=== PATIENT | male | born 1945 | race Caucasian/White ===

== ENCOUNTER 2016-10-30 15:12 | Inpatient (IN) | payer OTHER ==
[~2016-10-30] VITALS: Ht 179.1 cm; Wt 79.0 kg
[~2016-10-30 15:12] MED LIST: APR25 PO; ASPI81TA28 PO; ATOR10TA82 PO; FAMOCHW27 PO; FRS/40 PO; IMDSR30 PO; METO100T44 PO; NTRGSL/4 UT; PRD10 PO; SNK PO; TAMS0.4C38 PO; TRAM-10 PO
[2016-10-30] MEDS ORDERED: FENTANYL CITRATE INJ 50 MCG/1 ML 2 ML VIAL IV STA (15:42)
[2016-10-30] MEDS ORDERED: ONDANSETRON INJ 2 MG/ML 2 ML VIAL IV STA (15:42)
[2016-10-30] MEDS ORDERED: SODIUM CHLORIDE 0.9% 500ML 500 ML IV STA (15:42)
[2016-10-30] MEDS ORDERED: AMLO-114 PO ×2 (16:01→16:06)
[2016-10-30] MEDS ORDERED: SENN15TA PO (16:01)
[2016-10-30] MEDS ORDERED: PRD/1 PO (16:01)
[2016-10-30] MEDS ORDERED: CHOL200010 PO (16:01)
[2016-10-30] MEDS ORDERED: HYDR-4716 PO (16:01)
[2016-10-30] MEDS ORDERED: FLUO5CRE TOP (16:01)
[2016-10-30] MEDS ORDERED: FRS/40 PO (16:01)
[2016-10-30] MEDS ORDERED: ISOS30TA3 PO (16:01)
--- NOTE | 2016-10-30 16:55 | EMERGENCY ROOM VISIT NOTE ---
ED Visit Note First contact with patient: 15:24 I have seen and examined this patient with Lena Weber and generally agree with the treatment plan as discussed. Problem List Medical Problems: (1) MARGARET inhibitor intolerance Status: Chronic (2) BPH (benign prostatic hyperplasia) Status: Chronic (3) CAD (coronary artery disease) Status: Chronic (4) Carotid stenosis Status: Chronic (5) CKD (chronic kidney disease) stage 3, GFR 30-59 ml/min Status: Chronic (6) Dyslipidemia Status: Chronic (7) GERD (gastroesophageal reflux disease) Status: Chronic (8) HTN (hypertension) Status: Chronic (9) LBBB (left bundle branch block) Status: Chronic (10) Lumbago Status: Chronic (11) PMR (polymyalgia rheumatica) Status: Chronic Surgical Problems: (1) H/O heart artery stent Permanent Comment: left subclavian stent for occlusion with front runner catheter, Dr Retana 04/23 Status: Resolved (2) History of back surgery Status: Resolved (3) History of cholecystectomy Status: Resolved (4) History of inguinal hernia repair Status: Resolved (5) History of tonsillectomy Status: Resolved (6) S/P PTCA (percutaneous transluminal coronary angioplasty) Status: Chronic Current/Historical Medications Scheduled Amlodipine (Norvasc), 10 MG PO DAILY Aspirin (Aspirin Ec), 81 MG PO DAILY Atorvastatin (Lipitor), 10 MG PO 3XWK Cholecalciferol (Vitamin D), 2,000 UNITS PO DAILY Fluorouracil (Topical) (Efudex), 1 APPLN TOP BID Furosemide (Lasix), 40 MG PO DAILY Hydralazine HCl (Hydralazine HCl), 25 MG PO TID Isosorbide Mononitrate Ext Rel (Imdur Ext Rel), 30 MG PO QPM Metoprolol Succ (Toprol Xl) (Toprol-Xl ), 100 MG PO DAILY Prednisone (Prednisone), 8 MG PO DAILY Sennosides (Ex-Lax), 2 TABS PO PRN Tamsulosin Hcl (Flomax), 0.4 MG PO QPM Allergies Coded Allergies: Meperidine (Verified Allergy, Intermediate, HIVES, 06/08/16) Morphine (Verified Allergy, Intermediate, HIVES, 06/08/16) Hydromorphone (Verified Allergy, Unknown, HIVES, 12/19/16) Lisinopril (Verified Adverse Reaction, Unknown, COUGH, 06/08/16) Vital Signs Date Time Temp Pulse Resp B/P Pulse Ox O2 Delivery O2 Flow Rate FiO2 10/30/16 15:17 36.6 55 22 139/66 96 Room Air Laboratory Results Test 10/30/16 15:36 Departure Information Referrals Maciej Cardona M.D. (PCP) Patient Instructions [facility]
--- NOTE | 2016-10-30 17:00 | DIAGNOSTIC IMAGING REPORT ---
PA CHEST RADIOGRAPH AND UPRIGHT AND SUPINE AP RADIOGRAPHS OF THE ABDOMEN CLINICAL HISTORY: Abdominal pain. History of obstruction. COMPARISON STUDY: CT of the abdomen and pelvis May 05, 2016 and chest radiograph June 09, 2016. FINDINGS: A left subclavian artery stent is noted. Mild cardiomegaly is unchanged. Mild left basilar opacity favors atelectasis. There may be a trace left pleural effusion. There is no evidence of pulmonary edema. There is no free air. Numerous loops of moderately dilated small bowel are noted. The stomach is distended. There are cholecystectomy clips. A right hip arthroplasty is partially imaged. IMPRESSION: 1. Findings suggestive of a small bowel obstruction with moderate small bowel dilatation and distention of the stomach. 2. No free air. 3. Mild to moderate cardiomegaly. Electronically signed by: Frank Manriquez M.D. 10/30/2016 4:59 PM Dictated Date/Time: 10/30/2016 4:52 PM
[2016-10-30 17:06] LABS: BASO % 0.1 %; BASO ABS # 0.02 K/uL (0-0.2); COMPLETE YES; EOS % 0.6 %; HEMATOCRIT 46.5 % (42-52); IG% 0.2 %; LYMPH % 8.8 %; LYMPH ABS # 1.49 K/uL (1.2-3.4); MEAN CELL VOLUME 89.9 fL (80-100); MEAN CORPUSCULAR HEMOGLOBIN 29.2 pg (25-34); MEAN CORPUSCULAR HGB CONC 32.5 g/dl (32-36); MEAN PLATELET VOLUME 9.3 fL (7.4-10.4); NEUT % 81.3 %; PLATELET COUNT 300 K/uL (130-400); RED BLOOD COUNT 5.17 M/uL (4.7-6.1); WHITE BLOOD COUNT 16.95 K/uL (4.8-10.8)
[2016-10-30 17:39] LABS: ALT/SGPT 17 U/L (12-78); AST/SGOT 9 U/L (15-37); BLOOD UREA NITROGEN 32 mg/dl (7-18); BUN/CREATININE RATIO 17.9 (10-20); CALCIUM 9.3 mg/dl (8.5-10.1); CARBON DIOXIDE 30 mmol/L (21-32); CHLORIDE 102 mmol/L (98-107); GLUCOSE 114 mg/dl (70-99); POTASSIUM 3.8 mmol/L (3.5-5.1); SODIUM 140 mmol/L (136-145)
[2016-10-30 17:44] LABS: ALB/GLOB RATIO 0.8 (0.9-2); ALKALINE PHOSPHATASE 91 U/L (45-117)
--- NOTE | 2016-10-30 18:14 | EMERGENCY ROOM VISIT NOTE ---
History First contact with patient: 15:24 Chief Complaint: CONSTIPATION Stated Complaint: BOWEL BLOCKAGE CAUSING CONESTIVE HEART FAILURE Nursing Triage Summary: Pt reports he has been constipated for 1 week. Abdominal pain, nausea. Pt was here last year for bowel obstruction. Pt took laxatives this morning with no help History of Present Illness The patient is a 71 year old male who presents to the Emergency Room with complaints of constipation and abdominal pain. The patient reports that he has been constipated for the past one week. His last bowel movement was 7 days ago. Normally, he moves his bowels every 2-3 days. He states he took 2 Ex-Lax pills this morning. Shortly after, he developed a feeling of tightness in his abdomen as well as pain and dry heaves. He states the pain is across the middle of his abdomen. He rates his current discomfort a 10/10. He does have a history of bowel obstruction in April of last year. He states that his symptoms today do feel similar, but are less severe than his prior obstruction. He was able to eat cereal this morning but states he has not had much of an appetite since then. He has a history of CHF and hypertension. He reports history of a back surgery, neck surgery, hip fracture, bilateral inguinal hernia repairs, cholecystectomy and prior skin cancer. The patient denies any chest pain, shortness of breath, fevers, urinary symptoms or rectal bleeding. Review of Systems A complete 10 point review of systems was reviewed with the patient with pertinent positives and negatives as per history of present illness. All else were negative. Past Medical/Surgical History Medical Problems: (1) MARGARET inhibitor intolerance (2) BPH (benign prostatic hyperplasia) (3) CAD (coronary artery disease) (4) Carotid stenosis (5) CKD (chronic kidney disease) stage 3, GFR 30-59 ml/min (6) Dyslipidemia (7) GERD (gastroesophageal reflux disease) (8) HTN (hypertension) (9) LBBB (left bundle branch block) (10) Lumbago (11) Pericardial effusion (12) PMR (polymyalgia rheumatica) (13) Small bowel obstruction due to adhesions Surgical Problems: (1) H/O heart artery stent (2) History of back surgery (3) History of cholecystectomy (4) History of inguinal hernia repair (5) History of tonsillectomy (6) S/P PTCA (percutaneous transluminal coronary angioplasty) Social History Smoking Status: Former Smoker Alcohol Use: none Drug Use: none Marital Status: Housing Status: lives with family Current/Historical Medications Scheduled Amlodipine (Norvasc), 10 MG PO DAILY Aspirin (Aspirin Ec), 81 MG PO DAILY Atorvastatin (Lipitor), 10 MG PO 3XWK Cholecalciferol (Vitamin D), 2,000 UNITS PO DAILY Fluorouracil (Topical) (Efudex), 1 APPLN TOP BID Furosemide (Lasix), 40 MG PO DAILY Hydralazine HCl (Hydralazine HCl), 25 MG PO TID Isosorbide Mononitrate Ext Rel (Imdur Ext Rel), 30 MG PO QPM Metoprolol Succ (Toprol Xl) (Toprol-Xl ), 100 MG PO DAILY Prednisone (Prednisone), 8 MG PO DAILY Sennosides (Ex-Lax), 2 TABS PO PRN Tamsulosin Hcl (Flomax), 0.4 MG PO QPM Allergies Coded Allergies: Meperidine (Verified Allergy, Intermediate, HIVES, 06/08/16) Morphine (Verified Allergy, Intermediate, HIVES, 06/08/16) Hydromorphone (Verified Allergy, Unknown, HIVES, 06/08/16) Lisinopril (Verified Adverse Reaction, Unknown, COUGH, 06/08/16) Physical Exam Vital Signs Date Time Temp Pulse Resp B/P Pulse Ox O2 Delivery O2 Flow Rate FiO2 10/30/16 18:25 68 18 179/76 93 Room Air 10/30/16 15:17 36.6 55 22 139/66 96 Room Air Physical Exam VITALS: Vitals are noted on the nurse's note and reviewed by myself. Vital signs stable. GENERAL: This is a 71-year-old male, in no acute distress, nondiaphoretic, well- developed well-nourished. SKIN: The skin was without rashes. EYES: Pupils equal round and reactive to light and accommodation. No scleral icterus. MOUTH: Mucous membranes slightly dry. HEART: Regular rate and rhythm without murmurs gallops or rubs. LUNGS: Clear to auscultation bilaterally without wheezes, rales or rhonchi. ABDOMEN: Positive bowel sounds x 4. The abdomen is nondistended. There is diffuse tenderness to palpation across the mid abdomen with no focal tenderness. No guarding or rebound tenderness noted. NEURO: Patient was alert and oriented to person place and time. Medical Decision & Procedures ER Provider Diagnostic Interpretation: PA CHEST RADIOGRAPH AND UPRIGHT AND SUPINE AP RADIOGRAPHS OF THE ABDOMEN CLINICAL HISTORY: Abdominal pain. History of obstruction. COMPARISON STUDY: CT of the abdomen and pelvis May 05, 2016 and chest radiograph June 09, 2016. FINDINGS: A left subclavian artery stent is noted. Mild cardiomegaly is unchanged. Mild left basilar opacity favors atelectasis. There may be a trace left pleural effusion. There is no evidence of pulmonary edema. There is no free air. Numerous loops of moderately dilated small bowel are noted. The stomach is distended. There are cholecystectomy clips. A right hip arthroplasty is partially imaged. IMPRESSION: 1. Findings suggestive of a small bowel obstruction with moderate small bowel dilatation and distention of the stomach. 2. No free air. 3. Mild to moderate cardiomegaly. Laboratory Results 10/30/16 16:58 Red Blood Count 5.17, Mean Corpuscular Volume 89.9, Mean Corpuscular Hemoglobin 29.2, Mean Corpuscular Hemoglobin Concent 32.5, Mean Platelet Volume 9.3, Neutrophils (%) (Auto) 81.3, Lymphocytes (%) (Auto) 8.8, Monocytes (%) (Auto) 9.0, Eosinophils (%) (Auto) 0.6, Basophils (%) (Auto) 0.1, Neutrophils # (Auto) 13.77, Lymphocytes # (Auto) 1.49, Monocytes # (Auto) 1.53, Eosinophils # (Auto) 0.10, Basophils # (Auto) 0.02 10/30/16 16:58 Test 10/30/16 16:58 10/30/16 18:15 White Blood Count 16.95 K/uL (4.8-10.8) Red Blood Count 5.17 M/uL (4.7-6.1) Hemoglobin 15.1 g/dL (14.0-18.0) Hematocrit 46.5 % (42-52) Mean Corpuscular Volume 89.9 fL (80-100) Mean Corpuscular Hemoglobin 29.2 pg (25-34) Mean Corpuscular Hemoglobin Concent 32.5 g/dl (32-36) Platelet Count 300 K/uL (130-400) Mean Platelet Volume 9.3 fL (7.4-10.4) Neutrophils (%) (Auto) 81.3 % Lymphocytes (%) (Auto) 8.8 % Monocytes (%) (Auto) 9.0 % Eosinophils (%) (Auto) 0.6 % Basophils (%) (Auto) 0.1 % Neutrophils # (Auto) 13.77 K/uL (1.4-6.5) Lymphocytes # (Auto) 1.49 K/uL (1.2-3.4) Monocytes # (Auto) 1.53 K/uL (0.11-0.59) Eosinophils # (Auto) 0.10 K/uL (0-0.5) Basophils # (Auto) 0.02 K/uL (0-0.2) RDW Standard Deviation 48.3 fL (36.4-46.3) RDW Coefficient of Variation 14.7 % (11.5-14.5) Immature Granulocyte % (Auto) 0.2 % Immature Granulocyte # (Auto) 0.04 K/uL (0.00-0.02) Anion Gap 8.0 mmol/L (3-11) Est Creatinine Clear Calc Drug Dose 40.0 ml/min Estimated GFR () 43.5 Estimated GFR (Non- 37.6 BUN/Creatinine Ratio 17.9 (10-20) Calcium Level 9.3 mg/dl (8.5-10.1) Total Bilirubin 0.8 mg/dl (0.2-1) Aspartate Amino Transf (AST/SGOT) 9 U/L (15-37) Alanine Aminotransferase (ALT/SGPT) 17 U/L (12-78) Alkaline Phosphatase 91 U/L (45-117) Troponin I < 0.015 ng/ml (0-0.045) Total Protein 7.9 gm/dl (6.4-8.2) Albumin 3.6 gm/dl (3.4-5.0) Globulin 4.3 gm/dl (2.5-4.0) Albumin/Globulin Ratio 0.8 (0.9-2) Lipase 392 U/L (73-393) Urine Color DK YELLOW Urine Appearance CLEAR (CLEAR) Urine pH 5.0 (4.5-7.5) Urine Specific [place] 1.015 (1.000-1.030) Urine Protein NEG (NEG) Urine Glucose (UA) NEG (NEG) Urine Ketones NEG (NEG) Urine Occult Blood NEG (NEG) Urine Nitrite NEG (NEG) Urine Bilirubin NEG (NEG) Urine Urobilinogen NEG (NEG) Urine Leukocyte Esterase TRACE (NEG) Urine WBC (Auto) 1-5 /hpf (0-5) Urine RBC (Auto) 0-4 /hpf (0-4) Urine Hyaline Casts (Auto) 10-30 /lpf (0-5) Urine Epithelial Cells (Auto) 5-10 /lpf (0-5) Urine Bacteria (Auto) NEG (NEG) Urine Pathogenic Casts /lpf (0) Medications Administered Medications (Trade) Dose Ordered Sig/Antonino Route Start Time Stop Time Status Last Admin Dose Admin Sodium Chloride (Nss 500ml) 500 ml @ 999 mls/hr Q31M STAT IV 10/30/16 15:42 10/30/16 16:12 DC 10/30/16 17:16 999 MLS/HR Fentanyl Citrate (Fentanyl Inj) 50 mcg NOW STAT IV 10/30/16 15:42 10/30/16 15:43 DC 10/30/16 17:17 50 MCG Ondansetron HCl (Zofran Inj) 4 mg NOW STAT IV 10/30/16 15:42 10/30/16 15:43 DC 10/30/16 17:16 4 MG ED Course The patient was evaluated as above. Labs were drawn and IV access was obtained. Patient was medicated with 50 g fentanyl and 4 mg Zofran. Abdominal series was performed and read by radiology as above. Patient was reevaluated and informed of the findings. His pain has improved. NG tube was inserted by nursing staff. Case was discussed with Dr. Hawk, the general surgeon public relations counselor. He recommended admitting the patient to the medical service. Case was discussed with the [facility] hospitalist, Dr. Lazar. They agreed to evaluate the patient for admission. Medical Decision Differential diagnosis includes bowel obstruction, fecal impaction, diverticulitis, colitis, perforated viscus, among others. The patient is a 71-year-old male who presents today complaining of abdominal pain. Labs revealed a leukocytosis at 16.9. Creatinine was elevated at 1.80, but this appears to be the patient's baseline. EKG was interpreted by myself and shows a left bundle-branch block, which is old for the patient. Troponin is not elevated. Abdominal series shows evidence of a small bowel obstruction. General surgery was consulted and recommended medical admission. The hospitalist was contacted and will evaluate the patient for admission. NG tube was placed by nursing staff in the ED. All findings were discussed with the patient, who is agreeable to the treatment plan. The patient was independently evaluated by Dr. Lynn, ED attending physician , who agreed with my assessment and treatment plan. Impression Primary Impression: Small bowel obstruction Departure Information Referrals Maciej Cardona M.D. (PCP) Patient Instructions [facility]
[2016-10-30] MEDS ORDERED: D5NSS + 20MEQ KCL 1,000 ML IV SCH (18:45)
[2016-10-30] MEDS ORDERED: POLYETHYLENE (MIRALAX) 17 GM PACK PO PRN (18:45)
[2016-10-30] MEDS ORDERED: OXYCODONE/ACETAMINOPHEN 5-325 TAB PO PRN (18:45)
[2016-10-30] MEDS ORDERED: ACETAMINOPHEN 325 MG TAB PO PRN (18:45)
[2016-10-30] MEDS ORDERED: ONDANSETRON INJ 2 MG/ML 2 ML VIAL IV PRN (18:45)
[2016-10-30] MEDS ORDERED: MAGNESIUM HYDROXIDE SUSP 30 ML UDC PO PRN (18:45)
[2016-10-30] MEDS ORDERED: ALUMINUM/MAGNESIUM/SIMETH (MAALOX MAX) 30 ML UDC PO PRN (18:45)
[2016-10-30 18:46] LABS: URINE APPEARANCE CLEAR (CLEAR); URINE BILIRUBIN NEG (NEG); URINE COLOR DK YELLOW; URINE NITRITE NEG (NEG); URINE SPECIFIC GRAVITY 1.015 (1.000-1.030); UROBILINOGEN NEG (NEG); ZZUR CULT IF INDIC CLEAN CATCH NO
[2016-10-30 18:47] LABS: MANUAL MICROSCOPIC REQUIRED? NO; REVIEW REQ? YES
--- NOTE | 2016-10-30 18:54 | DIAGNOSTIC IMAGING REPORT ---
KUB HISTORY: Confirm placement of NG tube COMPARISON: Abdominal series 10/30/2016. FINDINGS: Nasogastric tube terminates in the proximal stomach. The fenestrated line is at the gastroesophageal junction. Therefore, this should be advanced by approximately 5 to 10 cm. Persistent dilatation of the small bowel loops. Cholecystectomy. Left basilar subsegmental atelectasis. No pneumoperitoneum or pneumatosis. IMPRESSION: 1. Nasogastric tube terminates in the proximal stomach and should be advanced by approximately 5 to 10 cm. 2. Persistent small bowel obstruction. Electronically signed by: Gualberto Hardy M.D. 10/30/2016 6:53 PM Dictated Date/Time: 10/30/2016 6:52 PM
--- NOTE | 2016-10-30 19:05 | History and Physical ---
History & Physical Date & Time of Service: October 30, 2016 at 18:47 Chief Complaint: Bowel Blockage Causing Conestive Heart Failure Primary Care Physician: Maciej Cardona M.D. History of Present Illness Source: patient, family, clinic records, hospital records This is a 71 year old male with a PMH of CAD s/p stents, chronic systolic CHF, CKD stage 3, PMR on chronic steroids, cervical disc disease, hx. of small bowel obstruction in April 2016 presents with abdominal distention, nausea/ vomiting that began prior to arrival; states that it seemed like a sudden increase in abdominal size; he developed sudden nausea and numerous episodes of vomiting. States he usually has a bowel movement every 2-3 days, did not think he was constipated at this time. He says this is similar to the episode that he had in April where he was also diagnosed with SBO, at that time, managed conservatively. Still feels sick, nauseous during exam. NGT is in place, not currently suctioning. States he also has pain in the cervical neck region, which is a chronic issue, but is worse than usual due to vomiting. As per , he has been having chills at home. Past Medical/Surgical History Medical Problems: (1) MARGARET inhibitor intolerance Status: Chronic (2) BPH (benign prostatic hyperplasia) Status: Chronic (3) CAD (coronary artery disease) Status: Chronic (4) Carotid stenosis Status: Chronic (5) CKD (chronic kidney disease) stage 3, GFR 30-59 ml/min Status: Chronic (6) Dyslipidemia Status: Chronic (7) GERD (gastroesophageal reflux disease) Status: Chronic (8) HTN (hypertension) Status: Chronic (9) LBBB (left bundle branch block) Status: Chronic (10) Lumbago Status: Chronic (11) PMR (polymyalgia rheumatica) Status: Chronic Surgical Problems: (1) H/O heart artery stent Permanent Comment: left subclavian stent for occlusion with front runner catheter, Dr Retana 04/23 Status: Resolved (2) History of back surgery Status: Resolved (3) History of cholecystectomy Status: Resolved (4) History of inguinal hernia repair Status: Resolved (5) History of tonsillectomy Status: Resolved (6) S/P PTCA (percutaneous transluminal coronary angioplasty) Status: Chronic Social History Smoking Status: Former Smoker Drug Use: none Marital Status: Housing status: lives with family Immunizations History of Influenza Vaccine: No History of Tetanus Vaccine?: Unknown History of Pneumococcal: Yes History of Hepatitis B Vaccine: Unknown Hepatitis Immunization Date: Jan 21, 2007 Multi-Drug Resistant Organisms History of MDRO: No Allergies Coded Allergies: Meperidine (Verified Allergy, Intermediate, HIVES, 06/08/16) Morphine (Verified Allergy, Intermediate, HIVES, 06/08/16) Hydromorphone (Verified Allergy, Unknown, HIVES, 06/08/16) Lisinopril (Verified Adverse Reaction, Unknown, COUGH, 06/08/16) Home Medications Scheduled Amlodipine (Norvasc), 10 MG PO DAILY Aspirin (Aspirin Ec), 81 MG PO DAILY Atorvastatin (Lipitor), 10 MG PO 3XWK Cholecalciferol (Vitamin D), 2,000 UNITS PO DAILY Fluorouracil (Topical) (Efudex), 1 APPLN TOP BID Furosemide (Lasix), 40 MG PO DAILY Hydralazine HCl (Hydralazine HCl), 25 MG PO TID Isosorbide Mononitrate Ext Rel (Imdur Ext Rel), 30 MG PO QPM Metoprolol Succ (Toprol Xl) (Toprol-Xl ), 100 MG PO DAILY Prednisone (Prednisone), 8 MG PO DAILY Sennosides (Ex-Lax), 2 TABS PO PRN Tamsulosin Hcl (Flomax), 0.4 MG PO QPM Review of Systems Constitutional: + chills, No fever Respiratory: No cough, No dyspnea at rest, No dyspnea on exertion, No hemoptysis, No shortness of breath, No sputum, No wheezing Cardiovascular: No chest pain, No edema, No orthopnea, No palpitations Abdomen: + constipation, + nausea, + vomiting, No GI bleeding, No diarrhea, No pain Musculoskeletal: + joint pain (cervical spine; R hip), + muscle pain Genitourinary - Male: + urinary retention (chronic), No dysuria, No urinary frequency, No urinary urgency Neurologic: No balance problems, No vertigo Psychiatric: No anxiety, No depression symptoms Hematologic / Lymphatic: No abnormal bleeding/bruising Integumentary: No rash Allergic / Immunologic: No environmental allergies, No seasonal allergies Physical Exam Vital Signs Date Time Temp Pulse Resp B/P Pulse Ox O2 Delivery O2 Flow Rate FiO2 10/30/16 15:17 36.6 55 22 139/66 96 Room Air General Appearance: + mild distress (mild to moderate distress secondary to nausea, pain) Head: normocephalic, atraumatic Eyes: normal inspection ENT: hearing grossly normal Respiratory/Chest: lungs clear, normal breath sounds, no respiratory distress, no accessory muscle use Cardiovascular: regular rate, rhythm, no edema, no murmur Abdomen/GI: non tender, no organomegaly, + abnormal bowel sounds (decreased bowel sounds), + distended Back: no muscle spasm Extremities/Musculoskelatal: normal capillary refill, no pedal edema Neurologic/Psych: no motor/sensory deficits, alert Skin: normal color Lymphatic: no adenopathy Diagnostics Laboratory Results Results Past 24 Hours Test 10/30/16 16:58 10/30/16 18:15 Range/Units White Blood Count 16.95 4.8-10.8 K/uL Red Blood Count 5.17 4.7-6.1 M/uL Hemoglobin 15.1 14.0-18.0 g/dL Hematocrit 46.5 42-52 % Mean Corpuscular Volume 89.9 80-100 fL Mean Corpuscular Hemoglobin 29.2 25-34 pg Mean Corpuscular Hemoglobin Concent 32.5 32-36 g/dl Platelet Count 300 130-400 K/uL Mean Platelet Volume 9.3 7.4-10.4 fL Neutrophils (%) (Auto) 81.3 % Lymphocytes (%) (Auto) 8.8 % Monocytes (%) (Auto) 9.0 % Eosinophils (%) (Auto) 0.6 % Basophils (%) (Auto) 0.1 % Neutrophils # (Auto) 13.77 1.4-6.5 K/uL Lymphocytes # (Auto) 1.49 1.2-3.4 K/uL Monocytes # (Auto) 1.53 0.11-0.59 K/uL Eosinophils # (Auto) 0.10 0-0.5 K/uL Basophils # (Auto) 0.02 0-0.2 K/uL RDW Standard Deviation 48.3 36.4-46.3 fL RDW Coefficient of Variation 14.7 11.5-14.5 % Immature Granulocyte % (Auto) 0.2 % Immature Granulocyte # (Auto) 0.04 0.00-0.02 K/uL Sodium Level 140 136-145 mmol/L Potassium Level 3.8 3.5-5.1 mmol/L Chloride Level 102 98-107 mmol/L Carbon Dioxide Level 30 21-32 mmol/L Anion Gap 8.0 3-11 mmol/L Blood Urea Nitrogen 32 7-18 mg/dl Creatinine 1.80 0.60-1.40 mg/dl Est Creatinine Clear Calc Drug Dose 40.0 ml/min Estimated GFR () 43.5 Estimated GFR (Non- 37.6 BUN/Creatinine Ratio 17.9 10-20 Random Glucose 114 70-99 mg/dl Calcium Level 9.3 8.5-10.1 mg/dl Total Bilirubin 0.8 0.2-1 mg/dl Aspartate Amino Transf (AST/SGOT) 9 15-37 U/L Alanine Aminotransferase (ALT/SGPT) 17 12-78 U/L Alkaline Phosphatase 91 45-117 U/L Troponin I < 0.015 0-0.045 ng/ml Total Protein 7.9 6.4-8.2 gm/dl Albumin 3.6 3.4-5.0 gm/dl Globulin 4.3 2.5-4.0 gm/dl Albumin/Globulin Ratio 0.8 0.9-2 Lipase 392 73-393 U/L Diagnostic Radiology PA CHEST RADIOGRAPH AND UPRIGHT AND SUPINE AP RADIOGRAPHS OF THE ABDOMEN CLINICAL HISTORY: Abdominal pain. History of obstruction. COMPARISON STUDY: CT of the abdomen and pelvis May 05, 2016 and chest radiograph June 09, 2016. FINDINGS: A left subclavian artery stent is noted. Mild cardiomegaly is unchanged. Mild left basilar opacity favors atelectasis. There may be a trace left pleural effusion. There is no evidence of pulmonary edema. There is no free air. Numerous loops of moderately dilated small bowel are noted. The stomach is distended. There are cholecystectomy clips. A right hip arthroplasty is partially imaged. IMPRESSION: 1. Findings suggestive of a small bowel obstruction with moderate small bowel dilatation and distention of the stomach. 2. No free air. 3. Mild to moderate cardiomegaly. No change from prior EKG Impression Assessment and Plan This is a 71 year old male with a PMH of CAD s/p stents, chronic systolic CHF, CKD stage 3, PMR on chronic steroids, cervical disc disease, hx. of small bowel obstruction in April 2016 presents with abdominal distention, nausea/vomiting Small Bowel Obstruction patient presented with distention, nausea, vomiting radiographs suggest SBO NGT in place, will need to be advanced then intermittent suctioning gentle hydration, D5NS + 20meq KCl @ 80mL/hr x1 bag total NPO for now general surgery consultation; recurrent SBO Chronic Systolic CHF echo performed in May 2016 suggests mild LVEF dysfunction LVEF ~ 40-45% hold Lasix give gentle fluids while NPO monitor for fluid overload MARGARET-I intolerance CKD stage 3 creat = 1.8 baseline is around 1.6-1.7 gentle hydration with IVFs avoiding nephrotoxic agents if able CAD s/p stents clinically stable continue aspirin, statin, b-natanael, imdur PMR continue prednisone DVT ppx subq heparin FULL CODE Level of Care Med/Surg Resuscitation Status FULL RESUSCITATION VTE Prophylaxis VTE Risk Assessment Done? Y/N: Yes Risk Level: Moderate Given or contraindicated: Unfractionated heparin SQ
[2016-10-30] MEDS ORDERED: HydrALAZINE HCL 20 MG/ML VIAL IV. PRN (19:15)
[2016-10-30 20:16] VITALS: O2SAT 93
[2016-10-30] MEDS ORDERED: ACETAMINOPHEN 1000 MG/100 ML IV IV ONE (20:42)
[2016-10-30] MEDS ORDERED: ACETAMINOPHEN IV 650 MG in EMPTY BAG 0 ML IV PRN (20:45)
[2016-10-30] MEDS: ISOSORBIDE MONONITRATE 30 MG TABCR PO SCH (21:00)
[2016-10-30] MEDS ORDERED: FLUOROURACIL TOP SCH (21:00)
[2016-10-30] MEDS: TAMSULOSIN HCL 0.4 MG CAP PO SCH (21:00)
[2016-10-30 21:20] VITALS: BP 150/69; PULSE 67; TEMP 36.9; O2SAT 95
[2016-10-30 21:46] VITALS: Ht 179.1 cm; Wt 79.0 kg
[2016-10-30] MEDS ORDERED: ATORVASTATIN 10 MG TAB PO SCH (21:55)
[2016-10-30 22:59] LABS: PROTHROMBIN TIME (PATIENT) 10.7 SECONDS (9.0-12.0)
[2016-10-31 00:51] VITALS: BP 133/71; PULSE 73; TEMP 37.2; O2SAT 94
[2016-10-31] MEDS: HEPARIN SOD 5000 UNIT/0.5 ML CARP SQ SCH ×3 (06:07→21:26)
[2016-10-31 06:41] LABS: HEMATOCRIT 41.2 % (42-52); MEAN CELL VOLUME 90.4 fL (80-100); MEAN CORPUSCULAR HEMOGLOBIN 29.2 pg (25-34); MEAN CORPUSCULAR HGB CONC 32.3 g/dl (32-36); MEAN PLATELET VOLUME 9.5 fL (7.4-10.4); PLATELET COUNT 275 K/uL (130-400); RED BLOOD COUNT 4.56 M/uL (4.7-6.1); WHITE BLOOD COUNT 11.07 K/uL (4.8-10.8)
[2016-10-31 07:00] VITALS: BP_SYST 180; BP_SYST 187; BP_DIAS 71; BP_DIAS 79; PULSE 67; TEMP 36.9; O2SAT 94
[2016-10-31 07:16] LABS: BUN/CREATININE RATIO 20.5 (10-20); CALCIUM 8.4 mg/dl (8.5-10.1); CREATININE 1.7 mg/dl (0.60-1.40); MAGNESIUM 2.5 mg/dl (1.8-2.4); POTASSIUM 4.2 mmol/L (3.5-5.1)
[2016-10-31] MEDS: ASPIRIN 81 MG ECTAB PO SCH (07:51)
[2016-10-31] MEDS: METOPROLOL SUCC 50MG EXT REL TAB PO SCH (07:51)
[2016-10-31] MEDS: AMLODIPINE BESYLATE 5 MG TAB PO SCH (07:52)
[2016-10-31] MEDS: PREDNISONE PO SCH ×2 (07:52)
--- NOTE | 2016-10-31 09:11 | DIAGNOSTIC IMAGING REPORT ---
ABDOMEN 2 VIEWS HISTORY: Follow-up small bowel obstruction. COMPARISON: KUB 10/30/2016. FINDINGS: Nasogastric tube terminates in the stomach. Prior cholecystectomy. Multiple distended gas-filled loops of small bowel are again seen throughout the abdomen. These are not simply changed. There is gas and fluid within the colon. Right hip arthroplasty. No pneumoperitoneum. No pneumatosis. IMPRESSION: No change in the small bowel obstruction. Nasogastric tube terminates in the stomach. Electronically signed by: Gualberto Hardy M.D. 10/31/2016 9:10 AM Dictated Date/Time: 10/31/2016 9:09 AM
--- NOTE | 2016-10-31 11:13 | Surgery Consultation ---
Consultation Date of Consultation: October 31, 2016. Attending Physician: Andie Ledezma DO History of Present Illness 71 y/o with several day hx of n/v and abdominal pain. presented to er and found to have a SBO currently feeling much better. several large BM's overnight. no nausea. no pain currently. states abdominal distension resolved. Past Medical/Surgical History Medical Problems: (1) CHF (congestive heart failure) Status: Acute (2) Respiratory failure Status: Acute (3) Small bowel obstruction Status: Acute Surgical Problems: (1) S/P PTCA (percutaneous transluminal coronary angioplasty) Status: Chronic Social History Smoking Status: Former Smoker Drug Use: none Marital Status: Housing Status: lives with family Allergies Coded Allergies: Meperidine (Verified Allergy, Intermediate, HIVES, 06/08/16) Morphine (Verified Allergy, Intermediate, HIVES, 06/08/16) Hydromorphone (Verified Allergy, Unknown, HIVES, 06/08/16) Lisinopril (Verified Adverse Reaction, Unknown, COUGH, 06/08/16) Home Medications Scheduled Amlodipine (Norvasc), 10 MG PO DAILY Aspirin (Aspirin Ec), 81 MG PO DAILY Atorvastatin (Lipitor), 10 MG PO 3XWK Cholecalciferol (Vitamin D), 2,000 UNITS PO DAILY Fluorouracil (Topical) (Efudex), 1 APPLN TOP BID Furosemide (Lasix), 40 MG PO DAILY Hydralazine HCl (Hydralazine HCl), 25 MG PO TID Isosorbide Mononitrate Ext Rel (Imdur Ext Rel), 30 MG PO QPM Metoprolol Succ (Toprol Xl) (Toprol-Xl ), 100 MG PO DAILY Prednisone (Prednisone), 8 MG PO DAILY Sennosides (Ex-Lax), 2 TABS PO PRN Tamsulosin Hcl (Flomax), 0.4 MG PO QPM Current Inpatient Medications Current Inpatient Medications Medications (Trade) Dose Ordered Sig/Antonino Route Start Time Stop Time Status Last Admin Dose Admin Heparin Sodium (Porcine) (Heparin Sq 5000 Unit/0.5ml) 5,000 unit Q8H SQ 10/31/16 06:00 11/30/16 05:59 10/31/16 06:07 5,000 UNIT Acetaminophen (Tylenol Tab) 650 mg Q4H PRN PO 10/30/16 18:45 6/11/17 18:44 Al Hydrox/Mg Hydrox/Simethicone (Maalox Max Susp) 15 ml Q4H PRN PO 10/30/16 18:45 11/29/16 18:44 Magnesium Hydroxide (Milk Of Magnesia Susp) 30 ml Q6H PRN PO 10/30/16 18:45 11/29/16 18:44 Polyethylene (Miralax Powder Packet) 17 gm DAILY PRN PO 10/30/16 18:45 11/29/16 18:44 Ondansetron HCl (Zofran Inj) 4 mg Q6H PRN IV 10/30/16 18:45 11/29/16 18:44 Amlodipine Besylate (Norvasc Tab) 10 mg DAILY PO 10/31/16 09:00 11/30/16 08:59 10/31/16 07:52 10 MG Aspirin (Ecotrin Tab) 81 mg DAILY PO 10/31/16 09:00 11/30/16 08:59 10/31/16 07:51 81 MG Atorvastatin Calcium (Lipitor Tab) 10 mg MoWeFr@2100 PO 10/30/16 21:55 11/29/16 21:54 Hydralazine HCl (Apresoline Tab) 25 mg TID PO 10/30/16 21:00 11/29/16 20:59 10/31/16 07:51 25 MG Isosorbide Mononitrate (Imdur Ext Rel Tab) 30 mg QPM PO 10/30/16 21:00 11/29/16 20:59 Metoprolol Succinate (Toprol Xl Tab) 100 mg DAILY PO 10/31/16 09:00 11/30/16 08:59 10/31/16 07:51 100 MG Tamsulosin HCl (Flomax Cap) 0.4 mg QPM PO 10/30/16 21:00 11/29/16 20:59 Oxycodone/ Acetaminophen (Percocet 5-325mg Tab) 1 tab Q4H PRN PO 10/30/16 18:45 11/13/16 18:44 Hydralazine HCl 10 mg 10 mg TID PRN IV. 10/30/16 19:15 11/29/16 19:14 Acetaminophen/ Empty Bag (Ofirmev Iv/ Empty Iv Bag 100ml) 65 ml @ 260 mls/hr Q6H PRN IV 10/30/16 20:45 11/29/16 20:44 Prednisone/ Prednisone (PredniSONE TAB/ PredniSONE TAB) 8 mg QAM PO 10/31/16 09:00 11/30/16 08:59 10/31/16 07:52 8 MG Miscellaneous Information (Order Awaiting Action) 1 ea QS N/A 10/31/16 00:00 11/30/16 00:00 Review of Systems Abdomen: + nausea, + pain, + vomiting Physical Exam Date Time Temp Pulse Resp B/P Pulse Ox O2 Delivery O2 Flow Rate FiO2 10/31/16 08:00 Room Air 10/31/16 07:00 36.9 67 18 180/79 94 Room Air 187/71 10/31/16 00:51 37.2 73 16 133/71 94 Room Air 10/30/16 23:50 Room Air 10/30/16 21:46 Room Air 10/30/16 21:20 36.9 67 18 150/69 95 Room Air 10/30/16 21:20 Room Air 10/30/16 20:16 73 20 169/85 93 Room Air 10/30/16 18:25 68 18 179/76 93 Room Air 10/30/16 15:17 36.6 55 22 139/66 96 Room Air General Appearance: no apparent distress Head: normocephalic, atraumatic Eyes: normal inspection, EOMI ENT: hearing grossly normal Neck: supple, no JVD Respiratory/Chest: no respiratory distress, no accessory muscle use Cardiovascular: regular rate, rhythm Abdomen/GI: non tender, soft, + pertinent finding (non-distended) Extremities/Musculoskelatal: normal inspection, no pedal edema Neurologic/Psych: alert, oriented x 3 Skin: normal color, warm/dry, no rash Laboratory Results Last 24 Hours Test 10/30/16 16:58 10/30/16 18:15 10/30/16 22:45 10/31/16 05:48 White Blood Count 16.95 K/uL 11.07 K/uL Red Blood Count 5.17 M/uL 4.56 M/uL Hemoglobin 15.1 g/dL 13.3 g/dL Hematocrit 46.5 % 41.2 % Mean Corpuscular Volume 89.9 fL 90.4 fL Mean Corpuscular Hemoglobin 29.2 pg 29.2 pg Mean Corpuscular Hemoglobin Concent 32.5 g/dl 32.3 g/dl Platelet Count 300 K/uL 275 K/uL Mean Platelet Volume 9.3 fL 9.5 fL Neutrophils (%) (Auto) 81.3 % Lymphocytes (%) (Auto) 8.8 % Monocytes (%) (Auto) 9.0 % Eosinophils (%) (Auto) 0.6 % Basophils (%) (Auto) 0.1 % Neutrophils # (Auto) 13.77 K/uL Lymphocytes # (Auto) 1.49 K/uL Monocytes # (Auto) 1.53 K/uL Eosinophils # (Auto) 0.10 K/uL Basophils # (Auto) 0.02 K/uL RDW Standard Deviation 48.3 fL 49.4 fL RDW Coefficient of Variation 14.7 % 14.9 % Immature Granulocyte % (Auto) 0.2 % Immature Granulocyte # (Auto) 0.04 K/uL Sodium Level 140 mmol/L 143 mmol/L Potassium Level 3.8 mmol/L 4.2 mmol/L Chloride Level 102 mmol/L 107 mmol/L Carbon Dioxide Level 30 mmol/L 29 mmol/L Anion Gap 8.0 mmol/L 7.0 mmol/L Blood Urea Nitrogen 32 mg/dl 35 mg/dl Creatinine 1.80 mg/dl 1.70 mg/dl Est Creatinine Clear Calc Drug Dose 40.0 ml/min 43.0 ml/min Estimated GFR () 43.5 46.7 Estimated GFR (Non- 37.6 40.3 BUN/Creatinine Ratio 17.9 20.5 Random Glucose 114 mg/dl 98 mg/dl Calcium Level 9.3 mg/dl 8.4 mg/dl Total Bilirubin 0.8 mg/dl Aspartate Amino Transf (AST/SGOT) 9 U/L Alanine Aminotransferase (ALT/SGPT) 17 U/L Alkaline Phosphatase 91 U/L Troponin I < 0.015 ng/ml Total Protein 7.9 gm/dl Albumin 3.6 gm/dl Globulin 4.3 gm/dl Albumin/Globulin Ratio 0.8 Lipase 392 U/L Urine Color DK YELLOW Urine Appearance CLEAR Urine pH 5.0 Urine Specific [place] 1.015 Urine Protein NEG Urine Glucose (UA) NEG Urine Ketones NEG Urine Occult Blood NEG Urine Nitrite NEG Urine Bilirubin NEG Urine Urobilinogen NEG Urine Leukocyte Esterase TRACE Urine WBC (Auto) 1-5 /hpf Urine RBC (Auto) 0-4 /hpf Urine Hyaline Casts (Auto) 10-30 /lpf Urine Epithelial Cells (Auto) 5-10 /lpf Urine Bacteria (Auto) NEG Urine Pathogenic Casts /lpf Prothrombin Time 10.7 SECONDS Prothromb Time International Ratio 1.0 Activated Partial Thromboplast Time 25.0 SECONDS Partial Thromboplastin Ratio 1.0 Hepatitis C Antibody Screen NEG Magnesium Level 2.5 mg/dl Assessment & Plan PSBO clinically much improved. several BM's. nausea/pain /distension all resolved repeat KUB however shows persistent dilated small bowel loops pt anxious to progress things, however in light of the xray, I would probably keep ngt and repeat kub tomorrow am prior to pulling/starting diet will follow along.
--- NOTE | 2016-10-31 11:45 | Progress Note ---
Subjective Date of Service: October 31, 2016. Subjective Pt evaluation today including: conversation w/ patient, physical exam, lab review, review of studies, review of inpatient medication list Saw/examined the patient in room 352 NGT is currently clamped, lots of drainage ~ 500mL collected currently Has had multiple bowel movements today Problem List Medical Problems: (1) CHF (congestive heart failure) Status: Acute (2) Respiratory failure Status: Acute (3) Small bowel obstruction Status: Acute Surgical Problems: (1) S/P PTCA (percutaneous transluminal coronary angioplasty) Status: Chronic Review of Systems Constitutional: No chills, No fever Respiratory: No cough, No shortness of breath, No sputum Cardiac: No chest pain, No edema, No palpitations Abdomen: + problem reported (symptoms have resolved), No constipation, No diarrhea, No nausea, No pain, No vomiting Medications Current Inpatient Medications Medications (Trade) Dose Ordered Sig/Antonino Route Start Time Stop Time Status Last Admin Dose Admin Heparin Sodium (Porcine) (Heparin Sq 5000 Unit/0.5ml) 5,000 unit Q8H SQ 10/31/16 06:00 11/30/16 05:59 10/31/16 06:07 5,000 UNIT Acetaminophen (Tylenol Tab) 650 mg Q4H PRN PO 10/30/16 18:45 11/29/16 18:44 Al Hydrox/Mg Hydrox/Simethicone (Maalox Max Susp) 15 ml Q4H PRN PO 10/30/16 18:45 11/29/16 18:44 Magnesium Hydroxide (Milk Of Magnesia Susp) 30 ml Q6H PRN PO 10/30/16 18:45 11/29/16 18:44 Polyethylene (Miralax Powder Packet) 17 gm DAILY PRN PO 10/30/16 18:45 11/29/16 18:44 Ondansetron HCl (Zofran Inj) 4 mg Q6H PRN IV 10/30/16 18:45 11/29/16 18:44 Amlodipine Besylate (Norvasc Tab) 10 mg DAILY PO 10/31/16 09:00 11/30/16 08:59 10/31/16 07:52 10 MG Aspirin (Ecotrin Tab) 81 mg DAILY PO 10/31/16 09:00 11/30/16 08:59 10/31/16 07:51 81 MG Atorvastatin Calcium (Lipitor Tab) 10 mg MoWeFr@2100 PO 10/30/16 21:55 11/29/16 21:54 Hydralazine HCl (Apresoline Tab) 25 mg TID PO 10/30/16 21:00 11/29/16 20:59 10/31/16 07:51 25 MG Isosorbide Mononitrate (Imdur Ext Rel Tab) 30 mg QPM PO 10/30/16 21:00 11/29/16 20:59 Metoprolol Succinate (Toprol Xl Tab) 100 mg DAILY PO 10/31/16 09:00 11/30/16 08:59 10/31/16 07:51 100 MG Tamsulosin HCl (Flomax Cap) 0.4 mg QPM PO 10/30/16 21:00 11/29/16 20:59 Oxycodone/ Acetaminophen (Percocet 5-325mg Tab) 1 tab Q4H PRN PO 10/30/16 18:45 11/13/16 18:44 Hydralazine HCl 10 mg 10 mg TID PRN IV. 10/30/16 19:15 11/29/16 19:14 Acetaminophen/ Empty Bag (Ofirmev Iv/ Empty Iv Bag 100ml) 65 ml @ 260 mls/hr Q6H PRN IV 10/30/16 20:45 11/29/16 20:44 Prednisone/ Prednisone (PredniSONE TAB/ PredniSONE TAB) 8 mg QAM PO 10/31/16 09:00 11/30/16 08:59 10/31/16 07:52 8 MG Miscellaneous Information (Order Awaiting Action) 1 ea QS N/A 10/31/16 00:00 11/30/16 00:00 Objective Vital Signs Date Time Temp Pulse Resp B/P Pulse Ox O2 Delivery O2 Flow Rate FiO2 10/31/16 08:00 Room Air 10/31/16 07:00 36.9 67 18 180/79 94 Room Air 187/71 10/31/16 00:51 37.2 73 16 133/71 94 Room Air 10/30/16 23:50 Room Air 10/30/16 21:46 Room Air 10/30/16 21:20 36.9 67 18 150/69 95 Room Air 10/30/16 21:20 Room Air 10/30/16 20:16 73 20 169/85 93 Room Air 10/30/16 18:25 68 18 179/76 93 Room Air 10/30/16 15:17 36.6 55 22 139/66 96 Room Air Physical Exam General Appearance: no apparent distress Respiratory/Chest: lungs clear, normal breath sounds, no respiratory distress, no accessory muscle use Cardiovascular: regular rate, rhythm, no edema, no murmur Abdomen: normal bowel sounds, non tender, soft, + pertinent finding (NGT in place, currently clamped; distention has gone down considerably; improved bowel sounds ) Extremities: normal inspection, no pedal edema Neurologic/Psychiatric: no motor/sensory deficits, alert, normal mood/affect Laboratory Results Last 24 Hours Test 10/30/16 16:58 10/30/16 18:15 10/30/16 22:45 10/31/16 05:48 White Blood Count 16.95 K/uL 11.07 K/uL Red Blood Count 5.17 M/uL 4.56 M/uL Hemoglobin 15.1 g/dL 13.3 g/dL Hematocrit 46.5 % 41.2 % Mean Corpuscular Volume 89.9 fL 90.4 fL Mean Corpuscular Hemoglobin 29.2 pg 29.2 pg Mean Corpuscular Hemoglobin Concent 32.5 g/dl 32.3 g/dl Platelet Count 300 K/uL 275 K/uL Mean Platelet Volume 9.3 fL 9.5 fL Neutrophils (%) (Auto) 81.3 % Lymphocytes (%) (Auto) 8.8 % Monocytes (%) (Auto) 9.0 % Eosinophils (%) (Auto) 0.6 % Basophils (%) (Auto) 0.1 % Neutrophils # (Auto) 13.77 K/uL Lymphocytes # (Auto) 1.49 K/uL Monocytes # (Auto) 1.53 K/uL Eosinophils # (Auto) 0.10 K/uL Basophils # (Auto) 0.02 K/uL RDW Standard Deviation 48.3 fL 49.4 fL RDW Coefficient of Variation 14.7 % 14.9 % Immature Granulocyte % (Auto) 0.2 % Immature Granulocyte # (Auto) 0.04 K/uL Sodium Level 140 mmol/L 143 mmol/L Potassium Level 3.8 mmol/L 4.2 mmol/L Chloride Level 102 mmol/L 107 mmol/L Carbon Dioxide Level 30 mmol/L 29 mmol/L Anion Gap 8.0 mmol/L 7.0 mmol/L Blood Urea Nitrogen 32 mg/dl 35 mg/dl Creatinine 1.80 mg/dl 1.70 mg/dl Est Creatinine Clear Calc Drug Dose 40.0 ml/min 43.0 ml/min Estimated GFR () 43.5 46.7 Estimated GFR (Non- 37.6 40.3 BUN/Creatinine Ratio 17.9 20.5 Random Glucose 114 mg/dl 98 mg/dl Calcium Level 9.3 mg/dl 8.4 mg/dl Total Bilirubin 0.8 mg/dl Aspartate Amino Transf (AST/SGOT) 9 U/L Alanine Aminotransferase (ALT/SGPT) 17 U/L Alkaline Phosphatase 91 U/L Troponin I < 0.015 ng/ml Total Protein 7.9 gm/dl Albumin 3.6 gm/dl Globulin 4.3 gm/dl Albumin/Globulin Ratio 0.8 Lipase 392 U/L Urine Color DK YELLOW Urine Appearance CLEAR Urine pH 5.0 Urine Specific [place] 1.015 Urine Protein NEG Urine Glucose (UA) NEG Urine Ketones NEG Urine Occult Blood NEG Urine Nitrite NEG Urine Bilirubin NEG Urine Urobilinogen NEG Urine Leukocyte Esterase TRACE Urine WBC (Auto) 1-5 /hpf Urine RBC (Auto) 0-4 /hpf Urine Hyaline Casts (Auto) 10-30 /lpf Urine Epithelial Cells (Auto) 5-10 /lpf Urine Bacteria (Auto) NEG Urine Pathogenic Casts /lpf Prothrombin Time 10.7 SECONDS Prothromb Time International Ratio 1.0 Activated Partial Thromboplast Time 25.0 SECONDS Partial Thromboplastin Ratio 1.0 Hepatitis C Antibody Screen NEG Magnesium Level 2.5 mg/dl Assessment and Plan This is a 71 year old male with a PMH of CAD s/p stents, chronic systolic CHF, CKD stage 3, PMR on chronic steroids, cervical disc disease, hx. of small bowel obstruction in April 2016 presents with abdominal distention, nausea/vomiting Small Bowel Obstruction 10/31 IVFs will be continued abdominal radiograph shows loops of bowel appreciate surgery input repeat KUB in AM will do NPO except sips and chips advance diet in AM 10/30 patient presented with distention, nausea, vomiting radiographs suggest SBO NGT in place, will need to be advanced then intermittent suctioning gentle hydration, D5NS + 20meq KCl @ 80mL/hr x1 bag total NPO for now general surgery consultation; recurrent SBO Chronic Systolic CHF echo performed in May 2016 suggests mild LVEF dysfunction LVEF ~ 40-45% hold Lasix give gentle fluids while NPO monitor for fluid overload MARGARET-I intolerance CKD stage 3 10/31 creat at 1.7, which is around her baseline 10/30 creat = 1.8 baseline is around 1.6-1.7 gentle hydration with IVFs avoiding nephrotoxic agents if able CAD s/p stents clinically stable continue aspirin, statin, b-natanael, Imdur PMR continue prednisone DVT ppx subq heparin FULL CODE
[2016-10-31 15:10] VITALS: BP 158/72; PULSE 65; TEMP 36.5; O2SAT 93
[2016-10-31 21:21] VITALS: BP 162/69; PULSE 62
[2016-10-31] MEDS: TAMSULOSIN HCL 0.4 MG CAP PO SCH (21:22)
[2016-10-31] MEDS: ISOSORBIDE MONONITRATE 30 MG TABCR PO SCH (21:23)
[2016-10-31 23:07] VITALS: BP 163/64; PULSE 65; TEMP 36.8; O2SAT 93
[2016-11-01] MEDS: HEPARIN SOD 5000 UNIT/0.5 ML CARP SQ SCH ×3 (05:55→21:30)
[2016-11-01 06:01] LABS: HEMATOCRIT 40.3 % (42-52); MEAN CORPUSCULAR HGB CONC 31.5 g/dl (32-36); MEAN PLATELET VOLUME 9.7 fL (7.4-10.4); PLATELET COUNT 274 K/uL (130-400); RED BLOOD COUNT 4.38 M/uL (4.7-6.1); WHITE BLOOD COUNT 10.42 K/uL (4.8-10.8)
[2016-11-01 06:41] LABS: BUN/CREATININE RATIO 16.9 (10-20); CALCIUM 8.5 mg/dl (8.5-10.1); CREATININE 1.8 mg/dl (0.60-1.40); MAGNESIUM 2.4 mg/dl (1.8-2.4); POTASSIUM 4.1 mmol/L (3.5-5.1)
[2016-11-01 07:44] VITALS: BP 152/62; PULSE 73; TEMP 36.8; O2SAT 94
[2016-11-01] MEDS: PREDNISONE PO SCH ×2 (07:53)
[2016-11-01] MEDS: ASPIRIN 81 MG ECTAB PO SCH (07:53)
[2016-11-01] MEDS: METOPROLOL SUCC 50MG EXT REL TAB PO SCH (07:53)
[2016-11-01] MEDS: AMLODIPINE BESYLATE 5 MG TAB PO SCH (07:54)
--- NOTE | 2016-11-01 09:13 | DIAGNOSTIC IMAGING REPORT ---
KUB CLINICAL HISTORY: Small bowel obstruction. COMPARISON STUDY: Abdominal series October 31, 2016. FINDINGS: A right hip arthroplasty and cholecystectomy clips are incidentally noted. The tip of the nasogastric tube is within the stomach. Moderate small bowel dilatation is noted. This has improved. There are scattered colonic gas. There is a paucity of gas within the descending colon and rectum. IMPRESSION: Persistent, but improved, small bowel dilatation. Findings suggest a persistent small bowel obstruction with interval improvement. Electronically signed by: Frank Manriquez M.D. 11/01/2016 9:12 AM Dictated Date/Time: 11/01/2016 9:08 AM
--- NOTE | 2016-11-01 11:44 | Progress Note ---
Subjective Date of Service: November 01, 2016. Subjective Pt evaluation today including: conversation w/ patient, physical exam, lab review, review of studies, review of inpatient medication list Saw/examined the patient in room 352-2 He's doing well today, no abdominal pain; had four BMs today NGT removed and diet advanced to clears - he is tolerating that well Problem List Medical Problems: (1) CHF (congestive heart failure) Status: Acute (2) Respiratory failure Status: Acute (3) Small bowel obstruction Status: Acute Surgical Problems: (1) S/P PTCA (percutaneous transluminal coronary angioplasty) Status: Chronic Review of Systems Constitutional: No chills, No fever Respiratory: No shortness of breath Cardiac: No chest pain Abdomen: + diarrhea, No GI bleeding, No constipation, No nausea, No pain, No vomiting Medications Current Inpatient Medications Medications (Trade) Dose Ordered Sig/Antonino Route Start Time Stop Time Status Last Admin Dose Admin Heparin Sodium (Porcine) (Heparin Sq 5000 Unit/0.5ml) 5,000 unit Q8H SQ 10/31/16 06:00 11/30/16 05:59 10/31/16 21:26 5,000 UNIT Acetaminophen (Tylenol Tab) 650 mg Q4H PRN PO 10/30/16 18:45 11/29/16 18:44 Al Hydrox/Mg Hydrox/Simethicone (Maalox Max Susp) 15 ml Q4H PRN PO 10/30/16 18:45 11/29/16 18:44 Magnesium Hydroxide (Milk Of Magnesia Susp) 30 ml Q6H PRN PO 10/30/16 18:45 11/29/16 18:44 Polyethylene (Miralax Powder Packet) 17 gm DAILY PRN PO 10/30/16 18:45 11/29/16 18:44 Ondansetron HCl (Zofran Inj) 4 mg Q6H PRN IV 10/30/16 18:45 11/29/16 18:44 10/31/16 14:39 4 MG Amlodipine Besylate (Norvasc Tab) 10 mg DAILY PO 10/31/16 09:00 11/30/16 08:59 11/01/16 07:54 10 MG Aspirin (Ecotrin Tab) 81 mg DAILY PO 10/31/16 09:00 11/30/16 08:59 11/01/16 07:53 81 MG Atorvastatin Calcium (Lipitor Tab) 10 mg MoWeFr@2100 PO 10/30/16 21:55 11/29/16 21:54 Hydralazine HCl (Apresoline Tab) 25 mg TID PO 10/30/16 21:00 11/29/16 20:59 11/01/16 07:54 25 MG Isosorbide Mononitrate (Imdur Ext Rel Tab) 30 mg QPM PO 10/30/16 21:00 11/29/16 20:59 10/31/16 21:23 30 MG Metoprolol Succinate (Toprol Xl Tab) 100 mg DAILY PO 10/31/16 09:00 11/30/16 08:59 11/01/16 07:53 100 MG Tamsulosin HCl (Flomax Cap) 0.4 mg QPM PO 10/30/16 21:00 11/29/16 20:59 10/31/16 21:22 0.4 MG Oxycodone/ Acetaminophen (Percocet 5-325mg Tab) 1 tab Q4H PRN PO 10/30/16 18:45 11/13/16 18:44 Hydralazine HCl 10 mg 10 mg TID PRN IV. 10/30/16 19:15 11/29/16 19:14 Acetaminophen/ Empty Bag (Ofirmev Iv/ Empty Iv Bag 100ml) 65 ml @ 260 mls/hr Q6H PRN IV 10/30/16 20:45 11/29/16 20:44 Prednisone/ Prednisone (PredniSONE TAB/ PredniSONE TAB) 8 mg QAM PO 10/31/16 09:00 11/30/16 08:59 11/01/16 07:53 8 MG Miscellaneous Information (Order Awaiting Action) 1 ea QS N/A 10/31/16 00:00 11/30/16 00:00 Objective Vital Signs Date Time Temp Pulse Resp B/P Pulse Ox O2 Delivery O2 Flow Rate FiO2 11/01/16 07:45 Room Air 11/01/16 07:44 36.8 73 16 152/62 94 Room Air 11/01/16 01:02 Room Air 10/31/16 23:07 36.8 65 16 163/64 93 Room Air 10/31/16 21:21 62 162/69 10/31/16 15:25 Room Air 10/31/16 15:10 36.5 65 18 158/72 93 Room Air Physical Exam General Appearance: no apparent distress Respiratory/Chest: lungs clear, normal breath sounds, no respiratory distress, no accessory muscle use Cardiovascular: regular rate, rhythm, no edema, no murmur Abdomen: non tender (non-distended), soft, + abnormal bowel sounds ( hyperactive bowel sounds) Laboratory Results Last 24 Hours Test 11/01/16 05:45 White Blood Count 10.42 K/uL Red Blood Count 4.38 M/uL Hemoglobin 12.7 g/dL Hematocrit 40.3 % Mean Corpuscular Volume 92.0 fL Mean Corpuscular Hemoglobin 29.0 pg Mean Corpuscular Hemoglobin Concent 31.5 g/dl RDW Standard Deviation 49.7 fL RDW Coefficient of Variation 14.7 % Platelet Count 274 K/uL Mean Platelet Volume 9.7 fL Sodium Level 141 mmol/L Potassium Level 4.1 mmol/L Chloride Level 105 mmol/L Carbon Dioxide Level 32 mmol/L Anion Gap 4.0 mmol/L Blood Urea Nitrogen 30 mg/dl Creatinine 1.80 mg/dl Est Creatinine Clear Calc Drug Dose 40.6 ml/min Estimated GFR () 43.5 Estimated GFR (Non- 37.6 BUN/Creatinine Ratio 16.9 Random Glucose 83 mg/dl Calcium Level 8.5 mg/dl Magnesium Level 2.4 mg/dl Assessment and Plan This is a 71 year old male with a PMH of CAD s/p stents, chronic systolic CHF, CKD stage 3, PMR on chronic steroids, cervical disc disease, hx. of small bowel obstruction in April 2016 presents with abdominal distention, nausea/vomiting Small Bowel Obstruction 11/01 appreciate general surgery input NGT removed currently on clears - advance in AM (11/02) 10/31 IVFs will be continued abdominal radiograph shows loops of bowel appreciate surgery input repeat KUB in AM will do NPO except sips and chips advance diet in AM 10/30 patient presented with distention, nausea, vomiting radiographs suggest SBO NGT in place, will need to be advanced then intermittent suctioning gentle hydration, D5NS + 20meq KCl @ 80mL/hr x1 bag total NPO for now general surgery consultation; recurrent SBO Chronic Systolic CHF echo performed in May 2016 suggests mild LVEF dysfunction LVEF ~ 40-45% hold Lasix give gentle fluids while NPO monitor for fluid overload MARGARET-I intolerance CKD stage 3 10/31 creat at 1.7, which is around her baseline 10/30 creat = 1.8 baseline is around 1.6-1.7 gentle hydration with IVFs avoiding nephrotoxic agents if able CAD s/p stents clinically stable continue aspirin, statin, b-natanael, Imdur PMR continue prednisone DVT ppx subq heparin FULL CODE
[2016-11-01 15:08] VITALS: BP 151/76; PULSE 58; TEMP 36.6; O2SAT 96
--- NOTE | 2016-11-01 15:53 | Surgery Progress Note ---
Surgery Progress Note Date of Service November 01, 2016. Subjective pt feeling well. has had several more bms. denies pain or nausea. Objective Vital Signs: Date Time Temp Pulse Resp B/P Pulse Ox O2 Delivery O2 Flow Rate FiO2 11/01/16 15:15 Room Air 11/01/16 15:08 36.6 58 18 151/76 96 Room Air 11/01/16 07:45 Room Air 11/01/16 07:44 36.8 73 16 152/62 94 Room Air 11/01/16 01:02 Room Air 10/31/16 23:07 36.8 65 16 163/64 93 Room Air 10/31/16 21:21 62 162/69 General Appearance: no apparent distress Head: normocephalic, atraumatic Neck: supple, no JVD Respiratory/Chest: no respiratory distress, no accessory muscle use Cardiovascular: no edema Abdomen: non tender, non distended, soft Extremities: normal inspection Laboratory Results: Results Past 24 Hours Test 11/01/16 05:45 Range/Units White Blood Count 10.42 4.8-10.8 K/uL Red Blood Count 4.38 4.7-6.1 M/uL Hemoglobin 12.7 14.0-18.0 g/dL Hematocrit 40.3 42-52 % Mean Corpuscular Volume 92.0 80-100 fL Mean Corpuscular Hemoglobin 29.0 25-34 pg Mean Corpuscular Hemoglobin Concent 31.5 32-36 g/dl RDW Standard Deviation 49.7 36.4-46.3 fL RDW Coefficient of Variation 14.7 11.5-14.5 % Platelet Count 274 130-400 K/uL Mean Platelet Volume 9.7 7.4-10.4 fL Sodium Level 141 136-145 mmol/L Potassium Level 4.1 3.5-5.1 mmol/L Chloride Level 105 98-107 mmol/L Carbon Dioxide Level 32 21-32 mmol/L Anion Gap 4.0 3-11 mmol/L Blood Urea Nitrogen 30 7-18 mg/dl Creatinine 1.80 0.60-1.40 mg/dl Est Creatinine Clear Calc Drug Dose 40.6 ml/min Estimated GFR () 43.5 Estimated GFR (Non- 37.6 BUN/Creatinine Ratio 16.9 10-20 Random Glucose 83 70-99 mg/dl Calcium Level 8.5 8.5-10.1 mg/dl Magnesium Level 2.4 1.8-2.4 mg/dl Assessment & Plan psbo clinically improving KUB still shows sb dilation but improving probably ok to remove ngt and start clears. pt aware this may backfire but he is frustrated. will pull ngt and start clears.
[2016-11-01 21:27] VITALS: BP 165/74; PULSE 63
[2016-11-01] MEDS: ISOSORBIDE MONONITRATE 30 MG TABCR PO SCH (21:29)
[2016-11-01] MEDS: TAMSULOSIN HCL 0.4 MG CAP PO SCH (21:29)
[2016-11-01 23:25] VITALS: BP 172/75; PULSE 62; TEMP 36.9; O2SAT 95
[2016-11-02] MEDS: HEPARIN SOD 5000 UNIT/0.5 ML CARP SQ SCH (06:02)
[2016-11-02 06:07] VITALS: BP 160/68
[2016-11-02 06:24] LABS: HEMATOCRIT 35.3 % (42-52); MEAN CELL VOLUME 90.3 fL (80-100); MEAN CORPUSCULAR HEMOGLOBIN 28.9 pg (25-34); MEAN PLATELET VOLUME 9.3 fL (7.4-10.4); PLATELET COUNT 231 K/uL (130-400); RED BLOOD COUNT 3.91 M/uL (4.7-6.1); WHITE BLOOD COUNT 7.75 K/uL (4.8-10.8)
[2016-11-02 06:54] LABS: BUN/CREATININE RATIO 14.7 (10-20); CALCIUM 8.1 mg/dl (8.5-10.1); CREATININE 1.6 mg/dl (0.60-1.40); MAGNESIUM 2.5 mg/dl (1.8-2.4); POTASSIUM 3.9 mmol/L (3.5-5.1)
[2016-11-02 06:58] VITALS: BP 168/71; PULSE 55; TEMP 36.4; O2SAT 96
--- NOTE | 2016-11-02 07:44 | Surgery Progress Note ---
Surgery Progress Note Date of Service November 02, 2016. Subjective + bowel movement, + diet (clears), + feeling well, + flatus, No nausea Objective Vital Signs: Date Time Temp Pulse Resp B/P Pulse Ox O2 Delivery O2 Flow Rate FiO2 11/02/16 06:58 36.4 55 17 168/71 96 Room Air 11/02/16 06:07 160/68 11/01/16 23:35 Room Air 11/01/16 23:25 36.9 62 14 172/75 95 Room Air 11/01/16 21:27 63 165/74 11/01/16 15:15 Room Air 11/01/16 15:08 36.6 58 18 151/76 96 Room Air 11/01/16 07:45 Room Air 11/01/16 07:44 36.8 73 16 152/62 94 Room Air Abdomen: non tender, non distended, soft Laboratory Results: Results Past 24 Hours Test 11/02/16 05:45 Range/Units White Blood Count 7.75 4.8-10.8 K/uL Red Blood Count 3.91 4.7-6.1 M/uL Hemoglobin 11.3 14.0-18.0 g/dL Hematocrit 35.3 42-52 % Mean Corpuscular Volume 90.3 80-100 fL Mean Corpuscular Hemoglobin 28.9 25-34 pg Mean Corpuscular Hemoglobin Concent 32.0 32-36 g/dl RDW Standard Deviation 46.8 36.4-46.3 fL RDW Coefficient of Variation 14.3 11.5-14.5 % Platelet Count 231 130-400 K/uL Mean Platelet Volume 9.3 7.4-10.4 fL Sodium Level 140 136-145 mmol/L Potassium Level 3.9 3.5-5.1 mmol/L Chloride Level 107 98-107 mmol/L Carbon Dioxide Level 30 21-32 mmol/L Anion Gap 3.0 3-11 mmol/L Blood Urea Nitrogen 23 7-18 mg/dl Creatinine 1.60 0.60-1.40 mg/dl Est Creatinine Clear Calc Drug Dose 45.7 ml/min Estimated GFR () 50.2 Estimated GFR (Non- 43.3 BUN/Creatinine Ratio 14.7 10-20 Random Glucose 84 70-99 mg/dl Calcium Level 8.1 8.5-10.1 mg/dl Magnesium Level 2.5 1.8-2.4 mg/dl Assessment & Plan PSBO, resolving advance to full liquid breakfast, and advance as tolerated
[2016-11-02] MEDS: ASPIRIN 81 MG ECTAB PO SCH (08:58)
[2016-11-02] MEDS: PREDNISONE PO SCH ×2 (08:59)
[2016-11-02] MEDS: METOPROLOL SUCC 50MG EXT REL TAB PO SCH (09:00)
[2016-11-02 09:03] VITALS: BP 162/60; PULSE 54
[2016-11-02] MEDS: AMLODIPINE BESYLATE 5 MG TAB PO SCH (09:04)
--- NOTE | 2016-11-02 12:06 | Progress Note ---
Subjective Date of Service: November 02, 2016. Subjective Pt evaluation today including: conversation w/ patient, physical exam, lab review, review of studies, review of inpatient medication list Saw/examined the patient in room 352 He's doing well; diet advanced, tolerated a regular breakfast No diarrhea, no nausea/vomiting, no abdominal pain/distention Problem List Medical Problems: (1) CHF (congestive heart failure) Status: Acute (2) Respiratory failure Status: Acute (3) Small bowel obstruction Status: Acute Surgical Problems: (1) S/P PTCA (percutaneous transluminal coronary angioplasty) Status: Chronic Review of Systems Constitutional: No chills, No fever Abdomen: No GI bleeding, No constipation, No diarrhea, No nausea, No pain, No vomiting Medications Current Inpatient Medications Medications (Trade) Dose Ordered Sig/Antonino Route Start Time Stop Time Status Last Admin Dose Admin Heparin Sodium (Porcine) (Heparin Sq 5000 Unit/0.5ml) 5,000 unit Q8H SQ 10/31/16 06:00 11/30/16 05:59 11/02/16 06:02 5,000 UNIT Acetaminophen (Tylenol Tab) 650 mg Q4H PRN PO 10/30/16 18:45 11/29/16 18:44 Al Hydrox/Mg Hydrox/Simethicone (Maalox Max Susp) 15 ml Q4H PRN PO 10/30/16 18:45 11/29/16 18:44 Magnesium Hydroxide (Milk Of Magnesia Susp) 30 ml Q6H PRN PO 10/30/16 18:45 11/29/16 18:44 Polyethylene (Miralax Powder Packet) 17 gm DAILY PRN PO 10/30/16 18:45 11/29/16 18:44 Ondansetron HCl (Zofran Inj) 4 mg Q6H PRN IV 10/30/16 18:45 11/29/16 18:44 10/31/16 14:39 4 MG Amlodipine Besylate (Norvasc Tab) 10 mg DAILY PO 10/31/16 09:00 11/30/16 08:59 11/02/16 09:04 10 MG Aspirin (Ecotrin Tab) 81 mg DAILY PO 10/31/16 09:00 11/30/16 08:59 11/02/16 08:58 81 MG Atorvastatin Calcium (Lipitor Tab) 10 mg MoWeFr@2100 PO 10/30/16 21:55 11/29/16 21:54 Hydralazine HCl (Apresoline Tab) 25 mg TID PO 10/30/16 21:00 11/29/16 20:59 11/02/16 09:05 25 MG Isosorbide Mononitrate (Imdur Ext Rel Tab) 30 mg QPM PO 10/30/16 21:00 11/29/16 20:59 11/01/16 21:29 30 MG Metoprolol Succinate (Toprol Xl Tab) 100 mg DAILY PO 10/31/16 09:00 11/30/16 08:59 11/01/16 07:53 100 MG Tamsulosin HCl (Flomax Cap) 0.4 mg QPM PO 10/30/16 21:00 11/29/16 20:59 11/01/16 21:29 0.4 MG Oxycodone/ Acetaminophen (Percocet 5-325mg Tab) 1 tab Q4H PRN PO 10/30/16 18:45 11/13/16 18:44 Hydralazine HCl 10 mg 10 mg TID PRN IV. 10/30/16 19:15 11/29/16 19:14 Acetaminophen/ Empty Bag (Ofirmev Iv/ Empty Iv Bag 100ml) 65 ml @ 260 mls/hr Q6H PRN IV 10/30/16 20:45 11/29/16 20:44 Prednisone/ Prednisone (PredniSONE TAB/ PredniSONE TAB) 8 mg QAM PO 10/31/16 09:00 11/30/16 08:59 11/02/16 08:59 8 MG Miscellaneous Information (Order Awaiting Action) 1 ea QS N/A 10/31/16 00:00 11/30/16 00:00 Objective Vital Signs Date Time Temp Pulse Resp B/P Pulse Ox O2 Delivery O2 Flow Rate FiO2 11/02/16 09:03 54 162/60 11/02/16 07:35 Room Air 11/02/16 06:58 36.4 55 17 168/71 96 Room Air 11/02/16 06:07 160/68 11/01/16 23:35 Room Air 11/01/16 23:25 36.9 62 14 172/75 95 Room Air 11/01/16 21:27 63 165/74 11/01/16 15:15 Room Air 11/01/16 15:08 36.6 58 18 151/76 96 Room Air Physical Exam General Appearance: no apparent distress Respiratory/Chest: no respiratory distress, no accessory muscle use Cardiovascular: regular rate, rhythm, no edema, no murmur Abdomen: normal bowel sounds, non tender, soft Laboratory Results Last 24 Hours Test 11/02/16 05:45 White Blood Count 7.75 K/uL Red Blood Count 3.91 M/uL Hemoglobin 11.3 g/dL Hematocrit 35.3 % Mean Corpuscular Volume 90.3 fL Mean Corpuscular Hemoglobin 28.9 pg Mean Corpuscular Hemoglobin Concent 32.0 g/dl RDW Standard Deviation 46.8 fL RDW Coefficient of Variation 14.3 % Platelet Count 231 K/uL Mean Platelet Volume 9.3 fL Sodium Level 140 mmol/L Potassium Level 3.9 mmol/L Chloride Level 107 mmol/L Carbon Dioxide Level 30 mmol/L Anion Gap 3.0 mmol/L Blood Urea Nitrogen 23 mg/dl Creatinine 1.60 mg/dl Est Creatinine Clear Calc Drug Dose 45.7 ml/min Estimated GFR () 50.2 Estimated GFR (Non- 43.3 BUN/Creatinine Ratio 14.7 Random Glucose 84 mg/dl Calcium Level 8.1 mg/dl Magnesium Level 2.5 mg/dl Assessment and Plan This is a 71 year old male with a PMH of CAD s/p stents, chronic systolic CHF, CKD stage 3, PMR on chronic steroids, cervical disc disease, hx. of small bowel obstruction in April 2016 presents with abdominal distention, nausea/vomiting Small Bowel Obstruction 11/02 diet advanced today if tolerating lunch, can d/c home low residue diet f/u with PCP on Wednesday, November 0611/01 appreciate general surgery input NGT removed currently on clears - advance in AM (11/02) 10/31 IVFs will be continued abdominal radiograph shows loops of bowel appreciate surgery input repeat KUB in AM will do NPO except sips and chips advance diet in AM 10/30 patient presented with distention, nausea, vomiting radiographs suggest SBO NGT in place, will need to be advanced then intermittent suctioning gentle hydration, D5NS + 20meq KCl @ 80mL/hr x1 bag total NPO for now general surgery consultation; recurrent SBO Chronic Systolic CHF echo performed in May 2016 suggests mild LVEF dysfunction LVEF ~ 40-45% hold Lasix give gentle fluids while NPO monitor for fluid overload MARGARET-I intolerance CKD stage 3 10/31 creat at 1.7, which is around her baseline 10/30 creat = 1.8 baseline is around 1.6-1.7 gentle hydration with IVFs avoiding nephrotoxic agents if able CAD s/p stents clinically stable continue aspirin, statin, b-natanael, Imdur PMR continue prednisone DVT ppx subq heparin FULL CODE Discharge planning: home
--- NOTE | 2016-11-02 12:08 | Discharge Instructions ---
Discharge Instructions Date of Service November 02, 2016. Admission Reason for Admission: Small Bowel Obstruction Due To Adhesions Discharge Discharge Diagnosis / Problem: Small Bowel Obstruction secondary to Adhesions Discharge Goals Goal(s): Decrease discomfort, Improve function, Diagnostic testing, Therapeutic intervention Activity Recommendations Activity Limitations: resume your previous activity . Instructions / Follow-Up Instructions / Follow-Up Please follow-up with Dr. Cardona on November 06 @ 12:45PM You should be on a low fiber diet for 7-10 days Current Hospital Diet Patient's current hospital diet: Regular Diet Discharge Diet Recommended Diet: Low Fiber Diet Pending Studies Studies pending at discharge: no Medical Emergencies . Who to Call and When: Medical Emergencies: If at any time you feel your situation is an emergency, please call 911 immediately. . Non-Emergent Contact Non-Emergency issues call your: Primary Care Provider . . "Provider Documentation" section prepared by Andie Ledezma. . VTE Core Measure Inpt VTE Proph given/why not?: Unfractionated heparin SQ
--- NOTE | 2016-11-02 12:13 | Discharge Summary ---
Discharge Summary Date of Service November 02, 2016. Discharge Summary Admission Date: October 30, 2016 at 18:44 Discharge Date: November 02, 2016 Discharge Disposition: Home Principal Diagnosis: Partial Small Bowel Obstruction Medication Reconciliation Continued Medications: Amlodipine (Norvasc) 10 Mg Tab 10 MG PO DAILY, TAB Aspirin (Aspirin Ec) 81 Mg Tab 81 MG PO DAILY Atorvastatin (Lipitor) 10 Mg Tab 10 MG PO 3XWK, TAB TAKE ON MON-WED-WED. TAKES IN PM Cholecalciferol (Vitamin D) 2,000 Unit Cap 2000 UNITS PO DAILY Fluorouracil (Topical) (Efudex) 5 % Cre 1 APPLN TOP BID for 14 Days, #40 GM APPLY TO AFFECTED AREAS ON HANDS & ARMS Furosemide (Lasix) 40 Mg Tab 40 MG PO DAILY, TAB Hydralazine HCl (Hydralazine HCl) 25 Mg Tab 25 MG PO TID Isosorbide Mononitrate Ext Rel (Imdur Ext Rel) 30 Mg Ertab 30 MG PO QPM, TAB Metoprolol Succ (Toprol Xl) (Toprol-Xl ) 100 Mg Tabcr 100 MG PO DAILY, TAB Prednisone (Prednisone) 1 Mg Tab 8 MG PO DAILY, TAB Sennosides (Ex-Lax) 15 Mg Tab 2 TABS PO PRN Tamsulosin Hcl (Flomax) 0.4 Mg Cap 0.4 MG PO QPM, CAP Admission Information HPI (per Admitting provider): This is a 71 year old male with a PMH of CAD s/p stents, chronic systolic CHF, CKD stage 3, PMR on chronic steroids, cervical disc disease, hx. of small bowel obstruction in April 2016 presents with abdominal distention, nausea/ vomiting that began prior to arrival; states that it seemed like a sudden increase in abdominal size; he developed sudden nausea and numerous episodes of vomiting. States he usually has a bowel movement every 2-3 days, did not think he was constipated at this time. He says this is similar to the episode that he had in April where he was also diagnosed with SBO, at that time, managed conservatively. Still feels sick, nauseous during exam. NGT is in place, not currently suctioning. States he also has pain in the cervical neck region, which is a chronic issue, but is worse than usual due to vomiting. As per , he has been having chills at home. Physical Exam (per Admitting): General Appearance: + mild distress (mild to moderate distress secondary to nausea, pain) Head: normocephalic, atraumatic Eyes: normal inspection ENT: hearing grossly normal Respiratory/Chest: lungs clear, normal breath sounds, no respiratory distress, no accessory muscle use Cardiovascular: regular rate, rhythm, no edema, no murmur Abdomen/GI: non tender, no organomegaly, + abnormal bowel sounds (decreased bowel sounds), + distended Back: no muscle spasm Extremities/Musculoskelatal: normal capillary refill, no pedal edema Neurologic/Psych: no motor/sensory deficits, alert Skin: normal color Lymphatic: no adenopathy Hospital Course This is a 71 year old male with a PMH of CAD s/p stents, chronic systolic CHF, CKD stage 3, PMR on chronic steroids, cervical disc disease, hx. of small bowel obstruction in April 2016 presents with abdominal distention, nausea/vomiting Small Bowel Obstruction 11/02 diet advanced today if tolerating lunch, can d/c home low residue diet f/u with PCP on November 0611/01 appreciate general surgery input NGT removed currently on clears - advance in AM (11/02) 10/31 IVFs will be continued abdominal radiograph shows loops of bowel appreciate surgery input repeat KUB in AM will do NPO except sips and chips advance diet in AM 10/30 patient presented with distention, nausea, vomiting radiographs suggest SBO NGT in place, will need to be advanced then intermittent suctioning gentle hydration, D5NS + 20meq KCl @ 80mL/hr x1 bag total NPO for now general surgery consultation; recurrent SBO Chronic Systolic CHF echo performed in May 2016 suggests mild LVEF dysfunction LVEF ~ 40-45% hold Lasix give gentle fluids while NPO monitor for fluid overload MARGARET-I intolerance CKD stage 3 10/31 creat at 1.7, which is around her baseline 10/30 creat = 1.8 baseline is around 1.6-1.7 gentle hydration with IVFs avoiding nephrotoxic agents if able CAD s/p stents clinically stable continue aspirin, statin, b-natanael, Imdur PMR continue prednisone DVT ppx subq heparin FULL CODE Discharge planning: home Total time spent on discharge = 25 minutes This includes examination of the patient, discharge planning, medication reconciliation, and communication with other providers. Discharge Instructions Please follow-up with Dr. Cardona on November 06 @ 12:45PM You should be on a low fiber diet for 7-10 days Additional Copies To Maciej Cardona M.D.
[2016-11-02 12:55] VITALS: BP 162/60; PULSE 54; TEMP 36.4; O2SAT 96
== END 2016-11-02 13:34 | disposition home or self-care (01) | DRG 388 ==
LOC: ENRESERVDT → ENRESERVTM → C.EDB 15:14 → C.MSW 18:44
PROVIDERS: ADMIT Family Medicine; ATTEND Family Medicine
DX: K56.60 Unspecified intestinal obstruction (principal); J96.00 Acute respiratory failure, unspecified whether with hypoxia or hypercapnia; I50.22 Chronic systolic (congestive) heart failure; I13.0 Hypertensive heart and chronic kidney disease with heart failure and stage 1 through stage 4 chronic kidney disease, or unspecified chronic kidney disease; N40.0 Benign prostatic hyperplasia without lower urinary tract symptoms; I25.10 Atherosclerotic heart disease of native coronary artery without angina pectoris; I65.29 Occlusion and stenosis of unspecified carotid artery; N18.3 Chronic kidney disease, stage 3 (moderate); K21.9 Gastro-esophageal reflux disease without esophagitis; E78.5 Hyperlipidemia, unspecified; I44.7 Left bundle-branch block, unspecified; M35.3 Polymyalgia rheumatica; Z87.891 Personal history of nicotine dependence; Z95.5 Presence of coronary angioplasty implant and graft; Z79.52 Long term (current) use of systemic steroids

== ENCOUNTER 2019-12-13 05:41 | Inpatient (IN) ==
--- NOTE | 2019-12-13 06:06 | Emergency Department Note ---
History of Present Illness General Chief complaint: Respiratory Problems Stated complaint: CAN'T BREATHE-COPD,CHF Time Seen by Provider: 12/13/19 05:48 Source: patient Mode of arrival: ambulatory Limitations: physical limitation History of Present Illness Provider complaint: shortness of breath Location: chest Radiation: non-radiation Severity: similar to prior episodes Pain Consistency: + constant Maximum Pain Intensity: 4 Quality: + constant Associated symptoms: no cough, no fever/chills and no syncope This is a 74-year-old male who presents from home complaining of increased trouble breathing. Patient states this feels like a prior episode where he was admitted for congestive heart failure. Patient asking to be placed on BiPAP as he stated this is helped in the past. Patient states he was previously on a diuretic but his medications were changed. Patient denies any recent sick contacts, no preceding cough or cold symptoms, no recent fevers or chills. Patient admits to accompanying chest tightness, denies nausea or vomiting, or abdominal pain. Patient states symptoms started last night and he has been un able to sleep. Patient states he does not use home oxygen. Additional history otherwise limited due to clinical condition and work of breathing at this time. Pt seen during a time of high acuity and national emergency pandemic while wearing PPE. Home Medications Home Medications Medication Instructions Recorded Confirmed Type aspirin [Aspirin Low Dose] 81 mg PO DAILY 09/17/18 12/13/19 History atorvastatin [Lipitor] 40 mg PO DAILY 09/17/18 12/13/19 History carvedilol 12.5 mg PO BID 09/17/18 12/13/19 History cholecalciferol (vitamin D3) 2,000 unit PO DAILY 09/17/18 12/13/19 History fluorouracil 1 applic TOPICAL BID PRN 09/17/18 12/13/19 History pramipexole [Mirapex] 0.25 mg PO HS 09/17/18 12/13/19 History sennosides 8.6 mg PO BID PRN 09/17/18 12/13/19 History tamsulosin 0.4 mg PO QPM 09/17/18 12/13/19 History tramadol 50 mg PO Q6H PRN 09/17/18 12/13/19 History albuterol sulfate 2 inha INH QID PRN #1 gm 09/28/18 12/13/19 Rx dextromethorphan-guaifenesin 2 tab-cap PO Q8H PRN 09/28/18 12/13/19 History [Coricidin HBP] amlodipine 5 mg PO DAILY 12/13/19 12/13/19 History nitroglycerin [Nitrostat] 0.4 mg SUBLINGUAL DIRECTED PRN 12/13/19 12/13/19 History prednisone 5 mg PO DAILY 12/13/19 12/13/19 History torsemide 20 mg PO DAILY 12/13/19 12/13/19 History Allergies Allergy/AdvReac Type Severity Reaction Status Date / Time hydromorphone Allergy Intermediate HIVES Verified 12/13/19 06:17 meperidine Allergy Intermediate HIVES Verified 12/13/19 06:17 morphine Allergy Intermediate HIVES Verified 12/13/19 06:17 lisinopril AdvReac Mild COUGH Verified 12/13/19 06:17 Past Med/Surg History Medical History MARGARET inhibitor intolerance (Chronic) BPH (benign prostatic hyperplasia) (Chronic) CAD (coronary artery disease) (Chronic) Carotid stenosis (Chronic) CHF (congestive heart failure) CKD (chronic kidney disease) stage 3, GFR 30-59 ml/min (Chronic) COPD (chronic obstructive pulmonary disease) Dyslipidemia (Chronic) GERD (gastroesophageal reflux disease) (Chronic) HTN (hypertension) (Chronic) LBBB (left bundle branch block) (Chronic) Lumbago (Chronic) Pericardial effusion PMR (polymyalgia rheumatica) (Chronic) Small bowel obstruction due to adhesions Surgical History Biventricular automatic implantable cardioverter defibrillator in situ 06/25/2017 [facility] H/O heart artery stent (Resolved) "left subclavian stent for occlusion with front runner catheter, Dr Retana 04/23" History of back surgery (Resolved) cervical and lumbar History of carotid endarterectomy Left CEA with patch 10/25/2006 History of cholecystectomy (Resolved) History of coronary artery bypass graft x 1 BENÍTEZ to LAD History of inguinal hernia repair (Resolved) History of open heart surgery History of tonsillectomy (Resolved) Family History Father Coronary heart disease, Onset Age: 51 Mother Stroke Social History Preferred Language: [place] Communication Ability: Effective Bottom Sprayer Required: No Beliefs That Will Affect Care: Mormon Mormon Beliefs: Christianity marital status: Current Living Situation: Spouse current occupational status: retired and disabled Other Information That Helps Us Care for You: No Feels Safe at Home: Yes Safety Concerns: Feels Safe At This Time Smoking Status: Former smoker Tobacco Type: cigarettes ; packs per day: 1.5 ; Years Smoked: 43 ; Smoking End Date: 03/21/2001 ; Hx Alcohol Use: No Hx Substance Use: No Review of Systems See HPI for pertinent positives & negatives. Other (Limited by respiratory distress) Physical Exam Vital Signs Vital Signs - 24 hr 12/13/19 05:45 12/13/19 06:01 12/13/19 06:10 Temperature 36.4 C L Temperature Source Oral Pulse Rate 85 60 61 Pulse Rate [Right Finger] Pulse Rate from SpO2 Sensor 59 L Respiratory Rate 24 24 19 Respiratory Effort / Characteristics Labored Spontaneous Short of Breath SOB on Exertion Respiratory Depth Normal Respiratory Pattern Regular Blood Pressure 173/71 H 157/75 H Blood Pressure Mean 105 117 Pulse Oximetry 92 96 100 Oxygen Delivery Method Room Air BiPAP Oxygen Flow Rate 30 Fraction of Inspired Oxygen 5 40 Sepsis Recent Fever Within 48 Hours No Sepsis New/Unexplained Change in Mental Status No Sepsis Action Taken by Nursing No Action Required 12/13/19 06:30 12/13/19 07:00 12/13/19 07:05 Temperature Temperature Source Pulse Rate 61 62 Pulse Rate [Right Finger] 62 Pulse Rate from SpO2 Sensor 61 62 Respiratory Rate 16 20 Respiratory Effort / Characteristics Non-Labored Spontaneous Respiratory Depth Normal Respiratory Pattern Regular Blood Pressure 160/77 H 154/71 H Blood Pressure Mean 115 113 Pulse Oximetry 98 98 99 Oxygen Delivery Method BiPAP BiPAP BiPAP Oxygen Flow Rate 30 Fraction of Inspired Oxygen 5 30 Sepsis Recent Fever Within 48 Hours Sepsis New/Unexplained Change in Mental Status Sepsis Action Taken by Nursing 12/13/19 07:30 12/13/19 07:31 12/13/19 08:00 Temperature Temperature Source Pulse Rate 63 60 65 Pulse Rate [Right Finger] Pulse Rate from SpO2 Sensor 61 60 65 Respiratory Rate 12 12 12 Respiratory Effort / Characteristics Respiratory Depth Respiratory Pattern Blood Pressure 161/70 H 139/63 Blood Pressure Mean 120 80 Pulse Oximetry 98 98 88 L Oxygen Delivery Method Oxygen Flow Rate Fraction of Inspired Oxygen Sepsis Recent Fever Within 48 Hours Sepsis New/Unexplained Change in Mental Status Sepsis Action Taken by Nursing 12/13/19 08:01 Temperature Temperature Source Pulse Rate 67 Pulse Rate [Right Finger] Pulse Rate from SpO2 Sensor 66 Respiratory Rate 14 Respiratory Effort / Characteristics Respiratory Depth Respiratory Pattern Blood Pressure Blood Pressure Mean Pulse Oximetry 89 L Oxygen Delivery Method Oxygen Flow Rate Fraction of Inspired Oxygen Sepsis Recent Fever Within 48 Hours Sepsis New/Unexplained Change in Mental Status Sepsis Action Taken by Nursing GENERAL: alert, ill appearing, well nourished, moderate distress, non-toxic EYE EXAM: normal conjunctiva, PERRL and EOM's grossly intact OROPHARYNX: no exudate, no erythema, lips, buccal mucosa, and tongue normal and mucous membranes are moist NECK: supple, no nuchal rigidity, no adenopathy, non-tender LUNGS: Decreased to auscultation. Normal chest wall mechanics, tachypneic, increased work of breathing HEART: no murmurs, S1 normal and S2 normal, pacemaker noted right anterior superior chest wall, well-healed midline sternotomy scar noted ABDOMEN: abdomen soft, non-tender, normo-active bowel sounds, no masses, no rebound or guarding. BACK: Back is symmetrical on inspection and there is no deformity, no midline tenderness, no CVA tenderness. SKIN: no rashes and no bruising UPPER EXTREMITIES: upper extremities are grossly normal. FROM, nml pulses b/l. LOWER EXTREMITIES: 2+ pitting edema bilaterally. FROM, nml pulses b/l. NEURO EXAM: Normal sensorium, cranial nerves II-XII grossly intact, normal speech, no gross weakness of arms, no gross weakness of legs. Gross sensation intact. Course Course 0635: Patient states feeling markedly improved with BiPAP in place. Work of breathing improved. 0655: Updated patient on additional results of bedside. Patient continues to appear improved since initiation of BiPAP. Patient states he and his have been quarantined since the outbreak of the pandemic 4 months ago. They have not traveled neither 1 of them have been exposed any known coronavirus positive individual. They state the only other person they have had any kind of contact with has been their son and he has not been ill. 0725: Case discussed with Shayy Conde PA-C with [facility] hospitalist service. They will discuss possible addition of coronavirus testing. Will add blood cultures with antibiotics. 0735: Received return call from Shayy Conde, they would like coronavirus testing added to the patient. Updated on choice of antibiotics. Administered Medications Heparin Sodium (Porcine) (Heparin Sodium (Porcine)) 5,000 units SQ Q8 JAMES Stop: 01/12/20 13:59 Last Admin: 12/13/19 20:13 Dose: 5,000 units Documented by: [id number] Cosigned by: [id number] Admin: 12/13/19 13:52 Dose: 5,000 units Documented by: [id number] Cosigned by: [id number] Furosemide 40 mg/ Syringe 4 mls @ 4 mls/min IV [id number] JAMES Stop: 01/12/20 13:59 Last Admin: 12/13/19 13:52 Dose: 4 mls/min Documented by: [id number] Pramipexole Dihydrochloride (Mirapex) 0.25 mg PO HS JAMES Stop: 01/12/20 20:59 Last Admin: 12/13/19 20:13 Dose: 0.25 mg Documented by: [id number] Tamsulosin HCl (Flomax) 0.4 mg PO QPM JAMES Stop: 01/12/20 20:59 Last Admin: 12/13/19 20:13 Dose: 0.4 mg Documented by: [id number] Discontinued Medications Albuterol (Duoneb) 3 ml NEB NOW STA Stop: 12/13/19 06:57 Last Admin: 12/13/19 07:05 Dose: 3 ml Documented by: [id number] Doxycycline Hyclate (Vibramycin) 100 mg PO NOW STA Stop: 12/13/19 07:34 Last Admin: 12/13/19 08:31 Dose: 100 mg Documented by: [id number] Furosemide (Lasix) 40 mg IV NOW STA Stop: 12/13/19 06:49 Last Admin: 12/13/19 06:59 Dose: 40 mg Documented by: [id number] Cefepime HCl (Maxipime) 2,000 mg in 20 mls @ 5 mls/min IV NOW STA Stop: 12/13/19 07:36 Last Admin: 12/13/19 08:31 Dose: 5 mls/min Documented by: [id number] Nitroglycerin (Nitrostat) Confirm Administered Dose 0.4 mg .ROUTE .STK-MED ONE Stop: 12/14/19 04:43 Last Admin: 12/14/19 04:56 Dose: 0.4 mg Documented by: [id number] Nitroglycerin (Nitrostat) 0.4 mg SL ONCE STA Stop: 12/14/19 04:53 Last Admin: 12/14/19 04:50 Dose: 0.4 mg Documented by: [id number] Potassium Chloride (Klor-Con M20) 20 meq PO NOW ONE Stop: 12/13/19 11:46 Last Admin: 12/13/19 12:57 Dose: 20 meq Documented by: [id number] Tramadol HCl (Ultram) Confirm Administered Dose 50 mg .ROUTE .STK-MED ONE Stop: 12/13/19 09:25 Last Admin: 12/13/19 09:24 Dose: 50 mg Documented by: [id number] Critical Care Time Critical Care Time: Yes Total Critical Care Time: 41 Critical care of 41 min performed to assess and manage high likelihood of life- threatening respiratory distress, involving labs and imaging performed with assessment to evaluate CHF/pneumonia diagnosis with frequent reassessment. This time includes bedside time, treatment discussions with patient/family/consultants, documentation time and excludes procedure time. Medical Decision Making Differential Diagnosis Differential diagnoses includes but is not limited to pneumonia, bronchitis, COPD/Asthma exacerbation, pneumothorax, pulmonary embolism, congestive heart failure, acute coronary syndrome Medical Records Attestation: I reviewed the patient's medical records. Home Medications Current Medication List: was personally reviewed by me Laboratory Data Attestation: I reviewed the patient's lab results. Result diagrams: 12/13/19 06:00 12/13/19 06:00 Lab Results 12/13/19 12/13/19 12/13/19 Range/Units 06:00 06:00 06:00 WBC 11.84 H (4.8-10.8) K/uL RBC 3.71 L (4.7-6.1) M/uL Hgb 11.3 L (14.0-18.0) g/dL Hct 37.1 L (42-52) % MCV 100.0 (80-100) fL MCH 30.5 (25-34) pg MCHC 30.5 L (32-36) g/dL RDW Std Deviation 52.5 H (36.4-46.3) fL RDW Coeff of Archie 14.6 H (11.5-14.5) % Plt Count 228 (130-400) K/uL MPV 10.5 H (7.4-10.4) fL Immature Gran % (Auto) 0.2 % Neut % (Auto) 74.5 % Lymph % (Auto) 16.0 % [place] % (Auto) 7.3 % Eos % (Auto) 1.8 % Baso % (Auto) 0.2 % Neut # (Auto) 8.83 H (1.4-6.5) K/uL Lymph # (Auto) 1.89 (1.2-3.4) K/uL [place] # (Auto) 0.87 H (0.11-0.59) K/uL Eos # (Auto) 0.21 (0-0.5) K/uL Baso # (Auto) 0.02 (0-0.2) K/uL Immature Gran # (Auto) 0.02 (0.00-0.02) K/uL PT 11.7 (9.0-12.0) Seconds INR 1.1 (0.9-1.1) Sodium 142 (136-145) mmol/L Potassium 4.0 (3.5-5.1) mmol/L Chloride 109 H (98-107) mmol/L Carbon Dioxide 27 (21-32) mmol/L Anion Gap 6.0 (3-11) BUN 50 H (7-18) mg/dl Creatinine 1.65 H (0.6-1.4) mg/dl Est Cr Clr Drug Dosing Not Reportable Est GFR ( Amer) 47.4 Est GFR (Non-Af Amer) 40.9 BUN/Creatinine Ratio 30.5 H (10-20) Glucose 102 H (70-99) mg/dl Calcium 8.5 (8.5-10.1) mg/dl Magnesium 2.4 (1.8-2.4) mg/dl Total Bilirubin 1.1 H (0.2-1) mg/dl AST 13 L (15-37) U/L ALT 21 (12-78) U/L Alkaline Phosphatase 96 (45-117) U/L Troponin I 0.024 (0-0.045) ng/ml NT-Pro-B Natriuret Pep > 86446 H (0-900) pg/ml Total Protein 7.3 (6.4-8.2) gm/dl Albumin 3.2 L (3.4-5.0) gm/dl Globulin 4.1 H (2.5-4.0) gm/dl Albumin/Globulin Ratio 0.8 L (0.9-2) Lipase 244 (73-393) U/L Procalcitonin (0-0.5) ng/ml COVID-19 PCR (Negative) 12/13/19 12/13/19 Range/Units 06:00 08:30 WBC (4.8-10.8) K/uL RBC (4.7-6.1) M/uL Hgb (14.0-18.0) g/dL Hct (42-52) % MCV (80-100) fL MCH (25-34) pg MCHC (32-36) g/dL RDW Std Deviation (36.4-46.3) fL RDW Coeff of Archie (11.5-14.5) % Plt Count (130-400) K/uL MPV (7.4-10.4) fL Immature Gran % (Auto) % Neut % (Auto) % Lymph % (Auto) % [place] % (Auto) % Eos % (Auto) % Baso % (Auto) % Neut # (Auto) (1.4-6.5) K/uL Lymph # (Auto) (1.2-3.4) K/uL [place] # (Auto) (0.11-0.59) K/uL Eos # (Auto) (0-0.5) K/uL Baso # (Auto) (0-0.2) K/uL Immature Gran # (Auto) (0.00-0.02) K/uL PT (9.0-12.0) Seconds INR (0.9-1.1) Sodium (136-145) mmol/L Potassium (3.5-5.1) mmol/L Chloride (98-107) mmol/L Carbon Dioxide (21-32) mmol/L Anion Gap (3-11) BUN (7-18) mg/dl Creatinine (0.6-1.4) mg/dl Est Cr Clr Drug Dosing Est GFR ( Amer) Est GFR (Non-Af Amer) BUN/Creatinine Ratio (10-20) Glucose (70-99) mg/dl Calcium (8.5-10.1) mg/dl Magnesium (1.8-2.4) mg/dl Total Bilirubin (0.2-1) mg/dl AST (15-37) U/L ALT (12-78) U/L Alkaline Phosphatase (45-117) U/L Troponin I (0-0.045) ng/ml NT-Pro-B Natriuret Pep (0-900) pg/ml Total Protein (6.4-8.2) gm/dl Albumin (3.4-5.0) gm/dl Globulin (2.5-4.0) gm/dl Albumin/Globulin Ratio (0.9-2) Lipase (73-393) U/L Procalcitonin < 0.05 (0-0.5) ng/ml COVID-19 PCR NEGATIVE (Negative) Imaging Data Radiologist's Impression: XR chest 1V portable CLINICAL HISTORY: sob dyspnea COMPARISON STUDY: 10/21/2018 FINDINGS: Interval development of a diffuse right mid and lower lung infiltrative process. Consolidative infiltrate involving the left midlung region. The pulmonary apices are considered clear. There is a cardiac pacemaker/defibrillator. IMPRESSION: Bilateral parenchymal infiltrates. Moderate cardiomegaly. ACT 112: Negative or not required by law. The above report was generated using voice recognition software. It may contain grammatical, syntax or spelling errors. Electronically signed by: Zheng Sepulveda M.D. 12/13/2019 6:48 AM ECG Data Attestation: I personally reviewed and interpreted this ECG as follows: Indication: + SOB/dyspnea Rate (beats per minute): 73 Rhythm: + other (paced) ECG Intervals/blocks: + IVCD and + Prolonged QT ECG [place]: + Right axis deviation ECG ST segments: + Nonspecific ST abnormalities Comparison ECG Date: from (10/01/2018) Change: no significant change Blood Pressure Blood Pressure Findings: Elevated blood pressure Blood Pressure Disposition: further management by hospitalist ARCHIE Narrative 74-year-old male brought in with increased shortness of breath. Patient with obvious increased work of breathing and tachypnea despite no hypoxia. Patient requesting BiPAP on arrival due to prior similar episodes. Initial concern for CHF or COPD exacerbation given presentation, lower extremity edema, significant cardiac history and COPD history. Patient was initially given a dose of Lasix. Patient denied any recent symptoms to otherwise suggest evolving infectious etiology and no known sick contacts. Patient's chest x-ray read as bilateral infiltrates. I discussed this with the hospitalist at the time of presentation. Blood cultures, procalcitonin, and antibiotics were added. Hospitalist requested additional coronavirus testing. After little more than an hour here, patient wanted the BiPAP mask to be removed. At that time he was being evaluated by the hospitalist team so we deferred replacement versus downgrading to alternative oxygen supplement delivery method to them. I do feel patient would benefit at this time from even possible high flow nasal cannula with Vapotherm until he is improved, however could be tried on regular oxygen mask or nasal cannula. No evidence of bacteremia/sepsis. An order was placed for continuous cardiac monitoring. The monitor shows a rate of 72 with _paced_ rhythm. Impression & Plan Acute dyspnea, Pneumonia, Elevated brain natriuretic peptide (BNP) level, CKD (chronic kidney disease) Discharge Plan Visit Data *Final* Discharge Date/Time: 12/13/19 10:20 Chief Complaint: Respiratory Problems Stated Complaint: CAN'T BREATHE-COPD,CHF ED Provider: Karishma Nunez Discharge Problem: Acute dyspnea, Pneumonia, Elevated brain natriuretic peptide (BNP) level, CKD (chronic kidney disease) Patient Disposition: Admitted As Inpatient Discharge Instructions Interventions: ED Discharge Assessment Last Done: 12/13/19 10:20 Discharge Problem: Pneumonia Qualifiers: Pneumonia type: due to unspecified organism Laterality: bilateral Lung location: lower lobe of lung Qualified Code(s): J18.9 - Pneumonia, unspecified organism CKD (chronic kidney disease) Qualifiers: Chronic kidney disease stage: unspecified stage Qualified Code(s): N18.9 - Chronic kidney disease, unspecified
[2019-12-13 06:17] LABS: Basophils # (auto) 0.02 K/uL (0-0.2); Basophils % (auto) 0.2 %; Eosinophils # (auto) 0.21 K/uL (0-0.5); Eosinophils % (auto) 1.8 %; Hematocrit (blood only) 37.1 % (42-52); Hemoglobin 11.3 g/dL (14.0-18.0); Immature Granulocytes # (auto) 0.02 K/uL (0.00-0.02); Immature Granulocytes % (auto) 0.2 %; Lymphocytes # (auto) 1.89 K/uL (1.2-3.4); Mean Corpuscular Hemoglobin 30.5 pg (25-34); Mean Corpuscular Hgb Conc 30.5 g/dL (32-36); Mean Platelet Volume 10.5 fL (7.4-10.4); Monocytes # (auto) 0.87 K/uL (0.11-0.59); Monocytes % (auto) 7.3 %; Neutrophils # (auto) 8.83 K/uL (1.4-6.5); Neutrophils % (auto) 74.5 %; Platelet Count 228 K/uL (130-400); RDW Coefficient of Variation 14.6 % (11.5-14.5); RDW Standard Deviation 52.5 fL (36.4-46.3); Red Blood Count 3.71 M/uL (4.7-6.1); White Blood Count 11.84 K/uL (4.8-10.8)
[2019-12-13 06:26] LABS: Alanine Aminotransferase 21 U/L (12-78); Albumin Level 3.2 gm/dl (3.4-5.0); Aspartate Aminotransferase 13 U/L (15-37); BUN Creatinine Ratio 30.5 (10-20); Blood Urea Nitrogen 50 mg/dl (7-18); Calcium 8.5 mg/dl (8.5-10.1); Carbon Dioxide 27 mmol/L (21-32); Chloride 109 mmol/L (98-107); Est GFR (African American) 47.4; Est GFR (Non-African American) 40.9; Glucose 102 mg/dl (70-99); INR 1.1 (0.9-1.1); Lipase 244 U/L (73-393); Magnesium 2.4 mg/dl (1.8-2.4); Prothrombin Time 11.7 Seconds (9.0-12.0); Sodium 142 mmol/L (136-145)
[2019-12-13 06:31] LABS: Albumin Globulin Ratio 0.8 (0.9-2); Alkaline Phosphatase 96 U/L (45-117); Bilirubin,Total 1.1 mg/dl (0.2-1); Globulin 4.1 gm/dl (2.5-4.0); NT Pro B Type Natriuretic Pept > 35000 pg/ml (0-900); Total Protein 7.3 gm/dl (6.4-8.2); Troponin I 0.024 ng/ml (0-0.045)
[2019-12-13] MEDS ORDERED: FUROSEMIDE 40 MG/4 ML VIAL IV STA (06:48)
--- NOTE | 2019-12-13 06:49 | XRay Report ---
XR chest 1V portable CLINICAL HISTORY: sob dyspnea COMPARISON STUDY: 10/21/2018 FINDINGS: Interval development of a diffuse right mid and lower lung infiltrative process. Consolidat ligia infiltrate involving the left midlung region. The pulmonary apices are considered clear. There is a cardiac pacemaker/defibrillator. IMPRESSION: Bilateral parenchymal infiltrates. Moderate cardiomegaly. ACT 112: Negative or not required by law. The above report was generated using voice recognition software. It may contain grammatical, syntax or spelling errors. Electronically signed by: Zheng Sepulveda M.D. 12/13/2019 6:48 AM
[2019-12-13] MEDS ORDERED: ALBUT/IPRATROP 3MG/0.5MG NEB 3 ML VIAL NEB STA (06:56)
[2019-12-13] MEDS ORDERED: CEFEPIME 2,000 MG/20 ML VIAL IV STA (07:33)
[2019-12-13] MEDS ORDERED: DOXYCYCLINE HYCLATE 100 MG CAP PO STA (07:33)
--- NOTE | 2019-12-13 08:52 | History & Physical Report ---
Date of Service December 13, 2019 Assessment & Plan (1) Hypoxia: (2) Acute on chronic heart failure with reduced ejection fraction and diastolic dysfunction: This is a 74-year-old male who has significant past medical history of CAD with history of CABG x1 BENÍTEZ to LAD, chronic systolic and diastolic CHF secondary to ischemic cardiomyopathy, pulmonary hypertension, emphysema, HTN, HLD, LBBB, history of subclavian steal syndrome status post stent, PMR on chronic prednisone, anemia of renal disease, CKD stage III, PVD, carotid artery stenosis s/p L CEA, 3.3 cm AAA, GERD who presents to ED secondary to ill feeling x2 to 3 days; shortness of breath x1 day. Pt with acute on SOB with increased lower ext swelling and sx of orthopnea, PND likely consistent with decompensation of HFrEF Pt recently transitioned from lasix 60mg daily to torsemide 20mg 1/2 tab bid ( 10/25/19) Has noted last several days ill feeling, decreased urine output and SOB. Has been compliant with diuretic, increase NA in diet admit to PCU continue O2 supplementation as needed IV Lasix 40mg BID but will monitor closely in setting of low cardiac output replace lytes as needed daily weight (yesterday 139lb per pt, baseline 142lb) strict I and O, HH/LowNA diet consult cardiology Last echocardiogram 09/2019 revealed persistent EF 25% with severe diffuse hypokinesis, severely enlarged left atrium, severe MR, pulmonary hypertension, diastolic dysfunction Will not repeat echo at this time, defer to cardiology per cardiology notes pt is to be worked up for JOSÉ/nocturnal hypoxia with sleep study as outpt consider nocturnal desat while hospitalized (3) Leukocytosis: WBC 11 K Procalcitonin WNL, symptoms do not appear to be infectious, he is afebrile Rule out COVID-19 given shortness of breath with interstitial findings on x-ray, but feel unlikely Likely elevated in setting of chronic prednisone use He did receive 1 dose of doxycycline and IV cefepime in ED, monitor (4) CAD (coronary artery disease): History of CABG x1 BENÍTEZ to LAD 06/2017 Subsequently underwent biventricular AICD placement by Dr. Block Follows [facility] cardiology Continue Coreg, ASA, statin Losartan recently discontinued secondary to increase in renal function to aid in more aggressive diuresis (5) HTN (hypertension): Blood pressure stable in ED Continue Coreg and amlodipine (6) CKD (chronic kidney disease) stage 3, GFR 30-59 ml/min: BUN/creatinine 50 and 1.67 Baseline creatinine 1.6-1.9 Renal function in setting of diuretic use (7) Biventricular automatic implantable cardioverter defibrillator in situ: 2/2 to HFrEF follows [facility] cardiology (8) COPD (chronic obstructive pulmonary disease): No acute exacerbation Does not follow pulmonology On PRN albuterol (9) PMR (polymyalgia rheumatica): Continue chronic prednisone 5 mg daily (10) Anemia: Patient with chronic anemia Stable H&H 11.3 and 37.1 Normocytic, normochromic likely in setting of renal disease Monitor (11) Dyslipidemia: Continue statin (12) BPH (benign prostatic hyperplasia): Continue Flomax (13) DVT prophylaxis: SQ Heparin Disposition: Admit to telemetry Follow-up: PCP Dr. Cardona upon discharge Patient was seen and examined in collaboration with Dr. Vega, please see addendum History of Present Illness Chief Complaint: Shortness of breath x1 day; ill feeling x2 to 3 days. Primary Care Provider: Maciej Cardona MD This is a 74-year-old male who has significant past medical history of CAD with history of CABG x1 BENÍTEZ to LAD, chronic systolic and diastolic CHF secondary to ischemic cardiomyopathy, pulmonary hypertension, emphysema, HTN, HLD, LBBB, history of subclavian steal syndrome status post stent, PMR on chronic prednisone, anemia of renal disease, CKD stage III, PVD, carotid artery stenosis, 3.3 cm AAA, GERD who presents to ED secondary to ill feeling x2 to 3 days; shortness of breath x1 day. He states over the last 2 to 3 days he overall has felt unwell, weak, increased fatigue and "sleeping more." He states last evening at dinner he was eating 2 slices of pizza when he became short of breath while eating. His shortness of breath continued throughout the evening, "I felt like I was gasping for air." His oxygen saturations are 87 to 88%. He tried sleeping in a recliner but had difficulty sleeping due to shortness of breath. When he would fall asleep he would wake up feeling gasping for air. He complains of positive orthopnea and PND. He denied associated diaphoresis, chest pain, lightheadedness or dizziness with shortness of breath. He denies any chest pain, cough, hemoptysis, fever, chills, sweats, lightheadedness, dizziness, syncope, nausea, vomiting, abdominal pain, diarrhea, melena, hematochezia. He states approximately a month ago his furosemide was changed to torsemide. Since then he has noticed a decrease in urinary frequency but has noticed an increase in urinary urgency. He does monitor his weight which was 139 yesterday. He states when he is feeling well he is usually 142. He denies any increased lower extremity edema, "but my socks feel tight." is at bedside. For the most part he has been eating at home although he did have 2 slices of pizza last evening. He also had a few potato chips with sandwiches yesterday. He admits to trying to avoid salt, but feels he eats a decent amount of salt. Chronically he does have TAMAYO at baseline, but now at rest. He did take his morning medications. In ED patient remained hemodynamically stable. He was hypoxic requiring O2 via NC. Initially he was placed on BiPAP more for comfort, but this was then removed and placed on nasal cannula. Lab work notable for WBC 11.84, H&H 11.3 and 37.1, platelet 228, sodium 142, K4.0, chloride 109, BUN 50, creatinine 1.65, glucose 102, mag 2.4, troponin 0.024, proBNP 35,000, pro-Kash WNL. EKG revealed 73 bpm AV dual paced rhythm. QTc 561ms. CXR: IMPRESSION: Bilateral parenchymal infiltrates. Moderate cardiomegaly. In ED he received 40 mg IV Lasix, 100 mg oral doxycycline, IV cefepime. Due to patient complaints of shortness of breath and findings of infiltrates on chest x-ray patient will be tested for coronavirus. Allergies Allergy/AdvReac Type Severity Reaction Status Date / Time hydromorphone Allergy Intermediate HIVES Verified 12/13/19 06:17 meperidine Allergy Intermediate HIVES Verified 12/13/19 06:17 morphine Allergy Intermediate HIVES Verified 12/13/19 06:17 lisinopril AdvReac Mild COUGH Verified 12/13/19 06:17 Home Medications Home Medications Medication Instructions Recorded Confirmed Type aspirin [Aspirin Low Dose] 81 mg PO DAILY 09/17/18 12/13/19 History atorvastatin [Lipitor] 40 mg PO DAILY 09/17/18 12/13/19 History carvedilol 12.5 mg PO BID 09/17/18 12/13/19 History cholecalciferol (vitamin D3) 2,000 unit PO DAILY 09/17/18 12/13/19 History fluorouracil 1 applic TOPICAL BID PRN 09/17/18 12/13/19 History pramipexole [Mirapex] 0.25 mg PO HS 09/17/18 12/13/19 History sennosides 8.6 mg PO BID PRN 09/17/18 12/13/19 History tamsulosin 0.4 mg PO QPM 09/17/18 12/13/19 History tramadol 50 mg PO Q6H PRN 09/17/18 12/13/19 History albuterol sulfate 2 inha INH QID PRN #1 gm 09/28/18 12/13/19 Rx dextromethorphan-guaifenesin 2 tab-cap PO Q8H PRN 09/28/18 12/13/19 History [Coricidin HBP] amlodipine 5 mg PO DAILY 12/13/19 12/13/19 History nitroglycerin [Nitrostat] 0.4 mg SUBLINGUAL DIRECTED PRN 12/13/19 12/13/19 History prednisone 5 mg PO DAILY 12/13/19 12/13/19 History torsemide 20 mg PO DAILY 12/13/19 12/13/19 History Past Med/Surg History Medical History (Updated 12/13/19 @ 09:02 by Shayy Moreno PA-C) MARGARET inhibitor intolerance (Chronic) BPH (benign prostatic hyperplasia) (Chronic) CAD (coronary artery disease) (Chronic) Carotid stenosis (Chronic) CHF (congestive heart failure) CKD (chronic kidney disease) stage 3, GFR 30-59 ml/min (Chronic) COPD (chronic obstructive pulmonary disease) Dyslipidemia (Chronic) GERD (gastroesophageal reflux disease) (Chronic) HTN (hypertension) (Chronic) LBBB (left bundle branch block) (Chronic) Lumbago (Chronic) Pericardial effusion PMR (polymyalgia rheumatica) (Chronic) Small bowel obstruction due to adhesions Surgical History (Updated 12/13/19 @ 09:07 by Shayy Moreno PA-C) Biventricular automatic implantable cardioverter defibrillator in situ 06/25/2017 [facility] [place] H/O heart artery stent (Resolved) "left subclavian stent for occlusion with front runner catheter, Dr Retana 04/23" History of back surgery (Resolved) cervical and lumbar History of carotid endarterectomy Left CEA with patch 10/25/2006 History of cholecystectomy (Resolved) History of coronary artery bypass graft x 1 BENÍTEZ to LAD History of inguinal hernia repair (Resolved) History of open heart surgery History of tonsillectomy (Resolved) Family History Father Coronary heart disease, Onset Age: 51 Mother Stroke Social History (Updated 12/13/19 @ 08:55 by Shayy Moreno PA-C) Preferred Language: Persian Communication Ability: Effective General Machine Operator Required: No Beliefs That Will Affect Care: Rastafari Rastafari Beliefs: Yazidi marital status: Current Living Situation: Spouse current occupational status: retired and disabled Other Information That Helps Us Care for You: No Feels Safe at Home: Yes Safety Concerns: Feels Safe At This Time Smoking Status: Former smoker Tobacco Type: cigarettes ; packs per day: 1.5 ; Years Smoked: 43 ; Smoking End Date: 03/21/2001 ; Hx Alcohol Use: No Hx Substance Use: No Review of Systems Review of Systems: All systems reviewed & are unremarkable except as noted in HPI & below Physical Exam Physical Exam: Constitutional: WD/WN, chronically ill appearing male, vitals as above, NAD, sitting up in bed, answers questions appropriately, conversing easily Head: Normocephalic, Atraumatic Eyes: PERRL, conjunctivae normal, anicteric sclerae ENMT: external ear and nose normal, oropharynx normal Neck: trachea midline, no thyromegaly normal visual inspection Respiratory: normal respiratory effort, lungs clear to auscultation, bibasilar expiratory rhonchi, no wheeze or rales. Normal insp/exp effort, no accessory muscle use on 3 L O2 via facemask Cardiovascular: RRR, no murmur, bilateral venous stasis changes noted, +2 bilateral ankle edema, +1 pretibial edema Vessels: no JVD or carotid bruit Chest: Sternal scar noted, biVAICD noted right anterior chest wall Abdomen: normal bowel sounds, soft, nontender, no hepatosplenomegaly Musculoskeletal: no cyanosis or clubbing, extremities motor strength 5/5 Skin: Bilateral dorsal forearm skin thickening and hyperpigmentation, warm and dry normal turgor Neurologic: PERRL, EOMI, accommodation nl, no face palsy, no dysarthria CN's II-XI intact bilaterally and moves all extremities Psychiatric: A+Ox3, euthymic affect Lymphatic: no cervical or axillary lymphadenopathy : deferred Results & Data Results & Data ([facility]) Vital Signs (Past 12 Hours) Vital Signs Temp Pulse Pulse Resp BP Pulse Ox 12/13/19 08:01 67 14 89 L 12/13/19 08:00 65 12 139/63 88 L 12/13/19 07:31 60 12 98 12/13/19 07:30 63 12 161/70 H 98 12/13/19 07:05 62 62 20 99 12/13/19 07:00 154/71 H 98 12/13/19 06:30 61 16 160/77 H 98 12/13/19 06:10 61 19 100 12/13/19 06:01 60 24 157/75 H 96 12/13/19 05:45 36.4 C L 85 24 173/71 H 92 Laboratory Results Short CBC 12/13/19 12/13/19 Range/Units 06:00 06:00 WBC 11.84 H (4.8-10.8) K/uL Hgb 11.3 L (14.0-18.0) g/dL Hct 37.1 L (42-52) % Plt Count 228 (130-400) K/uL Creatinine 1.65 H (0.6-1.4) mg/dl BMP 12/13/19 06:00 Sodium 142 Potassium 4.0 Chloride 109 H Carbon Dioxide 27 BUN 50 H Creatinine 1.65 H Glucose 102 H Calcium 8.5 Cardiac Enzymes 12/13/19 Range/Units 06:00 Troponin I 0.024 (0-0.045) ng/ml Liver Function 12/13/19 Range/Units 06:00 Total Bilirubin 1.1 H (0.2-1) mg/dl AST 13 L (15-37) U/L ALT 21 (12-78) U/L Alkaline Phosphatase 96 (45-117) U/L Albumin 3.2 L (3.4-5.0) gm/dl Diagnostic Findings CXR: IMPRESSION: Bilateral parenchymal infiltrates. Moderate cardiomegaly. Medications Administered Discontinued Medications Albuterol (Duoneb) 3 ml NEB NOW STA Stop: 12/13/19 06:57 Last Admin: 12/13/19 07:05 Dose: 3 ml Documented by: [id number] Doxycycline Hyclate (Vibramycin) 100 mg PO NOW STA Stop: 12/13/19 07:34 Last Admin: 12/13/19 08:31 Dose: 100 mg Documented by: [id number] Furosemide (Lasix) 40 mg IV NOW STA Stop: 12/13/19 06:49 Last Admin: 12/13/19 06:59 Dose: 40 mg Documented by: [id number] Cefepime HCl (Maxipime) 2,000 mg in 20 mls @ 5 mls/min IV NOW STA Stop: 12/13/19 07:36 Last Admin: 12/13/19 08:31 Dose: 5 mls/min Documented by: [id number] ECG Rate (beats per minute): 73 Findings: + paced rhythm and + prolonged QT Code Status & VTE Plan Code Status Full Code VTE Prophylaxis Plan VTE Prophylaxis will be ordered: Yes Supervising Physician Co-Signing Physician Notes I, Dr. Sanjay Vega, have seen and examined the patient with physician executive sales assistant and agree with the assessment and plan as above and would like to comment that on physical exam General: no acute distress Lungs: on supplementary oxygen, no wheezing Heart: heart rate in the 70s Abdomen: soft, nontender, positive bowel sounds Neuro/Extremities: moves all extremities -that patient may have been having shortness of breath and hypoxia from acute on chronic CHF exacerbation. continue to treat patient with IV Lasix and monitor supplementary oxygen needs. patient reports he quit smoking in 2010 and when asked if he was ever diagnosed with COPD, patient believes he has been told that he carries this diagnosis in the past - will target supplementary oxygen to 88% to 92% unless acute short of breath -agree with other assessment and plans as documented by physical executive sales assistant
[2019-12-13] MEDS ORDERED: TRAMADOL HCL 50 MG TABLET ONE (09:24)
[2019-12-13] MEDS ORDERED: ALBUTEROL HFA 8 GM INHALER INH PRN (11:19)
[2019-12-13] MEDS ORDERED: SENNA 8.6 MG TAB PO PRN (11:19)
[2019-12-13] MEDS ORDERED: ACETAMINOPHEN 325 MG TAB PO PRN (11:19)
[2019-12-13] MEDS ORDERED: POLYETHYLENE (MIRALAX) 17 GM PACK PO PRN (11:19)
--- NOTE | 2019-12-13 11:38 | Cardiology Consultation ---
Date of Consultation December 13, 2019 Assessment & Plan (1) Acute on chronic heart failure with reduced ejection fraction and diastolic dysfunction: (2) Biventricular automatic implantable cardioverter defibrillator in situ: (3) Elevated brain natriuretic peptide (BNP) level: (4) CKD (chronic kidney disease): (5) Anemia: (6) COPD (chronic obstructive pulmonary disease): The patient has been admitted and started on IV diuretics. If he does not have adequate urine output then he may require a dose of Zaroxolyn with his loop diuretic. He is currently not on an MARGARET inhibitor or ARB. He is listed as having an intolerance to these medications. I am uncertain as to whether that is due to his chronic kidney disease, hypotension, hyperkalemia or just a chronic cough. Unfortunate, he would really benefit from 1 of these drugs. History of Present Illness Attending Physician: Sanjay Vega MD History of Present Illness This is a 74-year-old male patient with a history of ischemic cardiomyopathy with a history of chronic combined systolic and diastolic heart failure along with stage IV chronic kidney disease. He has been admitted through the emergency department with a history of progressive dyspnea on exertion and shortness of breath. His chest x-ray is consistent with pulmonary edema and his pro natruretic peptide is 35,000. He has had no recent chest pain. His EKG shows a paced rhythm. Past medical history: 1.Chronic combined systolic and diastolic CHF (congestive heart failure) (HCC) 2.Anemia due to stage 4 chronic kidney disease (HCC) 3.Hypertensive heart and kidney disease with chronic combined systolic and diastolic congestive heart failure and stage 4 chronic kidney disease (HCC) 4.Dyslipidemia, goal LDL below 70 5.HTN, goal below 140/90 6.Coronary artery disease involving [place] coronary artery of [place] heart without angina pectoris 7.Presence of automatic cardioverter/defibrillator (AICD) 8.Ischemic cardiomyopathy Allergies Allergy/AdvReac Type Severity Reaction Status Date / Time hydromorphone Allergy Intermediate HIVES Verified 12/13/19 06:17 meperidine Allergy Intermediate HIVES Verified 12/13/19 06:17 morphine Allergy Intermediate HIVES Verified 12/13/19 06:17 lisinopril AdvReac Mild COUGH Verified 12/13/19 06:17 Home Medications Home Medications Medication Instructions Recorded Confirmed Type aspirin [Aspirin Low Dose] 81 mg PO DAILY 09/17/18 12/13/19 History atorvastatin [Lipitor] 40 mg PO DAILY 09/17/18 12/13/19 History carvedilol 12.5 mg PO BID 09/17/18 12/13/19 History cholecalciferol (vitamin D3) 2,000 unit PO DAILY 09/17/18 12/13/19 History fluorouracil 1 applic TOPICAL BID PRN 09/17/18 12/13/19 History pramipexole [Mirapex] 0.25 mg PO HS 09/17/18 12/13/19 History sennosides 8.6 mg PO BID PRN 09/17/18 12/13/19 History tamsulosin 0.4 mg PO QPM 09/17/18 12/13/19 History tramadol 50 mg PO Q6H PRN 09/17/18 12/13/19 History albuterol sulfate 2 inha INH QID PRN #1 gm 09/28/18 12/13/19 Rx dextromethorphan-guaifenesin 2 tab-cap PO Q8H PRN 09/28/18 12/13/19 History [Coricidin HBP] amlodipine 5 mg PO DAILY 12/13/19 12/13/19 History nitroglycerin [Nitrostat] 0.4 mg SUBLINGUAL DIRECTED PRN 12/13/19 12/13/19 History prednisone 5 mg PO DAILY 12/13/19 12/13/19 History torsemide 20 mg PO DAILY 12/13/19 12/13/19 History Patient History Medical History MARGARET inhibitor intolerance (Chronic) BPH (benign prostatic hyperplasia) (Chronic) CAD (coronary artery disease) (Chronic) Carotid stenosis (Chronic) CHF (congestive heart failure) CKD (chronic kidney disease) stage 3, GFR 30-59 ml/min (Chronic) COPD (chronic obstructive pulmonary disease) Dyslipidemia (Chronic) GERD (gastroesophageal reflux disease) (Chronic) HTN (hypertension) (Chronic) LBBB (left bundle branch block) (Chronic) Lumbago (Chronic) Pericardial effusion PMR (polymyalgia rheumatica) (Chronic) Small bowel obstruction due to adhesions Surgical History Biventricular automatic implantable cardioverter defibrillator in situ 06/25/2017 [facility] [place] H/O heart artery stent (Resolved) "left subclavian stent for occlusion with front runner catheter, Dr Retana 04/23" History of back surgery (Resolved) cervical and lumbar History of carotid endarterectomy Left CEA with patch 10/25/2006 History of cholecystectomy (Resolved) History of coronary artery bypass graft x 1 BENÍTEZ to LAD History of inguinal hernia repair (Resolved) History of open heart surgery History of tonsillectomy (Resolved) Family History Father Coronary heart disease, Onset Age: 51 Mother Stroke Social History Preferred Language: Ukrainian Communication Ability: Effective Card Sorter Required: No Beliefs That Will Affect Care: Voodoo Voodoo Beliefs: L[employer] Day marital status: Current Living Situation: Spouse current occupational status: retired and disabled Other Information That Helps Us Care for You: No Feels Safe at Home: Yes Safety Concerns: Feels Safe At This Time Smoking Status: Former smoker Tobacco Type: cigarettes ; packs per day: 1.5 ; Years Smoked: 43 ; Smoking End Date: 03/21/2001 ; Hx Alcohol Use: No Hx Substance Use: No Review of Systems Review of Systems: All systems reviewed & are unremarkable except as noted in HPI & below Nothing additional to add. Physical Exam Physical Exam: General: no acute distress and stated age Head: normocephalic, no masses, lesions, tenderness or abnormalities Eyes: conjunctiva are pink and non-injected, sclera clear Neck: Neck vein distention is noted. Chest: normal shape and normal respiratory effort Lungs: Rales at the bases of the lungs. Cardiac Exam: - regular rate & rhythm, no murmurs gallops or rubs - normal S1, normal S2, there is a left ventricular heave and an S3 and S4. Pulses: 2(+) throughout Abdomen: abdomen soft, non-tender, no abnormal masses and no hepatosplenomegaly Musculoskeletal: no gait disturbance, no joint inflammation, no deforming arthritis Extremities: Edema around the ankles. Neuro: grossly normal exam Results & Data ([facility]) Vital Signs (Past 12 Hours) Vital Signs Temp Pulse Pulse Resp BP BP Pulse Ox 12/13/19 10:58 36.5 C 62 22 165/70 H 97 12/13/19 10:01 69 20 130/65 98 12/13/19 09:05 20 158/68 H 93 12/13/19 08:01 67 14 89 L 12/13/19 08:00 65 12 139/63 88 L 12/13/19 07:31 60 12 98 12/13/19 07:30 63 12 161/70 H 98 12/13/19 07:05 62 62 20 99 12/13/19 07:00 154/71 H 98 12/13/19 06:30 61 16 160/77 H 98 12/13/19 06:10 61 19 100 12/13/19 06:01 60 24 157/75 H 96 12/13/19 05:45 36.4 C L 85 24 173/71 H 92 Laboratory Results Laboratory Results - last 24 hr 12/13/19 12/13/19 12/13/19 06:00 06:00 06:00 WBC 11.84 H RBC 3.71 L Hgb 11.3 L Hct 37.1 L MCV 100.0 MCH 30.5 MCHC 30.5 L RDW Std Deviation 52.5 H RDW Coeff of Archie 14.6 H Plt Count 228 MPV 10.5 H Immature Gran % (Auto) 0.2 Neut % (Auto) 74.5 Lymph % (Auto) 16.0 [place] % (Auto) 7.3 Eos % (Auto) 1.8 Baso % (Auto) 0.2 Neut # (Auto) 8.83 H Lymph # (Auto) 1.89 [place] # (Auto) 0.87 H Eos # (Auto) 0.21 Baso # (Auto) 0.02 Immature Gran # (Auto) 0.02 PT 11.7 INR 1.1 Sodium 142 Potassium 4.0 Chloride 109 H Carbon Dioxide 27 Anion Gap 6.0 BUN 50 H Creatinine 1.65 H Est Cr Clr Drug Dosing Not Reportable Est GFR ( Amer) 47.4 Est GFR (Non-Af Amer) 40.9 BUN/Creatinine Ratio 30.5 H Glucose 102 H Calcium 8.5 Magnesium 2.4 Total Bilirubin 1.1 H AST 13 L ALT 21 Alkaline Phosphatase 96 Troponin I 0.024 NT-Pro-B Natriuret Pep > 88585 H Total Protein 7.3 Albumin 3.2 L Globulin 4.1 H Albumin/Globulin Ratio 0.8 L Lipase 244 Procalcitonin Nasal Screen MRSA (PCR) COVID-19 PCR 12/13/19 12/13/19 12/13/19 06:00 08:30 11:27 WBC RBC Hgb Hct MCV MCH MCHC RDW Std Deviation RDW Coeff of Archie Plt Count MPV Immature Gran % (Auto) Neut % (Auto) Lymph % (Auto) [place] % (Auto) Eos % (Auto) Baso % (Auto) Neut # (Auto) Lymph # (Auto) [place] # (Auto) Eos # (Auto) Baso # (Auto) Immature Gran # (Auto) PT INR Sodium Potassium Chloride Carbon Dioxide Anion Gap BUN Creatinine Est Cr Clr Drug Dosing Est GFR ( Amer) Est GFR (Non-Af Amer) BUN/Creatinine Ratio Glucose Calcium Magnesium Total Bilirubin AST ALT Alkaline Phosphatase Troponin I NT-Pro-B Natriuret Pep Total Protein Albumin Globulin Albumin/Globulin Ratio Lipase Procalcitonin < 0.05 Nasal Screen MRSA (PCR) Pending COVID-19 PCR NEGATIVE 12/13/19 11:38 WBC RBC Hgb Hct MCV MCH MCHC RDW Std Deviation RDW Coeff of Archie Plt Count MPV Immature Gran % (Auto) Neut % (Auto) Lymph % (Auto) [place] % (Auto) Eos % (Auto) Baso % (Auto) Neut # (Auto) Lymph # (Auto) [place] # (Auto) Eos # (Auto) Baso # (Auto) Immature Gran # (Auto) PT INR Sodium Potassium Chloride Carbon Dioxide Anion Gap BUN Creatinine Est Cr Clr Drug Dosing Est GFR ( Amer) Est GFR (Non-Af Amer) BUN/Creatinine Ratio Glucose Calcium Magnesium Total Bilirubin AST ALT Alkaline Phosphatase Troponin I < 0.015 NT-Pro-B Natriuret Pep Total Protein Albumin Globulin Albumin/Globulin Ratio Lipase Procalcitonin Nasal Screen MRSA (PCR) COVID-19 PCR Medications Administered Current Inpatient Medications Acetaminophen (Tylenol) 650 mg PO Q4H PRN PRN Reason: Pain or Fever Stop: 01/12/20 11:18 Albuterol (Ventolin Hfa) 2 puffs INH QID PRN PRN Reason: shortness of breath or wheezing Stop: 01/12/20 11:18 Amlodipine Besylate (Norvasc) 5 mg PO DAILY JAMES Stop: 01/13/20 08:59 Aspirin (Ecotrin Ectab) 81 mg PO DAILY JAMES Stop: 01/13/20 08:59 Atorvastatin Calcium (Lipitor) 40 mg PO DAILY JAMES Stop: 01/13/20 08:59 Carvedilol (Coreg) 12.5 mg PO BID JAMES Stop: 01/13/20 08:59 Heparin Sodium (Porcine) (Heparin Sodium (Porcine)) 5,000 units SQ Q8 JAMES Stop: 01/12/20 13:59 Furosemide 40 mg/ Syringe 4 mls @ 4 mls/min IV [id number] JAMES Stop: 01/12/20 13:59 Polyethylene Glycol (Miralax Powder Packet) 17 gm PO DAILY PRN PRN Reason: Constipation Stop: 01/12/20 11:18 Pramipexole Dihydrochloride (Mirapex) 0.25 mg PO HS JAMES Stop: 01/12/20 20:59 Prednisone (Prednisone) 5 mg PO DAILY JAMES Stop: 01/13/20 08:59 Sennosides (Senokot) 8.6 mg PO BID PRN PRN Reason: Constipation Stop: 01/12/20 11:18 Tamsulosin HCl (Flomax) 0.4 mg PO QPM JAMES Stop: 01/12/20 20:59 Tramadol HCl (Ultram) 50 mg PO Q6H PRN PRN Reason: Pain Stop: 01/12/20 11:18 Vitamin D (Vitamin D3) 2,000 units PO DAILY JAMES Stop: 01/13/20 08:59 (1) CKD (chronic kidney disease) Chronic kidney disease stage: unspecified stage Qualified Code(s): N18.9 - Chronic kidney disease, unspecified
[2019-12-13] MEDS ORDERED: POTASSIUM CHLORIDE 20 MEQ TABCR PO ONE (11:45)
--- NOTE | 2019-12-13 13:36 | Electrocardiogram Report ---
Test Reason : Blood Pressure : / mmHG Vent. Rate : 073 BPM Atrial Rate : 065 BPM P-R Int : 168 ms QRS Dur : 162 ms QT Int : 510 ms P-R-T Axes : -41 268 129 degrees QTc Int : 561 ms Poor data quality, interpretation may be adversely affected AV dual-paced rhythm with frequent ventricular-paced complexes Abnormal ECG When compared with ECG of 28-SEP-2018 11:10, Premature ventricular complexes are no longer Present Vent. rate has increased BY 10 BPM Confirmed by Quinn Whitten ([id number]) on 12/13/2019 1:35:54 PM Referred By: Confirmed By:Quinn Whitten
[2019-12-13] MEDS: HEPARIN SOD 5,000 UNIT/0.5 ML VIAL SQ SCH ×2 (13:52→20:13)
[2019-12-13] MEDS: FUROSEMIDE 40 MG in SYRINGE 0 ML IV SCH (13:52)
[2019-12-13] MEDS ORDERED: FUROSEMIDE 40 MG/4 ML VIAL IV SCH (14:00)
[2019-12-13] MEDS: PRAMIPEXOLE DIHYDROCHLO 0.25 MG TAB PO SCH (20:13)
[2019-12-13] MEDS: TAMSULOSIN HCL 0.4 MG CAP PO SCH (20:13)
[2019-12-14] MEDS ORDERED: NITROGLYCERIN SL 0.4 MG/TAB TAB ONE (04:42)
[2019-12-14] MEDS ORDERED: NITROGLYCERIN SL 0.4 MG/TAB TAB SL STA (04:52)
[2019-12-14] MEDS: HEPARIN SOD 5,000 UNIT/0.5 ML VIAL SQ SCH ×3 (06:39→20:41)
[2019-12-14 07:54] LABS: Hematocrit (blood only) 32.7 % (42-52); Hemoglobin 10.4 g/dL (14.0-18.0); Mean Corpuscular Hgb Conc 31.8 g/dL (32-36); Mean Corpuscular Volume 97.6 fL (80-100); Mean Platelet Volume 10.3 fL (7.4-10.4); Platelet Count 189 K/uL (130-400); RDW Coefficient of Variation 14.5 % (11.5-14.5); RDW Standard Deviation 52.1 fL (36.4-46.3); Red Blood Count 3.35 M/uL (4.7-6.1); White Blood Count 9.89 K/uL (4.8-10.8)
[2019-12-14] MEDS: carvediloL 12.5 MG TAB PO SCH ×2 (08:05→20:41)
[2019-12-14] MEDS: predniSONE 5 MG TAB PO SCH (08:06)
[2019-12-14] MEDS: CHOLECALCIFEROL 1,000 UNITS 25 MCG TAB PO SCH (08:06)
[2019-12-14] MEDS: FUROSEMIDE 40 MG in SYRINGE 0 ML IV SCH ×2 (08:06→13:03)
[2019-12-14] MEDS: AMLODIPINE BESYLATE 5 MG TAB PO SCH (08:06)
[2019-12-14] MEDS: ATORVASTATIN 40 MG TAB PO SCH (08:06)
[2019-12-14] MEDS: ASPIRIN 81 MG ECTAB PO SCH (08:07)
[2019-12-14 08:23] LABS: BUN Creatinine Ratio 29.4 (10-20); Blood Urea Nitrogen 50 mg/dl (7-18); Calcium 8.4 mg/dl (8.5-10.1); Carbon Dioxide 28 mmol/L (21-32); Chloride 106 mmol/L (98-107); Creatinine Clr Calc Pharmacy 36.1 ml/min; Est GFR (African American) 45.7; Est GFR (Non-African American) 39.4; Glucose 88 mg/dl (70-99); Magnesium 2.2 mg/dl (1.8-2.4); Sodium 140 mmol/L (136-145)
[2019-12-14 08:27] LABS: Troponin I < 0.015 ng/ml (0-0.045)
[2019-12-14 08:36] LABS: Estimated Average Glucose 120 mg/dl; Hemoglobin A1C 5.8 % (4.5-5.6)
[2019-12-14] MEDS ORDERED: ALBUT/IPRATROP 3MG/0.5MG NEB 3 ML VIAL NEB STA ×2 (08:52→14:24)
[2019-12-14] MEDS: NITROGLYCERIN 2% OINTMENT 30GM TUBE EXT SCH ×3 (09:11→20:44)
--- NOTE | 2019-12-14 10:05 | Cardiology Progress Note ---
Date of Service December 14, 2019 Assessment & Plan (1) Acute on chronic heart failure with reduced ejection fraction and diastolic dysfunction: (2) COPD (chronic obstructive pulmonary disease): The patient is well-known to the undersigned as I followed him as an outpatient for years. His most recent echocardiogram had been performed as an outpatient on 10/19/2019 with severe diffuse left ventricular hypokinesis noted, LVEF 25-9% severe left atrial argument, severe grade 3 diastolic dysfunction, moderate mitral regurgitation, moderate to severe pulmonary hypertension with estimated pulmonary artery systolic pressure of 63 mmHg. Study was unchanged compared to February 2019. He also has underlying COPD, but I believe the majority of his symptoms at present are due to his congestive heart failure. He is not overtly volume overloaded, and typically he has had times of low cardiac output. Cachexia is noted, referring to his outpatient chart, his weight was 168 pounds in June 2017 and he weighs 142 pounds at present. His creatinine is stable and about at its baseline. At this time I recommend ongoing diuretic therapy, and I have added topical nitroglycerin for further afterload reduction, vasodilatory effects. Losartan Previously discontinued as an outpatient due to elevated creatinine. As I have discussed with the patient the past, his prognosis is poor. DVT prophylaxis: Continue subcutaneous heparin Subjective Chief complaint: Follow-up shortness of breath Subjective: Patient with respiratory distress at the time of my assessment this morning. He was sitting straight upright in bed, receiving a DuoNeb respiratory treatment, with ongoing symptoms of dyspnea. He received a dose of sublingual nitroglycerin at 4:56 AM for chest discomfort which is since resolved. Telemetry reveals SR, AV sequential pacing. Physical Exam Physical Exam: Temp Pulse Resp BP Pulse Ox 36.6 C 61 18 154/71 H 97 12/14/19 07:24 12/14/19 09:10 12/14/19 09:03 12/14/19 09:10 12/14/19 09:03 Constitutional: + ill appearing, + thin and + cachectic Respiratory: Mildly decreased breath sounds in the bases, no rales, no rhonchi, no wheezing Gastrointestinal (Abdomen): normal bowel sounds, soft, nontender, no hepatosplenomegaly Neurologic: PERRL, EOMI, accommodation nl, no face palsy, no dysarthria Results & Data Vital Signs (Past 12 Hours) Vital Signs Temp Pulse Pulse Resp BP BP Pulse Ox 12/14/19 09:10 61 154/71 H 12/14/19 09:03 68 18 97 12/14/19 07:24 36.6 C 63 19 160/70 H 94 12/14/19 04:14 36.5 C 65 21 150/69 H 94 12/14/19 02:00 64 12/14/19 00:25 36.6 C 61 19 161/68 H 98 12/13/19 22:13 60 18 96 Laboratory Results Cardiac Enzymes 12/13/19 12/13/19 12/14/19 Range/Units 11:38 17:48 07:16 Troponin I < 0.015 < 0.015 < 0.015 (0-0.045) ng/ml CBC 12/14/19 Range/Units 07:16 WBC 9.89 (4.8-10.8) K/uL RBC 3.35 L (4.7-6.1) M/uL Hgb 10.4 L (14.0-18.0) g/dL Hct 32.7 L (42-52) % Plt Count 189 (130-400) K/uL Comprehensive Metabolic Panel 12/14/19 Range/Units 07:16 Sodium 140 (136-145) mmol/L Potassium 4.0 (3.5-5.1) mmol/L Chloride 106 (98-107) mmol/L Carbon Dioxide 28 (21-32) mmol/L BUN 50 H (7-18) mg/dl Creatinine 1.70 H (0.6-1.4) mg/dl Glucose 88 (70-99) mg/dl Calcium 8.4 L (8.5-10.1) mg/dl Intake and Output 12/13/19 12/14/19 12/14/19 22:59 06:59 14:59 Intake Total 650 / 990 100 / 990 Output Total 1100 / 1600 150 / 1600 Balance -450 / -610 -50 / -610 Intake: Oral 650 / 990 100 / 990 Output: Stool 1100 / 1100 Urine Amount (Catheter) 150 / 150 External 150 / 150 Other: Weight 65 kg Diagnostic Findings Troponin has been negative x3 measurements 12/13/2019 until 12/14/19. EKG reveals sinus rhythm with AV sequential pacing, diffuse T wave inversions in the setting of ventricular paced QRS complexes nondiagnostic for ischemia. EKG is unchanged compared to his previous baseline as compared to previous inpatient EKG dated 09/28/2018.
--- NOTE | 2019-12-14 12:07 | Communication Note ---
Date of Service: December 14, 2019 I called and updated Og's spouse, Flor by phone. I called and updated Og's son, Eric, by phone. Eric lives in [place]. His mobile number is [phone]. Tim has another son, Marshal, who lives locally with Flor and Og. I updated Flor and Eric regarding the patient's hospital course. His prognosis is concerning. I will continue to update them.
[2019-12-14] MEDS: TRAMADOL HCL 50 MG TABLET PO PRN (13:03)
[2019-12-14] MEDS ORDERED: ALBUT/IPRATROP 3MG/0.5MG NEB 3 ML VIAL NEB PRN (14:24)
--- NOTE | 2019-12-14 18:12 | Hospitalist Progress Note ---
Date of Service December 14, 2019 Assessment & Plan (1) Hypoxia: Acute respiratory failure with hypoxia in setting of CHF exacerbation -management of CHF as below -patient on prn duonebs -has been between on oxymask or BIPAP settings for oxygen (2) COPD (chronic obstructive pulmonary disease): -nebulizer prn (3) Acute on chronic heart failure with reduced ejection fraction and diastolic dysfunction: -This is a 74-year-old male who has significant past medical history of CAD with history of CABG x1 BENÍTEZ to LAD, chronic systolic and diastolic CHF secondary to ischemic cardiomyopathy, pulmonary hypertension, emphysema, HTN, HLD, LBBB, history of subclavian steal syndrome status post stent, PMR on chronic prednisone, anemia of renal disease, CKD stage III, PVD, carotid artery stenosis s/p L CEA, 3.3 cm AAA, GERD who presents to ED secondary to ill feeling x2 to 3 days; shortness of breath x1 day. -most recent outpatient echocardiogram had been performed as an outpatient on 10/19/2019 with severe diffuse left ventricular hypokinesis noted, LVEF 25-9% severe left atrial argument, severe grade 3 diastolic dysfunction, moderate mitral regurgitation, moderate to severe pulmonary hypertension with estimated pulmonary artery systolic pressure of 63 mmHg. Study was unchanged compared to February 2019. -patient started on Lasix 40 mg IV BID -12/14/[address] Evans to continue ongoing diuretic therapy, and added topical nitroglycerin for further afterload reduction, vasodilatory effects (4) CAD (coronary artery disease): History of CABG x1 BENÍTEZ to LAD 06/2017 Subsequently underwent biventricular AICD placement by Dr. Block [facility] Continue Coreg, ASA, statin Losartan recently discontinued secondary to increase in renal function to aid in more aggressive diuresis (5) Biventricular automatic implantable cardioverter defibrillator in situ: 2/2 to HFrEF [facility] (6) Leukocytosis: admission white blood cells 11 K Procalcitonin COVID-19 negative leukocytosis Likely elevated in setting of chronic prednisone use (7) PMR (polymyalgia rheumatica): Continue chronic prednisone 5 mg daily (8) HTN (hypertension): -Continue Coreg and amlodipine -nitro as per cardiology (9) CKD (chronic kidney disease) stage 3, GFR 30-59 ml/min: monitor renal function while on IV diuretics (10) Anemia: Patient with chronic anemia, monitor (11) Dyslipidemia: Continue statin (12) BPH (benign prostatic hyperplasia): Continue Flomax (13) DVT prophylaxis: SQ Heparin Admission and Anticipated Discharge Date Admission Date: December 13, 2019 Subjective Intermittently today, patient feeling more subjective shortness of breath and requesting nebulizer treatments. patient does not have wheezing on exams. but he continue to have hypoxia requiring supplementary oxygen. no abdomen pain.no ches t pain. no palpitations. no dizziness. no headache. Review of Systems Review of Systems: All systems reviewed & are unremarkable except as noted in Subjective Physical Exam Constitutional: cooperative Eyes: PERRL, conjunctivae normal, anicteric sclerae ENMT: external ear and nose normal, oropharynx normal Neck: trachea midline, no thyromegaly normal visual inspection Respiratory: normal respiratory effort Cardiovascular: Rate/Rhythm: + bradycardic Gastrointestinal (Abdomen): normal bowel sounds, soft, nontender, no hepatosplenomegaly Musculoskeletal: Head/Neck/Chest: normocephalic and head atraumatic Neurologic: PERRL, EOMI, accommodation nl, no face palsy, no dysarthria CN's II-XI intact bilaterally Psychiatric: A+Ox3, euthymic affect Results & Data Results & Data ([facility]) Vital Signs (Past 12 Hours) Vital Signs Temp Pulse Pulse Resp BP BP Pulse Ox 12/14/19 15:46 36.5 C 60 23 155/68 H 100 12/14/19 14:34 60 60 17 98 12/14/19 11:11 60 17 96 12/14/19 10:53 36.7 C 64 20 152/68 H 98 12/14/19 10:11 60 17 96 12/14/19 09:10 61 154/71 H 12/14/19 09:03 68 18 97 12/14/19 07:24 36.6 C 63 19 160/70 H 94
[2019-12-14] MEDS: TAMSULOSIN HCL 0.4 MG CAP PO SCH (20:41)
[2019-12-14] MEDS: PRAMIPEXOLE DIHYDROCHLO 0.25 MG TAB PO SCH (20:41)
--- NOTE | 2019-12-14 21:30 | Electrocardiogram Report ---
Test Reason : Blood Pressure : / mmHG Vent. Rate : 060 BPM Atrial Rate : 060 BPM P-R Int : 168 ms QRS Dur : 158 ms QT Int : 524 ms P-R-T Axes : 000 -88 126 degrees QTc Int : 524 ms AV dual-paced rhythm Abnormal ECG When compared with ECG of 13-DEC-2019 05:51, Vent. rate has decreased BY 13 BPM T wave inversion more evident in Anterior leads Confirmed by Declan Frederick ([id number]) on 12/14/2019 9:30:22 PM Referred By: REFERRED SELF Confirmed By:Declan Frederick
[2019-12-15] MEDS: NITROGLYCERIN 2% OINTMENT 30GM TUBE EXT SCH ×2 (04:24→08:43)
[2019-12-15] MEDS: HEPARIN SOD 5,000 UNIT/0.5 ML VIAL SQ SCH ×3 (05:27→20:39)
[2019-12-15] MEDS: FUROSEMIDE 40 MG in SYRINGE 0 ML IV SCH ×2 (07:21→13:27)
[2019-12-15 08:33] LABS: Basophils # (auto) 0.03 K/uL (0-0.2); Basophils % (auto) 0.3 %; Eosinophils # (auto) 0.17 K/uL (0-0.5); Eosinophils % (auto) 1.8 %; Hematocrit (blood only) 35.5 % (42-52); Hemoglobin 11.1 g/dL (14.0-18.0); Immature Granulocytes # (auto) 0.02 K/uL (0.00-0.02); Immature Granulocytes % (auto) 0.2 %; Lymphocytes # (auto) 1.76 K/uL (1.2-3.4); Lymphocytes % (auto) 18.4 %; Mean Corpuscular Hemoglobin 30.8 pg (25-34); Mean Corpuscular Hgb Conc 31.3 g/dL (32-36); Mean Corpuscular Volume 98.6 fL (80-100); Mean Platelet Volume 10.5 fL (7.4-10.4); Monocytes # (auto) 0.77 K/uL (0.11-0.59); Monocytes % (auto) 8.1 %; Neutrophils % (auto) 71.2 %; Platelet Count 198 K/uL (130-400); White Blood Count 9.55 K/uL (4.8-10.8)
[2019-12-15] MEDS: ATORVASTATIN 40 MG TAB PO SCH (08:38)
[2019-12-15] MEDS: ASPIRIN 81 MG ECTAB PO SCH (08:38)
[2019-12-15] MEDS: CHOLECALCIFEROL 1,000 UNITS 25 MCG TAB PO SCH (08:38)
[2019-12-15] MEDS: carvediloL 12.5 MG TAB PO SCH ×2 (08:39→20:38)
[2019-12-15] MEDS: AMLODIPINE BESYLATE 5 MG TAB PO SCH (08:39)
[2019-12-15] MEDS: predniSONE 5 MG TAB PO SCH (08:39)
[2019-12-15 09:01] LABS: Albumin Level 2.9 gm/dl (3.4-5.0); BUN Creatinine Ratio 31.9 (10-20); Calcium 8.8 mg/dl (8.5-10.1); Est GFR (African American) 49.5; Est GFR (Non-African American) 42.7; Magnesium 2.2 mg/dl (1.8-2.4); Potassium 3.9 mmol/L (3.5-5.1)
[2019-12-15 09:04] LABS: Albumin Globulin Ratio 0.7 (0.9-2); Bilirubin,Total 1.1 mg/dl (0.2-1); Phosphorus 2.7 mg/dl (2.5-4.9); Total Protein 6.9 gm/dl (6.4-8.2)
--- NOTE | 2019-12-15 09:37 | Cardiology Progress Note ---
Date of Service December 15, 2019 Assessment & Plan (1) Acute on chronic heart failure with reduced ejection fraction and diastolic dysfunction: If intake and output measurements are correct, the patient's fluid balance from yesterday is -2.1 L. His creatinine of 1.7 yesterday, is trended toward improvement at 1.59, which is about his baseline. He improved compared to the 2.56 noted in September 2018. He is on chronic oral prednisone for polymyalgia rheumatica. He certainly seems to have improved clinically, whether it is due to the bronchodilators, but more likely he has responded to afterload reduction and diuretic treatment. I am going to transition his topical nitroglycerin to isosorbide mononitrate extended release 30 mg. Continue current dose of furosemide 40 mg IV twice daily. Continue his heparin for DVT prophylaxis. Subjective Chief complaint:follow up shortness of breath Subjective: Patient appears significantly more comfortable this morning. He was on home oxygen Assessment, had eaten his breakfast. Telemetry reveals AV sequential paced rhythm. A 3 beat jessika of nonsustained VT this morning, and several 3-4 beat runs of nonsustained VT noted overnight. Physical Exam Physical Exam: Temp Pulse Resp BP Pulse Ox 36.4 C L 66 17 138/73 92 12/15/19 08:01 12/15/19 08:01 12/15/19 08:01 12/15/19 08:01 12/15/19 08:01 Constitutional: No acute distress, chronically ill in appearance, cachectic Respiratory: Rales noted bilaterally at the bases, no wheezing Cardiovascular: RRR, no murmur, no edema Gastrointestinal (Abdomen): normal bowel sounds, soft, nontender, no hepatosplenomegaly Neurologic: PERRL, EOMI, accommodation nl, no face palsy, no dysarthria Results & Data Vital Signs (Past 12 Hours) Vital Signs Temp Pulse Pulse Resp BP BP Pulse Ox 12/15/19 08:01 36.4 C L 66 17 138/73 92 12/15/19 07:32 62 12/15/19 05:04 36.7 C 62 18 169/73 H 95 12/15/19 00:00 60 12/14/19 23:55 36.4 C L 63 18 150/71 H 98 Laboratory Results Cardiac Enzymes 12/14/19 12/15/19 Range/Units 10:56 08:05 AST 9 L (15-37) U/L Troponin I < 0.015 (0-0.045) ng/ml CBC 12/15/19 Range/Units 08:05 WBC 9.55 (4.8-10.8) K/uL RBC 3.60 L (4.7-6.1) M/uL Hgb 11.1 L (14.0-18.0) g/dL Hct 35.5 L (42-52) % Plt Count 198 (130-400) K/uL Neut # (Auto) 6.80 H (1.4-6.5) K/uL Lymph # (Auto) 1.76 (1.2-3.4) K/uL [place] # (Auto) 0.77 H (0.11-0.59) K/uL Eos # (Auto) 0.17 (0-0.5) K/uL Baso # (Auto) 0.03 (0-0.2) K/uL Comprehensive Metabolic Panel 12/15/19 Range/Units 08:05 Sodium 139 (136-145) mmol/L Potassium 3.9 (3.5-5.1) mmol/L Chloride 104 (98-107) mmol/L Carbon Dioxide 29 (21-32) mmol/L BUN 51 H (7-18) mg/dl Creatinine 1.59 H (0.6-1.4) mg/dl Glucose 106 H (70-99) mg/dl Calcium 8.8 (8.5-10.1) mg/dl AST 9 L (15-37) U/L ALT 15 (12-78) U/L Alkaline Phosphatase 83 (45-117) U/L Total Protein 6.9 (6.4-8.2) gm/dl Albumin 2.9 L (3.4-5.0) gm/dl Intake and Output 12/14/19 12/15/19 12/15/19 22:59 06:59 14:59 Intake Total 280 / 415 Output Total 950 / 2500 350 / 2500 250 / 250 Balance - / -2084 -350 / -2084 -250 / -250 Intake: Oral 280 / 415 Output: Urine 200 / 550 350 / 550 250 / 250 Urine Amount (Catheter) 750 / 1950 External 750 / 1950 Other: Other Intake Source SIPS Weight 64 kg
[2019-12-15] MEDS: ISOSORBIDE MONO EXTENDED REL 30 MG TABCR PO SCH (10:30)
--- NOTE | 2019-12-15 11:28 | Hospitalist Progress Note ---
Date of Service December 15, 2019 Assessment & Plan (1) Hypoxia: Acute respiratory failure with hypoxia in setting of CHF exacerbation -management of CHF as below -patient on prn duonebs -has been between on oxymask or BIPAP settings for oxygen (2) COPD (chronic obstructive pulmonary disease): -nebulizer prn (3) Acute on chronic heart failure with reduced ejection fraction and diastolic dysfunction: -This is a 74-year-old male who has significant past medical history of CAD with history of CABG x1 BENÍTEZ to LAD, chronic systolic and diastolic CHF secondary to ischemic cardiomyopathy, pulmonary hypertension, emphysema, HTN, HLD, LBBB, history of subclavian steal syndrome status post stent, PMR on chronic prednisone, anemia of renal disease, CKD stage III, PVD, carotid artery stenosis s/p L CEA, 3.3 cm AAA, GERD who presents to ED secondary to ill feeling x2 to 3 days; shortness of breath x1 day. -most recent outpatient echocardiogram had been performed as an outpatient on 10/19/2019 with severe diffuse left ventricular hypokinesis noted, LVEF 25-9% severe left atrial argument, severe grade 3 diastolic dysfunction, moderate mitral regurgitation, moderate to severe pulmonary hypertension with estimated pulmonary artery systolic pressure of 63 mmHg. Study was unchanged compared to February 2019. -patient started on Lasix 40 mg IV BID -12/14/[address] Evans to continue ongoing diuretic therapy, and added topical nitroglycerin for further afterload reduction, vasodilatory effects -12/15/[address] Evans to continue ongoing diuretic therapy as 40 mg IV BID, transition his topical nitroglycerin to isosorbide mononitrate extended release 30 mg aa sper cardiology (4) CAD (coronary artery disease): History of CABG x1 BENÍTEZ to LAD 06/2017 Subsequently underwent biventricular AICD placement by Dr. Block Follows [facility] cardiology Losartan recently discontinued as outpatients Continue Coreg, ASA, statin (5) Biventricular automatic implantable cardioverter defibrillator in situ: 2/2 to HFrEF follows [facility] cardiology (6) Leukocytosis: admission white blood cells 11 K Procalcitonin COVID-19 negative leukocytosis Likely elevated in setting of chronic prednisone use, no fevers (7) PMR (polymyalgia rheumatica): Continue chronic prednisone 5 mg daily (8) HTN (hypertension): -Continue Coreg and amlodipine -nitro as per cardiology (9) CKD (chronic kidney disease) stage 3, GFR 30-59 ml/min: monitor renal function while on IV diuretics (10) Anemia: Patient with chronic anemia, monitor (11) Dyslipidemia: Continue statin (12) BPH (benign prostatic hyperplasia): Continue Flomax (13) DVT prophylaxis: SQ Heparin Og's spouse, Flor Foley's son, Eric, by phone. Eric lives in [place]. His mobile number is [phone]. Admission and Anticipated Discharge Date Admission Date: December 13, 2019 Subjective Patient seen and examined on oxygen mask, he reports breathing improving. He denies acute chest pain. no dizziness. no lightheadedness. no abdomen pain. no vomiting. no palpitations Review of Systems Review of Systems: All systems reviewed & are unremarkable except as noted in Subjective Physical Exam Constitutional: cooperative Eyes: PERRL, conjunctivae normal, anicteric sclerae ENMT: external ear and nose normal, oropharynx normal Neck: trachea midline, no thyromegaly normal visual inspection Respiratory: normal respiratory effort Cardiovascular: Rate/Rhythm: regular rate Gastrointestinal (Abdomen): normal bowel sounds, soft, nontender, no hepatosplenomegaly Musculoskeletal: Head/Neck/Chest: normocephalic and head atraumatic Neurologic: PERRL, EOMI, accommodation nl, no face palsy, no dysarthria CN's II-XI intact bilaterally Psychiatric: A+Ox3, euthymic affect Results & Data Results & Data ([facility]) Vital Signs (Past 12 Hours) Vital Signs Temp Pulse Pulse Resp BP BP Pulse Ox 12/15/19 08:01 36.4 C L 66 17 138/73 92 12/15/19 07:32 62 12/15/19 05:04 36.7 C 62 18 169/73 H 95 12/15/19 00:00 60 12/14/19 23:55 36.4 C L 63 18 150/71 H 98
--- NOTE | 2019-12-15 15:42 | Electrocardiogram Report ---
Test Reason : Blood Pressure : / mmHG Vent. Rate : 062 BPM Atrial Rate : 062 BPM P-R Int : 168 ms QRS Dur : 162 ms QT Int : 522 ms P-R-T Axes : 011 -84 124 degrees QTc Int : 529 ms AV dual-paced rhythm with frequent ventricular-paced complexes Abnormal ECG When compared with ECG of 14-DEC-2019 04:21, Vent. rate has increased BY 2 BPM Confirmed by Quinn Whitten ([id number]) on 12/15/2019 3:41:46 PM Referred By: REFERRED SELF Confirmed By:Quinn Whitten
[2019-12-15] MEDS: TAMSULOSIN HCL 0.4 MG CAP PO SCH (20:38)
[2019-12-15] MEDS: PRAMIPEXOLE DIHYDROCHLO 0.25 MG TAB PO SCH (20:38)
[2019-12-16 05:41] LABS: Hemoglobin 9.8 g/dL (14.0-18.0); Mean Corpuscular Hemoglobin 30.8 pg (25-34); Mean Corpuscular Hgb Conc 31.6 g/dL (32-36); Mean Corpuscular Volume 97.5 fL (80-100); Mean Platelet Volume 10.3 fL (7.4-10.4); Platelet Count 207 K/uL (130-400); RDW Coefficient of Variation 13.7 % (11.5-14.5); RDW Standard Deviation 49.2 fL (36.4-46.3); Red Blood Count 3.18 M/uL (4.7-6.1); White Blood Count 9.05 K/uL (4.8-10.8)
[2019-12-16] MEDS: HEPARIN SOD 5,000 UNIT/0.5 ML VIAL SQ SCH ×3 (06:07→20:35)
[2019-12-16] MEDS: FUROSEMIDE 40 MG in SYRINGE 0 ML IV SCH ×2 (06:09→13:44)
[2019-12-16 06:16] LABS: Albumin Level 2.5 gm/dl (3.4-5.0); BUN Creatinine Ratio 36.3 (10-20); Calcium 8.5 mg/dl (8.5-10.1); Creatinine Clr Calc Pharmacy 38.5 ml/min; Est GFR (African American) 50.3; Est GFR (Non-African American) 43.4; Potassium 3.9 mmol/L (3.5-5.1)
[2019-12-16 06:18] LABS: Albumin Globulin Ratio 0.7 (0.9-2); Bilirubin,Total 0.7 mg/dl (0.2-1); Globulin 3.8 gm/dl (2.5-4.0); Total Protein 6.3 gm/dl (6.4-8.2)
[2019-12-16] MEDS: carvediloL 12.5 MG TAB PO SCH (08:32)
[2019-12-16] MEDS: AMLODIPINE BESYLATE 5 MG TAB PO SCH (08:33)
[2019-12-16] MEDS: predniSONE 5 MG TAB PO SCH (08:33)
[2019-12-16] MEDS: ISOSORBIDE MONO EXTENDED REL 30 MG TABCR PO SCH (08:33)
[2019-12-16] MEDS: CHOLECALCIFEROL 1,000 UNITS 25 MCG TAB PO SCH (08:33)
[2019-12-16] MEDS: ATORVASTATIN 40 MG TAB PO SCH (08:33)
[2019-12-16] MEDS: ASPIRIN 81 MG ECTAB PO SCH (08:33)
[2019-12-16] MEDS: TRAMADOL HCL 50 MG TABLET PO PRN (08:36)
[2019-12-16] MEDS ORDERED: ACETAMINOPHEN 325 MG TAB PO PRN (13:16)
--- NOTE | 2019-12-16 13:23 | Hospitalist Progress Note ---
Date of Service December 16, 2019 Assessment & Plan (1) Hypoxia: Acute respiratory failure with hypoxia in setting of CHF exacerbation -management of CHF as below -patient on prn duonebs -has been between on oxymask or BIPAP settings for oxygen (2) COPD (chronic obstructive pulmonary disease): -nebulizer prn -start scheduled Advair -overnight pulse oximetry testing (3) Acute on chronic heart failure with reduced ejection fraction and diastolic dysfunction: -This is a 74-year-old male who has significant past medical history of CAD with history of CABG x1 BENÍTEZ to LAD, chronic systolic and diastolic CHF secondary to ischemic cardiomyopathy, pulmonary hypertension, emphysema, HTN, HLD, LBBB, history of subclavian steal syndrome status post stent, PMR on chronic prednisone, anemia of renal disease, CKD stage III, PVD, carotid artery stenosis s/p L CEA, 3.3 cm AAA, GERD who presents to ED secondary to ill feeling x2 to 3 days; shortness of breath x1 day. -most recent outpatient echocardiogram had been performed as an outpatient on 10/19/2019 with severe diffuse left ventricular hypokinesis noted, LVEF 25-9% severe left atrial argument, severe grade 3 diastolic dysfunction, moderate mitral regurgitation, moderate to severe pulmonary hypertension with estimated pulmonary artery systolic pressure of 63 mmHg. Study was unchanged compared to February 2019. -patient started on Lasix 40 mg IV BID -12/14/[address] Evans to continue ongoing diuretic therapy, and added topical nitroglycerin for further afterload reduction, vasodilatory effects -12/15/[address] Evans to continue ongoing diuretic therapy as 40 mg IV BID, transition his topical nitroglycerin to isosorbide mononitrate extended release 30 mg as per cardiology -12/16/2019 on IV Lasix BID, defere to cardiology service on when possible to transition to oral diuretics and at what dose. continue isosorbide, start scheduled Advair, overnight pulse oximetry testing (4) CAD (coronary artery disease): History of CABG x1 BENÍTEZ to LAD 06/2017 Subsequently underwent biventricular AICD placement by Dr. Block Follows [facility] cardiology Losartan recently discontinued as outpatient due to renal function Continue Coreg, ASA, statin (5) Biventricular automatic implantable cardioverter defibrillator in situ: 2/2 to HFrEF follows [facility] cardiology (6) Leukocytosis: admission white blood cells 11 K Procalcitonin COVID-19 negative leukocytosis Likely elevated in setting of chronic prednisone use, no fevers (7) PMR (polymyalgia rheumatica): Continue chronic prednisone 5 mg daily (8) HTN (hypertension): -Continue Coreg and amlodipine -nitro as per cardiology (9) CKD (chronic kidney disease) stage 3, GFR 30-59 ml/min: monitor renal function while on IV diuretics (10) Anemia: Patient with chronic anemia, monitor (11) Dyslipidemia: Continue statin (12) BPH (benign prostatic hyperplasia): Continue Flomax (13) DVT prophylaxis: SQ Heparin Og's spouse, Flor Foley's son, Eric, by phone. Eric lives in [place]. His mobile number is [phone]. Admission and Anticipated Discharge Date Admission Date: December 13, 2019 Subjective Patient speaking very comfortable while on the oxymask. no acute pain. no palpitations. no abdomen pain. no nausea. no vomiting. no dizziness. no headache Review of Systems Review of Systems: All systems reviewed & are unremarkable except as noted in Subjective Physical Exam Constitutional: cooperative Eyes: PERRL, conjunctivae normal, anicteric sclerae ENMT: external ear and nose normal, oropharynx normal Neck: trachea midline, no thyromegaly normal visual inspection Respiratory: normal respiratory effort Cardiovascular: Rate/Rhythm: regular rate Gastrointestinal (Abdomen): normal bowel sounds, soft, nontender, no hepatosplenomegaly Musculoskeletal: Head/Neck/Chest: normocephalic and head atraumatic Neurologic: PERRL, EOMI, accommodation nl, no face palsy, no dysarthria CN's II-XI intact bilaterally Psychiatric: A+Ox3, euthymic affect Results & Data Results & Data ([facility]) Vital Signs (Past 12 Hours) Vital Signs Temp Pulse Pulse Resp BP BP Pulse Ox 12/16/19 11:51 36.6 C 62 24 155/70 H 98 12/16/19 07:48 61 12/16/19 07:26 36.7 C 60 18 157/69 H 97 12/16/19 03:53 36.4 C L 59 L 18 166/73 H 98 12/16/19 02:10 67
--- NOTE | 2019-12-16 16:25 | Cardiology Progress Note ---
Date of Service December 16, 2019 Assessment & Plan (1) Acute on chronic heart failure with reduced ejection fraction and diastolic dysfunction: Continue present therapy. Medication changes made thus far included initiation of isosorbide mononitrate extended release 30 mg daily for afterload reduction. Patient is not on an MARGARET or ARB at present. Losartan recently discontinued as an outpatient due to worsening renal function, creatinine had subsequently improved off of his losartan. He has been on carvedilol 12.5 mg twice daily as an outpatient. Carvedilol has been a chronic medication for him. Given his underlying lung disease, at this time I am going to transition him to metoprolol succinate as perhaps the cardiac selectivity of this medication will help him feel better from a respiratory standpoint rather than the nonselective carvedilol and sometimes difficult to tolerate for patients with underlying lung disease. Continue IV diuretics, furosemide 40 mg twice daily for now. He had been on torsemide 20 mg, 1/2 tablet or 10 mg twice daily, having not tolerated 20 mg twice daily due to symptomatic orthostatic hypotension as an outpatient on recent close follow-up. Continue subcutaneous heparin for DVT prophylaxis. Subjective Chief complaint: Follow-up shortness of breath Subjective: Patient continues to make subtle improvement daily in terms of the shortness of breath. Telemetry reveals AV sequential pacing, with occasional PVCs. Physical Exam Physical Exam: Temp Pulse Resp BP Pulse Ox 36.5 C 60 16 140/56 L 94 12/16/19 15:26 12/16/19 15:26 12/16/19 15:26 12/16/19 15:26 12/16/19 15:26 Constitutional: + cachectic Respiratory: normal respiratory effort, lungs clear to auscultation Previously noted rales which were appreciated on his exam on 12/13 and 12/14 have resolved, no wheezing Cardiovascular: RRR, no murmur, no edema Gastrointestinal (Abdomen): normal bowel sounds, soft, nontender, no hepatosplenomegaly Neurologic: PERRL, EOMI, accommodation nl, no face palsy, no dysarthria Results & Data Vital Signs (Past 12 Hours) Vital Signs Temp Pulse Pulse Resp BP Pulse Ox 12/16/19 15:26 36.5 C 60 16 140/56 L 94 12/16/19 14:56 70 12/16/19 11:51 36.6 C 62 24 155/70 H 98 12/16/19 07:48 61 12/16/19 07:26 36.7 C 60 18 157/69 H 97 Laboratory Results Cardiac Enzymes 12/16/19 Range/Units 04:32 AST 13 L (15-37) U/L CBC 12/16/19 Range/Units 04:32 WBC 9.05 (4.8-10.8) K/uL RBC 3.18 L (4.7-6.1) M/uL Hgb 9.8 L (14.0-18.0) g/dL Hct 31.0 L (42-52) % Plt Count 207 (130-400) K/uL Comprehensive Metabolic Panel 12/16/19 Range/Units 04:32 Sodium 140 (136-145) mmol/L Potassium 3.9 (3.5-5.1) mmol/L Chloride 106 (98-107) mmol/L Carbon Dioxide 28 (21-32) mmol/L BUN 57 H (7-18) mg/dl Creatinine 1.57 H (0.6-1.4) mg/dl Glucose 97 (70-99) mg/dl Calcium 8.5 (8.5-10.1) mg/dl AST 13 L (15-37) U/L ALT 14 (12-78) U/L Alkaline Phosphatase 83 (45-117) U/L Total Protein 6.3 L (6.4-8.2) gm/dl Albumin 2.5 L (3.4-5.0) gm/dl Intake and Output 12/16/19 12/16/19 12/16/19 06:59 14:59 22:59 Intake Total 619 / 619 Output Total 400 / 1550 1000 / 1000 Balance -400 / -375 -381 / -381 Intake: Oral 619 / 619 Output: Urine 400 / 1550 1000 / 1000 Other: Other Intake Source SIPS Weight 64.1 kg
--- NOTE | 2019-12-16 17:56 | Communication Note ---
Date of Service: December 16, 2019 I called and updated Og's spouse, Flor by phone. I called and updated Og's son, Eric, by phone. Eric lives in [place]. His mobile number is [phone].
[2019-12-16] MEDS: PRAMIPEXOLE DIHYDROCHLO 0.25 MG TAB PO SCH (20:35)
[2019-12-16] MEDS: TAMSULOSIN HCL 0.4 MG CAP PO SCH (20:35)
[2019-12-16] MEDS ORDERED: METOPROLOL SUCC 25MG EXT REL TAB PO ONE (21:00)
[2019-12-17] MEDS: HEPARIN SOD 5,000 UNIT/0.5 ML VIAL SQ SCH ×3 (05:42→22:05)
[2019-12-17 07:55] LABS: BUN Creatinine Ratio 37.3 (10-20); Calcium 8.7 mg/dl (8.5-10.1); Creatinine Clr Calc Pharmacy 41.3 ml/min; Est GFR (African American) 54.5; Potassium 4.1 mmol/L (3.5-5.1)
[2019-12-17] MEDS: FUROSEMIDE 40 MG in SYRINGE 0 ML IV SCH ×2 (08:14→13:06)
[2019-12-17] MEDS: CHOLECALCIFEROL 1,000 UNITS 25 MCG TAB PO SCH (08:15)
[2019-12-17] MEDS: FLUTICASONE/VILANTEROL 100/25MCG 14 PUFFS/INHALER INH SCH (08:15)
[2019-12-17] MEDS: METOPROLOL SUCC 50MG EXT REL TAB PO SCH (08:16)
[2019-12-17] MEDS: AMLODIPINE BESYLATE 5 MG TAB PO SCH (08:16)
[2019-12-17] MEDS: ASPIRIN 81 MG ECTAB PO SCH (08:16)
[2019-12-17] MEDS: ATORVASTATIN 40 MG TAB PO SCH (08:16)
[2019-12-17] MEDS: ISOSORBIDE MONO EXTENDED REL 30 MG TABCR PO SCH (08:16)
[2019-12-17] MEDS: predniSONE 5 MG TAB PO SCH (08:17)
--- NOTE | 2019-12-17 08:55 | Hospitalist Progress Note ---
Date of Service December 17, 2019 Assessment & Plan (1) Hypoxia: Acute respiratory failure with hypoxia in setting of CHF exacerbation -management of CHF as below -patient on prn duonebs -initially often on BIPAP at beginning of hospital stay -currently intermittently between room air and supplementary oxygen while in the hospital (2) COPD (chronic obstructive pulmonary disease): -nebulizer prn -start scheduled Advair on 12/16/2019 -overnight pulse oximetry testing on night time 12/17/2019 to 12/18/2019 senior assistant manager performed patient likely will need night time oxygen when he is ready for discharge when cleared by cardiology to go home. he will also need 2 step test to see if needing any oxygen with ambulation (3) Acute on chronic heart failure with reduced ejection fraction and diastolic dysfunction: -This is a 74-year-old male who has significant past medical history of CAD with history of CABG x1 BENÍTEZ to LAD, chronic systolic and diastolic CHF secondary to ischemic cardiomyopathy, pulmonary hypertension, emphysema, HTN, HLD, LBBB, history of subclavian steal syndrome status post stent, PMR on chronic prednisone, anemia of renal disease, CKD stage III, PVD, carotid artery stenosis s/p L CEA, 3.3 cm AAA, GERD who presents to ED secondary to ill feeling x2 to 3 days; shortness of breath x1 day. -most recent outpatient echocardiogram had been performed as an outpatient on 10/19/2019 with severe diffuse left ventricular hypokinesis noted, LVEF 25-9% severe left atrial argument, severe grade 3 diastolic dysfunction, moderate mitral regurgitation, moderate to severe pulmonary hypertension with estimated pulmonary artery systolic pressure of 63 mmHg. Study was unchanged compared to February 2019. -patient started on Lasix 40 mg IV BID -12/14/[address] Evans to continue ongoing diuretic therapy, and added topical nitroglycerin for further afterload reduction, vasodilatory effects -12/15/[address] Evans to continue ongoing diuretic therapy as 40 mg IV BID, transition his topical nitroglycerin to isosorbide mononitrate extended release 30 mg as per cardiology -12/16/2019 on IV Lasix BID, continue isosorbide, start scheduled Advair, overni ght pulse oximetry testing, cardiology changed carvedilol to metoprolol -12/17/2019: continue current medications (4) CAD (coronary artery disease): History of CABG x1 BENÍTEZ to LAD 06/2017 Subsequently underwent biventricular AICD placement by Dr. Block Follows [facility] cardiology Losartan recently discontinued as outpatient due to renal function continue ASA, statin (5) Biventricular automatic implantable cardioverter defibrillator in situ: secondary to HFrEF Follows with [facility] cardiology (6) Leukocytosis: admission white blood cells 11 K Procalcitonin COVID-19 negative admission leukocytosis Likely elevated in setting of chronic prednisone use, no fevers (7) PMR (polymyalgia rheumatica): Continue chronic prednisone 5 mg daily (8) HTN (hypertension): -Continue Coreg and amlodipine -nitro as per cardiology (9) CKD (chronic kidney disease) stage 3, GFR 30-59 ml/min: monitor renal function while on IV diuretics (10) Anemia: Patient with chronic anemia, monitor (11) Dyslipidemia: -Continue statin (12) BPH (benign prostatic hyperplasia): -continue Flomax (13) DVT prophylaxis: SQ Heparin Og's spouse, Flor Foley's son, Eric, by phone. Eric lives in [place]. His mobile number is [phone]. Admission and Anticipated Discharge Date Admission Date: December 13, 2019 Subjective overnight pulse oximetry testing on night time 12/17/2019 to 12/18/2019 senior assistant manager performed patient likely will need night time oxygen when he is ready for discharge when cleared by cardiology to go home. he will also need 2 step test to see if needing any oxygen with ambulation on exam this AM, patient on room air. speaking comfortably. no chest pain. no palpitations. no dizziness. no headache. Review of Systems Review of Systems: All systems reviewed & are unremarkable except as noted in Subjective Physical Exam Constitutional: WD/WN, vitals as above Results & Data Results & Data ([facility]) Vital Signs (Past 12 Hours) Vital Signs Temp Pulse Pulse Pulse Pulse Resp BP 12/17/19 08:07 36.8 C 65 18 157/64 H 12/17/19 07:23 67 12/17/19 04:54 36.6 C 62 18 12/17/19 03:21 61 12/17/19 00:53 65 12/17/19 00:10 36.8 C 60 18 12/17/19 00:00 63 12/16/19 23:32 66 12/16/19 21:43 61 BP Pulse Ox Pulse Ox Pulse Ox 12/17/19 08:07 93 12/17/19 07:23 12/17/19 04:54 162/72 H 90 12/17/19 03:21 99 12/17/19 00:53 93 12/17/19 00:10 171/73 H 93 12/17/19 00:00 12/16/19 23:32 97 12/16/19 21:43 96
--- NOTE | 2019-12-17 14:43 | Cardiology Progress Note ---
Date of Service December 17, 2019 Assessment & Plan (1) Acute on chronic heart failure with reduced ejection fraction and diastolic dysfunction: Continue IV furosemide 40 mg IV twice daily for now. Continue current medications including aspirin, atorvastatin, isosorbide mononitrate (new), metoprolol succinate 50 mg daily (in place of prior to hospital carvedilol). He is not on an MARGARET inhibitor or angiotensin receptor natanael as losartan had been discontinued several weeks ago due to worsening kidney dysfunction. Possible discharge tomorrow. Subjective Patient seen in follow-up of congestive heart failure. He notes feeling marginally better, but still overall short of breath. No energy. Telemetry reveals sinus rhythm with AV sequential pacing. Physical Exam Physical Exam: Temp Pulse Resp BP Pulse Ox 36.6 C 66 18 141/61 H 95 12/17/19 11:46 12/17/19 11:46 12/17/19 11:46 12/17/19 11:46 12/17/19 11:46 Constitutional: + cachectic Respiratory: normal respiratory effort, lungs clear to auscultation Cardiovascular: Rate/Rhythm: regular rhythm Heart Sounds: normal S1, normal S2 and + murmur (1/6 systolic murmur) Vessels: + JVD Extremities: no edema Gastrointestinal (Abdomen): normal bowel sounds, soft, nontender, no hepatosplenomegaly Neurologic: PERRL, EOMI, accommodation nl, no face palsy, no dysarthria Results & Data Vital Signs (Past 12 Hours) Vital Signs Temp Pulse Pulse Pulse Resp BP BP 12/17/19 11:46 36.6 C 66 18 141/61 H 12/17/19 08:07 36.8 C 65 18 157/64 H 12/17/19 07:23 67 12/17/19 04:54 36.6 C 62 18 162/72 H 12/17/19 03:21 61 Pulse Ox Pulse Ox 12/17/19 11:46 95 12/17/19 08:07 93 12/17/19 07:23 12/17/19 04:54 90 12/17/19 03:21 99 Laboratory Results Comprehensive Metabolic Panel 12/17/19 Range/Units 06:33 Sodium 137 (136-145) mmol/L Potassium 4.1 (3.5-5.1) mmol/L Chloride 101 (98-107) mmol/L Carbon Dioxide 32 (21-32) mmol/L BUN 55 H (7-18) mg/dl Creatinine 1.47 H (0.6-1.4) mg/dl Glucose 96 (70-99) mg/dl Calcium 8.7 (8.5-10.1) mg/dl Intake and Output 12/16/19 12/17/19 12/17/19 22:59 06:59 14:59 Intake Total 340 / 1009 50 / 1009 530 / 530 Output Total 450 / 1950 500 / 1950 800 / 800 Balance -110 / -941 -450 / -941 -270 / -270 Intake: Oral 340 / 1009 50 / 1009 530 / 530 Output: Urine 450 / 1950 500 / 1950 800 / 800 Other: Weight 64.3 kg
[2019-12-17] MEDS: TRAMADOL HCL 50 MG TABLET PO PRN (19:53)
[2019-12-17] MEDS: TAMSULOSIN HCL 0.4 MG CAP PO SCH (19:55)
[2019-12-17] MEDS: PRAMIPEXOLE DIHYDROCHLO 0.25 MG TAB PO SCH (19:55)
[2019-12-18 06:00] LABS: Albumin Level 2.6 gm/dl (3.4-5.0); BUN Creatinine Ratio 29.7 (10-20); Calcium 8.5 mg/dl (8.5-10.1); Creatinine Clr Calc Pharmacy 33.9 ml/min; Est GFR (African American) 42.9; Magnesium 2.3 mg/dl (1.8-2.4); Potassium 4.2 mmol/L (3.5-5.1)
[2019-12-18 06:03] LABS: Albumin Globulin Ratio 0.6 (0.9-2); Bilirubin,Total 0.8 mg/dl (0.2-1); Globulin 4.1 gm/dl (2.5-4.0); Total Protein 6.7 gm/dl (6.4-8.2)
[2019-12-18] MEDS: FUROSEMIDE 40 MG in SYRINGE 0 ML IV SCH (06:26)
[2019-12-18] MEDS: HEPARIN SOD 5,000 UNIT/0.5 ML VIAL SQ SCH ×2 (06:26→14:30)
[2019-12-18] MEDS: predniSONE 5 MG TAB PO SCH (08:10)
[2019-12-18] MEDS: METOPROLOL SUCC 50MG EXT REL TAB PO SCH (08:10)
[2019-12-18] MEDS: FLUTICASONE/VILANTEROL 100/25MCG 14 PUFFS/INHALER INH SCH (08:10)
[2019-12-18] MEDS: ISOSORBIDE MONO EXTENDED REL 30 MG TABCR PO SCH (08:11)
[2019-12-18] MEDS: ATORVASTATIN 40 MG TAB PO SCH (08:11)
[2019-12-18] MEDS: AMLODIPINE BESYLATE 5 MG TAB PO SCH (08:11)
[2019-12-18] MEDS: ASPIRIN 81 MG ECTAB PO SCH (08:11)
[2019-12-18] MEDS: CHOLECALCIFEROL 1,000 UNITS 25 MCG TAB PO SCH (08:11)
--- NOTE | 2019-12-18 11:15 | Cardiology Progress Note ---
Date of Service December 18, 2019 Assessment & Plan (1) Acute on chronic heart failure with reduced ejection fraction and diastolic dysfunction: Creatinine was 1.47 yesterday, 1.79 today, and therefore his pm dose of IV furosemide has been canceled. Transition to torsemide 20 mg , daily in am 12/18. Did not tolerate torsemide 20 mg BID as outpt due to dizziness. Increase metoprolol succinate (replaces coreg) to 100 mg daily in am tomorrow. Continue amlodipine 5 mg daily for HTN and antianginal effects. Increase Imdur ( antianginal and afterload reduction) to 60 mg daily. Pt is not on at ACEI / ARB or Entresto as losartan was DC'd when Creatinine increased to 2 mg / dl a few months ago. Pt is not on hydralazine due to past intolerance with orthostatic hypotension symptoms , despite relatively high BP readings. Stable from my standpoint for discharge today. Has 01/07 visit with Cindy Daley of out practice already arranged. Subjective Patient seen in follow up. Feeling better. Feels like he is ready for discharge. Physical Exam Physical Exam: Temp Pulse Resp BP Pulse Ox 36.6 C 60 16 170/75 H 96 12/18/19 07:56 12/18/19 10:04 12/18/19 10:04 12/18/19 07:56 12/18/19 10:04 Constitutional: + cachectic Respiratory: minimal rales, base of L lung, otherwise clear Cardiovascular: RRR, no murmur, no edema Neurologic: PERRL, EOMI, accommodation nl, no face palsy, no dysarthria Results & Data Vital Signs (Past 12 Hours) Vital Signs Temp Pulse Pulse Pulse Pulse Pulse Resp 12/18/19 10:04 75 75 60 12/18/19 07:56 36.6 C 60 18 12/18/19 07:07 72 12/18/19 03:35 36.6 C 60 19 12/17/19 23:32 37.1 C 59 L 18 Resp Resp Resp BP Pulse Ox Pulse Ox Pulse Ox 12/18/19 10:04 22 20 16 91 90 12/18/19 07:56 170/75 H 100 12/18/19 07:07 12/18/19 03:35 161/78 H 100 12/17/19 23:32 159/67 H 99 Pulse Ox 12/18/19 10:04 96 12/18/19 07:56 12/18/19 07:07 12/18/19 03:35 12/17/19 23:32 Laboratory Results Cardiac Enzymes 12/18/19 Range/Units 05:09 AST 16 (15-37) U/L Comprehensive Metabolic Panel 12/18/19 Range/Units 05:09 Sodium 139 (136-145) mmol/L Potassium 4.2 (3.5-5.1) mmol/L Chloride 102 (98-107) mmol/L Carbon Dioxide 33 H (21-32) mmol/L BUN 53 H (7-18) mg/dl Creatinine 1.79 H D (0.6-1.4) mg/dl Glucose 96 (70-99) mg/dl Calcium 8.5 (8.5-10.1) mg/dl AST 16 (15-37) U/L ALT 21 (12-78) U/L Alkaline Phosphatase 80 (45-117) U/L Total Protein 6.7 (6.4-8.2) gm/dl Albumin 2.6 L (3.4-5.0) gm/dl Intake and Output 12/17/19 12/18/19 12/18/19 22:59 06:59 14:59 Intake Total 720 / 1300 50 / 1300 Output Total 900 / 2225 525 / 2225 Balance -180 / -925 -475 / -925 Intake: Oral 720 / 1300 50 / 1300 Output: Urine 900 / 2225 525 / 2225 Other: Weight 64.3 kg
[2019-12-18] MEDS ORDERED: ISOSORBIDE MONO EXTENDED REL 30 MG TABCR PO ONE (11:30)
--- NOTE | 2019-12-18 12:36 | Hospitalist Progress Note ---
Date of Service December 18, 2019 Assessment & Plan (1) Hypoxia: Acute respiratory failure with hypoxia in setting of CHF exacerbation -management of CHF as below -patient on prn duonebs -initially often on BIPAP at beginning of hospital stay -has then been intermittently between room air and supplementary oxygen while in the hospital -overnight pulse oximetry testing on night time 12/17/2019 to 12/18/2019 early learning teacher performed patient prescribed noctural oxygen as 2 liters/min for home, also prescribed nebulizer machine and duoneb treatments for home use, he passed the 2 step test on 12/18/2019 and does not need oxygen with ambulation (2) COPD (chronic obstructive pulmonary disease): -nebulizer prn -start scheduled Advair on 12/16/2019 (3) Acute on chronic heart failure with reduced ejection fraction and diastolic dysfunction: -This is a 74-year-old male who has significant past medical history of CAD with history of CABG x1 BENÍTEZ to LAD, chronic systolic and diastolic CHF secondary to ischemic cardiomyopathy, pulmonary hypertension, emphysema, HTN, HLD, LBBB, history of subclavian steal syndrome status post stent, PMR on chronic prednisone, anemia of renal disease, CKD stage III, PVD, carotid artery stenosis s/p L CEA, 3.3 cm AAA, GERD who presents to ED secondary to ill feeling x2 to 3 days; shortness of breath x1 day. -most recent outpatient echocardiogram had been performed as an outpatient on 10/19/2019 with severe diffuse left ventricular hypokinesis noted, LVEF 25-9% severe left atrial argument, severe grade 3 diastolic dysfunction, moderate mitral regurgitation, moderate to severe pulmonary hypertension with estimated pulmonary artery systolic pressure of 63 mmHg. Study was unchanged compared to February 2019. -patient started on Lasix 40 mg IV BID -12/14/[address] Evans to continue ongoing diuretic therapy, and added topical nitroglycerin for further afterload reduction, vasodilatory effects -12/15/[address] Evans to continue ongoing diuretic therapy as 40 mg IV BID, transition his topical nitroglycerin to isosorbide mononitrate extended release 30 mg as per cardiology -12/16/2019 on IV Lasix BID, continue isosorbide, start scheduled Advair, overnight pulse oximetry testing, cardiology changed carvedilol to metoprolol as per cardiology Dr. Evans on 12/18/2019 "Creatinine was 1.47 yesterday, 1.79 today, and therefore his pm dose of IV furosemide has been canceled. Transition to torsemide 20 mg , daily in am 12/18. Did not tolerate torsemide 20 mg BID as outpt due to dizziness. Increase metoprolol succinate (replaces coreg) to 100 mg daily in am tomorrow. Continue amlodipine 5 mg daily for HTN and antianginal effects. Increase Imdur ( antianginal and afterload reduction) to 60 mg daily. Pt is not on at ACEI / ARB or Entresto as losartan was DC'd when Creatinine increased to 2 mg / dl a few months ago. Pt is not on hydralazine due to past intolerance with orthostatic hypotension symptoms , despite relatively high BP readings." discharge to home with nocturnal oxygen 2 liters/min for sleep and nebulizer machine for nebulizer treatment every 8 hours as needed for shortness of breath or wheezing discharge medication sent electronically pharmacy is [facility], [place] [address] patient should no longer take carvedilol (coreg) at home. patient should start prescription of 100 mg daily metoprolol and isosorbide mononitrate (Imdur) 60 mg daily on 12/19/2019. start torsemide 20 mg daily starting also on 12/19/2019 12/26/2019 9:30 AM Department Pulmonary Function Lab, [facility] 12/27/2019 11:20 AM Provider Maciej Cardona MD Department [facility] (patient should have repeat renal function labs drawn by primary care doctor) 01/08/2020 11:00 AM Provider AILYN AbadC Department Cardiology, [facility] 01/25/2020 9:15 AM Provider Aure [facility] Department Cardiology, [facility] 02/15/2020 9:00 AM Provider NICHOL [facility] Department Vascular Lab [facility] 02/15/2020 10:00 AM Provider Oliver Retana MD Department Vascular Surg [facility] 03/12/2020 2:20 PM Provider Monty Ramos MD Department Nephrology, [facility] 03/13/2020 10:00 AM Provider Oliver Evans DO Department Cardiology, [facility] (4) CAD (coronary artery disease): History of CABG x1 BENÍTEZ to LAD 06/2017 Subsequently underwent biventricular AICD placement by Dr. Block Follows [facility] cardiology Losartan recently discontinued as outpatient due to renal function continue ASA, statin (5) Biventricular automatic implantable cardioverter defibrillator in situ: secondary to HFrEF Follows with [facility] cardiology (6) Leukocytosis: admission white blood cells 11 K Procalcitonin COVID-19 negative admission leukocytosis Likely elevated in setting of chronic prednisone use, no fevers (7) PMR (polymyalgia rheumatica): Continue chronic prednisone 5 mg daily (8) HTN (hypertension): -Continue Coreg and amlodipine -nitro as per cardiology (9) CKD (chronic kidney disease) stage 3, GFR 30-59 ml/min: mild increase in creatinine to 1.7 on 12/18/2019 IV Lasix stopped and has outpatient follows for repeat renal function (10) Anemia: Patient with chronic anemia, monitor (11) Dyslipidemia: -Continue statin (12) BPH (benign prostatic hyperplasia): -continue Flomax (13) DVT prophylaxis: SQ Heparin Og's spouse, Flor Foley's son, Eric, by phone. Eric lives in [place]. His mobile number is [phone]. Admission and Anticipated Discharge Date Admission Date: December 13, 2019 Subjective patient breathing comfortably on discharge. IV lasix held on 12/18/2019 because of mild increase creatinine to 1.7 after discussing with cardiology service, patient prefers hospital discharge. he did well on his 2 step test no chest pain, no dizziness. no headache. no nausea. no vomiting. no abdomen pain Review of Systems 2 Review of Systems: All systems reviewed & are unremarkable except as noted in Subjective Physical Exam Constitutional: WD/WN, vitals as above cooperative Eyes: PERRL, conjunctivae normal, anicteric sclerae ENMT: external ear and nose normal, oropharynx normal Neck: trachea midline, no thyromegaly normal visual inspection Respiratory: normal respiratory effort Cardiovascular: Rate/Rhythm: regular rate Gastrointestinal (Abdomen): normal bowel sounds, soft, nontender, no hepatosplenomegaly Musculoskeletal: Head/Neck/Chest: normocephalic and head atraumatic Neurologic: PERRL, EOMI, accommodation nl, no face palsy, no dysarthria CN's II-XI intact bilaterally Psychiatric: A+Ox3, euthymic affect Results & Data Results & Data ([facility]) Vital Signs (Past 12 Hours) Vital Signs Temp Pulse Pulse Pulse Pulse Pulse Resp 12/18/19 11:24 36.5 C 60 18 12/18/19 10:04 75 75 60 12/18/19 07:56 36.6 C 60 18 12/18/19 07:07 72 12/18/19 03:35 36.6 C 60 19 Resp Resp Resp BP BP Pulse Ox Pulse Ox 12/18/19 11:24 140/57 L 96 12/18/19 10:04 22 20 16 91 12/18/19 07:56 170/75 H 100 12/18/19 07:07 12/18/19 03:35 161/78 H 100 Pulse Ox Pulse Ox 12/18/19 11:24 12/18/19 10:04 90 96 12/18/19 07:56 12/18/19 07:07 12/18/19 03:35
--- NOTE | 2019-12-18 12:43 | Discharge Summary ---
Date of Service December 18, 2019 Admission HPI Per Admitting Provider This is a 74-year-old male who has significant past medical history of CAD with history of CABG x1 BENÍTEZ to LAD, chronic systolic and diastolic CHF secondary to ischemic cardiomyopathy, pulmonary hypertension, emphysema, HTN, HLD, LBBB, history of subclavian steal syndrome status post stent, PMR on chronic prednisone, anemia of renal disease, CKD stage III, PVD, carotid artery stenosis, 3.3 cm AAA, GERD who presents to ED secondary to ill feeling x2 to 3 days; shortness of breath x1 day. He states over the last 2 to 3 days he overall has felt unwell, weak, increased fatigue and "sleeping more." He states last evening at dinner he was eating 2 slices of pizza when he became short of breath while eating. His shortness of breath continued throughout the evening, "I felt like I was gasping for air." His oxygen saturations are 87 to 88%. He tried sleeping in a recliner but had difficulty sleeping due to shortness of breath. When he would fall asleep he would wake up feeling gasping for air. He complains of positive orthopnea and PND. He denied associated diaphoresis, chest pain, lightheadedness or dizziness with shortness of breath. He denies any chest pain, cough, hemoptysis, fever, chills, sweats, lightheadedness, dizziness, syncope, nausea, vomiting, abdominal pain, diarrhea, melena, hematochezia. He states approximately a month ago his furosemide was changed to torsemide. Since then he has noticed a decrease in urinary frequency but has noticed an increase in urinary urgency. He does monitor his weight which was 139 yesterday. He states when he is feeling well he is usually 142. He denies any increased lower extremity edema, "but my socks feel tight." is at bedside. For the most part he has been eating at home although he did have 2 slices of pizza last evening. He also had a few potato chips with sandwiches yesterday. He admits to trying to avoid salt, but feels he eats a decent amount of salt. Chronically he does have TAMAYO at baseline, but now at rest. He did take his morning medications. In ED patient remained hemodynamically stable. He was hypoxic requiring O2 via NC. Initially he was placed on BiPAP more for comfort, but this was then removed and placed on nasal cannula. Lab work notable for WBC 11.84, H&H 11.3 and 37.1, platelet 228, sodium 142, K4.0, chloride 109, BUN 50, creatinine 1.65, glucose 102, mag 2.4, troponin 0.024, proBNP 35,000, pro-Kash WNL. EKG revealed 73 bpm AV dual paced rhythm. QTc 561ms. CXR: IMPRESSION: Bilateral parenchymal infiltrates. Moderate cardiomegaly. In ED he received 40 mg IV Lasix, 100 mg oral doxycycline, IV cefepime. Due to patient complaints of shortness of breath and findings of infiltrates on chest x-ray patient will be tested for coronavirus. Principal Diagnosis Acute respiratory failure with hypoxia in setting of CHF exacerbation (Hypoxia) Acute on chronic heart failure with reduced ejection fraction and diastolic dysfunction COPD (chronic obstructive pulmonary disease) HTN (hypertension) CKD (chronic kidney disease) stage 3, GFR 30-59 ml/min CAD (coronary artery disease) Leukocytosis on admission Discharge Exam Constitutional WD/WN, vitals as above cooperative Eyes PERRL, conjunctivae normal, anicteric sclerae ENMT external ear and nose normal, oropharynx normal Neck trachea midline, no thyromegaly normal visual inspection Respiratory normal respiratory effort Cardiovascular Rate/Rhythm: regular rate Gastrointestinal (Abdomen) normal bowel sounds, soft, nontender, no hepatosplenomegaly Musculoskeletal Head/Neck/Chest: normocephalic and head atraumatic Neurologic PERRL, EOMI, accommodation nl, no face palsy, no dysarthria CN's II-XI intact bilaterally Psychiatric A+Ox3, euthymic affect Discharge Data Allergies Allergy/AdvReac Type Severity Reaction Status Date / Time hydromorphone Allergy Intermediate HIVES Verified 12/13/19 06:17 meperidine Allergy Intermediate HIVES Verified 12/13/19 06:17 morphine Allergy Intermediate HIVES Verified 12/13/19 06:17 lisinopril AdvReac Mild COUGH Verified 12/13/19 06:17 Consultations 12/13/19 07:29 ED Decision to Admit Stat 12/13/19 08:32 Consult Cardiology Routine 12/13/19 11:19 Consult Case Management - Discharge Planning Routine Hospital Course (1) Hypoxia: Acute respiratory failure with hypoxia in setting of CHF exacerbation -management of CHF as below -patient on prn duonebs -initially often on BIPAP at beginning of hospital stay -has then been intermittently between room air and supplementary oxygen while in the hospital -overnight pulse oximetry testing on night time 12/17/2019 to 12/18/2019 diamond cleaver performed patient prescribed noctural oxygen as 2 liters/min for home, also prescribed nebulizer machine and duoneb treatments for home use, he passed the 2 step test on 12/18/2019 and does not need oxygen with ambulation (2) COPD (chronic obstructive pulmonary disease): -nebulizer prn -start scheduled Advair on 12/16/2019 (3) Acute on chronic heart failure with reduced ejection fraction and diastolic dysfunction: -This is a 74-year-old male who has significant past medical history of CAD with history of CABG x1 BENÍTEZ to LAD, chronic systolic and diastolic CHF secondary to ischemic cardiomyopathy, pulmonary hypertension, emphysema, HTN, HLD, LBBB, history of subclavian steal syndrome status post stent, 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 -most recent outpatient echocardiogram had been performed as an outpatient on 10/19/2019 with severe diffuse left ventricular hypokinesis noted, LVEF 25-9% severe left atrial argument, severe grade 3 diastolic dysfunction, moderate mitral regurgitation, moderate to severe pulmonary hypertension with estimated pulmonary artery systolic pressure of 63 mmHg. Study was unchanged compared to February 2019. -patient started on Lasix 40 mg IV BID -12/14/[address] Evans to continue ongoing diuretic therapy, and added topical nitroglycerin for further afterload reduction, vasodilatory effects -12/15/[address] Evans to continue ongoing diuretic therapy as 40 mg IV BID, transition his topical nitroglycerin to isosorbide mononitrate extended release 30 mg as per cardiology -12/16/2019 on IV Lasix BID, continue isosorbide, start scheduled Advair, overnight pulse oximetry testing, cardiology changed carvedilol to metoprolol as per cardiology Dr. Evans on 12/18/2019 "Creatinine was 1.47 yesterday, 1.79 today, and therefore his pm dose of IV furosemide has been canceled. Transition to torsemide 20 mg , daily in am 12/18. Did not tolerate torsemide 20 mg BID as outpt due to dizziness. Increase metoprolol succinate (replaces coreg) to 100 mg daily in am tomorrow. Continue amlodipine 5 mg daily for HTN and antianginal effects. Increase Imdur ( antianginal and afterload reduction) to 60 mg daily. Pt is not on at ACEI / ARB or Entresto as losartan was DC'd when Creatinine increased to 2 mg / dl a few months ago. Pt is not on hydralazine due to past intolerance with orthostatic hypotension symptoms , despite relatively high BP readings." discharge to home with nocturnal oxygen 2 liters/min for sleep and nebulizer machine for nebulizer treatment every 8 hours as needed for shortness of breath or wheezing discharge medication sent electronically pharmacy is [facility], [place] [address] patient should no longer take carvedilol (coreg) at home. patient should start prescription of 100 mg daily metoprolol and isosorbide mononitrate (Imdur) 60 mg daily on 12/19/2019. start torsemide 20 mg daily starting also on 12/19/2019 12/26/2019 9:30 AM Department Pulmonary Function Lab, [facility] 12/27/2019 11:20 AM Provider Maciej Cardona MD Department [facility] (patient should have repeat renal function labs drawn by primary care doctor) 01/08/2020 11:00 AM Provider AILYN AbadC Department Cardiology, [facility] 01/25/2020 9:15 AM Provider [facility] Department Cardiology, [facility] 02/15/2020 9:00 AM Provider VASJesisca US[facility] Department Vascular Lab [facility] 02/15/2020 10:00 AM Provider Oliver Retana MD Department Vascular Surg [facility] 03/12/2020 2:20 PM Provider Monty Ramos MD Department Nephrology, [facility] 03/13/2020 10:00 AM Provider Oliver Evans DO Department Cardiology, [facility] (4) CAD (coronary artery disease): History of CABG x1 BENÍTEZ to LAD 06/2017 Subsequently underwent biventricular AICD placement by Dr. Block Follows [facility] cardiology Losartan recently discontinued as outpatient due to renal function continue ASA, statin (5) Biventricular automatic implantable cardioverter defibrillator in situ: secondary to HFrEF Follows with [facility] cardiology (6) Leukocytosis: admission white blood cells 11 K Procalcitonin COVID-19 negative admission leukocytosis Likely elevated in setting of chronic prednisone use, no fevers (7) PMR (polymyalgia rheumatica): Continue chronic prednisone 5 mg daily (8) HTN (hypertension): -Continue Coreg and amlodipine -nitro as per cardiology (9) CKD (chronic kidney disease) stage 3, GFR 30-59 ml/min: mild increase in creatinine to 1.7 on 12/18/2019 IV Lasix stopped and has outpatient follows for repeat renal function (10) Anemia: Patient with chronic anemia, monitor (11) Dyslipidemia: -Continue statin (12) BPH (benign prostatic hyperplasia): -continue Flomax (13) DVT prophylaxis: SQ Heparin Og's spouse, Flor Foley's son, Eric, by phone. Eric lives in [place]. His mobile number is [phone]. Total Time Total Time Spent Total Time Spent (In Minutes): 40 minutes Total Time Includes: Examination of the Patient, Discharge Planning, Medication Reconciliation and Communication With Other Providers Discharge Plan Discharge Items Patient Disposition: Home - Self-Care Reason For Visit: ACUTE DECOMPENSATED HEART FAILURE WITH REDUCED EF Discharge Diagnosis: Acute respiratory failure with hypoxia in setting of CHF exacerbation (Hypoxia) Acute on chronic heart failure with reduced ejection fraction and diastolic dysfunction COPD (chronic obstructive pulmonary disease) HTN (hypertension) CKD (chronic kidney disease) stage 3, GFR 30-59 ml/min CAD (coronary artery disease) Leukocytosis on admission Condition on Discharge: Good Activity: Resume your previous activity Non-emergency contact: Primary Care Provider Call non-emergency contact if: you have any medication questions Follow-up/Referrals: Maciej Cardona MD [Primary Care Provider] - Diet: Heart Healthy and Low Sodium (2gm) Addtl Attending Provider Instructions: discharge to home with nocturnal oxygen 2 liters/min for sleep and nebulizer machine for nebulizer treatment every 8 hours as needed for shortness of breath or wheezing discharge medication sent electronically pharmacy is [facility], [place] [address] patient should no longer take carvedilol (coreg) at home. patient should start prescription of 100 mg daily metoprolol and isosorbide mononitrate (Imdur) 60 mg daily on 12/19/2019. start torsemide 20 mg daily starting also on 12/19/2019 12/26/2019 9:30 AM Department Pulmonary Function Lab, [facility] 12/27/2019 11:20 AM Provider Maciej Cardona MD Department [facility] (patient should have repeat renal function labs drawn by primary care doctor) 01/08/2020 11:00 AM Provider Elva Daley PA-C Department Cardiology, [facility] 01/25/2020 9:15 AM Provider Aure [facility] Department Cardiology, [facility] 02/15/2020 9:00 AM Provider NICHOL [address] Department Vascular Lab [facility] 02/15/2020 10:00 AM Provider Oliver Retana MD Department Vascular Surg [facility] 03/12/2020 2:20 PM Provider Monty Ramos MD Department Nephrology, [facility] 03/13/2020 10:00 AM Provider Oliver Evans DO Department Cardiology, [facility] [employer] Provider Instructions: as per cardiology Dr. Evans on 12/18/2019 "Creatinine was 1.47 yesterday, 1.79 today, and therefore his pm dose of IV furosemide has been canceled. Transition to torsemide 20 mg , daily in am 12/18. Did not tolerate torsemide 20 mg BID as outpt due to dizziness. Increase metoprolol succinate (replaces coreg) to 100 mg daily in am tomorrow. Continue amlodipine 5 mg daily for HTN and antianginal effects. Increase Imdur ( antianginal and afterload reduction) to 60 mg daily. Pt is not on at ACEI / ARB or Entresto as losartan was DC'd when Creatinine increased to 2 mg / dl a few months ago. Pt is not on hydralazine due to past intolerance with orthostatic hypotension symptoms , despite relatively high BP readings." Call your Primary Care doctor if any of the following symptoms or problems start or get worse: * Shortness of breath or difficulty breathing * Wake up at night short of breath * Chest pain * Cough * Swelling of your hands, feet, or legs * More fatigued or tired with your normal activity * Palpitations - sudden fast heart beats WEIGHT * Weigh yourself every morning after using the bathroom. * Use the same scale. * Wear the same amount of clothing. * Write your weight down on a chart. * Call your Primary Care doctor if you gain more than 2-3 pounds in 1-2 days. MEDICATIONS * Use this discharge instruction sheet for medication instructions. * Take your medications at the time your doctor ordered. * Do not skip a dose of your medicines. * If you miss a dose of medicine, take it as soon as possible, but DO NOT DOUBLE A DOSE. * Read your medicine information when you get home. * Know all of the side effects of your medicine. If in doubt, ask your pharmacist * Call your Primary Care doctor's office if you have any side effects. * Be sure all of your doctors know what medicine and herbs you take (including cold, flu, and herbal medicine). Take the following with you to your follow-up doctor appointments: * Weight Chart * Medication List * List of questions Do not drink excessive alcohol, beer or wine. Pending Studies at Discharge: No Stand-Alone Forms: [facility], Smoking Cessation Medications and DC Order Prescriptions: New isosorbide mononitrate 60 mg Tablet Extended Release 24 Hr 60 mg PO QAM 30 Days Qty: 30 RF: 0 metoprolol succinate 50 mg Tablet Extended Release 24 Hr 100 mg PO QAM 30 Days Qty: 60 RF: 0 ipratropium-albuterol 0.5 mg-3 mg(2.5 mg base)/3 mL Solution For Nebulization 3 ml NEB Q8H PRN (Reason: shortness of breath or wheezing) 30 Days Qty: 720 RF: 0 Breo Ellipta 100-25 mcg/dose Blister With Device 1 puff inhalation DAILY 30 Days Qty: 1 RF: 0 Continued atorvastatin [Lipitor] 40 mg Tablet 40 mg PO DAILY RF: 0 sennosides 8.6 mg Tablet 8.6 mg PO BID PRN (Reason: Constipation) RF: 0 aspirin [Aspirin Low Dose] 81 mg Tablet,Delayed Release (Dr/Ec) 81 mg PO DAILY RF: 0 tramadol 50 mg tablet 50 mg PO Q6H PRN (Reason: Pain) RF: 0 fluorouracil 1 % Cream 1 applic TOPICAL BID PRN (Reason: Skin Irritation) RF: 0 tamsulosin 0.4 mg Capsule 0.4 mg PO QPM RF: 0 pramipexole [Mirapex] 0.25 mg Tablet 0.25 mg PO HS RF: 0 cholecalciferol (vitamin D3) 2,000 unit Tablet 2,000 unit PO DAILY RF: 0 Coricidin HBP Chest Bridger-Cough 10-200 mg Capsule 2 tab-cap PO Q8H PRN (Reason: Cold Symptoms) RF: 0 albuterol sulfate 90 mcg/actuation HFA aerosol inhaler 2 inha INH QID PRN (Reason: shortness of breath or wheezing) Qty: 1 RF: 0 torsemide 20 mg tablet 20 mg PO DAILY RF: 0 prednisone 5 mg Tablet 5 mg PO DAILY RF: 0 amlodipine 5 mg tablet 5 mg PO DAILY RF: 0 nitroglycerin [Nitrostat] 0.4 mg Tablet, Sublingual 0.4 mg sublingual DIRECTED PRN (Reason: Chest Pain) RF: 0 Discontinued carvedilol 12.5 mg Tablet 12.5 mg PO BID RF: 0 Discharge Orders: Discharge Order (Routine); Ordered 12/18/19 Ordered By: Sanjay Vega Admission Data Admit Date/Time: 12/13/19 08:32 Attending Provider: Sanjay Vega Admit Provider: Sanjay Vega Primary Care Provider: Maciej Cardona Other Providers: Sanjay Vega ; Alcon Scott
[2019-12-19] MEDS ORDERED: ISOSORBIDE MONO EXTENDED REL 60 MG TABCR PO SCH (09:00)
[2019-12-19] MEDS ORDERED: TORSEMIDE 20 MG TAB PO SCH (09:00)
[2019-12-19] MEDS ORDERED: METOPROLOL SUCC 50MG EXT REL TAB PO SCH (09:00)
== END 2019-12-18 15:09 | disposition home or self-care (01) | DRG 291 ==
LOC: ED 05:41 → 2S 08:32

== ENCOUNTER 2022-06-21 02:53 | Inpatient (IN) ==
[2022-06-21 03:37] LABS: Basophils # (auto) 0.01 K/uL (0-0.2); Basophils % (auto) 0.1 %; Eosinophils # (auto) 0.01 K/uL (0-0.50); Eosinophils % (auto) 0.1 %; Hematocrit (blood only) 34.5 % (40.1-51.0); Hemoglobin 11.3 g/dl (14.0-18.0); Immature Granulocytes # (auto) 0.02 K/uL (0.00-0.02); Immature Granulocytes % (auto) 0.2 %; Mean Corpuscular Hemoglobin 31.7 pg (25.0-34.0); Mean Corpuscular Hgb Conc 32.8 g/dL (32.0-36.0); Mean Corpuscular Volume 96.6 fL (80.0-100.0); Mean Platelet Volume 10.2 fL (9.4-12.4); Monocytes # (auto) 0.64 K/uL (0.24-0.82); Monocytes % (auto) 6.4 %; Neutrophils # (auto) 8.54 K/uL (1.4-6.5); Neutrophils % (auto) 85.2 %; Platelet Count 159 K/uL (130-400); RDW Coefficient of Variation 14.6 % (11.5-14.5); RDW Standard Deviation 52.3 fL (36.4-46.3); Red Blood Count 3.57 M/uL (4.63-6.08); White Blood Count 10.02 K/ul (4.8-10.8)
[2022-06-21 03:55] LABS: INR 1.1 (0.9-1.1); Partial Thromboplastin Ratio 0.9; Partial Thromboplastin Time 24.3 Seconds (21.0-31.0); Prothrombin Time 11.4 Seconds (9.0-12.0)
[2022-06-21 04:05] LABS: Albumin Globulin Ratio 1.1 (0.9-2); BUN Creatinine Ratio 52.2 (10-20); Bilirubin,Total 0.6 mg/dl (0.2-1.0); Calcium 8.1 mg/dl (8.5-10.1); Creatinine Clr Calc Pharmacy 31.9 ml/min; Est GFR (African American) 40.6 ml/min; Est GFR (Non-African American) 35.1 ml/min; Globulin 2.8 gm/dl (2.5-4.0); Total Protein 5.8 gm/dl (6.0-8.3)
[2022-06-21] MEDS ORDERED: NITROGLYCERIN 2% OINTMENT 30GM TUBE EXT ONE (04:27)
[2022-06-21] MEDS ORDERED: fentaNYL citrate 100 MCG/2 ML VIAL IV ONE (04:28)
[2022-06-21 04:34] LABS: Troponin I High Sensitivity 69.2 pg/ml (0-20)
[2022-06-21] MEDS ORDERED: ASPIRIN CHEW 324 MG PO STA (04:49)
[2022-06-21] MEDS ORDERED: NITROGLYCERIN SL 0.4 MG/TAB TAB SL PRN (05:29)
[2022-06-21] MEDS ORDERED: ONDANSETRON INJ 2 MG/ML 2 ML VIAL IV PRN (05:29)
[2022-06-21] MEDS ORDERED: ACETAMINOPHEN 325 MG TAB PO PRN (05:29)
[2022-06-21] MEDS ORDERED: ALUMINUM/MAGNESIUM SUSP 30 ML UDC PO PRN (05:29)
--- NOTE | 2022-06-21 05:32 | History & Physical Report ---
Date of Service June 21, 2022 Assessment & Plan (1) Chest pain: Plan Chest discomfort rule out ACS Extensive past cardiac history Plan patient comes in with chest discomfort at rest, radiating to left arm and back; not relieved with sublingual nitro at home but patient felt relief with Nitropaste in the ED. EKG with paced rhythm, difficult to interpret Admitting troponin elevated at 69.2, trend troponins. Telemetry monitoring, echo, cardiology consult, as needed nitro Heparin drip if uptrending troponin. N.p.o. until cardiology eval. Other chronic medical conditions: HLD, HTN, COPD, AAA, CKD stage IIIb, HTN, ischemic cardiomyopathy, PMR --> resume home meds as able DVT prophylaxis: Subcu heparin DNR/DNI History of Present Illness Chief Complaint: Chest discomfort Primary Care Provider: Maciej Cardona MD 77-year-old male with PMH of HLD, hyperparathyroidism, pulmonary emphysema, COPD, AAA, CKD stage IIIb, HTN, ischemic cardiomyopathy, presence of automatic cardioverter/defibrillator and pacemaker [it has been turned off], end-stage heart failure, protein calorie malnutrition, PMR on a steroid, follows palliative care outpatient presented to the ED 06/21 with complaint of chest discomfort. Patient states that he was resting in his recliner when chest pain abruptly started as a discomfort and radiating towards his left arm and hand and to his back. He rates discomfort at 5-6 over 10 at presentation, took 2 nitroglycerin at home with no relief, and is presented to the ED were he was put on Nitropaste and patient reports relief of the chest discomfort. Patient reports some baseline cough, denies any fever or sore throat or feeling of heart racing. Patient denies any new acute changes in his bowel or bladder habit. Patient quit smoking in 2000 and denies use of alcohol or recreational drugs. DNR/DNI per my discussion with patient. Patient's Flor present at bedside. Patient worked in [employer] in the past. Family history significant for father dying of heart attack at age 54. Medications were able to be partially reviewed with patient as patient got quite irritated on asking about medication stating that he does not know the dose and frequency of his medications. Hence had to rely on outpatient medication list completely. Allergies Allergy/AdvReac Type Severity Reaction Status Date / Time hydromorphone Allergy Intermediate HIVES Verified 06/21/22 03:12 meperidine Allergy Intermediate HIVES Verified 06/21/22 03:12 morphine Allergy Intermediate HIVES Verified 06/21/22 03:12 lisinopril AdvReac Mild COUGH Verified 06/21/22 03:12 Home Medications Medication Instructions Recorded Confirmed Type aspirin 81 mg tablet,delayed 81 mg PO DAILY 09/17/18 06/21/22 History release (Latonia Low Dose Aspirin) atorvastatin 40 mg tablet (Lipitor) 40 mg PO DAILY 09/17/18 06/21/22 History cholecalciferol (vitamin D3) 50 2,000 unit PO DAILY 09/17/18 06/21/22 History mcg (2,000 unit) tablet pramipexole 0.25 mg tablet 0.25 mg PO HS 09/17/18 06/21/22 History (Mirapex) tamsulosin 0.4 mg capsule 0.8 mg PO QPM 09/17/18 06/21/22 History albuterol sulfate 90 mcg/actuation 2 inha inhalation QID PRN 09/28/18 06/21/22 Rx aerosol inhaler shortness of breath or wheezing #1 g nitroglycerin 0.4 mg sublingual 0.4 mg sublingual DIRECTED PRN 12/13/19 06/21/22 History tablet (Nitrostat) Chest Pain amlodipine 2.5 mg tablet 2.5 mg PO DAILY 06/21/22 06/21/22 History buprenorphine 10 mcg/hour weekly 10 mcg transdermal WK 06/21/22 06/21/22 History transdermal patch cyanocobalamin (vitamin B-12) 1,000 mcg sublingual DAILY 06/21/22 06/21/22 History 1,000 mcg sublingual tablet furosemide 40 mg tablet (Lasix) 40 mg PO DAILY 06/21/22 06/21/22 History iron,carbonyl 65 mg-vitamin C 125 1 tab PO DAILY 06/21/22 06/21/22 History mg tablet,delayed release (Vitron-C) isosorbide mononitrate 60 mg 60 mg PO DAILY 06/21/22 06/21/22 History tablet,extended release 24 hr metolazone 2.5 mg tablet 2.5 mg PO WK 06/21/22 06/21/22 History metoprolol succinate 100 mg 100 mg PO DAILY 06/21/22 06/21/22 History tablet,extended release 24 hr oxycodone 5 mg tablet 5 mg PO Q6H PRN Pain 06/21/22 06/21/22 History potassium chloride 10 mEq 10 meq PO DAILY 06/21/22 06/21/22 History capsule,extended release prednisone 10 mg tablet 20 mg PO DAILY 06/21/22 06/21/22 History Past Med/Surg History Medical History (Updated 06/21/22 @ 05:31 by Jesus Tobar MD) MARGARET inhibitor intolerance BPH (benign prostatic hyperplasia) CAD (coronary artery disease) Carotid stenosis CHF (congestive heart failure) CKD (chronic kidney disease) stage 3, GFR 30-59 ml/min COPD (chronic obstructive pulmonary disease) Dyslipidemia GERD (gastroesophageal reflux disease) HTN (hypertension) LBBB (left bundle branch block) Lumbago Pericardial effusion PMR (polymyalgia rheumatica) Small bowel obstruction due to adhesions Surgical History Biventricular automatic implantable cardioverter defibrillator in situ 06/25/[address] [facility] H/O heart artery stent "left subclavian stent for occlusion with front runner catheter, Dr Retana 04/23" History of back surgery cervical and lumbar History of carotid endarterectomy Left CEA with patch 10/25/2006 History of cholecystectomy History of coronary artery bypass graft x 1 BENÍTEZ to LAD History of inguinal hernia repair History of open heart surgery History of tonsillectomy Family History Father Coronary heart disease, Onset Age: 51 Mother Stroke Social History Smoking Status: Former smoker packs per day: 1.5; Hx Alcohol Use: No Hx Substance Use: No Preferred Language: Wolof Communication Ability: Effective Hand Bulldozer Required: No Beliefs That Will Affect Care: Jehovah'S Witness Jehovah'S Witness Beliefs: Gnosticism marital status: Current Living Situation: Spouse current occupational status: retired and disabled Feels Safe at Home: Yes Assistive Devices: Oxygen - at Night and Oxygen - Continuous Review of Systems Review of Systems: Negative otherwise mentioned in HPI. Physical Exam Physical Exam: GENERAL: Alert and oriented x3. NAD, on RA. Lean and thin. Appears chronically ill. HEENT: No pallor, no icterus. Pupils equal, round and reactive to light. Oral mucosa moist. NECK: No JVD, no neck masses. HEART: S1 and S2 heard. Regular rate and rhythm. systolic mumur w/ click at aortic area. Pacer on rt chest. RESPIRATORY SYSTEM: Normal AP diameter. No accessory muscle use. No wheezing, no crackles. ABDOMEN: Soft, bowel sounds present, nontender, no distention. CENTRAL NERVOUS SYSTEM: No facial droop. Speech is clear. Obeys simple commands. Moves extremities. EXTREMITIES: 2+ BLE edema, no erythema seen. Results & Data Results & Data ([facility]) Vital Signs (Past 12 Hours) Vital Signs Temp Pulse Resp BP Pulse Ox O2 Del Method 06/21/22 04:30 63 15 152/70 H 96 06/21/22 04:29 64 18 139/50 L 96 06/21/22 04:00 61 15 96 06/21/22 03:30 60 15 95 06/21/22 03:32 61 18 95 Room Air 06/21/22 03:14 64 17 156/74 H 97 06/21/22 03:06 67 17 06/21/22 02:58 36.8 C 71 20 130/67 96 Room Air
[2022-06-21] MEDS ORDERED: oxyCODONE HCL IR 5 MG TAB (IMMEDIATE RELEASE) PO PRN (07:45)
--- NOTE | 2022-06-21 07:56 | Emergency Department Note ---
Impression & Plan Non-ST elevation PR (NSTEMI) Admit to the [facility] ED Provider Note NAME: MELISSA GUADARRAMA AGE: 77 SEX: M ARRIVES VIA: Walk-In INFORMANT: Admit and his ED PROVIDER(S): Chanel Fonseca DO CHIEF COMPLAINT: Midsternal chest pain with radiation to the left arm PLAN: Disposition: To the [facility] Condition: Fair MEDICAL DECISION MAKING: This is a 77-year-old male patient who presents to the emergency department with midsternal chest pain that radiates to his left arm. The patient was preparing for bed when he developed this discomfort. He took 2 sublingual nitro with no relief. Patient's pain is persistent and only minimally relieved with IV fentanyl and Nitropaste. Patient did have a positive troponin but no ischemic changes on EKG. Chest x-ray was unremarkable. Triage Nursing notes reviewed and agree them. Additional history obtained from Prior medical records reviewed Vital Signs: reviewed and remarkable for no significant abnormalities Differential diagnosis: ER treatment provided: IV fentanyl Nitropaste Oral aspirin Twelve-lead EKG travel guide Diagnostics interpreted by me: ECG: AV dual paced rhythm at a rate of [address] segment elevation. There were T wave inversions laterally. In leads I and aVL. I had no previous EKGs for comparison Cardiac Monitoring: Normal sinus rhythm at a rate of 66. Laboratory studies: See below Imaging studies: As per my interpretation Forward chest x-ray: Cardiomegaly with no obvious pulmonary infiltrates or pleural effusions. HPI: 77/M arrives for evaluation of midsternal chest pain. Patient developed midsternal chest pain approximately 1 hour ago that radiated through to his back into his left arm. Patient states that his elbow had a significant dull ache. Patient also developed a cough. He denies any nausea or sweating. He denies any shortness of breath. PAST MEDICAL HISTORY:See Below PAST SURGICAL HISTORY:See Below FAMILY HISTORY:See Below SOCIAL HISTORY:See Below HOME MEDICATIONS:See list ALLERGIES:See list VITALS:See Below PHYSICAL EXAMINATION: HEENT: Head - normocephalic and atraumatic. Pupils are equal, round, and reactive to light. Extraocular eye muscles are intact, and sclera are anicteric. Nose - moist nasal mucosa without discharge. Mouth - moist buccal mucosa. Oropharynx is nonerythematous and there is no tonsillar exudate or edema noted. Neck: Supple; no cervical lymphadenopathy Heart: Regular rate and rhythm. There is a normal S1 and S2 with no murmurs, clicks, or gallops appreciated. Lungs: Clear to auscultation bilaterally with no wheezes, rales, or rhonchi. Abdomen: Soft, completely nontender, nondistended, with good bowel sounds. There are no palpable pulsatile masses or hepatosplenomegaly. There is no guarding, rigidity, or rebound noted. Extremities: No evidence of cyanosis, clubbing, or edema. There are easily palpable peripheral pulses. Skin: warm and dry with good turgor and no rashes. ED COURSE: Times/Reassessments: 355: Patient was evaluated in room C7. A complete history and physical was performed. Labs were drawn as above. The patient had a twelve-lead EKG obtained as described above. An order was placed for continuous cardiac monitoring. The patient was in a normal sinus rhythm at a rate of 66. Patient was given oral aspirin. Patient had a portable chest x-ray performed. Patient was given a dose of IV fentanyl which did begin to give some relief to his discomfort. He had nitroglycerin paste placed which brought the chest discomfort down slightly. Chanel Fonseca DO Past Med/Surg History Medical History (Updated 06/21/22 @ 12:48 by Neal Rubio DO) MARGARET inhibitor intolerance BPH (benign prostatic hyperplasia) CAD (coronary artery disease) Carotid stenosis CHF (congestive heart failure) CKD (chronic kidney disease) stage 3, GFR 30-59 ml/min COPD (chronic obstructive pulmonary disease) Dyslipidemia GERD (gastroesophageal reflux disease) HTN (hypertension) LBBB (left bundle branch block) Lumbago Pericardial effusion PMR (polymyalgia rheumatica) Small bowel obstruction due to adhesions Surgical History Biventricular automatic implantable cardioverter defibrillator in situ 06/25/2017 [facility] H/O heart artery stent "left subclavian stent for occlusion with front runner catheter, Dr Retana 04/23" History of back surgery cervical and lumbar History of carotid endarterectomy Left CEA with patch 10/25/2006 History of cholecystectomy History of coronary artery bypass graft x 1 BENÍTEZ to LAD History of inguinal hernia repair History of open heart surgery History of tonsillectomy Family History Father Coronary heart disease, Onset Age: 51 Mother Stroke Social History Smoking Status: Former smoker packs per day: 1.5; Hx Alcohol Use: No Hx Substance Use: No Preferred Language: Occitan Communication Ability: Impaired 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 Beliefs That Will Affect Care: None marital status: Current Living Situation: Spouse current occupational status: retired and disabled Other Information That Helps Us Care for You: No Feels Safe at Home: Yes Safety Concerns: Feels Safe At This Time Assistive Devices: Cane Allergies Allergies Allergy/AdvReac Type Severity Reaction Status Date / Time hydromorphone Allergy Intermediate HIVES Verified 06/21/22 03:12 meperidine Allergy Intermediate HIVES Verified 06/21/22 03:12 morphine Allergy Intermediate HIVES Verified 06/21/22 03:12 lisinopril AdvReac Mild COUGH Verified 06/21/22 03:12 Home Meds Home Medications Medication Instructions Recorded Confirmed aspirin 81 mg tablet,delayed 81 mg PO DAILY 09/17/18 06/21/22 release (Latonia Low Dose Aspirin) atorvastatin 40 mg tablet (Lipitor) 40 mg PO DAILY 09/17/18 06/21/22 cholecalciferol (vitamin D3) 50 2,000 unit PO DAILY 09/17/18 06/21/22 mcg (2,000 unit) tablet pramipexole 0.25 mg tablet 0.25 mg PO HS 09/17/18 06/21/22 (Mirapex) tamsulosin 0.4 mg capsule 0.8 mg PO QPM 09/17/18 06/21/22 nitroglycerin 0.4 mg sublingual 0.4 mg sublingual DIRECTED PRN 12/13/19 06/21/22 tablet (Nitrostat) Chest Pain amlodipine 2.5 mg tablet 2.5 mg PO DAILY 06/21/22 06/21/22 buprenorphine 10 mcg/hour weekly 10 mcg transdermal WK 06/21/22 06/21/22 transdermal patch cyanocobalamin (vitamin B-12) 1,000 mcg sublingual DAILY 06/21/22 06/21/22 1,000 mcg sublingual tablet furosemide 40 mg tablet (Lasix) 40 mg PO DAILY 06/21/22 06/21/22 iron,carbonyl 65 mg-vitamin C 125 1 tab PO DAILY 06/21/22 06/21/22 mg tablet,delayed release (Vitron-C) isosorbide mononitrate 60 mg 60 mg PO DAILY 06/21/22 06/21/22 tablet,extended release 24 hr metolazone 2.5 mg tablet 2.5 mg PO WK 06/21/22 06/21/22 metoprolol succinate 100 mg 100 mg PO DAILY 06/21/22 06/21/22 tablet,extended release 24 hr oxycodone 5 mg tablet 5 mg PO Q6H PRN Pain 06/21/22 06/21/22 potassium chloride 10 mEq 10 meq PO DAILY 06/21/22 06/21/22 capsule,extended release prednisone 10 mg tablet 20 mg PO DAILY 06/21/22 06/21/22 Previous Rx's Medication Instructions Recorded albuterol sulfate 90 mcg/actuation 2 inha inhalation QID PRN 09/28/18 aerosol inhaler shortness of breath or wheezing #1 g Results & Data (ED) Vital Signs Vital Signs - 24 hr 06/21/22 02:58 06/21/22 03:22 06/21/22 03:06 Temperature 36.8 C Temperature Source Temporal Artery Scan Pulse Rate 71 67 Pulse Rate from SpO2 Sensor Pulse Rhythm Respiratory Rate 20 17 Respiratory Effort / Characteristics Non-Labored Spontaneous Respiratory Depth Normal Blood Pressure 130/67 Blood Pressure Mean 88 Blood Pressure Position Sitting Pulse Oximetry 96 Oxygen Delivery Method Room Air Sepsis Recent Fever Within 48 Hours No Sepsis New/Unexplained Change in Mental Status N/A Sepsis Action Taken by Nursing No Action Required 06/21/22 03:14 06/21/22 03:32 06/21/22 03:30 Temperature Temperature Source Pulse Rate 64 61 60 Pulse Rate from SpO2 Sensor 60 60 Pulse Rhythm Regular Respiratory Rate 17 18 15 Respiratory Effort / Characteristics Respiratory Depth Blood Pressure 156/74 H Blood Pressure Mean 101 Blood Pressure Position Pulse Oximetry 97 95 95 Oxygen Delivery Method Room Air Sepsis Recent Fever Within 48 Hours Sepsis New/Unexplained Change in Mental Status Sepsis Action Taken by Nursing 06/21/22 04:00 06/21/22 04:29 06/21/22 04:30 Temperature Temperature Source Pulse Rate 61 64 63 Pulse Rate from SpO2 Sensor 61 64 63 Pulse Rhythm Respiratory Rate 15 18 15 Respiratory Effort / Characteristics Respiratory Depth Blood Pressure 139/50 L 152/70 H Blood Pressure Mean 79 97 Blood Pressure Position Pulse Oximetry 96 96 96 Oxygen Delivery Method Sepsis Recent Fever Within 48 Hours Sepsis New/Unexplained Change in Mental Status Sepsis Action Taken by Nursing Laboratory Data Result diagrams: 06/22/22 05:32 06/22/22 05:32 Lab Results 06/21/22 06/21/22 06/21/22 Range/Units 03:10 03:10 03:10 WBC 10.02 (4.8-10.8) K/ul RBC 3.57 L (4.63-6.08) M/uL Hgb 11.3 L (14.0-18.0) g/dl Hct 34.5 L (40.1-51.0) % MCV 96.6 (80.0-100.0) fL MCH 31.7 (25.0-34.0) pg MCHC 32.8 (32.0-36.0) g/dL RDW Std Deviation 52.3 H (36.4-46.3) fL RDW Coeff of Archie 14.6 H (11.5-14.5) % Plt Count 159 (130-400) K/uL MPV 10.2 (9.4-12.4) fL Immature Gran % (Auto) 0.2 % Neut % (Auto) 85.2 % Lymph % (Auto) 8.0 % [place] % (Auto) 6.4 % Eos % (Auto) 0.1 % Baso % (Auto) 0.1 % Neut # (Auto) 8.54 H (1.4-6.5) K/uL Lymph # (Auto) 0.80 L (1.2-3.4) K/uL [place] # (Auto) 0.64 (0.24-0.82) K/uL Eos # (Auto) 0.01 (0-0.50) K/uL Baso # (Auto) 0.01 (0-0.2) K/uL Immature Gran # (Auto) 0.02 (0.00-0.02) K/uL PT 11.4 (9.0-12.0) Seconds INR 1.1 (0.9-1.1) APTT 24.3 (21.0-31.0) Seconds PTT Ratio 0.9 Sodium 140 (136-145) mmol/L Potassium 4.0 (3.5-5.1) mmol/L Chloride 103 (98-107) mmol/L Carbon Dioxide 29 (21-32) mmol/L Anion Gap 8 (3-11) BUN 96 H (6-23) mg/dl Creatinine 1.84 H (0.6-1.4) mg/dl Est Cr Clr Drug Dosing 31.9 ml/min Est GFR ( Amer) 40.6 ml/min Est GFR (Non-Af Amer) 35.1 ml/min BUN/Creatinine Ratio 52.2 H (10-20) Glucose 95 (70-99(Fasting)) mg/dl Calcium 8.1 L (8.5-10.1) mg/dl Total Bilirubin 0.6 (0.2-1.0) mg/dl AST 18 (13-39) U/L ALT 15 (7-52) U/L Alkaline Phosphatase 63 (34-104) U/L Troponin I High Sens 69.2 H* (0-20) pg/ml Total Protein 5.8 L (6.0-8.3) gm/dl Albumin 3.0 L (3.4-5.0) gm/dl Globulin 2.8 (2.5-4.0) gm/dl Albumin/Globulin Ratio 1.1 (0.9-2) SARS-CoV-2, RNA, NAAT (NEGATIVE) 06/21/22 Range/Units 04:41 WBC (4.8-10.8) K/ul RBC (4.63-6.08) M/uL Hgb (14.0-18.0) g/dl Hct (40.1-51.0) % MCV (80.0-100.0) fL MCH (25.0-34.0) pg MCHC (32.0-36.0) g/dL RDW Std Deviation (36.4-46.3) fL RDW Coeff of Archie (11.5-14.5) % Plt Count (130-400) K/uL MPV (9.4-12.4) fL Immature Gran % (Auto) % Neut % (Auto) % Lymph % (Auto) % [place] % (Auto) % Eos % (Auto) % Baso % (Auto) % Neut # (Auto) (1.4-6.5) K/uL Lymph # (Auto) (1.2-3.4) K/uL [place] # (Auto) (0.24-0.82) K/uL Eos # (Auto) (0-0.50) K/uL Baso # (Auto) (0-0.2) K/uL Immature Gran # (Auto) (0.00-0.02) K/uL PT (9.0-12.0) Seconds INR (0.9-1.1) APTT (21.0-31.0) Seconds PTT Ratio Sodium (136-145) mmol/L Potassium (3.5-5.1) mmol/L Chloride (98-107) mmol/L Carbon Dioxide (21-32) mmol/L Anion Gap (3-11) BUN (6-23) mg/dl Creatinine (0.6-1.4) mg/dl Est Cr Clr Drug Dosing ml/min Est GFR ( Amer) ml/min Est GFR (Non-Af Amer) ml/min BUN/Creatinine Ratio (10-20) Glucose (70-99(Fasting)) mg/dl Calcium (8.5-10.1) mg/dl Total Bilirubin (0.2-1.0) mg/dl AST (13-39) U/L ALT (7-52) U/L Alkaline Phosphatase (34-104) U/L Troponin I High Sens (0-20) pg/ml Total Protein (6.0-8.3) gm/dl Albumin (3.4-5.0) gm/dl Globulin (2.5-4.0) gm/dl Albumin/Globulin Ratio (0.9-2) SARS-CoV-2, RNA, NAAT NEGATIVE (NEGATIVE) Administered Medications Amlodipine Besylate (Amlodipine Besylate 5 Mg Tab) 2.5 mg PO DAILY [facility] Stop: 07/21/22 08:59 Last Admin: 06/22/22 10:12 Dose: 2.5 mg Documented By: Admin: 06/21/22 09:35 Dose: 2.5 mg Documented By: MS Aspirin (Aspirin 81 Mg Ectab) 81 mg PO DAILY [facility] Stop: 07/22/22 08:59 Last Admin: 06/22/22 10:12 Dose: 81 mg Documented By: MS Atorvastatin Calcium (Atorvastatin 40 Mg Tab) 40 mg PO DAILY JAMES Stop: 07/21/22 08:59 Last Admin: 06/22/22 10:12 Dose: 40 mg Documented By: Admin: 06/21/22 09:35 Dose: 40 mg Documented By: MS Buprenorphine HCl (Buprenorphine 5 Mcg/Hr Tdsy) 10 mcg TD Mo@0900 JAMES Stop: 07/22/22 08:59 Last Admin: 06/22/22 10:26 Dose: 10 mcg Documented By: MS Cyanocobalamin (Cyanocobalamin (B-12) 500 Mcg Tablet) 1,000 mcg PO DAILY JAMES Stop: 07/21/22 08:59 Last Admin: 06/22/22 10:12 Dose: 1,000 mcg Documented By: Admin: 06/21/22 08:45 Dose: 1,000 mcg Documented By: MS Furosemide (Furosemide 40 Mg Tab) 40 mg PO DAILY JAMES Stop: 07/21/22 08:59 Last Admin: 06/22/22 10:13 Dose: Not Given Documented By: Admin: 06/21/22 08:45 Dose: 40 mg Documented By: MS Guaifenesin (Guaifenesin 200 Mg Tab) 200 mg PO Q6H [facility] Stop: 07/22/22 09:59 Last Admin: 06/22/22 10:15 Dose: 200 mg Documented By: MS Heparin Sodium (Porcine) (Heparin Sod 5,000 Unit/0.5 Ml Vial) 5,000 units SQ Q12 JAMES Stop: 07/21/22 08:59 Last Admin: 06/22/22 10:11 Dose: Not Given Documented By: Admin: 06/21/22 20:11 Dose: Not Given Documented By: Admin: 06/21/22 08:49 Dose: Not Given Documented By: MS Metoprolol Succinate (Metoprolol Succ 50mg Ext Rel Tab) 100 mg PO DAILY [facility] Stop: 07/21/22 08:59 Last Admin: 06/22/22 10:11 Dose: 100 mg Documented By: Admin: 06/21/22 08:45 Dose: 100 mg Documented By: MS Miscellaneous (Check Buprenorphine Patch) 1 each N/A QS JAMES Stop: 07/21/22 15:59 Last Admin: 06/22/22 10:12 Dose: Not Given Documented By: Admin: 06/22/22 00:07 Dose: Not Given Documented By: Admin: 06/21/22 16:41 Dose: 1 each Documented By: Miscellaneous (Remove & Waste Butrans Patch 1 Ea Ea) 1 each N/A Mo@0859 [facility] Stop: 07/22/22 08:58 Last Admin: 06/22/22 10:12 Dose: Not Given Documented By: Nitroglycerin (Nitroglycerin 2% Ointment 30gm Tube) 1 inch EXT Q6H JAMES Stop: 07/21/22 09:59 Last Admin: 06/22/22 10:13 Dose: 1 inch Documented By: Admin: 06/22/22 04:46 Dose: 1 inch Documented By: Admin: 06/21/22 22:32 Dose: 1 inch Documented By: Admin: 06/21/22 16:42 Dose: 1 inch Documented By: Admin: 06/21/22 09:39 Dose: 1 inch Documented By: Potassium Chloride (Potassium Chloride 10 Meq Tabcr) 10 meq PO DAILY [facility] Stop: 07/21/22 08:59 Last Admin: 06/22/22 10:11 Dose: 10 meq Documented By: Admin: 06/21/22 09:35 Dose: 10 meq Documented By: Pramipexole Dihydrochloride (Pramipexole Dihydrochlo 0.25 Mg Tab) 0.25 mg PO HS [facility] Stop: 07/21/22 20:59 Last Admin: 06/21/22 20:07 Dose: 0.25 mg Documented By: JASON Tamsulosin HCl (Tamsulosin Hcl 0.4 Mg Cap) 0.8 mg PO QPM JAMES Stop: 07/21/22 20:59 Last Admin: 06/21/22 20:07 Dose: 0.8 mg Documented By: JASON Discontinued Medications Albuterol (Albut/Ipratrop 3mg/0.5mg Neb 3 Ml Vial) 3 ml NEB NOW STA; Protocol Stop: 06/21/22 16:08 Last Admin: 06/21/22 17:58 Dose: 3 ml Documented By: SALLY Aspirin (Aspirin Chew 324 Mg) 324 mg PO NOW STA Stop: 06/21/22 04:50 Last Admin: 06/21/22 04:59 Dose: 324 mg Documented By: BS Fentanyl Citrate (Fentanyl Citrate 100 Mcg/2 Ml Vial) 50 mcg IV NOW ONE Stop: 06/21/22 04:29 Last Admin: 06/21/22 04:37 Dose: 50 mcg Documented By: BS Furosemide (Furosemide 40 Mg/4 Ml Vial) 40 mg IV ONE ONE Stop: 06/21/22 12:41 Last Admin: 06/21/22 13:55 Dose: 40 mg Documented By: MS Furosemide (Furosemide 40 Mg/4 Ml Vial) 40 mg IV ONE ONE Stop: 06/22/22 10:01 Last Admin: 06/22/22 10:10 Dose: 40 mg Documented By: MS Furosemide (Furosemide 40 Mg/4 Ml Vial) 40 mg IV ONE ONE Stop: 06/22/22 12:01 Last Admin: 06/22/22 12:55 Dose: 40 mg Documented By: MS Methylprednisolone 40 mg/ (Syringe) 0.64 mls @ 1.5 mls/min IV ONE ONE Stop: 06/22/22 10:16 Last Admin: 06/22/22 10:15 Dose: 1.5 mls/min Documented By: Nitroglycerin (Nitroglycerin 2% Ointment 30gm Tube) 0.5 inch EXT NOW ONE Stop: 06/21/22 04:28 Last Admin: 06/21/22 04:36 Dose: 0.5 inch Documented By: SHARON Sodium Chloride (Sodium Chlor 7% 4 Ml Neb) 4 ml NEB ONE ONE Stop: 06/22/22 09:56 Last Admin: 06/22/22 10:29 Dose: 4 ml Documented By: EM Imaging Data Radiologist's Impression: Chest X-Ray 06/21/22 03:30 XR chest 1V portable HISTORY: Chest pain, nonspecific COMPARISON: Chest 12/13/2019. FINDINGS: No pneumothorax. No pleural effusions. The heart remains enlarged. There are poststernotomy changes and a right-sided pacemaker/defibrillator. Prior cholecystectomy. There is mild central pulmonary vascular congestion without overt edema. Left superior mediastinal vascular stent is again noted. IMPRESSION: Cardiomegaly with mild congestive change. ACT 112: Negative or not required by law. Electronically signed by: Gualberto Hardy M.D. 06/21/2022 8:39 AM Discharge Plan Visit Data Chief Complaint: Chest Pain Stated Complaint: POSSIBLE HEART ATTACK ED Provider: Botti,Chanel A Discharge Problem: Non-ST elevation PR (NSTEMI) Patient Disposition: Admitted As Inpatient Discharge Instructions Interventions: ED Discharge Assessment Last Done: 06/21/22 06:58
[2022-06-21] MEDS ORDERED: FUROSEMIDE 20 MG TAB PO PRN (08:12)
--- NOTE | 2022-06-21 08:41 | XRay Report ---
XR chest 1V portable HISTORY: Chest pain, nonspecific COMPARISON: Chest 12/13/2019. FINDINGS: No pneumothorax. No pleural effusions. The heart remains enlarged. There are poststernotomy changes and a right-sided pacemaker/defibrillator. Prior cholecystectomy. There is mild central pulm onary vascular congestion without overt edema. Left superior mediastinal vascular stent is again note d. IMPRESSION: Cardiomegaly with mild congestive change. ACT 112: Negative or not required by law. Electronically signed by: Gulaberto Hardy M.D. 06/21/2022 8:39 AM
[2022-06-21] MEDS: HEPARIN SOD 5,000 UNIT/0.5 ML VIAL SQ SCH ×4 (08:45→20:11)
[2022-06-21] MEDS: CYANOCOBALAMIN (B-12) 500 MCG TABLET PO SCH (08:45)
[2022-06-21] MEDS: METOPROLOL SUCC 50MG EXT REL TAB PO SCH (08:45)
[2022-06-21] MEDS: FUROSEMIDE 40 MG TAB PO SCH (08:45)
--- NOTE | 2022-06-21 09:29 | Cardiology Consultation ---
Date of Consultation June 21, 2022 Assessment & Plan (1) Acute on chronic heart failure with reduced ejection fraction and diastolic dysfunction: (2) Elevated troponin: (3) Ischemic cardiomyopathy: (4) CKD (chronic kidney disease): (5) Anemia: Plan Chronically ill 77-year-old patient on palliative care presents with acute episode of atypical chest discomfort (described as burning sensation for several hours). High-sensitivity troponin minimally elevated in the setting of chronic kidney disease and flat. Mild weight gain and worsening edema suggestive of acute on chronic heart failure in the setting of CKD stage III-IV. Recommend IV dose of furosemide 40 mg daily today. He will continue weekly metolazone 2.5 mg daily in addition to daily oral furosemide. Monitor daily weight, fluid balance, GFR, and electrolytes. Continue other cardiovascular medications including Toprol-XL, aspirin, amlodipine, and atorvastatin. Transition topical nitrates back to isosorbide monohydrate in a.m. pending clinical course. Thank you for allow me to participate in the care of your patient. History of Present Illness Reason for Consultation: Chest pain, elevated troponin Requesting Physician: Dr. Tobar Attending Physician: Windy Walton MD History of Present Illness Complex 77-year-old patient present to the emergency department with chest discomfort rating to his left arm and back. Unrelieved with sublingual nitroglycerin at home, however, resolved with Nitropaste in the emergency department. Patient is followed by palliative care due to end-stage heart failure, cardiomyopathy, COPD, polymyalgia rheumatica, malnutrition, and chronic pain. Patient describes chest burning beginning last evening and persisting for several hours. No associated shortness of breath or radiation. Weight is up approximately 4 pounds compared to most recent outpatient records. Compliant with all medical therapies noted below. ECG nondiagnostic due to chronic AV pacing. Telemetry reveals AV sequential pacing as well. No dysrhythmias. Denies orthopnea or PND. Notes more prominent lower extremity edema over the past few days. Admits to excessive sodium intake (sauerkraut and hot dogs) yesterday. Cardiac history: Assessed in late May, for findings of congestive heart failure, left bundle branch block. He underwent cardiac catheterization at [facility] on 06/22/2017 with findings of patent left subclavian stent, patent circumflex and RCA stents, and a 50% distal left main stenosis and 80% proximal LAD stenosis. This was not amenable to PCI, and he subsequently underwent single-vessel CABG receiving a BENÍTEZ to LAD. Postprocedure, severe left ventricular systolic dysfunction continued, prompting implantation of a biventricular pacemaker AICD at [facility] in early [address] Salina Block. 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 Allergies Allergy/AdvReac Type Severity Reaction Status Date / Time hydromorphone Allergy Intermediate HIVES Verified 06/21/22 03:12 meperidine Allergy Intermediate HIVES Verified 06/21/22 03:12 morphine Allergy Intermediate HIVES Verified 06/21/22 03:12 lisinopril AdvReac Mild COUGH Verified 06/21/22 03:12 Home Medications Medication Instructions Recorded Confirmed Type aspirin 81 mg tablet,delayed 81 mg PO DAILY 09/17/18 06/21/22 History release ([place] Low Dose Aspirin) atorvastatin 40 mg tablet (Lipitor) 40 mg PO DAILY 09/17/18 06/21/22 History cholecalciferol (vitamin D3) 50 2,000 unit PO DAILY 09/17/18 06/21/22 History mcg (2,000 unit) tablet pramipexole 0.25 mg tablet 0.25 mg PO HS 09/17/18 06/21/22 History (Mirapex) tamsulosin 0.4 mg capsule 0.8 mg PO QPM 09/17/18 06/21/22 History albuterol sulfate 90 mcg/actuation 2 inha inhalation QID PRN 09/28/18 06/21/22 Rx aerosol inhaler shortness of breath or wheezing #1 g nitroglycerin 0.4 mg sublingual 0.4 mg sublingual DIRECTED PRN 12/13/19 06/21/22 History tablet (Nitrostat) Chest Pain amlodipine 2.5 mg tablet 2.5 mg PO DAILY 06/21/22 06/21/22 History buprenorphine 10 mcg/hour weekly 10 mcg transdermal WK 06/21/22 06/21/22 History transdermal patch cyanocobalamin (vitamin B-12) 1,000 mcg sublingual DAILY 06/21/22 06/21/22 History 1,000 mcg sublingual tablet furosemide 40 mg tablet (Lasix) 40 mg PO DAILY 06/21/22 06/21/22 History iron,carbonyl 65 mg-vitamin C 125 1 tab PO DAILY 06/21/22 06/21/22 History mg tablet,delayed release (Vitron-C) isosorbide mononitrate 60 mg 60 mg PO DAILY 06/21/22 06/21/22 History tablet,extended release 24 hr metolazone 2.5 mg tablet 2.5 mg PO WK 06/21/22 06/21/22 History metoprolol succinate 100 mg 100 mg PO DAILY 06/21/22 06/21/22 History tablet,extended release 24 hr oxycodone 5 mg tablet 5 mg PO Q6H PRN Pain 06/21/22 06/21/22 History potassium chloride 10 mEq 10 meq PO DAILY 06/21/22 06/21/22 History capsule,extended release prednisone 10 mg tablet 20 mg PO DAILY 06/21/22 06/21/22 History Patient History Medical History (Updated 06/21/22 @ 12:48 by Neal Rubio DO) MARGARET inhibitor intolerance BPH (benign prostatic hyperplasia) CAD (coronary artery disease) Carotid stenosis CHF (congestive heart failure) CKD (chronic kidney disease) stage 3, GFR 30-59 ml/min COPD (chronic obstructive pulmonary disease) Dyslipidemia GERD (gastroesophageal reflux disease) HTN (hypertension) LBBB (left bundle branch block) Lumbago Pericardial effusion PMR (polymyalgia rheumatica) Small bowel obstruction due to adhesions Surgical History Biventricular automatic implantable cardioverter defibrillator in situ 06/25/2017 [facility] H/O heart artery stent "left subclavian stent for occlusion with front runner catheter, Dr Retana 04/23" History of back surgery cervical and lumbar History of carotid endarterectomy Left CEA with patch 10/25/2006 History of cholecystectomy History of coronary artery bypass graft x 1 BENÍTEZ to LAD History of inguinal hernia repair History of open heart surgery History of tonsillectomy Family History Father Coronary heart disease, Onset Age: 51 Mother Stroke Social History Smoking Status: Former smoker packs per day: 1.5; Hx Alcohol Use: No Hx Substance Use: No Preferred Language: Syriac Communication Ability: Effective 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 Beliefs That Will Affect Care: None marital status: Current Living Situation: Spouse current occupational status: retired and disabled Other Information That Helps Us Care for You: No Feels Safe at Home: Yes Safety Concerns: Feels Safe At This Time Assistive Devices: Cane Review of Systems Review of Systems: All systems reviewed & are unremarkable except as noted in Subjective Physical Exam Constitutional: well developed and well nourished; no acute distress Respiratory: normal respiratory effort and + respiratory distress; no labored breathing and no retractions Cardiovascular: Rate/Rhythm: regular rate and regular rhythm Heart Sounds: normal S1, normal S2 and + murmur (2/6 systolic ejection murmur heard best at the right second intercostal spa) Vessels: no JVD and no carotid bruit Extremities: + edema (2+ bilateral pretibial edema with stasis changes) Gastrointestinal (Abdomen): Inspection/Auscultation: abdomen normal to inspection and normal bowel sounds; abdomen not distended Percussion/Palpation: abdomen soft; abdomen nontender, no guarding and abdomen not rigid Neurologic: moves all extremities Psychiatric: A+Ox3, euthymic affect Results & Data ([facility]) Vital Signs (Past 12 Hours) Vital Signs Temp Pulse Pulse Resp BP BP Pulse Ox 06/21/22 07:44 06/21/22 07:44 65 06/21/22 07:44 06/21/22 07:05 36.5 C 66 18 141/59 H 94 06/21/22 06:31 71 15 168/53 H 06/21/22 06:00 61 16 155/71 H 98 06/21/22 05:30 59 L 12 97 06/21/22 05:58 93 H 96 06/21/22 05:29 97 06/21/22 05:00 62 24 160/70 H 06/21/22 04:30 63 15 152/70 H 96 06/21/22 04:29 64 18 139/50 L 96 06/21/22 04:00 61 15 96 06/21/22 03:30 60 15 95 06/21/22 03:32 61 18 95 06/21/22 03:14 64 17 156/74 H 97 06/21/22 03:06 67 17 06/21/22 02:58 36.8 C 71 20 130/67 96 O2 Del Method 06/21/22 07:44 Room Air 06/21/22 07:44 06/21/22 07:44 Room Air 06/21/22 07:05 Room Air 06/21/22 06:31 06/21/22 06:00 06/21/22 05:30 06/21/22 05:58 Room Air 06/21/22 05:29 Room Air 06/21/22 05:00 06/21/22 04:30 06/21/22 04:29 06/21/22 04:00 06/21/22 03:30 06/21/22 03:32 Room Air 06/21/22 03:14 06/21/22 03:06 06/21/22 02:58 Room Air Diagnostic Findings 2D echocardiogram report 10/19/2019: The left ventricular cavity size is mildly enlarged. There is severe diffuse left ventricular hypokinesis. The qualitative LV ejection fraction is 25-29% (severely reduced). The left atrium is severely enlarged. The left ventricular diastolic function is severely abnormal (grade III). Moderate mitral regurgitation is present. Mild tricuspid regurgitation is present. The inferior vena cava is midly dilated with appropriate inspiratory collapse consistent with an intermediate right atrial pressure of 8 mmHg. Moderate to severe pulmonary hypertension is present with estimated pulomary artery systolic pressure of 63 mmHg. Compared to prior study dated 02/22/2019, there is no significant interval change. Left Ventricle The qualitative LV ejection fraction is 25-29% (severely reduced). The left ventricular cavity size (1) CKD (chronic kidney disease) Chronic kidney disease stage: unspecified stage Qualified Code(s): N18.9 - Chronic kidney disease, unspecified
[2022-06-21] MEDS: POTASSIUM CHLORIDE 10 MEQ TABCR PO SCH (09:35)
[2022-06-21] MEDS: amLODIPine BESYLATE 5 MG TAB PO SCH (09:35)
[2022-06-21] MEDS: ATORVASTATIN 40 MG TAB PO SCH (09:35)
[2022-06-21] MEDS: NITROGLYCERIN 2% OINTMENT 30GM TUBE EXT SCH ×3 (09:39→22:32)
[2022-06-21] MEDS ORDERED: FUROSEMIDE 40 MG/4 ML VIAL IV ONE (12:40)
--- NOTE | 2022-06-21 14:31 | Hospitalist Progress Note ---
Date of Service June 21, 2022 Assessment & Plan (1) Chest pain: Plan: Presented on admission with chest discomfort at rest, radiating to left arm and back; not relieved with sublingual nitro at home but patient felt relief with Nitropaste in the ED. Troponin on admission mildly elevated at 69.2 Troponin trending down to 68.2 --> 66.4 EKG on admission with chronic AV pacing ( i reviewed his last few EKG) cardiology on board Recommended IV dose of furosemide 40 mg daily today Case discussed with cardiology. As per cardio symptoms presentation seems to be due to acute chronic heart failure ECHO showed severe global hypokinesis of the left ventricle. Moderate concentric left ventricular hypertrophy. Ejection fraction 20 to 25% Continue metolazone 2.5 mg daily in addition with furosemide. Continue Monitor daily weight, fluid balance Monitor BMP while on IV lasix Plan Acute on chronic heart failure with reduced ejection fraction and diastolic dysfunction Hx ischemic cardiomy CXR showed cardiomegaly with mild congestive change. Continue Lasix 40mg IV Continue Monitor daily weight, fluid balance HTN (hypertension): Continue Coreg and amlodipine stable CKD (chronic kidney disease) stage 3, GFR 30-59 ml/min: Creatinine 1.8, Baseline creatinine 1.6-1.9 Continue monitor BMP while on IV lasix Biventricular automatic implantable cardioverter defibrillator in situ: Due to HFrEF follows [facility] cardiology COPD (chronic obstructive pulmonary disease): No acute exacerbation Stable Anemia: Hgb stable at 11.3 Normocytic, normochromic likely in setting of renal disease Dyslipidemia: Continue statin BPH (benign prostatic hyperplasia): Continue Flomax DVT prophylaxis on SQ Heparin CODE STATUS DNR/DNI Admission and Anticipated Discharge Date Admission Date: June 21, 2022 Subjective Pt was seen and examined for follow chest pain Sitting in chair with no acute distress Pt said that he feels fine He said that chest pain resolved He is asking about to go home Denies any chest pain, palpitation, dizziness and SOB Review of Systems Review of Systems: All systems reviewed & are unremarkable except as noted in Subjective Physical Exam Physical Exam: General- No acute distress Head- atraumatic Eyes- PERRL, EOMI, ENT- oropharynx clear Neck- supple, no JVD Lungs- clear to auscultation Heart- regular rhythm, +systolic murmur Abdomen- normal bowel sounds, soft, nontender Extremities- no calf tenderness. +edema Neuro- alert, oriented x 3; PERRL, EOMI; no facial palsy; no dysarthria Skin- warm & dry Results & Data Results & Data ([facility]) Vital Signs (Past 12 Hours) Vital Signs Temp Pulse Pulse Resp BP BP Pulse Ox 06/21/22 11:00 37.0 C 60 16 152/65 H 97 06/21/22 07:44 06/21/22 07:44 65 06/21/22 07:44 06/21/22 07:05 36.5 C 66 18 141/59 H 94 06/21/22 06:31 71 15 168/53 H 06/21/22 06:00 61 16 155/71 H 98 06/21/22 05:30 59 L 12 97 06/21/22 05:58 93 H 96 06/21/22 05:29 97 06/21/22 05:00 62 24 160/70 H 06/21/22 04:30 63 15 152/70 H 96 06/21/22 04:29 64 18 139/50 L 96 06/21/22 04:00 61 15 96 06/21/22 03:30 60 15 95 06/21/22 03:32 61 18 95 06/21/22 03:14 64 17 156/74 H 97 06/21/22 03:06 67 17 06/21/22 02:58 36.8 C 71 20 130/67 96 O2 Del Method 06/21/22 11:00 Room Air 06/21/22 07:44 Room Air 06/21/22 07:44 06/21/22 07:44 Room Air 06/21/22 07:05 Room Air 06/21/22 06:31 06/21/22 06:00 06/21/22 05:30 06/21/22 05:58 Room Air 06/21/22 05:29 Room Air 06/21/22 05:00 06/21/22 04:30 06/21/22 04:29 06/21/22 04:00 06/21/22 03:30 06/21/22 03:32 Room Air 06/21/22 03:14 06/21/22 03:06 06/21/22 02:58 Room Air
--- NOTE | 2022-06-21 15:19 | XRay Report ---
XR chest 1V portable HISTORY: Shortness of breath. COMPARISON: Chest 06/21/2022. FINDINGS: No pneumothorax. No pleural effusions. The heart remains mildly enlarged. There is mild dev eloping asymmetric pulmonary edema. There are poststernotomy changes and a right-sided pacemaker/defi brillator. Stable blunting of the left lateral costophrenic sulcus. IMPRESSION: Cardiomegaly with developing asymmetric pulmonary edema. This has progressed in the interval. ACT 112: Negative or not required by law. Electronically signed by: Gualberto Hardy M.D. 06/21/2022 3:17 PM
[2022-06-21] MEDS ORDERED: ALBUT/IPRATROP 3MG/0.5MG NEB 3 ML VIAL NEB STA (16:07)
[2022-06-21] MEDS: CHECK BUPRENORPHINE PATCH SCH (16:41)
[2022-06-21] MEDS: TAMSULOSIN HCL 0.4 MG CAP PO SCH (20:07)
[2022-06-21] MEDS: PRAMIPEXOLE DIHYDROCHLO 0.25 MG TAB PO SCH (20:07)
[2022-06-22] MEDS: CHECK BUPRENORPHINE PATCH SCH ×4 (00:07→23:15)
[2022-06-22] MEDS: NITROGLYCERIN 2% OINTMENT 30GM TUBE EXT SCH ×4 (04:46→21:56)
[2022-06-22 06:18] LABS: Hemoglobin 11.7 g/dl (14.0-18.0); Mean Corpuscular Hgb Conc 32.5 g/dL (32.0-36.0); Mean Corpuscular Volume 95.2 fL (80.0-100.0); Mean Platelet Volume 10.4 fL (9.4-12.4); Platelet Count 142 K/uL (130-400); RDW Coefficient of Variation 14.6 % (11.5-14.5); RDW Standard Deviation 51.3 fL (36.4-46.3); Red Blood Count 3.78 M/uL (4.63-6.08); White Blood Count 9.21 K/ul (4.8-10.8)
[2022-06-22 07:12] LABS: BUN Creatinine Ratio 44.6 (10-20); Calcium 7.6 mg/dl (8.5-10.1); Chol HDL Ratio 2.2 (0-5); Creatinine Clr Calc Pharmacy 27.7 ml/min; Est GFR (African American) 35.9 ml/min; Magnesium 1.8 mg/dl (1.7-2.4); Phosphorus 3.7 mg/dl (2.5-4.9); Potassium 3.7 mmol/L (3.5-5.1)
[2022-06-22] MEDS ORDERED: BUPRENORPHINE 5 MCG/HR TDSY TD SCH (09:00)
[2022-06-22] MEDS ORDERED: metOLazone 2.5 MG TABLET PO SCH (09:00)
[2022-06-22] MEDS ORDERED: SODIUM CHLOR 7% 4 ML NEB NEB ONE (09:55)
[2022-06-22] MEDS ORDERED: FUROSEMIDE 40 MG/4 ML VIAL IV ONE ×2 (10:00→12:00)
[2022-06-22] MEDS: HEPARIN SOD 5,000 UNIT/0.5 ML VIAL SQ SCH ×2 (10:11→20:37)
[2022-06-22] MEDS: METOPROLOL SUCC 50MG EXT REL TAB PO SCH (10:11)
[2022-06-22] MEDS: POTASSIUM CHLORIDE 10 MEQ TABCR PO SCH (10:11)
[2022-06-22] MEDS: ASPIRIN 81 MG ECTAB PO SCH (10:12)
[2022-06-22] MEDS: ATORVASTATIN 40 MG TAB PO SCH (10:12)
[2022-06-22] MEDS: CYANOCOBALAMIN (B-12) 500 MCG TABLET PO SCH (10:12)
[2022-06-22] MEDS: amLODIPine BESYLATE 5 MG TAB PO SCH (10:12)
[2022-06-22] MEDS: FUROSEMIDE 40 MG TAB PO SCH (10:13)
[2022-06-22] MEDS: guaiFENesin 200 MG TAB PO SCH ×3 (10:15→21:56)
[2022-06-22] MEDS ORDERED: methylPREDNISolone 40 MG in SYRINGE 0 ML IV ONE (10:15)
--- NOTE | 2022-06-22 10:21 | Palliative Care Consultation ---
Date of Consultation June 22, 2022 Assessment & Plan (1) Palliative care encounter: Met with pt/family. Provided overview of Palliative Medicine, a subspecialty that provides specialized medical care for people living with a serious illness by offering a focus on quality of life. Palliative Medicine is often conflated with hospice: I advised patient/family that Palliative and hospice can be partners but we are not the same. It is important to understand the difference so that we may be informed, and not afraid. Palliative Medicine works to improve QOL through reduction of symptom burden/more control over their illness, for both the patient and family. Palliative medicine clinicians are board certified, specially-trained and another member of the patient's medical care team. We often provide an extra layer of support because our care is based on the needs of the patient, not the prognosis; as such, it's appropriate at any age/advancing stage of a serious illness and can be provided along with curative treatment. Palliative Medicine clinicians are also trained in advanced communication methodologies, to facilitate complex discussions about advanced illness planning, which are needed to help assure that the treatment choices match the patient's goals, aka delivering Goal Concordant care. Finally, we discussed that hospice is a visiting nurse service that focuses on care delivered at the very end of life for patients with terminal illness, with life expectancy less than 6 month. (2) Advanced care planning/counseling discussion: I met with patient and his son Marshal at the bedside. Patient is extremely anxious and indicates that his dyspnea remains a significant problem. Marshal notes that overall patient's breathing does seem better than it was last night. Patient asks why he cannot have additional medication to improve his breathing. He feels that nothing has provided adequate relief. Pulse oximetry does demonstrate a stable SPO2 and he has not required supplemental oxygen. Nevertheless he remains very dyspneic, with conversational dyspnea and significant anxiety. Patient is on baseline buprenorphine transdermal patch and has multiple opioid sensitivities reported as triggering hives in our records but noted by as being significant opioid reactions and intolerances. (3) Dyspnea and respiratory abnormalities: Worsening dyspnea likely due to terminal heart failure and advancing lung disease. He has significant right and left heart failure. Given his multiple opioid sensitivities, I discussed options for improving his subjective dyspnea with pharmacy. We will give patient a trial of Subutex (buprenorphine sublingual) 2mcg every 4 hours as needed for dyspnea or pain. We will assess for effect. Patient advised that the dose may need to be titrated up but it is always better to start off low and escalate as needed. Patient and son in agreement. Son shares that patient's will not be visiting until either tomorrow afternoon or Wednesday. He feels that a family meeting would be helpful once the patient's can be present at the bedside. He also shares that she had a stroke and has some health issues of her own. She does however continue to work full-time at [employer]. We will plan for tentative family meeting on Wednesday likely around 1 PM, Marshal is going to confirm this with his mother. 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 Patient has some significant anxiety about his dyspnea. Detailed family meeting will help and ironing out not just the patient's goals at this junction but also his family's capability to help meet those goals. 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 he had a cardiac cath at [facility] Jun 2017: patent left subclavian stent, patent circumflex and RCA stents, and a 50% distal left main stenosis and 80% proximal LAD stenosis. This was not amenable to PCI, and he subsequently underwent single-vessel CABG receiving a BENÍTEZ to LAD. 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 pt seen with his son Marshal at bedside. He is anxious and distressed, tells me he has been struggling for days and janusz last 1-2 days with inc dyspnea and feeling pressure in chest from dyspnea. he denies chest pain. he is not eating welll. he has been sleeping alot since last 1-2 days per son who also notes pt breathing seems better today than last night. troponins bumped up, into high 60s. pt states 'they tell me i had a heart attack but i know i didn't' - Marshal shares his daughter is a physician and advised them "that troponin level is not a heart attack, nothing to worry about." Patient shares he has been advised by cardiology that he has a bad heart and there is nothing more that can be done. He states that his issue right now is his dyspnea which he would like better control. At baseline he is on Butrans (buprenorphine transdermal) 10 mcg daily. His family reports multiple sensitivities to opioids including morphine, hydromorphone, meperidineall of which are listed as causing hives. Patient's was texting their son Marshal during this evaluation and advised that patient has a very severe reaction to morphine which includes becoming very sedated and not responsive. Allergies Allergy/AdvReac Type Severity Reaction Status Date / Time hydromorphone Allergy Intermediate HIVES Verified 06/21/22 03:12 meperidine Allergy Intermediate HIVES Verified 06/21/22 03:12 morphine Allergy Intermediate HIVES Verified 06/21/22 03:12 lisinopril AdvReac Mild COUGH Verified 06/21/22 03:12 Home Medications Medication Instructions Recorded Confirmed Type aspirin 81 mg tablet,delayed 81 mg PO DAILY 09/17/18 06/21/22 History release (Latonia Low Dose Aspirin) atorvastatin 40 mg tablet (Lipitor) 40 mg PO DAILY 09/17/18 06/21/22 History cholecalciferol (vitamin D3) 50 2,000 unit PO DAILY 09/17/18 06/21/22 History mcg (2,000 unit) tablet pramipexole 0.25 mg tablet 0.25 mg PO HS 09/17/18 06/21/22 History (Mirapex) tamsulosin 0.4 mg capsule 0.8 mg PO QPM 09/17/18 06/21/22 History albuterol sulfate 90 mcg/actuation 2 inha inhalation QID PRN 09/28/18 06/21/22 Rx aerosol inhaler shortness of breath or wheezing #1 g nitroglycerin 0.4 mg sublingual 0.4 mg sublingual DIRECTED PRN 12/13/19 06/21/22 History tablet (Nitrostat) Chest Pain amlodipine 2.5 mg tablet 2.5 mg PO DAILY 06/21/22 06/21/22 History buprenorphine 10 mcg/hour weekly 10 mcg transdermal WK 06/21/22 06/21/22 History transdermal patch cyanocobalamin (vitamin B-12) 1,000 mcg sublingual DAILY 06/21/22 06/21/22 History 1,000 mcg sublingual tablet furosemide 40 mg tablet (Lasix) 40 mg PO DAILY 06/21/22 06/21/22 History iron,carbonyl 65 mg-vitamin C 125 1 tab PO DAILY 06/21/22 06/21/22 History mg tablet,delayed release (Vitron-C) isosorbide mononitrate 60 mg 60 mg PO DAILY 06/21/22 06/21/22 History tablet,extended release 24 hr metolazone 2.5 mg tablet 2.5 mg PO WK 06/21/22 06/21/22 History metoprolol succinate 100 mg 100 mg PO DAILY 06/21/22 06/21/22 History tablet,extended release 24 hr oxycodone 5 mg tablet 5 mg PO Q6H PRN Pain 06/21/22 06/21/22 History potassium chloride 10 mEq 10 meq PO DAILY 06/21/22 06/21/22 History capsule,extended release prednisone 10 mg tablet 20 mg PO DAILY 06/21/22 06/21/22 History Patient History Medical History (Updated 06/22/22 @ 19:47 by Daphnie Velásquez DNP) MARGARET inhibitor intolerance Advanced care planning/counseling discussion BPH (benign prostatic hyperplasia) CAD (coronary artery disease) Carotid stenosis CHF (congestive heart failure) CKD (chronic kidney disease) stage 3, GFR 30-59 ml/min COPD (chronic obstructive pulmonary disease) Dyslipidemia Dyspnea and respiratory abnormalities GERD (gastroesophageal reflux disease) HTN (hypertension) LBBB (left bundle branch block) Lumbago Palliative care encounter Pericardial effusion PMR (polymyalgia rheumatica) Small bowel obstruction due to adhesions Surgical History Biventricular automatic implantable cardioverter defibrillator in situ 06/25/2017 [facility] H/O heart artery stent "left subclavian stent for occlusion with front runner catheter, Dr Retana 04/23" History of back surgery cervical and lumbar History of carotid endarterectomy Left CEA with patch 10/25/2006 History of cholecystectomy History of coronary artery bypass graft x 1 BENÍTEZ to LAD History of inguinal hernia repair History of open heart surgery History of tonsillectomy Family History Father Coronary heart disease, Onset Age: 51 Mother Stroke Social History Smoking Status: Former smoker packs per day: 1.5; Hx Alcohol Use: No Hx Substance Use: No Preferred Language: Kiswahili Communication Ability: Impaired Ibm Bpm Architect Required: No Beliefs That Will Affect Care: None marital status: Current Living Situation: Spouse current occupational status: retired and disabled Other Information That Helps Us Care for You: No Feels Safe at Home: Yes Safety Concerns: Feels Safe At This Time Assistive Devices: Cane Review of Systems Review of Systems: All systems reviewed & are unremarkable except as noted in Subjective Physical Exam Physical Exam: This is a frail elderly male, resting in bed. He is sitting upright at near 90 degrees and listing slightly to the right. He is cachectic with significant bitemporal wasting. His pupils are equal round and reactive to light. Extraocular movements are intact. Pharynx is slightly dry and dentition is fair. His neck is supple without gross JVD. There is a grade 2-3 systolic murmur heard best at the right upper sternal border. His abdomen is scaphoid. Bowel sounds are positive and there is no tenderness to palpation. Extremities with generalized weakness. Skin is pale, cool to touch with multiple scattered ecchymoses noted. Extremities are thin with significant venous insufficiency and woody skin changes to the lower extremities. He is awake alert and oriented x3. He is anxious with some pressured speech and occasional tangential thoug hts. Results & Data ([facility]) Vital Signs (Past 12 Hours) Vital Signs Temp Pulse Pulse Resp BP Pulse Ox O2 Del Method 06/22/22 07:00 Room Air 06/22/22 06:55 71 06/22/22 04:45 82 18 134/59 L 98 Room Air 06/22/22 04:11 36.5 C 79 18 102/60 94 Room Air 06/22/22 00:18 36.5 C 73 18 141/61 H 95 Oxymask O2 Flow Rate 06/22/22 07:00 06/22/22 06:55 06/22/22 04:45 06/22/22 04:11 06/22/22 00:18 1 Laboratory Results Data reviewed Diagnostic Findings PG Care Time/CCT Total # of Minutes Spent Total Time Spent: 79 Total Time Spent with Patient: Total time spent is greater than 50% in coordination of care (as documented) at patient's floor/unit and/or counseling patient: I spent 79 minutes overall addressing this case: 10 in medical data review/discussion with referring provider(s) and/or preparation for the visit 30 in direct interaction with the patient and son 14 Advance Care Planning/Goals of Care discussions as detailed above in note (must be >16min) 10 in subsequent review and synthesis of assessment and plan 15 in communicating with other providers regarding the patient's case:nursing, pharmacy, primary team Prolonged Care Time Prolonged Care Time: [place] [address] Inpt Consult Level 5 Patient Type New History Comprehensive Exam Comprehensive Medical Decision Making High Complexity Diagnoses Palliative care encounter Z51.5 Advanced care planning/counseling discussion Z71.89 Dyspnea and respiratory abnormalities R06.00; R06.89 Acute on chronic heart failure with reduced ejection fraction and diastolic dysfunction I50.43 Non-ST elevation SD (NSTEMI) I21.4 Chest pain R07.9 COPD (chronic obstructive pulmonary disease) J44.9 Biventricular automatic implantable cardioverter defibrillator in situ Z95.810 CKD (chronic kidney disease) N18.9 Chronic kidney disease stage: unspecified stage Additional Codes Prolonged Care Time - Prolonged Care Time: Yes ([id number])
--- NOTE | 2022-06-22 11:17 | Cardiology Progress Note ---
Date of Service June 22, 2022 Assessment & Plan (1) Acute on chronic heart failure with reduced ejection fraction and diastolic dysfunction: (2) Elevated troponin: (3) Ischemic cardiomyopathy: (4) CKD (chronic kidney disease): (5) Anemia: Plan Chronically ill 77-year-old patient on palliative care presents with acute episode of atypical chest discomfort (described as burning sensation for several hours). High-sensitivity troponin minimally elevated in the setting of chronic kidney disease and flat. Mild weight gain and worsening edema suggestive of acute on chronic heart failure in the setting of CKD stage III-IV. Recommend IV dose of furosemide 40 mg daily today. He will continue weekly metolazone 2.5 mg daily in addition to daily oral furosemide. Monitor daily weight, fluid balance, GFR, and electrolytes. 06/22/2022 Patient still with respiratory distress with minimal diuresis. Dose of IV furosemide ordered for this morning , will require additional dose due to symptoms and limited response to therapy. Will order. Renal function declining, blood pressures allowable for use Topical nitrates should continue Palliative care involved with patient with end-stage cardiac disease and overall limited prognosis. Narcotic use limited by prior allergy Admission and Anticipated Discharge Date Admission Date: June 21, 2022 Subjective Patient seen and examined, chart, medications, telemetry reviewed. Complains of dyspnea with cough moderate respiratory distress No chest pains No hypoxia on oxygen supplementation with Oxymask Creatinine rising but minimal diuresis per records Admission chest x-ray with increased pulmonary edema Review of Systems Review of Systems: All systems reviewed & are unremarkable except as noted in Subjective Physical Exam Constitutional: + acute distress and + ill appearing Eyes: PERRL, conjunctivae normal, anicteric sclerae ENMT: external ear and nose normal, oropharynx normal Neck: trachea midline, no thyromegaly Respiratory: normal respiratory effort and + respiratory distress; no labored breathing and no retractions Cardiovascular: Rate/Rhythm: regular rate and regular rhythm Heart Sounds: normal S1, normal S2 and + murmur (2/6 systolic ejection murmur heard best at the right second intercostal spa) Vessels: no JVD and no carotid bruit Extremities: + edema (2+ bilateral pretibial edema with stasis changes) Chronic stasis changes lower extremities Gastrointestinal (Abdomen): Inspection/Auscultation: abdomen normal to inspection and normal bowel sounds; abdomen not distended Percussion/Palpation: abdomen soft; abdomen nontender, no guarding and abdomen not rigid Neurologic: moves all extremities Psychiatric: A+Ox3, euthymic affect Results & Data ([facility]) Vital Signs (Past 12 Hours) Vital Signs Temp Pulse Pulse Resp BP Pulse Ox O2 Del Method 06/22/22 10:50 36.7 C 75 20 138/80 94 Oxymask 06/22/22 10:29 83 22 95 Oxymask 06/22/22 07:00 Room Air 06/22/22 06:55 71 06/22/22 04:45 82 18 134/59 L 98 Room Air 06/22/22 04:11 36.5 C 79 18 102/60 94 Room Air 06/22/22 00:18 36.5 C 73 18 141/61 H 95 Oxymask O2 Flow Rate 06/22/22 10:50 1.5 06/22/22 10:29 1 06/22/22 07:00 06/22/22 06:55 06/22/22 04:45 06/22/22 04:11 06/22/22 00:18 1 (1) CKD (chronic kidney disease) Chronic kidney disease stage: unspecified stage Qualified Code(s): N18.9 - Chronic kidney disease, unspecified
--- NOTE | 2022-06-22 13:48 | Hospitalist Progress Note ---
Date of Service June 22, 2022 Assessment & Plan (1) Chest pain: Plan: Presented on admission with chest discomfort at rest, radiating to left arm and back; not relieved with sublingual nitro at home but patient felt relief with Nitropaste in the ED. Troponin on admission mildly elevated at 69.2 Troponin trending down to 68.2 --> 66.4 EKG on admission with chronic AV pacing ( i reviewed his last few EKG) cardiology on board Recommended IV dose of furosemide 40 mg daily today Case discussed with cardiology. As per cardio symptoms presentation seems to be due to acute chronic heart failure ECHO showed severe global hypokinesis of the left ventricle. Moderate concentric left ventricular hypertrophy. Ejection fraction 20 to 25% Case discussed with cardiology that recommended to continue Lasix 40mg IV today Continue Monitor daily weight, fluid balance Monitor BMP while on IV lasix Acute on chronic heart failure with reduced ejection fraction and diastolic dysfunction Acute respiratory failure CXR showed cardiomegaly with mild congestive change. Continue Lasix 40mg IV Continue hypertonic saline neb, duoneb Will give prednosone 40mg IV x1 Continue Monitor daily weight, fluid balance HTN (hypertension): Continue Coreg and amlodipine stable CKD (chronic kidney disease) stage 3, GFR 30-59 ml/min: Creatinine 2, Baseline creatinine 1.6-1.9 Continue monitor BMP while on IV lasix Biventricular automatic implantable cardioverter defibrillator in situ: Due to HFrEF follows [facility] cardiology COPD (chronic obstructive pulmonary disease): No acute exacerbation Stable Anemia: Hgb stable at 11.7 Normocytic, normochromic likely in setting of renal disease Dyslipidemia: Continue statin BPH (benign prostatic hyperplasia): Continue Flomax DVT prophylaxis on SQ Heparin CODE STATUS DNR/DNI Admission and Anticipated Discharge Date Admission Date: June 21, 2022 Subjective Pt was seen and examined for follow up of respiratory distress Lying in in bed with acute respiratory distress Pt said that he feels like he is having a hard time to bring the phlegm out He said that he continues to have SOB Denies any chest pain, palpitation Review of Systems Review of Systems: All systems reviewed & are unremarkable except as noted in Subjective Physical Exam Physical Exam: General- No acute distress Head- atraumatic Eyes- PERRL, EOMI, ENT- oropharynx clear Neck- supple, no JVD Lungs- +coarse BS Heart- regular rhythm, +systolic murmur Abdomen- normal bowel sounds, soft, nontender Extremities- no calf tenderness. +edema Neuro- alert, oriented x 3; PERRL, EOMI; no facial palsy; no dysarthria Skin- warm & dry Results & Data Results & Data ([facility]) Vital Signs (Past 12 Hours) Vital Signs Temp Pulse Pulse Resp BP Pulse Ox O2 Del Method 06/22/22 10:50 36.7 C 75 20 138/80 94 Oxymask 06/22/22 10:29 83 22 95 Oxymask 06/22/22 07:00 Room Air 06/22/22 06:55 71 06/22/22 04:45 82 18 134/59 L 98 Room Air 06/22/22 04:11 36.5 C 79 18 102/60 94 Room Air O2 Flow Rate 06/22/22 10:50 1.5 06/22/22 10:29 1 06/22/22 07:00 06/22/22 06:55 06/22/22 04:45 06/22/22 04:11
[2022-06-22] MEDS ORDERED: MoRPHine SULFATE 10 MG/0.5 ML UDP PO PRN (16:01)
[2022-06-22] MEDS ORDERED: oxyCODONE HCL IR 5 MG TAB (IMMEDIATE RELEASE) PO PRN (16:07)
[2022-06-22] MEDS ORDERED: buprenorphine HCL 2 MG SUBL SL PRN (16:11)
--- NOTE | 2022-06-22 18:52 | Electrocardiogram Report ---
Test Reason : Blood Pressure : / mmHG Vent. Rate : 068 BPM Atrial Rate : 068 BPM P-R Int : 162 ms QRS Dur : 164 ms QT Int : 492 ms P-R-T Axes : 075 -67 129 degrees QTc Int : 523 ms AV dual-paced rhythm Abnormal ECG When compared with ECG of 15-DEC-2019 06:36, Vent. rate has increased BY 6 BPM Confirmed by Naveen Meyrs ([id number]) on 06/22/2022 6:52:26 PM Referred By: REFERRED SELF Confirmed By:Asim Myers
[2022-06-22] MEDS: TAMSULOSIN HCL 0.4 MG CAP PO SCH (20:37)
[2022-06-22] MEDS: PRAMIPEXOLE DIHYDROCHLO 0.25 MG TAB PO SCH (20:37)
[2022-06-23] MEDS: NITROGLYCERIN 2% OINTMENT 30GM TUBE EXT SCH (04:01)
[2022-06-23] MEDS: guaiFENesin 200 MG TAB PO SCH ×4 (04:01→20:22)
[2022-06-23 07:33] LABS: BUN Creatinine Ratio 44.4 (10-20); Calcium 7.8 mg/dl (8.5-10.1); Creatinine Clr Calc Pharmacy 26.2 ml/min; Est GFR (African American) 33.5 ml/min; Est GFR (Non-African American) 28.9 ml/min; Potassium 4.3 mmol/L (3.5-5.1)
[2022-06-23] MEDS: CYANOCOBALAMIN (B-12) 500 MCG TABLET PO SCH (08:31)
[2022-06-23] MEDS: amLODIPine BESYLATE 5 MG TAB PO SCH (08:31)
[2022-06-23] MEDS: METOPROLOL SUCC 50MG EXT REL TAB PO SCH (08:32)
[2022-06-23] MEDS: predniSONE 20 MG TAB PO SCH (08:32)
[2022-06-23] MEDS: POTASSIUM CHLORIDE 10 MEQ TABCR PO SCH (08:32)
[2022-06-23] MEDS: ASPIRIN 81 MG ECTAB PO SCH (08:32)
[2022-06-23] MEDS: ATORVASTATIN 40 MG TAB PO SCH (08:32)
[2022-06-23] MEDS: HEPARIN SOD 5,000 UNIT/0.5 ML VIAL SQ SCH ×3 (08:33→22:19)
[2022-06-23] MEDS: CHECK BUPRENORPHINE PATCH SCH ×3 (08:35→23:52)
--- NOTE | 2022-06-23 09:41 | Cardiology Progress Note ---
Date of Service June 23, 2022 Assessment & Plan (1) Acute on chronic heart failure with reduced ejection fraction and diastolic dysfunction: (2) Elevated troponin: (3) Ischemic cardiomyopathy: (4) CKD (chronic kidney disease): (5) Anemia: Plan Chronically ill 77-year-old patient on palliative care presents with acute episode of atypical chest discomfort (described as burning sensation for several hours). High-sensitivity troponin minimally elevated in the setting of chronic kidney disease and flat. Mild weight gain and worsening edema suggestive of acute on chronic heart failure in the setting of CKD stage III-IV. Recommend IV dose of furosemide 40 mg daily today. He will continue weekly metolazone 2.5 mg daily in addition to daily oral furosemide. Monitor daily weight, fluid balance, GFR, and electrolytes. 06/22/2022 Patient still with respiratory distress with minimal diuresis. Dose of IV furosemide ordered for this morning , will require additional dose due to symptoms and limited response to therapy. Will order. Renal function declining, blood pressures allowable for use Topical nitrates should continue Palliative care involved with patient with end-stage cardiac disease and overall limited prognosis. Narcotic use limited by prior allergy 06/23/2022 Respiratory distress improved with increased diuresis though with some decline in renal function. Patient aware of prognosis and is anxious to be discharged to home Plan: Discontinue IV furosemide. Begin torsemide 20 mg p.o. daily, first dose today Resume isosorbide mononitrate while discontinuing topical nitrates Continue to follow renal function Continue oral prednisone Admission and Anticipated Discharge Date Admission Date: June 21, 2022 Subjective Patient was seen and examined, chart, medications, telemetry reviewed. Patient more comfortable this morning. Less dyspneic, cough resolved. Minimal diuresis per I's and O's however weight down and lower extremity edema resolved No fevers or productive cough No chest pains or arrhythmias Review of Systems Review of Systems: All systems reviewed & are unremarkable except as noted in Subjective Physical Exam Constitutional: + ill appearing and + thin; no acute distress Eyes: PERRL, conjunctivae normal, anicteric sclerae ENMT: external ear and nose normal, oropharynx normal Neck: trachea midline, no thyromegaly Respiratory: no respiratory distress, no retractions and no cough Auscultation: + crackles (Left base) Cardiovascular: Rate/Rhythm: regular rate and regular rhythm (Paced) Heart Sounds: normal S1, normal S2 and + murmur (2/6 systolic ejection murmur heard best at the right second intercostal spa) Vessels: no JVD and no carotid bruit Extremities: + edema (2+ bilateral pretibial edema with stasis changes) Gastrointestinal (Abdomen): Inspection/Auscultation: abdomen normal to inspection and normal bowel sounds; abdomen not distended Percussion/Palpation: abdomen soft; abdomen nontender, no guarding and abdomen not rigid Neurologic: moves all extremities Psychiatric: A+Ox3, euthymic affect Results & Data ([facility]) Vital Signs (Past 12 Hours) Vital Signs Temp Pulse Pulse Resp BP Pulse Ox O2 Del Method 06/23/22 08:00 Oxymask 06/23/22 08:10 36.8 C 63 19 123/63 93 Oxymask 06/23/22 03:48 36.6 C 65 18 111/62 92 Oxymask 06/23/22 00:32 66 06/22/22 23:39 149/67 H 06/22/22 23:37 37.1 C 62 18 93 Oxymask O2 Flow Rate 06/23/22 08:00 1 06/23/22 08:10 2.0 06/23/22 03:48 1 06/23/22 00:32 06/22/22 23:39 06/22/22 23:37 1 Laboratory Results Laboratory Results - last 24 hr 06/23/22 06:20 Sodium 136 Potassium 4.3 Chloride 100 Carbon Dioxide 31 Anion Gap 5 BUN 96 H Creatinine 2.16 H Est Cr Clr Drug Dosing 26.2 Est GFR ( Amer) 33.5 Est GFR (Non-Af Amer) 28.9 BUN/Creatinine Ratio 44.4 H Glucose 101 H Calcium 7.8 L (1) CKD (chronic kidney disease) Chronic kidney disease stage: unspecified stage Qualified Code(s): N18.9 - Chronic kidney disease, unspecified
[2022-06-23] MEDS: ISOSORBIDE MONO EXTENDED REL 60 MG TABCR PO SCH (10:28)
[2022-06-23] MEDS: TORSEMIDE 10 MG TAB PO SCH (10:29)
--- NOTE | 2022-06-23 10:56 | Palliative Care Progress Note ---
Date of Service June 23, 2022 Assessment & Plan (1) Dyspnea and respiratory abnormalities: Plan: with ischemic cardiomyopathy and COPD some improvement today, no dyspnea with conversation gets relief with fan (2) Chronic pain: Plan: chronic LE pain with history of PMR on buprenorphine patch with some relief intolerance and allergy to morphine and hydromorphone continue frequent repositioning and out of bed as tolerated (3) Palliative care encounter: Plan: he realizes that he is in the end stages of his disease "I know its my time" Family meeting planned for tomorrow afternoon Admission and Anticipated Discharge Date Admission Date: June 21, 2022 Subjective Less short of breath today. Has some chronic pain in his lower extremities but biggest concern is discomfort from being in bed. He would like to get out of bed to chair. He has had one dose of prn buprenorphine last night. He does not recall taking it. Slightly positive fluid balance slight bump in creatinine. Review of Systems Review of Systems: ESAS Pain 1/3 Dyspnea 1/3 Fatigue 2/3 Nausea 0/3 Drowsiness 0/3 PPS 40% Physical Exam Constitutional: no acute distress ENMT: Mouth: oral mucous membranes not dry Respiratory: normal respiratory effort; no labored breathing Cardiovascular: Rate/Rhythm: regular rate and regular rhythm Gastrointestinal (Abdomen): nontender, LBM 1/2 Skin: + dry skin stasis skin changes Neurologic: awake; not confused Results & Data ([facility]) Vital Signs (Past 12 Hours) Vital Signs Temp Pulse Pulse Resp BP Pulse Ox O2 Del Method 06/23/22 09:46 62 06/23/22 08:00 Oxymask 06/23/22 08:10 98.2 F 63 19 123/63 93 Oxymask 06/23/22 03:48 97.9 F 65 18 111/62 92 Oxymask 06/23/22 00:32 66 06/22/22 23:39 149/67 H 06/22/22 23:37 98.8 F 62 18 93 Oxymask O2 Flow Rate 06/23/22 09:46 06/23/22 08:00 1 06/23/22 08:10 2.0 06/23/22 03:48 1 06/23/22 00:32 06/22/22 23:39 06/22/22 23:37 1 PG Care Time/CCT Total # of Minutes Spent Total Time Spent with Patient: Total time spent is greater than 50% in coordination of care (as documented) at patient's floor/unit and/or counseling patient: Coding Level of Care Code 13197 Subseq Hosp Care Lvl 2 Diagnoses Dyspnea and respiratory abnormalities R06.00; R06.89 Chronic pain G89.29 Palliative care encounter Z51.5
[2022-06-23] MEDS: PRAMIPEXOLE DIHYDROCHLO 0.25 MG TAB PO SCH (20:21)
[2022-06-23] MEDS: TAMSULOSIN HCL 0.4 MG CAP PO SCH (20:22)
--- NOTE | 2022-06-23 23:57 | Hospitalist Progress Note ---
Date of Service June 23, 2022 Assessment & Plan (1) Chest pain: Plan: Presented on admission with chest discomfort at rest, radiating to left arm and back; not relieved with sublingual nitro at home but patient felt relief with Nitropaste in the ED. Troponin on admission mildly elevated at 69.2 Troponin trending down to 68.2 --> 66.4 EKG on admission with chronic AV pacing ( i reviewed his last few EKG) cardiology on board Recommended IV dose of furosemide 40 mg daily today Case discussed with cardiology. As per cardio symptoms presentation seems to be due to acute chronic heart failure ECHO showed severe global hypokinesis of the left ventricle. Moderate concentric left ventricular hypertrophy. Ejection fraction 20 to 25% Case discussed with cardiology that recommended to continue Lasix 40mg IV today Continue Monitor daily weight, fluid balance Monitor BMP while on IV lasix Denies any chest pain Acute on chronic heart failure with reduced ejection fraction and diastolic dysfunction Acute respiratory failure CXR showed cardiomegaly with mild congestive change. Currently Lasix 40mg IV Continue hypertonic saline neb, duoneb Continue prednosone 20mg IV Continue Monitor daily weight, fluid balance Will transition to PO lasix Clinically improved HTN (hypertension): Continue Coreg and amlodipine stable CKD (chronic kidney disease) stage 3, GFR 30-59 ml/min: Creatinine 2.1, Baseline creatinine 1.6-1.9 Continue monitor BMP while on IV lasix Biventricular automatic implantable cardioverter defibrillator in situ: Due to HFrEF follows [facility] COPD (chronic obstructive pulmonary disease): No acute exacerbation Stable Anemia: Hgb stable at 11.7 Normocytic, normochromic likely in setting of renal disease Dyslipidemia: Continue statin BPH (benign prostatic hyperplasia): Continue Flomax DVT prophylaxis on SQ Heparin CODE STATUS DNR/DNI Admission and Anticipated Discharge Date Admission Date: June 21, 2022 Subjective Pt was seen and examined for follow up of SOB Sitting in chair with no acute distress watching TV Pt said that his breathing his much better today He said that he was able to sleep last night He feels back to his baseline and asking to be discharged Denies any chest pain, palpitation, dizziness and SOB Review of Systems Review of Systems: All systems reviewed & are unremarkable except as noted in Subjective Physical Exam Physical Exam: General- No acute distress Head- atraumatic Eyes- PERRL, EOMI, ENT- oropharynx clear Neck- supple, no JVD Lungs- +coarse BS Heart- regular rhythm, +systolic murmur Abdomen- normal bowel sounds, soft, nontender Extremities- no calf tenderness. +edema Neuro- alert, oriented x 3; PERRL, EOMI; no facial palsy; no dysarthria Skin- warm & dry Results & Data Results & Data ([facility]) Vital Signs (Past 12 Hours) Vital Signs Temp Pulse Resp BP Pulse Ox O2 Del Method 06/23/22 23:31 36.7 C 62 16 126/59 L 94 Room Air 06/23/22 21:38 Room Air 06/23/22 19:18 37.2 C 62 16 133/61 92 Room Air 06/23/22 16:02 36.8 C 61 18 96/68 L 91 Room Air
[2022-06-24] MEDS: guaiFENesin 200 MG TAB PO SCH ×2 (05:30→10:27)
[2022-06-24 07:51] LABS: BUN Creatinine Ratio 44.3 (10-20); Calcium 7.6 mg/dl (8.5-10.1); Creatinine Clr Calc Pharmacy 25.8 ml/min; Est GFR (African American) 32.9 ml/min; Est GFR (Non-African American) 28.4 ml/min; Potassium 3.9 mmol/L (3.5-5.1)
[2022-06-24] MEDS: CHECK BUPRENORPHINE PATCH SCH (08:20)
[2022-06-24] MEDS: amLODIPine BESYLATE 5 MG TAB PO SCH (08:21)
[2022-06-24] MEDS: ASPIRIN 81 MG ECTAB PO SCH (08:22)
[2022-06-24] MEDS: HEPARIN SOD 5,000 UNIT/0.5 ML VIAL SQ SCH (08:22)
[2022-06-24] MEDS: METOPROLOL SUCC 50MG EXT REL TAB PO SCH (08:22)
[2022-06-24] MEDS: ATORVASTATIN 40 MG TAB PO SCH (08:22)
[2022-06-24] MEDS: CYANOCOBALAMIN (B-12) 500 MCG TABLET PO SCH (08:22)
[2022-06-24] MEDS: ISOSORBIDE MONO EXTENDED REL 60 MG TABCR PO SCH (08:22)
[2022-06-24] MEDS: TORSEMIDE 10 MG TAB PO SCH (08:23)
[2022-06-24] MEDS: predniSONE 20 MG TAB PO SCH (08:23)
[2022-06-24] MEDS: POTASSIUM CHLORIDE 10 MEQ TABCR PO SCH (08:23)
--- NOTE | 2022-06-24 10:40 | Cardiology Progress Note ---
Date of Service June 24, 2022 Assessment & Plan (1) Acute on chronic heart failure with reduced ejection fraction and diastolic dysfunction: (2) Elevated troponin: (3) Ischemic cardiomyopathy: (4) CKD (chronic kidney disease): (5) Anemia: Plan Chronically ill 77-year-old patient on palliative care presents with acute episode of atypical chest discomfort (described as burning sensation for several hours). High-sensitivity troponin minimally elevated in the setting of chronic kidney disease and flat. Mild weight gain and worsening edema suggestive of acute on chronic heart failure in the setting of CKD stage III-IV. Recommend IV dose of furosemide 40 mg daily today. He will continue weekly metolazone 2.5 mg daily in addition to daily oral furosemide. Monitor daily weight, fluid balance, GFR, and electrolytes. 06/22/2022 Patient still with respiratory distress with minimal diuresis. Dose of IV furosemide ordered for this morning , will require additional dose due to symptoms and limited response to therapy. Will order. Renal function declining, blood pressures allowable for use Topical nitrates should continue Palliative care involved with patient with end-stage cardiac disease and overall limited prognosis. Narcotic use limited by prior allergy 06/23/2022 Respiratory distress improved with increased diuresis though with some decline in renal function. Patient aware of prognosis and is anxious to be discharged to home Plan: Discontinue IV furosemide. Begin torsemide 20 mg p.o. daily, first dose today Resume isosorbide mononitrate while discontinuing topical nitrates Continue to follow renal function Continue oral prednisone 06/24/2022 Stable overnight renal function with mild decline since admission but stable Acute heart failure improved with medications transitioned to oral. I's and O's not currently accurate, exam improved Suspect patient would benefit from oxygen supplementation for symptom relief Recommend daily weights Admission and Anticipated Discharge Date Admission Date: June 21, 2022 Subjective Patient seen and examined, chart, medications, telemetry reviewed. Clinically improved less dyspneic. Has been using bathroom intermittently with I's and O's inaccurate. Edema has improved. No arrhythmias on telemetry. Review of Systems Review of Systems: All systems reviewed & are unremarkable except as noted in Subjective Physical Exam Constitutional: + ill appearing and + thin; no acute distress Eyes: PERRL, conjunctivae normal, anicteric sclerae ENMT: external ear and nose normal, oropharynx normal Neck: trachea midline, no thyromegaly Respiratory: no respiratory distress, no labored breathing, no retractions and no cough Auscultation: + crackles (Left base) Cardiovascular: Rate/Rhythm: regular rate and regular rhythm (Paced) Heart Sounds: normal S1, normal S2 and + murmur (2/6 systolic ejection murmur heard best at the right second intercostal spa) Vessels: no JVD and no carotid bruit Extremities: + edema (Trace to 1+ stasis changes) Gastrointestinal (Abdomen): Inspection/Auscultation: abdomen normal to inspection and normal bowel sounds; abdomen not distended Percussion/Palpation: abdomen soft; abdomen nontender, no guarding and abdomen not rigid Neurologic: moves all extremities Psychiatric: A+Ox3, euthymic affect Results & Data ([facility]) Vital Signs (Past 12 Hours) Vital Signs Temp Pulse Pulse Resp BP Pulse Ox O2 Del Method 06/24/22 08:09 36.3 C L 60 20 144/61 H 90 Room Air 06/24/22 07:00 64 06/24/22 03:10 36.6 C 70 16 134/66 92 Room Air 06/23/22 23:31 36.7 C 62 16 126/59 L 94 Room Air Laboratory Results Laboratory Results - last 24 hr 06/22/22 06/24/22 05:32 06:51 Sodium 135 L Potassium 3.9 Chloride 99 Carbon Dioxide 31 Anion Gap 5 BUN 97 H Creatinine 2.19 H Est Cr Clr Drug Dosing 25.8 Est GFR ( Amer) 32.9 Est GFR (Non-Af Amer) 28.4 BUN/Creatinine Ratio 44.3 H Glucose 97 Calcium 7.6 L Hepatitis C Ab (EIA) NON-REACTIVE Hep C Ab Signal/Cutoff 0.10 (1) CKD (chronic kidney disease) Chronic kidney disease stage: unspecified stage Qualified Code(s): N18.9 - Chronic kidney disease, unspecified
--- NOTE | 2022-06-24 12:17 | Palliative Family Discussion ---
Date of Service June 24, 2022 Patient Directed Conference Time of [id number] Participants: Daphnie Velásquez DNP Patient participation: yes Patient Support System: and son/Marshal at bedside Other Healthcare Provider Participation: None Meeting Location: bedside with pt Advanced Directive available: no The patient's surrogate medical decision maker participated: and son A family meeting was held for MELISSA GUADARRAMA. This meeting was necessary for determining the appropriate course of treatment. Topics of Discussion Topics of Discussion: 1. terminal heart failure with increased frequency of crisis, symptom burden, frailty, declining PS. Pt with some mixed insight: will tell providers he knows his heart id failing/time is running out but then says he doesn't need anything changed, he wants to go home and he is "fine," no longer needs to be here: "I need to be home, that's what I need." 2. Patient states he does not want hospice because he does not feel he needs it. I have provided education about the hospice benefit. Hospice is an interdisciplinary program offered by nurses, nurses aides, social workers, chaplains and a medical apparatus model maker for patients with a terminal condition and a life expectancy of less than 6 months. Hospice provides medications, DME, etc covered at 100% for the hospice related diagnosis and there is no out of pocket costs, this is the highest level of in home support medicare provides. The goal would be to improve the quality of life of the patient in their home setting (home, retirement, inpatient hospice setting) by providing symptoms management, psychosocial and spiritual support. However, they cannot offer 24 hours care and if the family is unable to provide that care, they will have to consider personal care with out of pocket cost vs. retirement placement. Crystal willis was argumentative and at times belligerent through discussion, he appeared angry at hospice discussion and advised me I was wrong about the medicare hospice benefit, he "knew for a fact" none of what I outlined would be provided. 3. Patient had one dose of SL Buprenorphine with some relief. I recc he is dc with a small 5 days supply of 10 doses, he can obtain further refills from his primary. Other Content of Meetin. Opportunity given for participants to speak and ask questions. 2. Participants were assured of attention to patient comfort. 3. Reassurance provided. 4. Support was provided for informed, good-sanjuana decisions. 5. Emotions expressed by family were acknowledged and addressed. 6. Follow-up Outpatient: none, pt declined. I gently advised him and family that [facility] has an at home pall care program, he may want to inquire about that in addition to his [facility] at home program. He may also want to talk with them about being appropriate for hospice. 7. Plan of Care: pt plans to return to hospital as needed. He does believe he needs nor does he want hospice. He and family were at times hostile /disengaged through this meeting. 8. inqured about Secretions management: I recommend a combination of Non- Pharmacological and Pharmacological Treatments: * 1. Position the patient on their side or in a semi-prone position to facilitate postural drainage * 2. Communication with family and caregivers to reaffirm commitment to their loves ones care, reduce anxiety and fears. * 3. Gentle oropharyngeal suctioning is used although this can be ineffective when fluids are beyond the reach of the catheter. Avoid deep suctioning as it is very irritating. Note that frequent suctioning is disturbing to both the patient and the visitors. * 4. Reduction of fluid intake. * 5. Consider a 1-2 min Trendelenburg positioning, to move fluids up into the oropharynx for easier removal BUT note that ASPIRATION RISK WILL INCREASE. * 6. Muscarinic receptor blockers (anti-cholinergic drugs) are most often used: glycopyrrolate (Robinul), scopolamine (Transderm Scop), hyoscyamine and atropine. Of these, I prefer to using glycopyrrolate as first line treatment, because it is a quaternary amine (therefore does not cross the blood-brain barrier) which reduces the potential anti cholinergic agent associated LOADING RACK SUPERVISOR toxicity (sedation, delirium). * 7. Glycopyrrolate has five times the anti-secretory potency compared to atropine, while scopolamine dries/thickens secretions and causes dry mouth, which may be more distressing to the patient and detract from comfort. Neither pt nor family desire Palliative medicine engagement, input or guidance. Furthermore they refuse hospice and patient adamantly insists he is not appropriate for hospice. They plan to return to hospital whenever he has a crisis. I will sign off. I have updated nursing and primary team. Time Involved in Meeting: I spent 50 minutes overall addressing this case: 5 in medical data review/discussion with referring provider(s) and/or preparation for the visit 35 in direct interaction with the patient and family for Advance Care Planning/Goals of Care discussions as detailed above in note (must be >16min) 5 in subsequent review and synthesis of assessment and plan 5 in communicating with other providers regarding the patient's case: []
--- NOTE | 2022-06-24 15:26 | Discharge Summary ---
Date of Service June 24, 2022 Admission HPI Per Admitting Provider 77-year-old male with PMH of HLD, hyperparathyroidism, pulmonary emphysema, COPD, AAA, CKD stage IIIb, HTN, ischemic cardiomyopathy, presence of automatic cardioverter/defibrillator and pacemaker [it has been turned off], end-stage heart failure, protein calorie malnutrition, PMR on a steroid, follows palliative care outpatient presented to the ED 06/21 with complaint of chest discomfort. Patient states that he was resting in his recliner when chest pain abruptly started as a discomfort and radiating towards his left arm and hand and to his back. He rates discomfort at 5-6 over 10 at presentation, took 2 nitroglycerin at home with no relief, and is presented to the ED were he was put on Nitropaste and patient reports relief of the chest discomfort. Patient reports some baseline cough, denies any fever or sore throat or feeling of heart racing. Patient denies any new acute changes in his bowel or bladder habit. Patient quit smoking in 2000 and denies use of alcohol or recreational drugs. DNR/DNI per my discussion with patient. Patient's Flor present at bedside. Patient worked in [employer] in the past. Family history significant for father dying of heart attack at age 54. Medications were able to be partially reviewed with patient as patient got quite irritated on asking about medication stating that he does not know the dose and frequency of his medications. Hence had to rely on outpatient medication list completely. Admission Exam Per Admitting Provider GENERAL: Alert and oriented x3. NAD, on RA. Lean and thin. Appears chronically ill. HEENT: No pallor, no icterus. Pupils equal, round and reactive to light. Oral mucosa moist. NECK: No JVD, no neck masses. HEART: S1 and S2 heard. Regular rate and rhythm. systolic mumur w/ click at aortic area. Pacer on rt chest. RESPIRATORY SYSTEM: Normal AP diameter. No accessory muscle use. No wheezing, no crackles. ABDOMEN: Soft, bowel sounds present, nontender, no distention. CENTRAL NERVOUS SYSTEM: No facial droop. Speech is clear. Obeys simple commands. Moves extremities. EXTREMITIES: 2+ BLE edema, no erythema seen. Principal Diagnosis Chest pain Acute on chronic heart failure with reduced ejection fraction and diastolic dysfunction Acute respiratory failure HTN (hypertension): CKD (chronic kidney disease) stage 3, GFR 30-59 ml/min: Biventricular automatic implantable cardioverter defibrillator in situ: COPD (chronic obstructive pulmonary disease): Anemia: Discharge Exam General- No acute distress Head- atraumatic Eyes- PERRL, EOMI, ENT- oropharynx clear Neck- supple, no JVD Lungs- +coarse BS Heart- regular rhythm, +systolic murmur Abdomen- normal bowel sounds, soft, nontender Extremities- no calf tenderness. +edema Neuro- alert, oriented x 3; PERRL, EOMI; no facial palsy; no dysarthria Skin- warm & dry Discharge Data Allergies Allergy/AdvReac Type Severity Reaction Status Date / Time hydromorphone Allergy Intermediate HIVES Verified 06/25/22 15:50 meperidine Allergy Intermediate HIVES Verified 06/25/22 15:50 morphine Allergy Intermediate HIVES Verified 06/25/22 15:50 lisinopril AdvReac Intermediate COUGH Verified 06/25/22 15:50 Consultations 06/21/22 04:32 ED Decision to Admit Stat 06/21/22 05:29 Consult Cardiology Routine 06/22/22 09:48 Consult Palliative Care Routine Ordered Studies Laboratory Results WBC 9.21 K/ul (4.8-10.8) 06/22/22 05:32 RBC 3.78 M/uL (4.63-6.08) L 06/22/22 05:32 Hgb 11.7 g/dl (14.0-18.0) L 06/22/22 05:32 Hct 36.0 % (40.1-51.0) L 06/22/22 05:32 MCV 95.2 fL (80.0-100.0) 06/22/22 05:32 MCH 31.0 pg (25.0-34.0) 06/22/22 05:32 MCHC 32.5 g/dL (32.0-36.0) 06/22/22 05:32 RDW Std Deviation 51.3 fL (36.4-46.3) H 06/22/22 05:32 RDW Coeff of Archie 14.6 % (11.5-14.5) H 06/22/22 05:32 Plt Count 142 K/uL (130-400) 06/22/22 05:32 MPV 10.4 fL (9.4-12.4) 06/22/22 05:32 Immature Gran % (Auto) 0.2 % 06/21/22 03:10 Neut % (Auto) 85.2 % 06/21/22 03:10 Lymph % (Auto) 8.0 % 06/21/22 03:10 Hunt % (Auto) 6.4 % 06/21/22 03:10 Eos % (Auto) 0.1 % 06/21/22 03:10 Baso % (Auto) 0.1 % 06/21/22 03:10 Neut # (Auto) 8.54 K/uL (1.4-6.5) H 06/21/22 03:10 Lymph # (Auto) 0.80 K/uL (1.2-3.4) L 06/21/22 03:10 Hunt # (Auto) 0.64 K/uL (0.24-0.82) 06/21/22 03:10 Eos # (Auto) 0.01 K/uL (0-0.50) 06/21/22 03:10 Baso # (Auto) 0.01 K/uL (0-0.2) 06/21/22 03:10 Immature Gran # (Auto) 0.02 K/uL (0.00-0.02) 06/21/22 03:10 PT 11.4 Seconds (9.0-12.0) 06/21/22 03:10 INR 1.1 (0.9-1.1) 06/21/22 03:10 APTT 24.3 Seconds (21.0-31.0) 06/21/22 03:10 PTT Ratio 0.9 06/21/22 03:10 Sodium 135 mmol/L (136-145) L 06/24/22 06:51 Potassium 3.9 mmol/L (3.5-5.1) 06/24/22 06:51 Chloride 99 mmol/L (98-107) 06/24/22 06:51 Carbon Dioxide 31 mmol/L (21-32) 06/24/22 06:51 Anion Gap 5 (3-11) 06/24/22 06:51 BUN 97 mg/dl (6-23) H 06/24/22 06:51 Creatinine 2.19 mg/dl (0.6-1.4) H 06/24/22 06:51 Est Cr Clr Drug Dosing 25.8 ml/min 06/24/22 06:51 Est GFR ( Amer) 32.9 ml/min 06/24/22 06:51 Est GFR (Non-Af Amer) 28.4 ml/min 06/24/22 06:51 BUN/Creatinine Ratio 44.3 (10-20) H 06/24/22 06:51 Glucose 97 mg/dl (70-99(Fasting)) 06/24/22 06:51 Calcium 7.6 mg/dl (8.5-10.1) L 06/24/22 06:51 Phosphorus 3.7 mg/dl (2.5-4.9) 06/22/22 05:32 Magnesium 1.8 mg/dl (1.7-2.4) 06/22/22 05:32 Total Bilirubin 0.6 mg/dl (0.2-1.0) 06/21/22 03:10 AST 18 U/L (13-39) 06/21/22 03:10 ALT 15 U/L (7-52) 06/21/22 03:10 Alkaline Phosphatase 63 U/L (34-104) 06/21/22 03:10 Troponin I High Sens 69.1 pg/ml (0-20) H* 06/21/22 17:19 Total Protein 5.8 gm/dl (6.0-8.3) L 06/21/22 03:10 Albumin 3.0 gm/dl (3.4-5.0) L 06/21/22 03:10 Globulin 2.8 gm/dl (2.5-4.0) 06/21/22 03:10 Albumin/Globulin Ratio 1.1 (0.9-2) 06/21/22 03:10 Triglycerides 93 mg/dl (0-150) 06/22/22 05:32 Cholesterol 84 mg/dl (0-200) 06/22/22 05:32 LDL Cholesterol, Calc 27 mg/dl 06/22/22 05:32 VLDL Cholesterol, Calc 19 mg/dl (0-30) 06/22/22 05:32 HDL Cholesterol 38 mg/dl 06/22/22 05:32 Cholesterol/HDL Ratio 2.2 (0-5) 06/22/22 05:32 Hepatitis C Ab (EIA) NON-REACTIVE (NON-REACTIVE) 06/22/22 05:32 Hep C Ab Signal/Cutoff 0.10 (<1.00) 06/22/22 05:32 SARS-CoV-2, RNA, NAAT NEGATIVE (NEGATIVE) 06/21/22 04:41 Impressions Chest X-Ray 06/21/22 14:46 XR chest 1V portable HISTORY: Shortness of breath. COMPARISON: Chest 06/21/2022. FINDINGS: No pneumothorax. No pleural effusions. The heart remains mildly enlarged. There is mild developing asymmetric pulmonary edema. There are poststernotomy changes and a right-sided pacemaker/defibrillator. Stable blunting of the left lateral costophrenic sulcus. IMPRESSION: Cardiomegaly with developing asymmetric pulmonary edema. This has progressed in the interval. ACT 112: Negative or not required by law. Electronically signed by: Gualberto Hardy M.D. 06/21/2022 3:17 PM Hospital Course (1) Chest pain: Presented on admission with chest discomfort at rest, radiating to left arm and back; not relieved with sublingual nitro at home but patient felt relief with Nitropaste in the ED. Troponin on admission mildly elevated at 69.2 Troponin trending down to 68.2 --> 66.4 EKG on admission with chronic AV pacing ( i reviewed his last few EKG) cardiology on board Recommended IV dose of furosemide 40 mg daily today Case discussed with cardiology. As per cardio symptoms presentation seems to be due to acute chronic heart failure ECHO showed severe global hypokinesis of the left ventricle. Moderate concentric left ventricular hypertrophy. Ejection fraction 20 to 25% Case discussed with cardiology that recommended to continue Lasix 40mg IV today Continue Monitor daily weight, fluid balance Denies any chest pain Acute on chronic heart failure with reduced ejection fraction and diastolic dysfunction Acute respiratory failure CXR showed cardiomegaly with mild congestive change. Continue hypertonic saline neb, duoneb Continue prednisone 20mg IV Continue Monitor daily weight, fluid balance Will transition to PO torsemide on discharge 2 step done an pt does not require any oxygen supplement Palliative on board- not interested in hospice for now Clinically improved HTN (hypertension): Continue Coreg and amlodipine stable CKD (chronic kidney disease) stage 3, GFR 30-59 ml/min: Creatinine 2.1, Baseline creatinine 1.6-1.9 Monitor BMP while on diuretic Biventricular automatic implantable cardioverter defibrillator in situ: Due to HFrEF follows [facility] cardi[facility] COPD (chronic obstructive pulmonary disease): No acute exacerbation Stable Anemia: Hgb stable Normocytic, normochromic likely in setting of renal disease Dyslipidemia: Continue statin BPH (benign prostatic hyperplasia): Continue Flomax DVT prophylaxis on SQ Heparin CODE STATUS DNR/DNI Total Time Total Time Spent Total Time Spent (In Minutes): 40 minutes Discharge Plan Discharge Items Patient Disposition: Home - Self-Care Reason For Visit: CHEST PAIN Discharge Diagnosis: Chest pain Acute on chronic heart failure with reduced ejection fraction and diastolic dysfunction Acute respiratory failure HTN (hypertension): CKD (chronic kidney disease) stage 3, GFR 30-59 ml/min: Biventricular automatic implantable cardioverter defibrillator in situ: COPD (chronic obstructive pulmonary disease): Anemia: Activity: Resume your previous activity Non-emergency contact: Primary Care Provider and Process Safety Management Engineer Call non-emergency contact if: you have any medication questions and your symptoms worsen Follow-up/Referrals: Maciej Cardona MD [Primary Care Provider] - 06/30/22 10:00 am (Date & Time 06/30/2022 2:00 PM Provider Mary Guardado MD Department [facility] ) Diet: Heart Healthy Addtl Attending Provider Instructions: Follow up with your primary care provider 06/30/2022 @2:00 PM Mary Guardado MD [facility] Follow up with your cardiology outpatient Please follow up with your provider for management of your Buprenorphine for ongoing prescription Check BMP in 1 week to monitor your electrolytes and renal function Fall precaution Seek medical attention if you develop any shortness Lasix changed to Torsemide 20mg daily Pending Studies at Discharge: No Stand-Alone Forms: [facility] [employer], Smoking Cessation Medications and DC Order Prescriptions: New guaifenesin 200 mg Tablet 200 mg PO Q8H Qty: 15 0RF torsemide 20 mg tablet 20 mg PO DAILY Qty: 30 0RF buprenorphine HCl 2 mg Tablet, Sublingual 2 mg sublingual Q6H PRN (Reason: for breakthrough dyspnea/ respiratory distress) Qty: 5 0RF Rx Instructions: Please hold for lethargy and drowsiness Continued atorvastatin [Lipitor] 40 mg Tablet 40 mg PO DAILY aspirin [[place] Low Dose Aspirin] 81 mg Tablet,Delayed Release (Dr/Ec) 81 mg PO DAILY tamsulosin 0.4 mg Capsule 0.8 mg PO QPM pramipexole [Mirapex] 0.25 mg Tablet 0.25 mg PO HS cholecalciferol (vitamin D3) 2,000 unit Tablet 2,000 unit PO DAILY albuterol sulfate 90 mcg/actuation HFA aerosol inhaler 2 inha INH QID PRN (Reason: shortness of breath or wheezing) Qty: 1 0RF nitroglycerin [Nitrostat] 0.4 mg Tablet, Sublingual 0.4 mg sublingual DIRECTED PRN (Reason: Chest Pain) metolazone 2.5 mg tablet 2.5 mg PO WK Rx Instructions: TAKES ON MONDAYS potassium chloride 10 mEq Capsule, Extended Release 10 meq PO DAILY prednisone 10 mg tablet 20 mg PO DAILY metoprolol succinate 100 mg tablet extended release 24 hr 100 mg PO DAILY amlodipine 2.5 mg Tablet 2.5 mg PO DAILY isosorbide mononitrate 60 mg Tablet Extended Release 24 Hr 60 mg PO DAILY cyanocobalamin (vitamin B-12) 1,000 mcg Tablet, Sublingual 1,000 mcg SUBLINGUAL DAILY oxycodone 5 mg tablet 5 mg PO Q6H PRN (Reason: Pain) buprenorphine 10 mcg/hour patch weekly 10 mcg transdermal WK Vitron-C 65 mg iron- 125 mg Tablet,Delayed Release (Dr/Ec) 1 tab PO DAILY Discontinued furosemide [Lasix] 40 mg Tablet 40 mg PO DAILY Rx Instructions: TAKE AN ADDITIONAL 20 MG IF INCREASED SOB OR EDEMA NOTED. Discharge Orders: Discharge Order (Routine); Ordered 06/24/22 Ordered By: Windy Walton Admission Data Admit Date/Time: 06/21/22 04:49 Attending Provider: Windy Walton Admit Provider: Jesus Tobar Primary Care Provider: Maciej Cardona Other Providers: Jesus Tobar ; Marshal Horton ; Oliver Evans ; Yogesh Israel ; Neal Rubio ; Alcon Scott ; Zheng Easton ; Elva Daley ; Luz Elena Rodas ; Nikki Shannon ; Jarred Douglass ; Karishma Espino Other Interventions: Discharge Summary Assessment (RN) Last Done: 06/24/22 15:31
== END 2022-06-24 16:38 | disposition home or self-care (01) | DRG 291 ==
LOC: ED 02:53 → 2E 04:49 → SUATTDRO 04:49 → 2E 06:58

== ENCOUNTER 2022-06-25 13:03 | Inpatient (IN) ==
[2022-06-25] MEDS ORDERED: ASPIRIN CHEW 324 MG PO STA (13:09)
--- NOTE | 2022-06-25 13:31 | XRay Report ---
SINGLE VIEW CHEST CLINICAL HISTORY: Atypical chest pain. FINDINGS: An AP, portable, upright chest radiograph is compared to study dated 06/21/2022. A 3-lead car diac AICD is unchanged in position and partially obscures the right mid chest. The heart is enlarged noting atherosclerotic calcification of the thoracic aorta. There is pulmonary vascular congestion. B ilateral airspace opacities likely represent interstitial edema. Emphysema and chronic interstitial t hickening is similar to previous. Scarring/atelectasis is noted at the lung bases. No large pleural e ffusion or pneumothorax is seen. The skeletal structures are osteopenic. The bony thorax is grossly i ntact. IMPRESSION: 1. Cardiomegaly and AICD with evidence of congestive failure. 2. Bilateral airspace opacities likely represent mild pulmonary edema. Correlate clinically for evide nce of a superimposed infectious/inflammatory pneumonitis. 3. Emphysema. ACT 112: Negative or not required by law. Electronically signed by: Dane Lund M.D. 06/25/2022 1:30 PM
--- NOTE | 2022-06-25 13:38 | Emergency Department Note ---
Impression & Plan Chest pain ADMIT ED Provider Note HPI: The patient is a 77-year-old gentleman with history of decompensated heart failure with reduced ejection fraction approximately 20 to 25%, on palliative care, presents emergency department the chief complaint of chest discomfort and shortness of breath that is been ongoing since around 5 AM. Patient states he was just discharged from the inpatient service yesterday. ROS: - Per HPI *Outpatient medications and allergy history reviewed. *Pertinent external medical records reviewed. PE: General: Alert, frail-appearing HEENT: Normocephalic, trachea midline Eyes: Extraocular eye movement is intact, no scleral erythema Pulmonary: Clear to auscultation bilaterally, no wheezing Cardio: Regular rate and rhythm GI: Abdomen is soft, nontender : No suprapubic tenderness MSK: No evidence of trauma or malformation of the extremities, 3+ PE b/l LEs Skin: No evidence of rash Neuro: Alert, no focal deficits Psychiatric: Cooperative quality assurance monitor: - An order was placed for continuous cardiac monitoring - Patient was noted to be in paced rhythm with a rate of 70 EKG: (As interpreted by myself): Rate: 69 Rhythm: Paced rhythm Intervals: QRS 158 ms, QTC 499 ms, IL within normal limits ST changes: No ST elevation (paced rhythm) Time: 1307 Interventions provided in ED: -Lasix, isosorbide mononitrate Medical Decision Making: Patient presented to the emergency department with chest pain and worsening shortness of breath since her recent discharge. He has a history of decompensated heart failure with reduced ejection fraction about 20 to 25%. Patient does have significant lower extremity edema, I suspect that his heart failure is the reason for his symptoms again today. Chest x-ray shows a pattern of pulmonary edema, he maintains oxygen saturations greater than 90% at rest however with minimal exertion he becomes hypoxic into the 70s. Troponin is elevated here in the 80s, slightly above where he was upon discharge. I suspect this is demand ischemia related to CHF exacerbation. EKG shows a paced rhythm I do not see any acute ischemic changes. He was given a dose of isosorbide mononitrate with improvement in his chest discomfort. He remains with borderline oxygen saturations on my reassessment, he was also given a dose of IV Lasix. BNP is markedly elevated greater than 4700. I had a discussion with the patient as well as his family at the bedside, at this time I feel he will struggle to manage his symptoms at home. I think he may benefit from hospice services and this was discussed with the patient and his family at the bedside. Patient states he would be interested in hospice services given his end-stage decompensated heart failure and difficulty managing his symptoms at home. Patient expressed an understanding, states he does feel that he needs to be admitted to the hospital and therefore [facility] Patient was placed for admission in stable condition for further care. Disposition discussion held by myself with: Patient and family at the bedside. Diagnosis: 1. Acute decompensated heart failure 2. Peripheral edema, acute on chronic 3. Elevated troponin 4. Hypoxia on exertion 5. Elevated BNP Disposition: ADMIT Zheng Hightower DO Emergency Medicine Past Med/Surg History Medical History (Updated 06/25/22 @ 17:11 by Zheng Hightower DO) MARGARET inhibitor intolerance Advanced care planning/counseling discussion BPH (benign prostatic hyperplasia) CAD (coronary artery disease) Carotid stenosis CHF (congestive heart failure) CKD (chronic kidney disease) stage 3, GFR 30-59 ml/min COPD (chronic obstructive pulmonary disease) Dyslipidemia Dyspnea and respiratory abnormalities GERD (gastroesophageal reflux disease) Goals of care, counseling/discussion HTN (hypertension) LBBB (left bundle branch block) Lumbago Palliative care encounter Pericardial effusion PMR (polymyalgia rheumatica) Small bowel obstruction due to adhesions Surgical History Biventricular automatic implantable cardioverter defibrillator in situ 06/25/2017 [facility] H/O heart artery stent "left subclavian stent for occlusion with front runner catheter, Dr Retana 04/23" History of back surgery cervical and lumbar History of carotid endarterectomy Left CEA with patch 10/25/2006 History of cholecystectomy History of coronary artery bypass graft x 1 BENÍTEZ to LAD History of inguinal hernia repair History of open heart surgery History of tonsillectomy Family History Father Coronary heart disease, Onset Age: 51 Mother Stroke Social History Smoking Status: Former smoker packs per day: 1.5; Hx Alcohol Use: No Hx Substance Use: No Preferred Language: Frisian Communication Ability: Impaired Ambulatory Service Representative Required: No Beliefs That Will Affect Care: None marital status: Current Living Situation: Spouse current occupational status: retired and disabled Feels Safe at Home: Yes Assistive Devices: Cane Allergies Allergies Allergy/AdvReac Type Severity Reaction Status Date / Time hydromorphone Allergy Intermediate HIVES Verified 06/25/22 15:50 meperidine Allergy Intermediate HIVES Verified 06/25/22 15:50 morphine Allergy Intermediate HIVES Verified 06/25/22 15:50 lisinopril AdvReac Intermediate COUGH Verified 06/25/22 15:50 Home Meds Home Medications Medication Instructions Recorded Confirmed aspirin 81 mg tablet,delayed 81 mg PO DAILY 09/17/18 06/25/22 release ([place] Low Dose Aspirin) atorvastatin 40 mg tablet (Lipitor) 40 mg PO DAILY 09/17/18 06/25/22 cholecalciferol (vitamin D3) 50 2,000 unit PO DAILY 09/17/18 06/25/22 mcg (2,000 unit) tablet pramipexole 0.25 mg tablet 0.25 mg PO HS 09/17/18 06/25/22 (Mirapex) tamsulosin 0.4 mg capsule 0.8 mg PO QPM 09/17/18 06/25/22 nitroglycerin 0.4 mg sublingual 0.4 mg sublingual DIRECTED PRN 12/13/19 06/25/22 tablet (Nitrostat) Chest Pain amlodipine 2.5 mg tablet 2.5 mg PO DAILY 06/21/22 06/25/22 buprenorphine 10 mcg/hour weekly 10 mcg transdermal WK 06/21/22 06/25/22 transdermal patch cyanocobalamin (vitamin B-12) 1,000 mcg sublingual DAILY 06/21/22 06/25/22 1,000 mcg sublingual tablet iron,carbonyl 65 mg-vitamin C 125 1 tab PO DAILY 06/21/22 06/25/22 mg tablet,delayed release (Vitron-C) isosorbide mononitrate 60 mg 60 mg PO DAILY 06/21/22 06/25/22 tablet,extended release 24 hr metolazone 2.5 mg tablet 2.5 mg PO WK 06/21/22 06/25/22 metoprolol succinate 100 mg 100 mg PO DAILY 06/21/22 06/25/22 tablet,extended release 24 hr oxycodone 5 mg tablet 5 mg PO Q6H PRN Pain 06/21/22 06/25/22 potassium chloride 10 mEq 10 meq PO DAILY 06/21/22 06/25/22 capsule,extended release prednisone 10 mg tablet 20 mg PO DAILY 06/21/22 06/25/22 Previous Rx's Medication Instructions Recorded albuterol sulfate 90 mcg/actuation 2 inha inhalation QID PRN 09/28/18 aerosol inhaler shortness of breath or wheezing #1 g buprenorphine HCl 2 mg sublingual 2 mg sublingual Q6H PRN for 06/24/22 tablet breakthrough dyspnea/ respiratory distress #5 tabs guaifenesin 200 mg tablet 200 mg PO Q8H #15 tabs 06/24/22 torsemide 20 mg tablet 20 mg PO DAILY #30 tabs 06/24/22 Results & Data (ED) Vital Signs Vital Signs - 24 hr 06/25/22 13:09 06/25/22 13:29 06/25/22 13:29 Temperature 36.4 C L Temperature Source Temporal Artery Scan Pulse Rate 72 69 Pulse Rate [Left Finger] 70 Pulse Rate from SpO2 Sensor 69 Pulse Rhythm [Left Finger] Regular Pulse Strength [Left Finger] Normal Respiratory Rate 22 21 22 Respiratory Effort / Characteristics Non-Labored Spontaneous Non-Labored Respiratory Depth Normal Normal Respiratory Pattern Regular Regular Blood Pressure 152/76 H Blood Pressure [Right Arm] 138/71 Blood Pressure Mean 101 Blood Pressure Mean [Right Arm] 93 Blood Pressure Position Sitting Blood Pressure Position [Right Arm] Lying Pulse Oximetry 93 94 94 Oxygen Delivery Method Room Air Room Air Oxygen Flow Rate Sepsis Recent Fever Within 48 Hours No Sepsis New/Unexplained Change in Mental Status No Sepsis Action Taken by Nursing No Action Required 06/25/22 13:30 06/25/22 13:30 06/25/22 13:40 Temperature Temperature Source Pulse Rate 67 65 Pulse Rate [Left Finger] Pulse Rate from SpO2 Sensor 66 Pulse Rhythm [Left Finger] Pulse Strength [Left Finger] Respiratory Rate 23 17 Respiratory Effort / Characteristics Respiratory Depth Respiratory Pattern Blood Pressure 136/56 L Blood Pressure [Right Arm] Blood Pressure Mean 82 Blood Pressure Mean [Right Arm] Blood Pressure Position Blood Pressure Position [Right Arm] Pulse Oximetry 94 Oxygen Delivery Method Oxygen Flow Rate Sepsis Recent Fever Within 48 Hours Sepsis New/Unexplained Change in Mental Status Sepsis Action Taken by Nursing 06/25/22 13:50 06/25/22 14:00 06/25/22 14:00 Temperature Temperature Source Pulse Rate 64 65 Pulse Rate [Left Finger] Pulse Rate from SpO2 Sensor 65 66 Pulse Rhythm [Left Finger] Pulse Strength [Left Finger] Respiratory Rate 18 14 Respiratory Effort / Characteristics Respiratory Depth Respiratory Pattern Blood Pressure 131/73 Blood Pressure [Right Arm] Blood Pressure Mean 92 Blood Pressure Mean [Right Arm] Blood Pressure Position Blood Pressure Position [Right Arm] Pulse Oximetry 93 88 L Oxygen Delivery Method Oxygen Flow Rate Sepsis Recent Fever Within 48 Hours Sepsis New/Unexplained Change in Mental Status Sepsis Action Taken by Nursing 06/25/22 14:10 06/25/22 14:20 06/25/22 14:30 Temperature Temperature Source Pulse Rate 61 62 71 Pulse Rate [Left Finger] Pulse Rate from SpO2 Sensor 61 62 65 Pulse Rhythm [Left Finger] Pulse Strength [Left Finger] Respiratory Rate 12 17 23 Respiratory Effort / Characteristics Respiratory Depth Respiratory Pattern Blood Pressure Blood Pressure [Right Arm] Blood Pressure Mean Blood Pressure Mean [Right Arm] Blood Pressure Position Blood Pressure Position [Right Arm] Pulse Oximetry 92 93 76 L Oxygen Delivery Method Oxygen Flow Rate Sepsis Recent Fever Within 48 Hours Sepsis New/Unexplained Change in Mental Status Sepsis Action Taken by Nursing 06/25/22 14:31 06/25/22 14:31 06/25/22 14:40 Temperature Temperature Source Pulse Rate 78 63 Pulse Rate [Left Finger] Pulse Rate from SpO2 Sensor 67 61 Pulse Rhythm [Left Finger] Pulse Strength [Left Finger] Respiratory Rate 19 26 H Respiratory Effort / Characteristics Respiratory Depth Respiratory Pattern Blood Pressure 115/63 Blood Pressure [Right Arm] Blood Pressure Mean 80 Blood Pressure Mean [Right Arm] Blood Pressure Position Blood Pressure Position [Right Arm] Pulse Oximetry 71 L 93 Oxygen Delivery Method Oxygen Flow Rate Sepsis Recent Fever Within 48 Hours Sepsis New/Unexplained Change in Mental Status Sepsis Action Taken by Nursing 06/25/22 14:50 06/25/22 15:00 06/25/22 15:00 Temperature Temperature Source Pulse Rate 61 63 Pulse Rate [Left Finger] Pulse Rate from SpO2 Sensor 60 63 Pulse Rhythm [Left Finger] Pulse Strength [Left Finger] Respiratory Rate 17 17 Respiratory Effort / Characteristics Respiratory Depth Respiratory Pattern Blood Pressure 133/58 L Blood Pressure [Right Arm] Blood Pressure Mean 83 Blood Pressure Mean [Right Arm] Blood Pressure Position Blood Pressure Position [Right Arm] Pulse Oximetry 91 92 Oxygen Delivery Method Oxygen Flow Rate Sepsis Recent Fever Within 48 Hours Sepsis New/Unexplained Change in Mental Status Sepsis Action Taken by Nursing 06/25/22 15:10 06/25/22 15:20 06/25/22 15:30 Temperature Temperature Source Pulse Rate 60 61 Pulse Rate [Left Finger] Pulse Rate from SpO2 Sensor 62 61 Pulse Rhythm [Left Finger] Pulse Strength [Left Finger] Respiratory Rate 13 10 L Respiratory Effort / Characteristics Respiratory Depth Respiratory Pattern Blood Pressure 117/57 L Blood Pressure [Right Arm] Blood Pressure Mean 77 Blood Pressure Mean [Right Arm] Blood Pressure Position Blood Pressure Position [Right Arm] Pulse Oximetry 92 92 Oxygen Delivery Method Oxygen Flow Rate Sepsis Recent Fever Within 48 Hours Sepsis New/Unexplained Change in Mental Status Sepsis Action Taken by Nursing 06/25/22 15:30 06/25/22 15:40 06/25/22 15:50 Temperature Temperature Source Pulse Rate 70 65 62 Pulse Rate [Left Finger] Pulse Rate from SpO2 Sensor 64 65 58 L Pulse Rhythm [Left Finger] Pulse Strength [Left Finger] Respiratory Rate 27 H 23 18 Respiratory Effort / Characteristics Respiratory Depth Respiratory Pattern Blood Pressure Blood Pressure [Right Arm] Blood Pressure Mean Blood Pressure Mean [Right Arm] Blood Pressure Position Blood Pressure Position [Right Arm] Pulse Oximetry 85 L 92 92 Oxygen Delivery Method Oxygen Flow Rate Sepsis Recent Fever Within 48 Hours Sepsis New/Unexplained Change in Mental Status Sepsis Action Taken by Nursing 06/25/22 16:00 06/25/22 16:00 06/25/22 16:10 Temperature Temperature Source Pulse Rate 70 Pulse Rate [Left Finger] Pulse Rate from SpO2 Sensor 40 L Pulse Rhythm [Left Finger] Pulse Strength [Left Finger] Respiratory Rate 17 Respiratory Effort / Characteristics Respiratory Depth Respiratory Pattern Blood Pressure 132/57 L 136/56 L Blood Pressure [Right Arm] Blood Pressure Mean 82 82 Blood Pressure Mean [Right Arm] Blood Pressure Position Blood Pressure Position [Right Arm] Pulse Oximetry 90 Oxygen Delivery Method Oxygen Flow Rate Sepsis Recent Fever Within 48 Hours Sepsis New/Unexplained Change in Mental Status Sepsis Action Taken by Nursing 06/25/22 16:10 06/25/22 16:20 06/25/22 16:30 Temperature Temperature Source Pulse Rate 70 66 Pulse Rate [Left Finger] Pulse Rate from SpO2 Sensor 65 64 Pulse Rhythm [Left Finger] Pulse Strength [Left Finger] Respiratory Rate 25 H 17 Respiratory Effort / Characteristics Respiratory Depth Respiratory Pattern Blood Pressure 142/69 H Blood Pressure [Right Arm] Blood Pressure Mean 93 Blood Pressure Mean [Right Arm] Blood Pressure Position Blood Pressure Position [Right Arm] Pulse Oximetry 99 99 Oxygen Delivery Method Nasal Cannula Oxygen Flow Rate 2 Sepsis Recent Fever Within 48 Hours Sepsis New/Unexplained Change in Mental Status Sepsis Action Taken by Nursing 06/25/22 16:30 06/25/22 16:40 06/25/22 16:50 Temperature Temperature Source Pulse Rate 60 60 73 Pulse Rate [Left Finger] Pulse Rate from SpO2 Sensor 60 60 Pulse Rhythm [Left Finger] Pulse Strength [Left Finger] Respiratory Rate 15 15 27 H Respiratory Effort / Characteristics Respiratory Depth Respiratory Pattern Blood Pressure Blood Pressure [Right Arm] Blood Pressure Mean Blood Pressure Mean [Right Arm] Blood Pressure Position Blood Pressure Position [Right Arm] Pulse Oximetry 100 99 97 Oxygen Delivery Method Nasal Cannula Nasal Cannula Nasal Cannula Oxygen Flow Rate 2 2 2 Sepsis Recent Fever Within 48 Hours Sepsis New/Unexplained Change in Mental Status Sepsis Action Taken by Nursing Laboratory Data 06/25/22 13:12 06/25/22 13:12 Lab Results 06/25/22 06/25/22 06/25/22 Range/Units 13:12 13:12 13:12 WBC 6.89 (4.8-10.8) K/ul RBC 3.86 L (4.63-6.08) M/uL Hgb 11.9 L (14.0-18.0) g/dl Hct 36.8 L (40.1-51.0) % MCV 95.3 (80.0-100.0) fL MCH 30.8 (25.0-34.0) pg MCHC 32.3 (32.0-36.0) g/dL RDW Std Deviation 50.2 H (36.4-46.3) fL RDW Coeff of Archie 14.5 (11.5-14.5) % Plt Count 156 (130-400) K/uL MPV 10.1 (9.4-12.4) fL Immature Gran % (Auto) 0.3 % Neut % (Auto) 80.5 % Lymph % (Auto) 11.3 % Adams % (Auto) 7.8 % Eos % (Auto) 0.1 % Baso % (Auto) 0.0 % Neut # (Auto) 5.54 (1.4-6.5) K/uL Lymph # (Auto) 0.78 L (1.2-3.4) K/uL Adams # (Auto) 0.54 (0.24-0.82) K/uL Eos # (Auto) 0.01 (0-0.50) K/uL Baso # (Auto) 0.00 (0-0.2) K/uL Immature Gran # (Auto) 0.02 (0.00-0.02) K/uL PT 11.3 (9.0-12.0) Seconds INR 1.1 (0.9-1.1) APTT 26.6 (21.0-31.0) Seconds PTT Ratio 1.0 Sodium 139 (136-145) mmol/L Potassium 3.6 (3.5-5.1) mmol/L Chloride 101 (98-107) mmol/L Carbon Dioxide 32 (21-32) mmol/L Anion Gap 6 (3-11) BUN 88 H (6-23) mg/dl Creatinine 2.01 H (0.6-1.4) mg/dl Est Cr Clr Drug Dosing Not Reportable Est GFR ( Amer) 36.5 ml/min Est GFR (Non-Af Amer) 31.5 ml/min BUN/Creatinine Ratio 43.8 H (10-20) Glucose 88 (70-99(Fasting)) mg/dl Calcium 8.4 L (8.5-10.1) mg/dl Total Bilirubin 1.1 H (0.2-1.0) mg/dl AST 28 (13-39) U/L ALT 22 (7-52) U/L Alkaline Phosphatase 57 (34-104) U/L Troponin I High Sens 86.9 H* (0-20) pg/ml B-Natriuretic Peptide (0-100) pg/ml Total Protein 6.2 (6.0-8.3) gm/dl Albumin 3.1 L (3.4-5.0) gm/dl Globulin 3.1 (2.5-4.0) gm/dl Albumin/Globulin Ratio 1.0 (0.9-2) SARS-CoV-2, RNA, NAAT (NEGATIVE) 06/25/22 06/25/22 06/25/22 Range/Units 14:42 14:42 15:48 WBC (4.8-10.8) K/ul RBC (4.63-6.08) M/uL Hgb (14.0-18.0) g/dl Hct (40.1-51.0) % MCV (80.0-100.0) fL MCH (25.0-34.0) pg MCHC (32.0-36.0) g/dL RDW Std Deviation (36.4-46.3) fL RDW Coeff of Archie (11.5-14.5) % Plt Count (130-400) K/uL MPV (9.4-12.4) fL Immature Gran % (Auto) % Neut % (Auto) % Lymph % (Auto) % Adams % (Auto) % Eos % (Auto) % Baso % (Auto) % Neut # (Auto) (1.4-6.5) K/uL Lymph # (Auto) (1.2-3.4) K/uL Adams # (Auto) (0.24-0.82) K/uL Eos # (Auto) (0-0.50) K/uL Baso # (Auto) (0-0.2) K/uL Immature Gran # (Auto) (0.00-0.02) K/uL PT (9.0-12.0) Seconds INR (0.9-1.1) APTT (21.0-31.0) Seconds PTT Ratio Sodium (136-145) mmol/L Potassium (3.5-5.1) mmol/L Chloride (98-107) mmol/L Carbon Dioxide (21-32) mmol/L Anion Gap (3-11) BUN (6-23) mg/dl Creatinine (0.6-1.4) mg/dl Est Cr Clr Drug Dosing Est GFR ( Amer) ml/min Est GFR (Non-Af Amer) ml/min BUN/Creatinine Ratio (10-20) Glucose (70-99(Fasting)) mg/dl Calcium (8.5-10.1) mg/dl Total Bilirubin (0.2-1.0) mg/dl AST (13-39) U/L ALT (7-52) U/L Alkaline Phosphatase (34-104) U/L Troponin I High Sens 89.5 H* (0-20) pg/ml B-Natriuretic Peptide > 4700 H (0-100) pg/ml Total Protein (6.0-8.3) gm/dl Albumin (3.4-5.0) gm/dl Globulin (2.5-4.0) gm/dl Albumin/Globulin Ratio (0.9-2) SARS-CoV-2, RNA, NAAT NEGATIVE (NEGATIVE) Administered Medications Discontinued Medications Aspirin (Aspirin Chew 324 Mg) 324 mg PO NOW STA Stop: 06/25/22 13:10 Last Admin: 06/25/22 13:27 Dose: 324 mg Documented By: HOLLI Furosemide (Furosemide 40 Mg/4 Ml Vial) 40 mg IV ONE ONE Stop: 06/25/22 14:40 Last Admin: 06/25/22 14:57 Dose: 40 mg Documented By: HOLLI Isosorbide Mononitrate (Isosorbide Mononitrate 20 Mg Tab) 20 mg PO ONCE ONE Stop: 06/25/22 14:01 Last Admin: 06/25/22 14:26 Dose: 20 mg Documented By: HOLLI Imaging Data Radiologist's Impression: Chest X-Ray 06/25/22 13:09 SINGLE VIEW CHEST CLINICAL HISTORY: Atypical chest pain. FINDINGS: An AP, portable, upright chest radiograph is compared to study dated 06/21/2022. A 3-lead cardiac AICD is unchanged in position and partially obscures the right mid chest. The heart is enlarged noting atherosclerotic calcification of the thoracic aorta. There is pulmonary vascular congestion. Bilateral airspace opacities likely represent interstitial edema. Emphysema and chronic interstitial thickening is similar to previous. Scarring/atelectasis is noted at the lung bases. No large pleural effusion or pneumothorax is seen. The skeletal structures are osteopenic. The bony thorax is grossly intact. IMPRESSION: 1. Cardiomegaly and AICD with evidence of congestive failure. 2. Bilateral airspace opacities likely represent mild pulmonary edema. Correlate clinically for evidence of a superimposed infectious/inflammatory pneumonitis. 3. Emphysema. ACT 112: Negative or not required by law. Electronically signed by: Dane Lund M.D. 06/25/2022 1:30 PM Discharge Plan Visit Data Chief Complaint: Cardiac Assessment Stated Complaint: CARDIAC ASSESSMENT ED Provider: Zheng Hightower Discharge Problem: Chest pain Forms Stand Alone Forms: [facility] [employer] [facility] Prescriptions Prescriptions: No Action atorvastatin [Lipitor] 40 mg Tablet 40 mg PO DAILY aspirin [[place] Low Dose Aspirin] 81 mg Tablet,Delayed Release (Dr/Ec) 81 mg PO DAILY tamsulosin 0.4 mg Capsule 0.8 mg PO QPM pramipexole [Mirapex] 0.25 mg Tablet 0.25 mg PO HS cholecalciferol (vitamin D3) 2,000 unit Tablet 2,000 unit PO DAILY albuterol sulfate 90 mcg/actuation HFA aerosol inhaler 2 inha INH QID PRN (Reason: shortness of breath or wheezing) Qty: 1 0RF nitroglycerin [Nitrostat] 0.4 mg Tablet, Sublingual 0.4 mg sublingual DIRECTED PRN (Reason: Chest Pain) metolazone 2.5 mg tablet 2.5 mg PO WK Rx Instructions: TAKES ON MONDAYS potassium chloride 10 mEq Capsule, Extended Release 10 meq PO DAILY prednisone 10 mg tablet 20 mg PO DAILY metoprolol succinate 100 mg tablet extended release 24 hr 100 mg PO DAILY amlodipine 2.5 mg Tablet 2.5 mg PO DAILY isosorbide mononitrate 60 mg Tablet Extended Release 24 Hr 60 mg PO DAILY cyanocobalamin (vitamin B-12) 1,000 mcg Tablet, Sublingual 1,000 mcg SUBLINGUAL DAILY oxycodone 5 mg tablet 5 mg PO Q6H PRN (Reason: Pain) buprenorphine 10 mcg/hour patch weekly 10 mcg transdermal WK Vitron-C 65 mg iron- 125 mg Tablet,Delayed Release (Dr/Ec) 1 tab PO DAILY guaifenesin 200 mg Tablet 200 mg PO Q8H Qty: 15 0RF torsemide 20 mg tablet 20 mg PO DAILY Qty: 30 0RF buprenorphine HCl 2 mg Tablet, Sublingual 2 mg sublingual Q6H PRN (Reason: for breakthrough dyspnea/ respiratory distress) Qty: 5 0RF Rx Instructions: Please hold for lethargy and drowsiness Referrals Referrals: Maciej Cardona MD [Primary Care Provider] - : Chest pain Qualifiers: Chest pain type: unspecified Qualified Code(s): R07.9 - Chest pain, unspecified
[2022-06-25 13:45] LABS: Eosinophils # (auto) 0.01 K/uL (0-0.50); Eosinophils % (auto) 0.1 %; Hematocrit (blood only) 36.8 % (40.1-51.0); Hemoglobin 11.9 g/dl (14.0-18.0); Immature Granulocytes # (auto) 0.02 K/uL (0.00-0.02); Immature Granulocytes % (auto) 0.3 %; Lymphocytes # (auto) 0.78 K/uL (1.2-3.4); Lymphocytes % (auto) 11.3 %; Mean Corpuscular Hemoglobin 30.8 pg (25.0-34.0); Mean Corpuscular Hgb Conc 32.3 g/dL (32.0-36.0); Mean Corpuscular Volume 95.3 fL (80.0-100.0); Mean Platelet Volume 10.1 fL (9.4-12.4); Monocytes # (auto) 0.54 K/uL (0.24-0.82); Monocytes % (auto) 7.8 %; Neutrophils # (auto) 5.54 K/uL (1.4-6.5); Neutrophils % (auto) 80.5 %; Platelet Count 156 K/uL (130-400); RDW Coefficient of Variation 14.5 % (11.5-14.5); RDW Standard Deviation 50.2 fL (36.4-46.3); Red Blood Count 3.86 M/uL (4.63-6.08); White Blood Count 6.89 K/ul (4.8-10.8)
[2022-06-25] MEDS ORDERED: ISOSORBIDE MONONITRATE 20 MG TAB PO ONE (14:00)
[2022-06-25 14:01] LABS: INR 1.1 (0.9-1.1); Partial Thromboplastin Time 26.6 Seconds (21.0-31.0); Prothrombin Time 11.3 Seconds (9.0-12.0)
[2022-06-25 14:13] LABS: Alanine Aminotransferase 22 U/L (7-52); Albumin Level 3.1 gm/dl (3.4-5.0); Alkaline Phosphatase 57 U/L (34-104); Anion Gap 6 (3-11); Aspartate Aminotransferase 28 U/L (13-39); BUN Creatinine Ratio 43.8 (10-20); Bilirubin,Total 1.1 mg/dl (0.2-1.0); Blood Urea Nitrogen 88 mg/dl (6-23); Calcium 8.4 mg/dl (8.5-10.1); Carbon Dioxide 32 mmol/L (21-32); Chloride 101 mmol/L (98-107); Est GFR (African American) 36.5 ml/min; Est GFR (Non-African American) 31.5 ml/min; Globulin 3.1 gm/dl (2.5-4.0); Glucose 88 mg/dl (70-99(Fasting)); Potassium 3.6 mmol/L (3.5-5.1); Sodium 139 mmol/L (136-145); Total Protein 6.2 gm/dl (6.0-8.3)
[2022-06-25 14:24] LABS: Troponin I High Sensitivity 86.9 pg/ml (0-20)
[2022-06-25] MEDS ORDERED: FUROSEMIDE 40 MG/4 ML VIAL IV ONE (14:39)
--- NOTE | 2022-06-25 16:17 | History & Physical Report ---
Date of Service June 25, 2022 Assessment & Plan (1) Chest pain: (2) Acute on chronic heart failure with reduced ejection fraction and diastolic dysfunction: (3) Acute and chronic respiratory failure with hypoxia: (4) Ischemic cardiomyopathy: (5) HTN (hypertension): (6) Biventricular automatic implantable cardioverter defibrillator in situ: (7) COPD (chronic obstructive pulmonary disease): (8) Anemia: (9) Elevated troponin: Plan: - Admit to tele - Trend cardiac biomarkers : 86.9-->89.5, not much different from baseline from few days ago , BNP is 4700 - In the ER received isosorbide mononitrate, IV lasix 40 mg x 1, aspirin 324 po - EKG reviewed as above - 2 D echo from 06/21/22 showing LV systolic function severely reduced, EF of 20- 25%, moderate concentric left ventricular hypertrophy, severe global hypokinesis of the left ventricular, diastolic dysfunction, grade III, consistent with markedly increased left atrial pressure. Moderate MR, mild to moderate Tricuspid regurg, pulm pressure est of 55 mmHg - If negative enzymes can consider a stress test tomorrow morning. - PT/OT consulted - Continue buprenorphine transdermal patch and sublingual along with oxycodone - Palliative care consulted - previously had discussions with inpatient pallia tive however was not agreeable at time of discharge to hospice services. History of Present Illness Chief Complaint: Chest pain, shortness of breath Primary Care Provider: Maciej Cardona MD This is [id number] male with PMH of HLD, hyperparathyroidism, pulmonary emphysema, COPD, AAA, CKD stage IIIb, HTN, ischemic cardiomyopathy, presence of automatic cardioverter/defibrillator and pacemaker [it has been turned off], end-stage heart failure, protein calorie malnutrition, PMR on a steroid, follows palliative care outpatient presented to the ED 06/21 with complaint of chest discomfort. Was admitted here until yesterday where he was treated with IV lasix for acute on chronic systolic heart failure with repiratory failure. His Echo shows global hypokinesis of the left ventricle and moderate concentric left ventricular hypertrophy with an EF of 20-25%. Palliative care saw him during his hospital course however he and family refused hospice services prior to being discharged home. Overnight the patient developed again chest pain, and shortness of breath with minimal ADLs. Pulse ox was dropping down into the 70s. In the ER pt was treated with isosorbide mononitrate and dose of lasix. He is currently on 10 L of O2 and feels better with this supportive care. Allergies Allergy/AdvReac Type Severity Reaction Status Date / Time hydromorphone Allergy Intermediate HIVES Verified 06/25/22 15:50 meperidine Allergy Intermediate HIVES Verified 06/25/22 15:50 morphine Allergy Intermediate HIVES Verified 06/25/22 15:50 lisinopril AdvReac Intermediate COUGH Verified 06/25/22 15:50 Home Medications Medication Instructions Recorded Confirmed Type aspirin 81 mg tablet,delayed 81 mg PO DAILY 09/17/18 06/25/22 History release ([place] Low Dose Aspirin) atorvastatin 40 mg tablet (Lipitor) 40 mg PO DAILY 09/17/18 06/25/22 History cholecalciferol (vitamin D3) 50 2,000 unit PO DAILY 09/17/18 06/25/22 History mcg (2,000 unit) tablet pramipexole 0.25 mg tablet 0.25 mg PO HS 09/17/18 06/25/22 History (Mirapex) tamsulosin 0.4 mg capsule 0.8 mg PO QPM 09/17/18 06/25/22 History albuterol sulfate 90 mcg/actuation 2 inha inhalation QID PRN 09/28/18 06/25/22 Rx aerosol inhaler shortness of breath or wheezing #1 g nitroglycerin 0.4 mg sublingual 0.4 mg sublingual DIRECTED PRN 12/13/19 06/25/22 History tablet (Nitrostat) Chest Pain amlodipine 2.5 mg tablet 2.5 mg PO DAILY 06/21/22 06/25/22 History buprenorphine 10 mcg/hour weekly 10 mcg transdermal WK 06/21/22 06/25/22 History transdermal patch cyanocobalamin (vitamin B-12) 1,000 mcg sublingual DAILY 06/21/22 06/25/22 History 1,000 mcg sublingual tablet iron,carbonyl 65 mg-vitamin C 125 1 tab PO DAILY 06/21/22 06/25/22 History mg tablet,delayed release (Vitron-C) isosorbide mononitrate 60 mg 60 mg PO DAILY 06/21/22 06/25/22 History tablet,extended release 24 hr metolazone 2.5 mg tablet 2.5 mg PO WK 06/21/22 06/25/22 History metoprolol succinate 100 mg 100 mg PO DAILY 06/21/22 06/25/22 History tablet,extended release 24 hr oxycodone 5 mg tablet 5 mg PO Q6H PRN Pain 06/21/22 06/25/22 History potassium chloride 10 mEq 10 meq PO DAILY 06/21/22 06/25/22 History capsule,extended release prednisone 10 mg tablet 20 mg PO DAILY 06/21/22 06/25/22 History buprenorphine HCl 2 mg sublingual 2 mg sublingual Q6H PRN for 06/24/22 06/25/22 Rx tablet breakthrough dyspnea/ respiratory distress #5 tabs guaifenesin 200 mg tablet 200 mg PO Q8H #15 tabs 06/24/22 06/25/22 Rx torsemide 20 mg tablet 20 mg PO DAILY #30 tabs 06/24/22 06/25/22 Rx Past Med/Surg History Medical History (Updated 06/25/22 @ 16:13 by Jennifer Lees PA-C) MARGARET inhibitor intolerance Advanced care planning/counseling discussion BPH (benign prostatic hyperplasia) CAD (coronary artery disease) Carotid stenosis CHF (congestive heart failure) CKD (chronic kidney disease) stage 3, GFR 30-59 ml/min COPD (chronic obstructive pulmonary disease) Dyslipidemia Dyspnea and respiratory abnormalities GERD (gastroesophageal reflux disease) HTN (hypertension) LBBB (left bundle branch block) Lumbago Palliative care encounter Pericardial effusion PMR (polymyalgia rheumatica) Small bowel obstruction due to adhesions Surgical History Biventricular automatic implantable cardioverter defibrillator in situ 06/25/2017 [facility] H/O heart artery stent "left subclavian stent for occlusion with front runner catheter, Dr Retana 04/23" History of back surgery cervical and lumbar History of carotid endarterectomy Left CEA with patch 10/25/2006 History of cholecystectomy History of coronary artery bypass graft x 1 BENÍTEZ to LAD History of inguinal hernia repair History of open heart surgery History of tonsillectomy Family History Father Coronary heart disease, Onset Age: 51 Mother Stroke Social History Smoking Status: Former smoker packs per day: 1.5; Hx Alcohol Use: No Hx Substance Use: No Preferred Language: Maltese Communication Ability: Impaired Hands And Dial Inspector Required: No Beliefs That Will Affect Care: None marital status: Current Living Situation: Spouse current occupational status: retired and disabled Feels Safe at Home: Yes Assistive Devices: Cane Results & Data Results & Data ([facility]) Vital Signs (Past 12 Hours) Vital Signs Temp Pulse Pulse Resp BP BP Pulse Ox 06/25/22 15:20 61 10 L 92 06/25/22 15:10 60 13 92 06/25/22 15:00 63 17 92 06/25/22 15:00 133/58 L 06/25/22 14:50 61 17 91 06/25/22 14:40 63 26 H 93 06/25/22 14:31 115/63 06/25/22 14:31 78 19 71 L 06/25/22 14:30 71 23 76 L 06/25/22 14:20 62 17 93 06/25/22 14:10 61 12 92 06/25/22 14:00 65 14 88 L 06/25/22 14:00 131/73 06/25/22 13:50 64 18 93 06/25/22 13:40 65 17 94 06/25/22 13:30 67 23 06/25/22 13:30 136/56 L 06/25/22 13:29 69 22 94 06/25/22 13:29 70 21 138/71 94 06/25/22 13:09 36.4 C L 72 22 152/76 H 93 O2 Del Method 06/25/22 15:20 06/25/22 15:10 06/25/22 15:00 06/25/22 15:00 06/25/22 14:50 06/25/22 14:40 06/25/22 14:31 06/25/22 14:31 06/25/22 14:30 06/25/22 14:20 06/25/22 14:10 06/25/22 14:00 06/25/22 14:00 06/25/22 13:50 06/25/22 13:40 06/25/22 13:30 06/25/22 13:30 06/25/22 13:29 06/25/22 13:29 Room Air 06/25/22 13:09 Room Air
--- NOTE | 2022-06-25 16:45 | History & Physical Report ---
Date of Service June 25, 2022 Assessment & Plan (1) Chest pain: (2) Acute on chronic heart failure with reduced ejection fraction and diastolic dysfunction: (3) Acute and chronic respiratory failure with hypoxia: (4) Ischemic cardiomyopathy: (5) HTN (hypertension): (6) COPD (chronic obstructive pulmonary disease): (7) Elevated troponin: (8) Goals of care, counseling/discussion: Plan Chest Pain: HFrEF: Ischemic Cardiomyopathy: HTN: Elevated Troponin: Admit to tele Cardiac biomarkers : 86.9-->89.5, not much different from baseline from few days ago EKG reviewed as above 2 D echo from 06/21/22 showing LV systolic function severely reduced, EF of 20- 25%, moderate concentric left ventricular hypertrophy, severe global hypokinesis of the left ventricular, diastolic dysfunction, grade III, consistent with markedly increased left atrial pressure. Moderate MR, mild to moderate Tricuspid regurg, pulm pressure est of 55 mmHg Pt wants to defer additional diagnostic testing PT/OT deferred Continue buprenorphine transdermal patch and sublingual along with oxycodone COPD: Acute on Chronic respiratory failure with hypoxia: CXR showedcardiomegaly with pulmonary edema and emphysema duoneb QID with Q2 PRN Continue prednisone 20mg IV daily weight and I/O monitoring Continue Buprinorphine for dyspnea and SOB PRN symptom management Will transition to PO torsemide on discharge 2 step done previously; would benefit from hospice supplemental O2 for symptom management and support Palliative Medicine consultation placed; was involved previous admission. Clinically improved. No signs of secretions at this time that would benefit from any anticholinergics. Goals of Care Counseling/discussion Previous palliative medicine consultation and family meeting reviewed. Patient was quite resistant to home palliative medicine services or any consideration of hospice services. It appears that he needed to return home to see how he did prior to declining again. He states he recognizes his limitations. Lengthy conversation held with the patient at bedside regarding previous palliative medicine encounters. I directly asked the patient if he was fearful of his dying process and he stated that he is not. He said that he has received first rights and has minimal regrets from his personal life. 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 He states that he was before and has 2 kids with each marriage however his initial 2 children or estranged from him which has caused some angst over the last year as he processes his life. We had lengthy discussion about if he knew that his time was limited with life how he would want that time spent. I asked him if he felt that he was losing control of everything around him and he replied that he felt that was true. I explained that going home with hospice support could provide him with a chance to take control back of how he would like the end of his life to look. We discussed hospice care at length and what that entails. I asked him if he would be receptive to speaking with somebody from hospice directly to provide overview on the detailed process that occurs in the home. I confirmed that he would not have to select any specific hospice as it is his choice for any hospice selection. I also was clear that if he did make the decision to return home with hospice that if it did not meet his or his families expectations that he could always revoke and seek more aggressive care. I spoke with the patients over the phone [phone] and spoke at length regarding hospice care. She said that she has been talking to some friends and getting some recommendations and is in support of speaking with a buyer liaison. Will ask for assistance from Case Management to assist with arrangement of hospice conversation/referral. had mentioned [facility] was recommended to her by a friend who had a family member in their care. For now, continue with supportive treatment, including AM labs, diuretics, nebulizers, etc. Avoid cardiology consultation, further diagnostic testing, etc with a goal for the patient to return home with Hospice services, hopefully tomorrow 06/26. Pt confirmed DNR/DNI. Should patient significantly decline overnight, discuss full transition to comfort measures only. Disposition: PCP: Dr. Cardona Code Status: DNR/DNI VTE Prophylaxis: Teds/SCDs for now A total of 78 minutes was spent with greater than 50% of that time personally reviewing all current laboratory work and diagnostic imaging studies obtained in the ED. Additionally, I was able to review the patients past medication reconciliation and history with direct visualization in the patients chart. Included in the time above, a portion of that time was spent assessing the patient while discussing and collaborating with specialists, if necessary, and making medical decisions regarding orders to be placed. All of the aforementioned completed while collaborating with Dr. Morales for a full treatment plan. Please see his addendum for further details. History of Present Illness Chief Complaint: chest pain Primary Care Provider: Macije Cardona MD Mr. Santana is [id number] male who presented to the [facility] after being discharged yesterday afternoon where he was admitted for end-stage heart failure. Today, he came to the hospital with chest pain and SOB. He has a PMH of HLD, hyperparathyroidism, pulmonary emphysema, COPD, AAA, CKD stage IIIb, HTN, ischemic cardiomyopathy, presence of automatic cardioverter/defibrillator and pacemaker [it has been turned off], end-stage heart failure, protein calorie malnutrition, PMR on a steroid, follows palliative care outpatient presented to the ED 06/21 with complaint of chest discomfort. Was admitted here until yesterday where he was treated with IV lasix for acute on chronic systolic heart failure with repiratory failure. His Echo shows global hypokinesis of the left ventricle and moderate concentric left ventricular hypertrophy with an EF of 20-25%. Palliative care saw him during his hospital course however he and family refused hospice services prior to being discharged home. Overnight the patient developed again chest pain, and shortness of breath with minimal ADLs. Pulse ox was dropping down into the 70s just prior to him coming into the hospital. In the Emergency room, he was given a dose of Lasix and was placed on supplemental O2; currently 10L, now down to 2LNC. The patient was AAOx4 and was able to have a full meaningful conversation and was in no apparent distress. He had some expiratory wheezes on exam ad bilateral +2 LE swelling. Patient denies TREVIZO, dizziness, SOB, CP, palpitations, N/V/D, recent falls or trauma. He states that he sleeps in his recliner at home. Lengthy conversation held with the patient at bedside regarding previous palliative medicine encounters. I directly asked the patient if he was fearful of his dying process and he stated that he is not. He said that he has received first rights and has minimal regrets from his personal life. 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 He states that he was before and has 2 kids with each marriage however his initial 2 children or estranged from him which has caused some angst over the last year as he processes his life. We had lengthy discussion about if he knew that his time was limited with life how he would want that time spent. I asked him if he felt that he was losing control of everything around him and he replied that he felt that was true. I explained that going home with hospice support could provide him with a chance to take control back of how he would like the end of his life to look. We discussed hospice care at length and what that entails. I asked him if he would be receptive to speaking with somebody from hospice directly to provide overview on the detailed process that occurs in the home. I confirmed that he would not have to select any specific hospice as it is his choice for any hospice selection. I also was clear that if he did make the decision to return home with hospice that if it did not meet his or his families expectations that he could always revoke and seek more aggressive care. I spoke with the patients over the phone [phone] and spoke at length regarding hospice care. She said that she has been talking to some friends and getting some recommendations and is in support of speaking with a buyer liaison. For now, continue with supportive treatment, including AM labs, diuretics, nebulizers, etc. Avoid cardiology consultation, further diagnostic testing, etc with a goal for the patient to return home with Hospice services, hopefully tomorrow 06/26. Pt confirmed DNR/DNI. A total of 88 minutes was spent with greater than 50% of that time personally reviewing all current laboratory work and diagnostic imaging studies obtained in the ED. Additionally, I was able to review the patients past medication reconciliation and history with direct visualization in the patients chart. Included in the time above, a portion of that time was spent assessing the patient while discussing and collaborating with specialists, if necessary, and making medical decisions regarding orders to be placed. All of the afore mentioned completed while collaborating with Dr. Morales for a full treatment plan. Please see his addendum for further details. Allergies Allergy/AdvReac Type Severity Reaction Status Date / Time hydromorphone Allergy Intermediate HIVES Verified 06/25/22 15:50 meperidine Allergy Intermediate HIVES Verified 06/25/22 15:50 morphine Allergy Intermediate HIVES Verified 06/25/22 15:50 lisinopril AdvReac Intermediate COUGH Verified 06/25/22 15:50 Home Medications Medication Instructions Recorded Confirmed Type aspirin 81 mg tablet,delayed 81 mg PO DAILY 09/17/18 06/25/22 History release ([place] Low Dose Aspirin) atorvastatin 40 mg tablet (Lipitor) 40 mg PO DAILY 09/17/18 06/25/22 History cholecalciferol (vitamin D3) 50 2,000 unit PO DAILY 09/17/18 06/25/22 History mcg (2,000 unit) tablet pramipexole 0.25 mg tablet 0.25 mg PO HS 09/17/18 06/25/22 History (Mirapex) tamsulosin 0.4 mg capsule 0.8 mg PO QPM 09/17/18 06/25/22 History albuterol sulfate 90 mcg/actuation 2 inha inhalation QID PRN 09/28/18 06/25/22 Rx aerosol inhaler shortness of breath or wheezing #1 g nitroglycerin 0.4 mg sublingual 0.4 mg sublingual DIRECTED PRN 12/13/19 06/25/22 History tablet (Nitrostat) Chest Pain amlodipine 2.5 mg tablet 2.5 mg PO DAILY 06/21/22 06/25/22 History buprenorphine 10 mcg/hour weekly 10 mcg transdermal WK 06/21/22 06/25/22 History transdermal patch cyanocobalamin (vitamin B-12) 1,000 mcg sublingual DAILY 06/21/22 06/25/22 History 1,000 mcg sublingual tablet iron,carbonyl 65 mg-vitamin C 125 1 tab PO DAILY 06/21/22 06/25/22 History mg tablet,delayed release (Vitron-C) isosorbide mononitrate 60 mg 60 mg PO DAILY 06/21/22 06/25/22 History tablet,extended release 24 hr metolazone 2.5 mg tablet 2.5 mg PO WK 06/21/22 06/25/22 History metoprolol succinate 100 mg 100 mg PO DAILY 06/21/22 06/25/22 History tablet,extended release 24 hr oxycodone 5 mg tablet 5 mg PO Q6H PRN Pain 06/21/22 06/25/22 History potassium chloride 10 mEq 10 meq PO DAILY 06/21/22 06/25/22 History capsule,extended release prednisone 10 mg tablet 20 mg PO DAILY 06/21/22 06/25/22 History buprenorphine HCl 2 mg sublingual 2 mg sublingual Q6H PRN for 06/24/22 06/25/22 Rx tablet breakthrough dyspnea/ respiratory distress #5 tabs guaifenesin 200 mg tablet 200 mg PO Q8H #15 tabs 06/24/22 06/25/22 Rx torsemide 20 mg tablet 20 mg PO DAILY #30 tabs 06/24/22 06/25/22 Rx Past Med/Surg History Medical History MARGARET inhibitor intolerance Advanced care planning/counseling discussion BPH (benign prostatic hyperplasia) CAD (coronary artery disease) Carotid stenosis CHF (congestive heart failure) CKD (chronic kidney disease) stage 3, GFR 30-59 ml/min COPD (chronic obstructive pulmonary disease) Dyslipidemia Dyspnea and respiratory abnormalities GERD (gastroesophageal reflux disease) Goals of care, counseling/discussion HTN (hypertension) LBBB (left bundle branch block) Lumbago Palliative care encounter Pericardial effusion PMR (polymyalgia rheumatica) Small bowel obstruction due to adhesions Surgical History Biventricular automatic implantable cardioverter defibrillator in situ 06/25/2017 [facility] H/O heart artery stent "left subclavian stent for occlusion with front runner catheter, Dr Retana 04/23" History of back surgery cervical and lumbar History of carotid endarterectomy Left CEA with patch 10/25/2006 History of cholecystectomy History of coronary artery bypass graft x 1 BENÍTEZ to LAD History of inguinal hernia repair History of open heart surgery History of tonsillectomy Family History Father Coronary heart disease, Onset Age: 51 Mother Stroke Social History Smoking Status: Former smoker packs per day: 1.5; Hx Alcohol Use: No Hx Substance Use: No Preferred Language: Setswana Communication Ability: Impaired Outpatient Coding Specialist Required: No Beliefs That Will Affect Care: None marital status: Current Living Situation: Spouse current occupational status: retired and disabled Feels Safe at Home: Yes Assistive Devices: Cane Review of Systems Review of Systems: Neuro: (-) Falls, trauma, slurred speech HEENT: (-) TREVIZO, dizziness, dysphagia, visual or auditory changes CV: (-) CP, palpitations, swelling Resp: (-) SOB GI: (-) appetite changes, N/V/D, bowel changes : (-) urinary changes Skin: (-) rashes Psych: (-) anxiety, depression Physical Exam Physical Exam: Neuro: AAOx4, PERRLA, no aphagia, memory changes, CNII-XII grossly intact HEENT: head normocephalic, moist mucus membranes CV: S1/S2, aed (-) M/G/R, (+) edema, cap refill < 3 seconds Resp: Lungs CTA in all rice. On 2LNC GI: Abdomen S/NT/ND, Ax4 bowel sounds, (-) CVA tenderness Musculoskeletal: 5/5 B/L UE strength, 5/5 B/L LE strength. No gait disturbance Skin: (-) rashes , (-) erythema. Skin leather.y Psych: euthymic mood Results & Data Results & Data ([facility]) Vital Signs (Past 12 Hours) Vital Signs Temp Pulse Pulse Resp BP BP Pulse Ox 06/25/22 16:10 70 25 H 99 06/25/22 16:10 136/56 L 06/25/22 16:00 70 17 90 06/25/22 16:00 132/57 L 06/25/22 15:50 62 18 92 06/25/22 15:40 65 23 92 06/25/22 15:30 70 27 H 85 L 06/25/22 15:30 117/57 L 06/25/22 15:20 61 10 L 92 06/25/22 15:10 60 13 92 06/25/22 15:00 63 17 92 06/25/22 15:00 133/58 L 06/25/22 14:50 61 17 91 06/25/22 14:40 63 26 H 93 06/25/22 14:31 115/63 06/25/22 14:31 78 19 71 L 06/25/22 14:30 71 23 76 L 06/25/22 14:20 62 17 93 06/25/22 14:10 61 12 92 06/25/22 14:00 65 14 88 L 06/25/22 14:00 131/73 06/25/22 13:50 64 18 93 06/25/22 13:40 65 17 94 06/25/22 13:30 67 23 06/25/22 13:30 136/56 L 06/25/22 13:29 69 22 94 06/25/22 13:29 70 21 138/71 94 06/25/22 13:09 36.4 C L 72 22 152/76 H 93 O2 Del Method O2 Flow Rate 06/25/22 16:10 Nasal Cannula 2 06/25/22 16:10 06/25/22 16:00 06/25/22 16:00 06/25/22 15:50 06/25/22 15:40 06/25/22 15:30 06/25/22 15:30 06/25/22 15:20 06/25/22 15:10 06/25/22 15:00 06/25/22 15:00 06/25/22 14:50 06/25/22 14:40 06/25/22 14:31 06/25/22 14:31 06/25/22 14:30 06/25/22 14:20 06/25/22 14:10 06/25/22 14:00 06/25/22 14:00 06/25/22 13:50 06/25/22 13:40 06/25/22 13:30 06/25/22 13:30 06/25/22 13:29 06/25/22 13:29 Room Air 06/25/22 13:09 Room Air Laboratory Results Short CBC 06/25/22 Range/Units 13:12 WBC 6.89 (4.8-10.8) K/ul Hgb 11.9 L (14.0-18.0) g/dl Hct 36.8 L (40.1-51.0) % Plt Count 156 (130-400) K/uL BMP 06/25/22 13:12 Sodium 139 Potassium 3.6 Chloride 101 Carbon Dioxide 32 BUN 88 H Creatinine 2.01 H Glucose 88 Calcium 8.4 L Liver Function 06/25/22 Range/Units 13:12 Total Bilirubin 1.1 H (0.2-1.0) mg/dl AST 28 (13-39) U/L ALT 22 (7-52) U/L Alkaline Phosphatase 57 (34-104) U/L Albumin 3.1 L (3.4-5.0) gm/dl Diagnostic Findings Chest X-Ray 06/25/22 13:09 SINGLE VIEW CHEST CLINICAL HISTORY: Atypical chest pain. FINDINGS: An AP, portable, upright chest radiograph is compared to study dated 06/21/2022. A 3-lead cardiac AICD is unchanged in position and partially obscures the right mid chest. The heart is enlarged noting atherosclerotic calcification of the thoracic aorta. There is pulmonary vascular congestion. Bilateral airspace opacities likely represent interstitial edema. Emphysema and chronic interstitial thickening is similar to previous. Scarring/atelectasis is noted at the lung bases. No large pleural effusion or pneumothorax is seen. The skeletal structures are osteopenic. The bony thorax is grossly intact. IMPRESSION: 1. Cardiomegaly and AICD with evidence of congestive failure. 2. Bilateral airspace opacities likely represent mild pulmonary edema. Correlate clinically for evidence of a superimposed infectious/inflammatory pneumonitis. 3. Emphysema. ACT 112: Negative or not required by law. Electronically signed by: Dane Lund M.D. 06/25/2022 1:30 PM Code Status & VTE Plan Code Status DNR/DNI in the event of cardiac or respiratory arrest VTE Prophylaxis Plan VTE Prophylaxis will be ordered: Yes Supervising Physician Co-Signing Physician Notes Patient is a 76-year-old male with history of advanced CHF, COPD and other medical problems who was recently discharged after being hospitalized for acute exacerbation of CHF, acute respiratory failure with hypoxia presents with history of worsening shortness of breath, and chest pain with minimal ADLs. He was noted to have pulse ox in the 90s when checked at home which brought him to the hospital. Please review HPI for complete details of presentation. During my discussion, patient understands that his heart failure is end-stage and knows that his prognosis is very poor. His goal of care is more comfort. He prefers no aggressive heroic measures and confirms that he is DNI/DNR. He prefers to discuss with palliative care and eventually transition to hospice. Blood work, imaging studies reviewed. He feels much comfortable after receiving IV Lasix while in ED. Chest x-ray suggestive of CHF, COPD and possible pneumonitis. Patient denies any significant cough. On exam patient is chronically appearing, no apparent distress, normocephalic atraumatic, EOMI, decreased breath sounds, basal crackles, S1-S2,+ murmur, abdomen soft, nontender, normal bowel sounds, alert, awake, oriented, grossly no focal deficits, 2-3+ bilateral lower extremity edema present. Patient is admitted for management of acute on chronic systolic and diastolic heart failure. We will hold p.o. diuretics and start on IV Lasix. Monitor I's and O's, daily weight, supplemental oxygen as needed. Consulted palliative for further input. Troponin elevation-chronic, demand ischemia secondary to CHF. I personally reviewed the record. Patient is interviewed and examined at bedside. Patient's care is coordinated with Yvonne SHELL. Please refer to the documentation above for details of patient's presentation and for discussion of other issues.
[2022-06-25] MEDS ORDERED: ALBUTEROL HFA 8 GM INHALER INH PRN (17:44)
[2022-06-25] MEDS ORDERED: buprenorphine HCL 2 MG SUBL SL PRN (17:44)
[2022-06-25] MEDS ORDERED: oxyCODONE HCL IR 5 MG TAB (IMMEDIATE RELEASE) PO PRN (17:44)
[2022-06-25] MEDS: guaiFENesin 200 MG TAB PO SCH (20:07)
[2022-06-25] MEDS: FUROSEMIDE 40 MG/4 ML VIAL IV SCH (20:09)
[2022-06-25] MEDS ORDERED: ALBUTEROL 0.083% NEBU SOLN 3 ML VIAL NEB PRN (20:11)
[2022-06-25] MEDS ORDERED: PRAMIPEXOLE DIHYDROCHLO 0.25 MG TAB PO SCH (21:00)
[2022-06-25] MEDS ORDERED: TAMSULOSIN HCL 0.4 MG CAP PO SCH (21:00)
[2022-06-25] MEDS ORDERED: ALBUTEROL 0.083% NEBU SOLN 3 ML VIAL NEB SCH (21:00)
[2022-06-25] MEDS: HEPARIN SOD 5,000 UNIT/0.5 ML VIAL SQ SCH (21:11)
[2022-06-26] MEDS: guaiFENesin 200 MG TAB PO SCH ×3 (03:26→13:39)
[2022-06-26 05:09] LABS: Hematocrit (blood only) 33.7 % (40.1-51.0); Hemoglobin 11.1 g/dl (14.0-18.0); Mean Corpuscular Hemoglobin 31.2 pg (25.0-34.0); Mean Corpuscular Hgb Conc 32.9 g/dL (32.0-36.0); Mean Corpuscular Volume 94.7 fL (80.0-100.0); Mean Platelet Volume 10.2 fL (9.4-12.4); Platelet Count 139 K/uL (130-400); RDW Coefficient of Variation 13.6 % (11.5-14.5); RDW Standard Deviation 47.6 fL (36.4-46.3); Red Blood Count 3.56 M/uL (4.63-6.08); White Blood Count 7.46 K/ul (4.8-10.8)
[2022-06-26 05:35] LABS: BUN Creatinine Ratio 40.7 (10-20); Calcium 7.9 mg/dl (8.5-10.1); Creatinine Clr Calc Pharmacy 24.4 ml/min; Est GFR (African American) 31.7 ml/min; Est GFR (Non-African American) 27.4 ml/min; Magnesium 2.1 mg/dl (1.7-2.4); Potassium 4.1 mmol/L (3.5-5.1)
--- NOTE | 2022-06-26 05:43 | Electrocardiogram Report ---
Test Reason : Blood Pressure : / mmHG Vent. Rate : 069 BPM Atrial Rate : 069 BPM P-R Int : 158 ms QRS Dur : 158 ms QT Int : 466 ms P-R-T Axes : 119 -58 132 degrees QTc Int : 499 ms Atrial-sensed ventricular-paced rhythm with occasional AV dual-paced complexes Abnormal ECG When compared with ECG of 21-JUN-2022 03:04, No significant change was found Confirmed by Declan Frederick ([id number]) on 06/26/2022 5:42:40 AM Referred By: REFERRED SELF Confirmed By:Declan Frederick
[2022-06-26] MEDS: FUROSEMIDE 40 MG/4 ML VIAL IV SCH (08:38)
[2022-06-26] MEDS: HEPARIN SOD 5,000 UNIT/0.5 ML VIAL SQ SCH (08:39)
[2022-06-26] MEDS ORDERED: ATORVASTATIN 40 MG TAB PO SCH (09:00)
[2022-06-26] MEDS ORDERED: POTASSIUM CHLORIDE 10 MEQ TABCR PO SCH (09:00)
[2022-06-26] MEDS ORDERED: metOLazone 2.5 MG TABLET PO SCH (09:00)
[2022-06-26] MEDS ORDERED: ASPIRIN 81 MG ECTAB PO SCH (09:00)
[2022-06-26] MEDS ORDERED: predniSONE 20 MG TAB PO SCH (09:00)
[2022-06-26] MEDS ORDERED: amLODIPine BESYLATE 5 MG TAB PO SCH (09:00)
[2022-06-26] MEDS ORDERED: ISOSORBIDE MONO EXTENDED REL 60 MG TABCR PO SCH (09:00)
[2022-06-26] MEDS ORDERED: METOPROLOL SUCC 50MG EXT REL TAB PO SCH (09:00)
--- NOTE | 2022-06-26 09:01 | Communication Note ---
Date of Service: June 26, 2022 Palliative Medicine consult received/chart reviewed: Patient and family are seeking dc home today with hospice, has asked [facility] based on re commendation from friends. I saw him <48 hr ago and had a lengthy family meeting. There is no acute Inpatient palliative medicine need for this patient with a clear disposition plan and desire for home dc with hospice today. Palliative Medicine will therefore decline the consult, care mgt will assist with hospice referral/discharge planning as per routine protocols. I have updated primary team and CM. Patient's hospice attending will be his PCP. His cardiac failure will be his hospice dx. Patient NOT seen. NO charge submitted. Chart reviewed/coordination of care and communication with teams: total time 12min Daphnie Velásquez DNP Clinical Director, Palliative Medicine
--- NOTE | 2022-06-26 14:08 | Discharge Summary ---
Date of Service June 26, 2022 Admission HPI Per Admitting Provider Mr. Santana is [id number] male who presented to the [facility] after being discharged yesterday afternoon where he was admitted for end-stage heart failure. Today, he came to the hospital with chest pain and SOB. He has a PMH of HLD, hyperparathyroidism, pulmonary emphysema, COPD, AAA, CKD stage IIIb, HTN, ischemic cardiomyopathy, presence of automatic cardioverter/defibrillator and pacemaker [it has been turned off], end-stage heart failure, protein calorie malnutrition, PMR on a steroid, follows palliative care outpatient presented to the ED 06/21 with complaint of chest discomfort. Was admitted here until yesterday where he was treated with IV lasix for acute on chronic systolic heart failure with repiratory failure. His Echo shows global hypokinesis of the left ventricle and moderate concentric left ventricular hypertrophy with an EF of 20- 25%. Palliative care saw him during his hospital course however he and family refused hospice services prior to being discharged home. Overnight the patient developed again chest pain, and shortness of breath with minimal ADLs. Pulse ox was dropping down into the 70s just prior to him coming into the hospital. In the Emergency room, he was given a dose of Lasix and was placed on supplemental O2; currently 10L, now down to 2LNC. The patient was AAOx4 and was able to have a full meaningful conversation and was in no apparent distress. He had some expiratory wheezes on exam ad bilateral +2 LE swelling. Patient denies TREVIZO, dizziness, SOB, CP, palpitations, N/V/D, recent falls or trauma. He states that he sleeps in his recliner at home. Lengthy conversation held with the patient at bedside regarding previous palliative medicine encounters. I directly asked the patient if he was fearful of his dying process and he stated that he is not. He said that he has received first rights and has minimal regrets from his personal life. 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 He states that he was before and has 2 kids with each marriage however his initial 2 children or estranged from him which has caused some angst over the last year as he pr ocesses his life. We had lengthy discussion about if he knew that his time was limited with life how he would want that time spent. I asked him if he felt that he was losing control of everything around him and he replied that he felt that was true. I explained that going home with hospice support could provide him with a chance to take control back of how he would like the end of his life to look. We discussed hospice care at length and what that entails. I asked him if he would be receptive to speaking with somebody from hospice directly to provide overview on the detailed process that occurs in the home. I confirmed that he would not have to select any specific hospice as it is his choice for any hospice selection. I also was clear that if he did make the decision to return home with hospice that if it did not meet his or his families expectations that he could always revoke and seek more aggressive care. I spoke with the patients over the phone [phone] and spoke at length regarding hospice care. She said that she has been talking to some friends and getting some recommendations and is in support of speaking with a education liaison. For now, continue with supportive treatment, including AM labs, diuretics, nebulizers, etc. Avoid cardiology consultation, further diagnostic testing, etc with a goal for the patient to return home with Hospice services, hopefully tomorrow 06/26. Pt confirmed DNR/DNI. Principal Diagnosis Acute on chronic systolic CHF Acute hypoxic respiratory failure Goals of Care Discussion Discharge Exam Appears older than stated age, thin, frail, cachetic Respiratory Breathing comfortably on NC, no accessory muscle use Neurologic awake, alert Psychiatric affect normal, speech linear Discharge Data Allergies Allergy/AdvReac Type Severity Reaction Status Date / Time hydromorphone Allergy Intermediate HIVES Verified 06/25/22 15:50 meperidine Allergy Intermediate HIVES Verified 06/25/22 15:50 morphine Allergy Intermediate HIVES Verified 06/25/22 15:50 lisinopril AdvReac Intermediate COUGH Verified 06/25/22 15:50 Consultations 06/25/22 16:05 ED Decision to Admit Stat 06/25/22 16:21 Consult Palliative Care Routine Hospital Course (1) Chest pain: (2) Acute on chronic heart failure with reduced ejection fraction and diastolic dysfunction: (3) Acute and chronic respiratory failure with hypoxia: (4) Ischemic cardiomyopathy: (5) HTN (hypertension): (6) COPD (chronic obstructive pulmonary disease): (7) Elevated troponin: (8) Goals of care, counseling/discussion: Plan Mr Og Santana is a 77 year old man with history of end stage heart failure was recently discharged from the hospital 06/24/2022 for acute on chronic systolic CHF. During that hospitalization, the was seen by palliative care but at that time he and his family were not yet ready for hospice. He was eventually discharged home on 06/24/22 but came back to the ER 06/25/22 for worsening shortness of breath. He was found to again have acute on chronic systolic CHF exacerbation and acute hypoxic respiratory failure. On this readmission, he requested to be initiated on home hospice and this was set up for him prior to discharge back home. Total Time Total Time Spent Total Time Spent (In Minutes): 35 Discharge Plan Discharge Items Patient Disposition: Hospice - Home Reason For Visit: CHF EXACERBATION, HYPOXIA Discharge Diagnosis: Acute on chronic systolic CHF Acute hypoxic respiratory failure Goals of Care counseling Condition on Discharge: Fair Activity: Resume your previous activity Non-emergency contact: Primary Care Provider Call non-emergency contact if: you have any medication questions Follow-up/Referrals: Maciej Cardona MD [Primary Care Provider] - Diet: Heart Healthy Fluids: 1500ml (6 cups) Addtl Attending Provider Instructions: You will be going home with hospice Please contact your PCP if you have any questions Pending Studies at Discharge: No Stand-Alone Forms: My [facility] Medications and DC Order Prescriptions: New lorazepam [Ativan] 0.5 mg tablet 0.5 mg PO Q12H PRN (Reason: anxiety) Qty: 5 0RF Continued atorvastatin [Lipitor] 40 mg Tablet 40 mg PO DAILY aspirin [[place] Low Dose Aspirin] 81 mg Tablet,Delayed Release (Dr/Ec) 81 mg PO DAILY tamsulosin 0.4 mg Capsule 0.8 mg PO QPM pramipexole [Mirapex] 0.25 mg Tablet 0.25 mg PO HS cholecalciferol (vitamin D3) 2,000 unit Tablet 2,000 unit PO DAILY albuterol sulfate 90 mcg/actuation HFA aerosol inhaler 2 inha INH QID PRN (Reason: shortness of breath or wheezing) Qty: 1 0RF nitroglycerin [Nitrostat] 0.4 mg Tablet, Sublingual 0.4 mg sublingual DIRECTED PRN (Reason: Chest Pain) metolazone 2.5 mg tablet 2.5 mg PO WK Rx Instructions: TAKES ON MONDAYS potassium chloride 10 mEq Capsule, Extended Release 10 meq PO DAILY prednisone 10 mg tablet 20 mg PO DAILY metoprolol succinate 100 mg tablet extended release 24 hr 100 mg PO DAILY amlodipine 2.5 mg Tablet 2.5 mg PO DAILY isosorbide mononitrate 60 mg Tablet Extended Release 24 Hr 60 mg PO DAILY cyanocobalamin (vitamin B-12) 1,000 mcg Tablet, Sublingual 1,000 mcg SUBLINGUAL DAILY oxycodone 5 mg tablet 5 mg PO Q6H PRN (Reason: Pain) buprenorphine 10 mcg/hour patch weekly 10 mcg transdermal WK Vitron-C 65 mg iron- 125 mg Tablet,Delayed Release (Dr/Ec) 1 tab PO DAILY guaifenesin 200 mg Tablet 200 mg PO Q8H Qty: 15 0RF torsemide 20 mg tablet 20 mg PO DAILY Qty: 30 0RF buprenorphine HCl 2 mg Tablet, Sublingual 2 mg sublingual Q6H PRN (Reason: for breakthrough dyspnea/ respiratory distress) Qty: 5 0RF Rx Instructions: Please hold for lethargy and drowsiness Discharge Orders: Discharge Order (Routine); Ordered 06/26/22 Ordered By: Meghan Mora Admission Data Admit Date/Time: 06/25/22 16:21 Attending Provider: Meghan Mora Admit Provider: Gage Morales Primary Care Provider: Maciej Cardona Other Providers: Gage Morales ; Karishma Espino ; [facility]
--- NOTE | 2022-06-26 16:06 | Electrocardiogram Report ---
Test Reason : Blood Pressure : / mmHG Vent. Rate : 071 BPM Atrial Rate : 075 BPM P-R Int : 000 ms QRS Dur : 188 ms QT Int : 532 ms P-R-T Axes : 000 -76 147 degrees QTc Int : 578 ms AV dual-paced rhythm with occasional Premature ventricular complexes Abnormal ECG When compared with ECG of 25-JUN-2022 13:07, Premature ventricular complexes are now Present Vent. rate has increased BY 2 BPM Confirmed by Quinn Whitten ([id number]) on 06/26/2022 4:06:14 PM Referred By: REFERRED SELF Confirmed By:Quinn Whitten
[2022-06-29] MEDS ORDERED: BUPRENORPHINE 5 MCG/HR TDSY TD SCH (09:00)
[2022-06-29] MEDS ORDERED: metOLazone 2.5 MG TABLET PO SCH (09:00)
== END 2022-06-26 17:35 | disposition hospice, home (50) | DRG 291 ==
LOC: ED 13:03 → SUATTDRO 16:21 → EDINP 16:21

== ENCOUNTER 2022-10-02 21:49 | Inpatient (IN) ==
[2022-10-02] MEDS ORDERED: ONDANSETRON INJ 2 MG/ML 2 ML VIAL IV STA (22:21)
[2022-10-02] MEDS ORDERED: fentaNYL citrate PF 100 MCG/2 ML VIAL IV STA (22:21)
[2022-10-02] MEDS ORDERED: cefTRIAXone SODIUM 1,000 MG in DEXTROSE 5% AD-VAN 50 ML IV STA (22:26)
[2022-10-02 23:02] LABS: Hematocrit (blood only) 26.9 % (42.0-52.0); Hemoglobin 8.5 g/dl (14.0-18.0); Mean Corpuscular Hemoglobin 29.5 pg (25.0-34.0); Mean Corpuscular Hgb Conc 31.6 g/dL (32.0-36.0); Mean Corpuscular Volume 93.4 fL (80.0-100.0); Mean Platelet Volume 10.2 fL (9.4-12.4); Platelet Count 218 K/uL (130-400); RDW Coefficient of Variation 15.3 % (11.5-14.5); RDW Standard Deviation 51.8 fL (36.4-46.3); Red Blood Count 2.88 M/uL (4.70-6.10)
--- NOTE | 2022-10-02 23:13 | XRay Report ---
SINGLE VIEW CHEST CLINICAL HISTORY: Sepsis. FINDINGS: An AP, portable, upright chest radiograph is compared to study dated 06/25/2022. The patient is status post midline sternotomy. A 3-lead cardiac AICD is unchanged in position and partially obscu res the right upper chest. The heart is enlarged noting atherosclerotic calcification of the thoracic . There is mild pulmonary vascular congestion. Scarring/atelectasis is noted at the lung bases. No ai rspace consolidation or large pleural effusion is identified. No pneumothorax is seen. The skeletal s tructures are osteopenic. The bony thorax is grossly intact. IMPRESSION: Cardiomegaly and AICD with pulmonary vascular congestion. ACT 112: Negative or not required by law. Electronically signed by: Dane Lund M.D. 10/02/2022 11:10 PM
--- NOTE | 2022-10-02 23:14 | XRay Report ---
RIGHT TIBIA AND FIBULA 2 VIEWS CLINICAL HISTORY: Right leg pain. FINDINGS: AP and crosstable lateral views of the right tibia and fibula are obtained. No prior studie s are available for comparison at the time of dictation. The skeletal structures are osteopenic. Ther e is no radiographic evidence of right tibial or fibular fracture. The knee and ankle joints are mimi sly maintained. There is generalized atrophy of the lower extremity soft tissues. Atherosclerotic wesley cification is noted in the regional arteries. Mild soft tissue swelling is suggested around the ankle . IMPRESSION: No acute bony abnormality is identified. Electronically signed by: Dane Lund M.D. 10/02/2022 11:12 PM
[2022-10-02 23:33] LABS: Appearance Urine Clear (Clear); Bilirubin Urine Negative (Negative); Blood Urine Negative (Negative); Color Urine Yellow; Glucose Urine UA Negative (Negative); Ketones Urine Negative (Negative); Leukocyte Esterase Urine Negative (Negative); Nitrite Urine Negative (Negative); Protein Urine Negative (Negative); Specific Gravity Urine 1.014 (1.000-1.030); Urobilinogen Urine Negative (Negative)
[2022-10-02 23:37] LABS: Acanthocytes 1+; Basophils # (auto) 0.01 K/uL (0-0.2); Basophils % (auto) 0.1 %; Immature Granulocytes # (auto) 0.06 K/uL (0.01-0.20); Immature Granulocytes % (auto) 0.4 %; Lymphocytes # (auto) 0.38 K/uL (1.2-3.4); Lymphocytes % (auto) 2.5 %; Monocytes # (auto) 0.78 K/uL (0.11-0.59); Monocytes % (auto) 5.2 %; Neutrophils # (auto) 13.77 K/uL (1.40-6.50); Neutrophils % (auto) 91.8 %; Ovalocytes 1+
[2022-10-02] MEDS ORDERED: SODIUM CHLORIDE 0.9% 500 ML IV ONE (23:58)
--- NOTE | 2022-10-03 00:55 | Emergency Department Note ---
History of Present Illness General Chief complaint: Leg Injury/Pain Stated complaint: RIGHT LEG PAIN Time Seen by Provider: 10/02/22 21:57 History of Present Illness Maximum Pain Intensity: 6 This 77-year-old male currently on hospice for end-stage CHF presents to the ER complaining of severe right lower leg pain and generalized weakness. Patient states he bumped his leg the other day and is now red and swollen and infected. They tried to call the hospice nurse but did not get any real response for the treatment. The PCP called in Keflex and patient just finished antibiotics last week for the infection. Patient states he would like to be taken off hospice and would like to be a full code. Home Medications Medication Instructions Recorded Confirmed Type aspirin 81 mg tablet,delayed 81 mg PO DAILY 09/17/18 10/03/22 History release (Lat[place] Low Dose Aspirin) atorvastatin 40 mg tablet (Lipitor) 40 mg PO DAILY 09/17/18 10/03/22 History cholecalciferol (vitamin D3) 50 2,000 unit PO DAILY 09/17/18 10/03/22 History mcg (2,000 unit) tablet pramipexole 0.25 mg tablet 0.25 mg PO HS 09/17/18 10/03/22 History (Mirapex) tamsulosin 0.4 mg capsule 0.8 mg PO QPM 09/17/18 10/03/22 History albuterol sulfate 90 mcg/actuation 2 inha inhalation QID PRN 09/28/18 10/03/22 Rx aerosol inhaler shortness of breath or wheezing #1 g nitroglycerin 0.4 mg sublingual 0.4 mg sublingual DIRECTED PRN 12/13/19 10/03/22 History tablet (Nitrostat) Chest Pain amlodipine 2.5 mg tablet 2.5 mg PO DAILY 06/21/22 10/03/22 History cyanocobalamin (vitamin B-12) 1,000 mcg sublingual DAILY 06/21/22 10/03/22 History 1,000 mcg sublingual tablet iron,carbonyl 65 mg-vitamin C 125 1 tab PO DAILY 06/21/22 10/03/22 History mg tablet,delayed release (Vitron-C) isosorbide mononitrate 60 mg 60 mg PO DAILY 06/21/22 10/03/22 History tablet,extended release 24 hr metolazone 2.5 mg tablet 2.5 mg PO WK 06/21/22 10/03/22 History metoprolol succinate 100 mg 100 mg PO DAILY 06/21/22 10/03/22 History tablet,extended release 24 hr oxycodone 5 mg tablet 5 mg PO Q6H PRN Pain 06/21/22 10/03/22 History potassium chloride 10 mEq 20 meq PO DAILY 06/21/22 10/03/22 History capsule,extended release prednisone 10 mg tablet 20 mg PO DAILY 06/21/22 10/03/22 History lorazepam 0.5 mg tablet (Ativan) 0.5 mg PO Q12H PRN anxiety #5 tabs 06/26/22 10/03/22 Rx fentanyl 50 mcg/hr transdermal 1 patch transdermal Q72H 10/03/22 10/03/22 History patch torsemide 20 mg tablet 20 mg PO QPM 10/03/22 10/03/22 History torsemide 20 mg tablet 40 mg PO QAM 10/03/22 10/03/22 History Allergies Allergy/AdvReac Type Severity Reaction Status Date / Time hydromorphone Allergy Intermediate HIVES Verified 10/03/22 02:18 meperidine Allergy Intermediate HIVES Verified 10/03/22 02:18 morphine Allergy Intermediate HIVES Verified 10/03/22 02:18 lisinopril AdvReac Intermediate COUGH Verified 10/03/22 02:18 Past Med/Surg History Medical History MARGARET inhibitor intolerance Advanced care planning/counseling discussion BPH (benign prostatic hyperplasia) CAD (coronary artery disease) Carotid stenosis CHF (congestive heart failure) CKD (chronic kidney disease) stage 3, GFR 30-59 ml/min COPD (chronic obstructive pulmonary disease) Dyslipidemia Dyspnea and respiratory abnormalities GERD (gastroesophageal reflux disease) Goals of care, counseling/discussion HTN (hypertension) LBBB (left bundle branch block) Lumbago Palliative care encounter Pericardial effusion PMR (polymyalgia rheumatica) Small bowel obstruction due to adhesions Surgical History Biventricular automatic implantable cardioverter defibrillator in situ 06/25/2017 [facility] [place] heart artery stent "left subclavian stent for occlusion with front runner catheter, Dr Retana 04/23" History of back surgery cervical and lumbar History of carotid endarterectomy Left CEA with patch 10/25/2006 History of cholecystectomy History of coronary artery bypass graft x 1 BENÍTEZ to LAD History of inguinal hernia repair History of open heart surgery History of tonsillectomy Family History Father Coronary heart disease, Onset Age: 51 Mother Stroke Social History Smoking Status: Current some day smoker packs per day: 1.5; Second Hand Exposure: Yes; Hx Alcohol Use: No Hx Substance Use: No Preferred Language: Malaysian Communication Ability: Effective Transport Operations Inspector Required: No Beliefs That Will Affect Care: None marital status: Current Living Situation: Spouse current occupational status: retired and disabled Feels Safe at Home: Yes Assistive Devices: Cane and Walker Review of Systems A total of 10 systems reviewed and were otherwise negative Physical Exam Vital Signs Vital Signs - 24 hr 10/02/22 21:53 10/02/22 22:24 10/02/22 23:09 Temperature 36.9 C Temperature Source Temporal Artery Scan Pulse Rate 117 H 101 H 98 H Pulse Rate from SpO2 Sensor Pulse Rhythm Regular Respiratory Rate 20 16 Blood Pressure 104/68 Blood Pressure Mean 80 Pulse Oximetry 93 Oxygen Delivery Method Room Air Sepsis Recent Fever Within 48 Hours No Sepsis New/Unexplained Change in Mental Status N/A Sepsis Action Taken by Nursing No Action Required 10/02/22 22:31 10/02/22 23:10 10/02/22 23:31 Temperature Temperature Source Pulse Rate 98 H 96 H 100 H Pulse Rate from SpO2 Sensor 98 H 98 H 105 H Pulse Rhythm Respiratory Rate 16 16 14 Blood Pressure 106/61 108/89 71/25 L Blood Pressure Mean 76 95 40 Pulse Oximetry 96 98 96 Oxygen Delivery Method Room Air Room Air Room Air Sepsis Recent Fever Within 48 Hours Sepsis New/Unexplained Change in Mental Status Sepsis Action Taken by Nursing 10/02/22 23:45 10/03/22 00:01 10/03/22 00:44 Temperature Temperature Source Pulse Rate 102 H 102 H Pulse Rate from SpO2 Sensor 102 H 102 H Pulse Rhythm Respiratory Rate 12 14 Blood Pressure 72/57 L 83/62 L 107/66 Blood Pressure Mean 62 69 79 Pulse Oximetry 96 100 Oxygen Delivery Method Room Air Room Air Sepsis Recent Fever Within 48 Hours Sepsis New/Unexplained Change in Mental Status Sepsis Action Taken by Nursing 10/03/22 00:46 10/03/22 00:48 10/03/22 01:16 Temperature Temperature Source Pulse Rate 103 H 99 H 105 H Pulse Rate from SpO2 Sensor 101 H 105 H Pulse Rhythm Respiratory Rate 13 12 Blood Pressure 79/53 L 107/66 56/44 L Blood Pressure Mean 61 79 48 Pulse Oximetry 95 93 99 Oxygen Delivery Method Room Air Room Air Room Air Sepsis Recent Fever Within 48 Hours Sepsis New/Unexplained Change in Mental Status Sepsis Action Taken by Nursing 10/03/22 01:17 10/03/22 01:57 10/03/22 01:30 Temperature Temperature Source Pulse Rate 98 H 105 H 102 H Pulse Rate from SpO2 Sensor 97 H 102 H Pulse Rhythm Respiratory Rate 20 Blood Pressure 90/43 L 104/52 L Blood Pressure Mean 58 69 Pulse Oximetry 97 99 Oxygen Delivery Method Room Air Room Air Sepsis Recent Fever Within 48 Hours Sepsis New/Unexplained Change in Mental Status Sepsis Action Taken by Nursing 10/03/22 02:00 10/03/22 02:30 10/03/22 03:00 Temperature Temperature Source Pulse Rate 101 H 100 H 104 H Pulse Rate from SpO2 Sensor 102 H 99 H 103 H Pulse Rhythm Respiratory Rate 14 16 12 Blood Pressure 110/63 100/59 L 106/60 Blood Pressure Mean 78 72 75 Pulse Oximetry 98 100 99 Oxygen Delivery Method Room Air Room Air Room Air Sepsis Recent Fever Within 48 Hours Sepsis New/Unexplained Change in Mental Status Sepsis Action Taken by Nursing VITALS: Vitals are noted on the nurse's note and reviewed by myself. Vital signs reviewed. GENERAL: Elderly male frail who appears in pain with multiple bruising and swelling to the lower extremities with an open wound to the right lower leg with surrounding cellulitis concerning for infection, in no acute distress, nondiaphoretic, well-developed well-nourished. SKIN: The rest of skin was without rashes, erythema, edema, or bruising. There is no tenting of the skin. Capillary reflex less than 2 seconds. HEAD: Normocephalic atraumatic. EARS: External auditory canals clear, EYES: Pupils equal round and reactive to light and accommodation. Conjunctivae without injection, sclerae without icterus. Extraocular movements intact. NOSE: Patent, turbinates without inflammation or discharge. MOUTH: Mucous membranes moist. Pharynx without erythema or exudate. Uvula mi dline. Airway patent. Tongue does not deviate. NECK: Supple without nuchal rigidity. No lymphadenopathy. No thyromegaly. Cervical spine is nontender. No JVD. HEART: Regular rate and rhythm LUNGS: Clear to auscultation bilaterally without wheezes, rales or rhonchi. No retractions or accessory muscle use. ABDOMEN: Positive bowel sounds x 4. Normal tympanic percussion. Soft, nontender, without masses or organomegaly. Moss sign negative. No guarding or rebound tenderness. No CVA tenderness MUSCULOSKELETAL: No muscle atrophy noted. Right lower leg erythematous and edematous around the wound concerning for infected wound. NEURO: Patient was alert and oriented to person place and time. Normal sensation to light and sharp touch. No focal neurological deficits. Course Administered Medications Discontinued Medications Fentanyl Citrate (Fentanyl Citrate Pf 100 Mcg/2 Ml Vial) 50 mcg IV NOW STA Stop: 10/02/22 22:22 Last Admin: 10/02/22 22:45 Dose: 50 mcg Documented By: SHELBY Ceftriaxone Sodium 1,000 mg/ (Dextrose) 50 mls @ 100 mls/hr IV NOW STA Stop: 10/02/22 22:55 Last Infusion: 10/02/22 23:43 Dose: 0 mls/hr Documented By: Admin: 10/02/22 22:46 Dose: 100 mls/hr Documented By: SHELBY Sodium Chloride (Nss) 500 mls @ 999 mls/hr IV .Q31M ONE Stop: 10/03/22 00:28 Last Infusion: 10/03/22 01:19 Dose: 0 mls/hr Documented By: Admin: 10/03/22 00:04 Dose: 999 mls/hr Documented By: SYD Lorazepam (Lorazepam 2 Mg/1 Ml Vial) 0.5 mg IV NOW STA Stop: 10/03/22 01:41 Last Admin: 10/03/22 01:47 Dose: 0.5 mg Documented By: SHELBY Ondansetron HCl (Ondansetron Inj 2 Mg/Ml 2 Ml Vial) 4 mg IV NOW STA Stop: 10/02/22 22:22 Last Admin: 10/02/22 22:45 Dose: 4 mg Documented By: SHELBY Medical Decision Making Medical Records Attestation: I reviewed the patient's medical records. Home Medications Current Medication List: was personally reviewed by me Laboratory Data Attestation: I reviewed the patient's lab results. 10/02/22 22:40 10/02/22 22:40 Lab Results 10/02/22 10/02/22 10/02/22 Range/Units 22:40 22:40 22:40 WBC 15.00 H (4.8-10.8) K/ul RBC 2.88 L (4.70-6.10) M/uL Hgb 8.5 L (14.0-18.0) g/dl Hct 26.9 L (42.0-52.0) % MCV 93.4 (80.0-100.0) fL MCH 29.5 (25.0-34.0) pg MCHC 31.6 L (32.0-36.0) g/dL RDW Std Deviation 51.8 H (36.4-46.3) fL RDW Coeff of Archie 15.3 H (11.5-14.5) % Plt Count 218 (130-400) K/uL MPV 10.2 (9.4-12.4) fL Immature Gran % (Auto) 0.4 % Neut % (Auto) 91.8 % Lymph % (Auto) 2.5 % Kimble % (Auto) 5.2 % Eos % (Auto) 0.0 % Baso % (Auto) 0.1 % Neut # (Auto) 13.77 H (1.40-6.50) K/uL Lymph # (Auto) 0.38 L (1.2-3.4) K/uL Kimble # (Auto) 0.78 H (0.11-0.59) K/uL Eos # (Auto) 0.00 (0-0.50) K/uL Baso # (Auto) 0.01 (0-0.2) K/uL Immature Gran # (Auto) 0.06 (0.01-0.20) K/uL Ovalocytes 1+ Acanthocytes (Spur) 1+ Sodium 137 (136-145) mmol/L Potassium 4.4 (3.5-5.1) mmol/L Chloride 97 L (98-107) mmol/L Carbon Dioxide 28 (21-32) mmol/L Anion Gap 12 H (3-11) BUN 195 H (6-23) mg/dl Creatinine 2.60 H (0.6-1.4) mg/dl Est Cr Clr Drug Dosing 21.2 ml/min Est GFR ( Amer) 26.8 ml/min Est GFR (Non-Af Amer) 23.1 ml/min BUN/Creatinine Ratio 75.0 H (10-20) Glucose 100 H (70-99(Fasting)) mg/dl Lactate (0.4-2.0) mmol/L Calcium 8.0 L (8.6-10.3) mg/dl Magnesium 2.6 H (1.7-2.4) mg/dl Total Bilirubin 0.9 (0.2-1.0) mg/dl Direct Bilirubin 0.2 (0-0.2) mg/dl AST 24 (13-39) U/L ALT 30 (7-52) U/L Alkaline Phosphatase 83 (34-104) U/L Total Creatine Kinase 70 (30-223) U/L Troponin I High Sens 70.6 H* (0-20) pg/ml B-Natriuretic Peptide 3988 H (0-100) pg/ml Total Protein 5.7 L (6.0-8.3) gm/dl Albumin 3.0 L (3.4-5.0) gm/dl Procalcitonin (0-0.5) ng/ml Urine Color Urine Appearance (Clear) Urine pH (4.5-7.5) Ur Specific [place] (1.000-1.030) Urine Protein (Negative) Urine Glucose (UA) (Negative) Urine Ketones (Negative) Urine Blood (Negative) Urine Nitrite (Negative) Urine Bilirubin (Negative) Urine Urobilinogen (Negative) Ur Leukocyte Esterase (Negative) SARS-CoV-2, RNA, NAAT (NEGATIVE) 10/02/22 10/02/22 10/02/22 Range/Units 22:40 22:40 22:56 WBC (4.8-10.8) K/ul RBC (4.70-6.10) M/uL Hgb (14.0-18.0) g/dl Hct (42.0-52.0) % MCV (80.0-100.0) fL MCH (25.0-34.0) pg MCHC (32.0-36.0) g/dL RDW Std Deviation (36.4-46.3) fL RDW Coeff of Archie (11.5-14.5) % Plt Count (130-400) K/uL MPV (9.4-12.4) fL Immature Gran % (Auto) % Neut % (Auto) % Lymph % (Auto) % Kimble % (Auto) % Eos % (Auto) % Baso % (Auto) % Neut # (Auto) (1.40-6.50) K/uL Lymph # (Auto) (1.2-3.4) K/uL Kimble # (Auto) (0.11-0.59) K/uL Eos # (Auto) (0-0.50) K/uL Baso # (Auto) (0-0.2) K/uL Immature Gran # (Auto) (0.01-0.20) K/uL Ovalocytes Acanthocytes (Spur) Sodium (136-145) mmol/L Potassium (3.5-5.1) mmol/L Chloride (98-107) mmol/L Carbon Dioxide (21-32) mmol/L Anion Gap (3-11) BUN (6-23) mg/dl Creatinine (0.6-1.4) mg/dl Est Cr Clr Drug Dosing ml/min Est GFR ( Amer) ml/min Est GFR (Non-Af Amer) ml/min BUN/Creatinine Ratio (10-20) Glucose (70-99(Fasting)) mg/dl Lactate 1.8 (0.4-2.0) mmol/L Calcium (8.6-10.3) mg/dl Magnesium (1.7-2.4) mg/dl Total Bilirubin (0.2-1.0) mg/dl Direct Bilirubin (0-0.2) mg/dl AST (13-39) U/L ALT (7-52) U/L Alkaline Phosphatase (34-104) U/L Total Creatine Kinase (30-223) U/L Troponin I High Sens (0-20) pg/ml B-Natriuretic Peptide (0-100) pg/ml Total Protein (6.0-8.3) gm/dl Albumin (3.4-5.0) gm/dl Procalcitonin 0.12 (0-0.5) ng/ml Urine Color Urine Appearance (Clear) Urine pH (4.5-7.5) Ur Specific [place] (1.000-1.030) Urine Protein (Negative) Urine Glucose (UA) (Negative) Urine Ketones (Negative) Urine Blood (Negative) Urine Nitrite (Negative) Urine Bilirubin (Negative) Urine Urobilinogen (Negative) Ur Leukocyte Esterase (Negative) SARS-CoV-2, RNA, NAAT NEGATIVE (NEGATIVE) 10/02/22 Range/Units 23:23 WBC (4.8-10.8) K/ul RBC (4.70-6.10) M/uL Hgb (14.0-18.0) g/dl Hct (42.0-52.0) % MCV (80.0-100.0) fL MCH (25.0-34.0) pg MCHC (32.0-36.0) g/dL RDW Std Deviation (36.4-46.3) fL RDW Coeff of Archie (11.5-14.5) % Plt Count (130-400) K/uL MPV (9.4-12.4) fL Immature Gran % (Auto) % Neut % (Auto) % Lymph % (Auto) % Kimble % (Auto) % Eos % (Auto) % Baso % (Auto) % Neut # (Auto) (1.40-6.50) K/uL Lymph # (Auto) (1.2-3.4) K/uL Kimble # (Auto) (0.11-0.59) K/uL Eos # (Auto) (0-0.50) K/uL Baso # (Auto) (0-0.2) K/uL Immature Gran # (Auto) (0.01-0.20) K/uL Ovalocytes Acanthocytes (Spur) Sodium (136-145) mmol/L Potassium (3.5-5.1) mmol/L Chloride (98-107) mmol/L Carbon Dioxide (21-32) mmol/L Anion Gap (3-11) BUN (6-23) mg/dl Creatinine (0.6-1.4) mg/dl Est Cr Clr Drug Dosing ml/min Est GFR ( Amer) ml/min Est GFR (Non-Af Amer) ml/min BUN/Creatinine Ratio (10-20) Glucose (70-99(Fasting)) mg/dl Lactate (0.4-2.0) mmol/L Calcium (8.6-10.3) mg/dl Magnesium (1.7-2.4) mg/dl Total Bilirubin (0.2-1.0) mg/dl Direct Bilirubin (0-0.2) mg/dl AST (13-39) U/L ALT (7-52) U/L Alkaline Phosphatase (34-104) U/L Total Creatine Kinase (30-223) U/L Troponin I High Sens (0-20) pg/ml B-Natriuretic Peptide (0-100) pg/ml Total Protein (6.0-8.3) gm/dl Albumin (3.4-5.0) gm/dl Procalcitonin (0-0.5) ng/ml Urine Color Yellow Urine Appearance Clear (Clear) Urine pH 5.0 (4.5-7.5) Ur Specific [place] 1.014 (1.000-1.030) Urine Protein Negative (Negative) Urine Glucose (UA) Negative (Negative) Urine Ketones Negative (Negative) Urine Blood Negative (Negative) Urine Nitrite Negative (Negative) Urine Bilirubin Negative (Negative) Urine Urobilinogen Negative (Negative) Ur Leukocyte Esterase Negative (Negative) SARS-CoV-2, RNA, NAAT (NEGATIVE) Imaging Data Attestation: I personally reviewed and interpreted this imaging study as follows: Radiologist's Impression: Tibia/Fibula X-Ray 10/02/22 22:21 RIGHT TIBIA AND FIBULA 2 VIEWS CLINICAL HISTORY: Right leg pain. FINDINGS: AP and crosstable lateral views of the right tibia and fibula are obtained. No prior studies are available for comparison at the time of dictation. The skeletal structures are osteopenic. There is no radiographic evidence of right tibial or fibular fracture. The knee and ankle joints are grossly maintained. There is generalized atrophy of the lower extremity soft tissues. Atherosclerotic calcification is noted in the regional arteries. Mild soft tissue swelling is suggested around the ankle. IMPRESSION: No acute bony abnormality is identified. Electronically signed by: Dane Lund M.D. 10/02/2022 11:12 PM Chest X-Ray 10/02/22 22:24 SINGLE VIEW CHEST CLINICAL HISTORY: Sepsis. FINDINGS: An AP, portable, upright chest radiograph is compared to study dated 06/25/2022. The patient is status post midline sternotomy. A 3-lead cardiac AICD is unchanged in position and partially obscures the right upper chest. The heart is enlarged noting atherosclerotic calcification of the thoracic. There is mild pulmonary vascular congestion. Scarring/atelectasis is noted at the lung bases. No airspace consolidation or large pleural effusion is identified. No pneumothorax is seen. The skeletal structures are osteopenic. The bony thorax is grossly intact. IMPRESSION: Cardiomegaly and AICD with pulmonary vascular congestion. ACT 112: Negative or not required by law. Electronically signed by: Dane Lund M.D. 10/02/2022 11:10 PM Venous Doppler Study 10/03/22 00:00 Exam(s): US VENOUS BILATERAL LOWER EXTREMITIES EXAM: US Duplex Bilateral Lower Extremities Veins CLINICAL HISTORY: Reason for exam: pain/swelling. TECHNIQUE: Real-time duplex ultrasound scan of the bilateral lower extremity veins integrating B-mode two-dimensional vascular structure, Doppler spectral analysis, color flow Doppler imaging and compression. COMPARISON: No relevant prior studies available. FINDINGS: Right deep veins: Unremarkable. No DVT in the right common femoral, femoral, proximal deep femoral or popliteal veins. The veins demonstrate normal color flow, are normally compressible, with normal phasic flow and/or augmentation response. Right superficial veins: Unremarkable. No thrombus in the visualized right great saphenous vein. Left deep veins: Unremarkable. No DVT in the left common femoral, femoral, proximal deep femoral or popliteal veins. The veins demonstrate normal color flow, are normally compressible, with normal phasic flow and/or augmentation response. Left superficial veins: Unremarkable. No thrombus in the visualized left great saphenous vein. Soft tissues: No acute findings. No popliteal cyst. IMPRESSION: Normal bilateral lower extremity duplex venous ultrasound. Electronically signed by: Erlin Segura MD 10/03/22 01:48 AM MDM Narrative Prior records reviewed and summarized as above. Triage Nursing notes reviewed. Additional history obtained from family. The patient's history was concerning for swelling and redness of the skin. Differential diagnosis: Etiologies such as cellulitis, abscess, MRSA infection, DVT, necrotizing fasciitis, dermatitis, drug eruption, as well as others were entertained.. Physical examination: The physical examination was consistent with cellulitis ER treatment provided: Rocephin, IV fluids, fentanyl On reassessment the patient felt better. Diagnostics interpreted by me: The labs Independently Interpreted by myself revealed leukocytosis, elevated BNP. Imaging studies: Tib-fib x-ray negative for fracture per my independent interpretation Chest x-ray was read as above and reviewed independently by myself Consultation: A consultation was placed with the hospitalist. The case was discussed and diagnostics were reviewed. The patient was evaluated in the ER for further treatment. This appears to be right lower leg cellulitis who has known end-stage heart failure and would like to be full code now. He states he would like to take off hospice. He was started on antibiotics. Labs and diagnostics and interpreted myself. Medicine is consulted. He will be admitted. Patient became hypotensive and was gently hydrated as above. Blood pressure did improve.By the evaluation outlined above emergent etiologies such as abscess, necrotizing fasciitis, DVT, as well as others were deemed relatively unlikely. The pt informed about the findings as listed above. All questions were answered and pleased with the treatment. The chart was completed utilizing [employer] Speech voice recognition software. Grammatical errors, random word insertions, pronoun errors, and incomplete sentences are an occassional consequence of this system due to software limitations, ambient noise, and hardware issues. Any formal questions or c oncerns about the content, text, or information contained within the body of this dictation should be directly addressed to the physician family service assistant for clarification. Impression & Plan Cellulitis of right lower leg, Acute on chronic heart failure with reduced ejection fraction and diastolic dysfunction Discharge Plan Visit Data Chief Complaint: Leg Injury/Pain Stated Complaint: RIGHT LEG PAIN ED Provider: Fran Beckett ED Midlevel Provider: Juanita Segura Discharge Problem: Cellulitis of right lower leg, Acute on chronic heart failure with reduced ejection fraction and diastolic dysfunction Patient Disposition: Admitted As Inpatient Condition: Fair Forms Stand Alone Forms: My [facility] Prescriptions Prescriptions: No Action atorvastatin [Lipitor] 40 mg Tablet 40 mg PO DAILY aspirin [[place] Low Dose Aspirin] 81 mg Tablet,Delayed Release (Dr/Ec) 81 mg PO DAILY tamsulosin 0.4 mg Capsule 0.8 mg PO QPM pramipexole [Mirapex] 0.25 mg Tablet 0.25 mg PO HS cholecalciferol (vitamin D3) 2,000 unit Tablet 2,000 unit PO DAILY albuterol sulfate 90 mcg/actuation HFA aerosol inhaler 2 inha INH QID PRN (Reason: shortness of breath or wheezing) Qty: 1 0RF nitroglycerin [Nitrostat] 0.4 mg Tablet, Sublingual 0.4 mg sublingual DIRECTED PRN (Reason: Chest Pain) metolazone 2.5 mg tablet 2.5 mg PO WK Rx Instructions: TAKES ON MONDAYS potassium chloride 10 mEq Capsule, Extended Release 20 meq PO DAILY prednisone 10 mg tablet 20 mg PO DAILY metoprolol succinate 100 mg tablet extended release 24 hr 100 mg PO DAILY amlodipine 2.5 mg Tablet 2.5 mg PO DAILY isosorbide mononitrate 60 mg Tablet Extended Release 24 Hr 60 mg PO DAILY cyanocobalamin (vitamin B-12) 1,000 mcg Tablet, Sublingual 1,000 mcg SUBLINGUAL DAILY oxycodone 5 mg tablet 5 mg PO Q6H PRN (Reason: Pain) Vitron-C 65 mg iron- 125 mg Tablet,Delayed Release (Dr/Ec) 1 tab PO DAILY lorazepam [Ativan] 0.5 mg tablet 0.5 mg PO Q12H PRN (Reason: anxiety) Qty: 5 0RF fentanyl 50 mcg/hr Patch 72 Hour 1 patch TRANSDERMAL Q72H torsemide 20 mg tablet 40 mg PO QAM torsemide 20 mg tablet 20 mg PO QPM Referrals Referrals: Tino Hanley [Primary Care Provider] -
[2022-10-03 00:56] LABS: Bilirubin Direct 0.2 mg/dl (0-0.2); Bilirubin,Total 0.9 mg/dl (0.2-1.0); Creatinine Clr Calc Pharmacy 21.2 ml/min; Est GFR (African American) 26.8 ml/min; Est GFR (Non-African American) 23.1 ml/min; Magnesium 2.6 mg/dl (1.7-2.4); Potassium 4.4 mmol/L (3.5-5.1); Total Protein 5.7 gm/dl (6.0-8.3); Troponin I High Sensitivity 70.6 pg/ml (0-20)
[2022-10-03] MEDS ORDERED: LORazepam 2 MG/1 ML VIAL IV STA (01:40)
--- NOTE | 2022-10-03 01:50 | Ultrasound Report ---
Exam(s): US VENOUS BILATERAL LOWER EXTREMITIES EXAM: US Duplex Bilateral Lower Extremities Veins CLINICAL HISTORY: Reason for exam: pain/swelling. TECHNIQUE: Real-time duplex ultrasound scan of the bilateral lower extremity veins integrating B-mode two-dimensional vascular structure, Doppler spectral analysis, color flow Doppler imaging and compression. COMPARISON: No relevant prior studies available. FINDINGS: Right deep veins: Unremarkable. No DVT in the right common femoral, femoral, proximal deep femoral or popliteal veins. The veins demonstrate normal color flow, are normally compressible, with normal phasic flow and/or augmentation response. Right superficial veins: Unremarkable. No thrombus in the visualized right great saphenous vein. Left deep veins: Unremarkable. No DVT in the left common femoral, femoral, proximal deep femoral or popliteal veins. The veins demonstrate normal color flow, are normally compressible, with normal phasic flow and/or augmentation response. Left superficial veins: Unremarkable. No thrombus in the visualized left great saphenous vein. Soft tissues: No acute findings. No popliteal cyst. IMPRESSION: Normal bilateral lower extremity duplex venous ultrasound. Electronically signed by: Erlin Segura MD 10/03/22 01:48 AM
[2022-10-03] MEDS ORDERED: POLYETHYLENE (MIRALAX) 17 GM PACK PO PRN (05:12)
[2022-10-03] MEDS ORDERED: oxyCODONE HCL IR 5 MG TAB (IMMEDIATE RELEASE) PO PRN (05:12)
[2022-10-03] MEDS ORDERED: LORazepam 0.5 MG TAB PO PRN ×2 (05:12→17:32)
[2022-10-03] MEDS ORDERED: ALBUTEROL HFA 8 GM INHALER INH PRN (05:12)
[2022-10-03] MEDS ORDERED: NITROGLYCERIN SL 0.4 MG/TAB TAB SL PRN ×2 (05:12)
[2022-10-03] MEDS ORDERED: ACETAMINOPHEN 325 MG TAB PO PRN (05:12)
[2022-10-03] MEDS ORDERED: PIPERACILLIN/TAZOBACTAM 3.375 GM (over 30 mins) IV ONE (05:45)
[2022-10-03] MEDS: DOXYCYCLINE HYCLATE 100 MG in DEXTROSE 5% 100 ML IV SCH ×2 (06:05→17:13)
[2022-10-03] MEDS: HEPARIN SOD 5,000 UNIT/0.5 ML VIAL SQ SCH ×3 (06:06→21:48)
[2022-10-03 06:29] LABS: Hematocrit (blood only) 25.2 % (42.0-52.0); Hemoglobin 7.9 g/dl (14.0-18.0); Mean Corpuscular Hemoglobin 29.3 pg (25.0-34.0); Mean Corpuscular Hgb Conc 31.3 g/dL (32.0-36.0); Mean Corpuscular Volume 93.3 fL (80.0-100.0); Mean Platelet Volume 10.4 fL (9.4-12.4); Platelet Count 187 K/uL (130-400); RDW Coefficient of Variation 15.4 % (11.5-14.5); RDW Standard Deviation 51.8 fL (36.4-46.3); White Blood Count 17.42 K/ul (4.8-10.8)
--- NOTE | 2022-10-03 06:42 | Ultrasound Report ---
ULTRASOUND BILATERAL LOWER EXTREMITY ARTERIAL CLINICAL HISTORY: Leg pain. COMPARISON STUDY: No priors. TECHNIQUE: Real-time grayscale and color Doppler sonography of the arteries of the right and left low er extremity is performed from the inguinal crease to the foot. FINDINGS: Right lower extremity: Atherosclerotic plaque and irregularity is seen throughout the arteries of the right lower extremity. There are triphasic arterial waveforms in the common femoral artery with [place] measuring up to 80 cm/s. The profunda femoris artery is patent with velocities measuring up to 109 cm/s. There are triphasic waveforms seen throughout the superficial femoral artery with velociti es measuring up to 158 cm/s. There are triphasic waveforms in the popliteal artery with velocities me asuring up to 64 cm/s. There is three-vessel runoff to the right foot with biphasic waveforms in the calf. Velocities in the calf arteries measure up to 126 cm second. The dorsalis pedis artery is paten t with velocities measuring 84 cm/s. Left lower extremity: Atherosclerotic plaque and irregularity is seen throughout the arteries of the left lower extremity. There are triphasic arterial waveforms in the common femoral artery with veloci ties measuring up to 141 cm/s. The profunda femoris artery is patent with velocities measuring up to 38 cm/s. There are triphasic to biphasic arterial waveforms throughout the superficial femoral artery with velocities measuring up to 90 cm/s. There are triphasic arterial waveforms in the popliteal art celio with velocities measuring up to 68 cm/s. There is three-vessel runoff to the foot with biphasic w aveforms in the calf. Velocities of the calf arteries measure up to 107 cm/s. The dorsalis pedis jazmin ry is patent with velocities measuring 73 cm/s. IMPRESSION: There is no sonographic evidence of high-grade stenosis or focal vessel cut off seen thro ughout the arteries of the right or left lower extremity. Electronically signed by: Dane Lund M.D. 10/03/2022 6:39 AM
--- NOTE | 2022-10-03 06:42 | History and Physical Report ---
DATE OF ADMISSION: 10/03/2022. CHIEF COMPLAINT: Right lower extremity pain. 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 The patient was restless in the ER and was given Ativan. Currently sleeping. Able to talk to the . says the patient fell a couple of days ago and had some injury to his right leg. Today after waking up from sleep he complained of severe pain in right lower extremity. She gave his pain medications but it did not resolve the pain. Was still complaining of a lot of pain. He also complains of pain in the shoulder blade, she gave some nitro. She told him that she can give Ativan, but the patient wanted to come to the hospital. Hospice was revoked. As per outpatient records, the patient and family is not happy with current hospice, were planning for a different hospice care. says he is a DNR, but as per the ER notes, he wanted to be full code. Currently, the patient is very drowsy, could not get any history from the patient, so we will keep him full code for now. As per the , his appetite is down today, but otherwise he eats okay, swallows okay. No fevers, no nausea. He was constipated, but today he had diarrhea and stool was dark, but not black. Currently afebrile and hemodynamically stable. ALLERGIES: HYDROMORPHONE, MEPERIDINE, MORPHINE, LISINOPRIL. PAST MEDICAL HISTORY: As mentioned above. PAST SURGICAL HISTORY: CABG, left heart catheterization, multiple times exploration for postoperative hemorrhagic chest, left circumflex stent for occlusion, laparoscopic cholecystectomy, tonsillectomy, repair of inguinal hernia, left carotid endarterectomy, vasectomy. MEDICATIONS: The patient is on albuterol 2 puffs inhalation q.i.d. p.r.n., amlodipine 2.5 mg p.o. daily, aspirin 81 mg p.o. daily, Lipitor 40 mg p.o. daily, vitamin D 2000 International Units p.o. daily, vitamin B12 1000 mcg sublingual daily, fentanyl 50 mcg patch every 72 hours, isosorbide mononitrate 60 mg p.o. daily, Ativan 0.5 mg p.o. b.i.d. p.r.n. metolazone 2.5 mg p.o. weekly, metoprolol succinate 100 mg p.o. daily, nitroglycerin 0.4 mg sublingual daily p.r.n., oxycodone 5 mg p.o. q. 6 hours p.r.n., potassium chloride 20 mEq p.o. daily, Mirapex 0.25 mg p.o. at bedtime, prednisone 20 mg p.o. daily, Flomax 0.8 mg p.o. daily, torsemide 40 mg in a.m. and 20 mg in p.m., Vitron-C 1 tablet p.o. daily. FAMILY HISTORY: Significant for aunt had cancer; father had heart disorder, mother had stroke. SOCIAL HISTORY: , lives with . Quit smoking in 2010, smoked 1.5 packs a day for 43 years. No alcohol use. No drug use. REVIEW OF SYSTEMS: Currently unobtainable as the patient is very drowsy. PHYSICAL EXAMINATION: GENERAL: The patient is drowsy. HEENT: Pupils are pinpoint and slightly reactive to light. No facial droop seen. NECK: No JVD. CARDIOVASCULAR: S1 and S2 heard. Regular rate and rhythm. No murmur, no gallop. RESPIRATORY SYSTEM: Normal AP diameter. No accessory muscle use. No wheezing, no crackles. ABDOMEN: Soft, bowel sounds present, no distention. CENTRAL NERVOUS SYSTEM: Very drowsy, not obeying any commands. EXTREMITIES: Bilateral lower extremity swelling and erythema seen. Open ulcer seen in the left lópez. Chronic skin changes in the upper extremities. LABORATORY DATA: WBC 15, hemoglobin 8.5, hematocrit 26.9, platelets 218. Sodium 137, potassium 4.4, chloride 97, BUN 195, creatinine 2.6, serum glucose 100. Lactate 1.8, calcium 8, magnesium 2.6, total bilirubin 0.98, direct bilirubin 0.2, AST 24, ALT 30, alkaline phosphatase 83, total creatine kinase 70. Troponin I high sensitivity 17.6. BNP 3900. Procalcitonin 0.1. Urinalysis negative. SARS-CoV-2 rapid test negative. Venous Doppler of the lower extremities, no acute findings. Chest x-ray, cardiomegaly and AICD with pulmonary congestion. Tibia, fibula x-ray, no acute bony abnormality seen. EKG: Sinus tachycardia at a rate of complete right ventricular paced rhythm, QTc of 556. ASSESSMENT AND PLAN: This is a 77-year-old male who presents with lower extremity pain, more in the right lower extremity. 1. Right lower extremity pain, recent fall as per the : No fracture on xray., No DVT on Doppler. Possible cellulitis of lower extremity and also has wound in the left lópez. Empiric antibiotics with Zosyn and doxycycline. Recently had antibiotics, Keflex, just completed the course. We will follow the response. We will also get arterial Doppler. Closely monitor in the hospital.Wound care 2. End-stage heart disease , chronic diastolic and systolic congestive heart failure. Recent echo in June showed ejection fraction of 20-25% and grade III diastolic congestive heart failure, status post automatic implantable cardioverter-defibrillator. Continue his home diuretics. We will monitor for any volume overload. The patient was on hospice prior to coming to the hospital. Social service to help with discharge planning. Seems not liking the current hospice. 3. History of chronic obstructive pulmonary disease: Continue current home inhalers. The patient will use oxygen as needed at home, but today he was using most of the time. 4. History of polymyalgia rheumatica: On prednisone. 5. History of benign prostatic hypertrophy: On Flomax. Monitor for any urinary retention. 6. Chronic pain: Continue his home pain medications. 7. Hypertension: Continue his amlodipine, Imdur, metoprolol succinate and diuretics. We will monitor the blood pressure. 8. Acute kidney injury on chronic kidney disease stage III: Seems to be baseline creatinine around 2, currently 2.6, we will follow the repeat labs. 9. History of anemia: Hemoglobin is 8.5 today, we will follow iron studies, vitamin B12, folate levels and stool for Hemoccult. 10. Hyperlipidemia. Statin. 11. Deep venous thrombosis prophylaxis: Placed on heparin subcutaneous.Follow hb. 12. Code status: He was DNR/DNI as per his , but looks like he told full code to the ER. Currently, very drowsy. We will readdress in the morning. We will keep him full code for now. DISPOSITION: Admit to med tele. PT/OT prior to discharge. Social service to help with discharge planning. Job ID: [id number] [facility]OSPITALCaryn
[2022-10-03 06:53] LABS: Acanthocytes 2+; Basophils # (auto) 0.02 K/uL (0-0.2); Basophils % (auto) 0.1 %; Echinocytes 1+; Immature Granulocytes # (auto) 0.07 K/uL (0.01-0.20); Immature Granulocytes % (auto) 0.4 %; Lymphocytes # (auto) 0.54 K/uL (1.2-3.4); Lymphocytes % (auto) 3.1 %; Monocytes # (auto) 0.69 K/uL (0.11-0.59); Neutrophils % (auto) 92.4 %; Polychromasia 1+
[2022-10-03 07:05] LABS: BUN Creatinine Ratio 78.2 (10-20); Calcium 7.6 mg/dl (8.6-10.3); Creatinine Clr Calc Pharmacy 20.3 ml/min; Est GFR (African American) 26.6 ml/min; Magnesium 2.7 mg/dl (1.7-2.4); Potassium 4.4 mmol/L (3.5-5.1)
--- NOTE | 2022-10-03 07:42 | Electrocardiogram Report ---
Test Reason : Blood Pressure : / mmHG Vent. Rate : 097 BPM Atrial Rate : 105 BPM P-R Int : 000 ms QRS Dur : 162 ms QT Int : 438 ms P-R-T Axes : 000 -48 087 degrees QTc Int : 556 ms Poor data quality, interpretation may be adversely affected Sinus tachycardia with complete heart block and Ventricular-paced rhythm Fusion beat Abnormal ECG When compared with ECG of 26-JUN-2022 10:40, Sinus rhythm is now with complete heart block Vent. rate has increased BY 26 BPM Confirmed by Naveen Myers ([id number]) on 10/03/2022 7:42:04 AM Referred By: REFERRED SELF Confirmed By:Asim Myers
[2022-10-03] MEDS ORDERED: fentaNYL 50 MCG/HR TDSY TD SCH (09:00)
[2022-10-03] MEDS ORDERED: NON-FORMULARY MEDICATION (Iron,Carbonyl-Vitamin C [Vitron-C] 65 mg iron- 125 mg Tablet,Del PO SCH (09:00)
[2022-10-03] MEDS ORDERED: CALCIUM GLUCONATE 10% 2,000 MG in DEXTROSE 5% 50 ML IV ONE (09:46)
[2022-10-03] MEDS ORDERED: STAT IV STA (09:46)
--- NOTE | 2022-10-03 09:46 | Communication Note ---
Date of Service: October 03, 2022 Prolonged Qt. To avoid qt prolonging meds. Thanks
--- NOTE | 2022-10-03 09:48 | Communication Note ---
Date of Service: October 03, 2022 Hypocalcemia. Will give wesley gluconate. start on calcium supplement. Will check vitamin d. Thanks
[2022-10-03] MEDS: amLODIPine BESYLATE 5 MG TAB PO SCH (10:48)
[2022-10-03] MEDS: ASCORBIC ACID 500 MG TAB PO SCH (10:48)
[2022-10-03] MEDS: ASPIRIN 81 MG ECTAB PO SCH (10:48)
[2022-10-03] MEDS: ATORVASTATIN 40 MG TAB PO SCH (10:48)
[2022-10-03] MEDS: ISOSORBIDE MONO EXTENDED REL 60 MG TABCR PO SCH (10:49)
[2022-10-03] MEDS: FERROUS SULFATE 325 MG TAB PO SCH (10:49)
[2022-10-03] MEDS: TORSEMIDE 20 MG TAB PO SCH (10:49)
[2022-10-03] MEDS: predniSONE 20 MG TAB PO SCH (10:49)
[2022-10-03] MEDS: METOPROLOL SUCC 50MG EXT REL TAB PO SCH (10:49)
[2022-10-03] MEDS: POTASSIUM CHLORIDE CRTAB 20 MEQ TABCR PO SCH (10:49)
[2022-10-03] MEDS: CYANOCOBALAMIN (B-12) 500 MCG TABLET PO SCH (10:49)
[2022-10-03] MEDS: CHOLECALCIFEROL 1,000 UNITS 25 MCG TAB PO SCH (10:49)
--- NOTE | 2022-10-03 12:07 | Electrocardiogram Report ---
Test Reason : Blood Pressure : / mmHG Vent. Rate : 092 BPM Atrial Rate : 092 BPM P-R Int : 000 ms QRS Dur : 174 ms QT Int : 466 ms P-R-T Axes : 000 -72 096 degrees QTc Int : 576 ms Poor data quality, interpretation may be adversely affected Ventricular-paced rhythm Abnormal ECG When compared with ECG of 02-OCT-2022 22:18, Sinus rhythm is no longer with complete heart block Vent. rate has decreased BY 5 BPM Confirmed by Naveen Myers ([id number]) on 10/03/2022 12:07:07 PM Referred By: REFERRED SELF Confirmed By:Asim Myers
[2022-10-03] MEDS ORDERED: D5W AND NSS 1,000 ML IV SCH (12:30)
[2022-10-03] MEDS: PIPERACILLIN/TAZOBACTAM 3.375 GM in DEXTROSE 5% 100 ML IV SCH ×2 (13:15→20:04)
[2022-10-03] MEDS: CHECK fentaNYL PATCH PLACEMENT SCH ×2 (16:20→23:53)
--- NOTE | 2022-10-03 16:52 | Hospitalist Progress Note ---
Date of Service October 03, 2022 Assessment & Plan (1) Cellulitis of right lower leg: Plan: Has significant comorbid conditions including chronic systolic and diastolic heart failure, respiratory failure with COPD and other significant medical condition as mentioned in H&P was admitted with increasing leg pain and noted to have cellulitis of the right lower leg Has been under hospice care at home Has been started on intravenous Zosyn and doxycycline Clinically cellulitis is better but the patient has not been showing any signs of improvement (2) Ischemic cardiomyopathy: Plan: As above with EF of 20 to 25% and grade 3 diastolic dysfunction Has end-stage CAD-under hospice care at home (3) Biventricular automatic implantable cardioverter defibrillator in situ: Plan: No acute issues now (4) Acute and chronic respiratory failure with hypoxia: Plan: No acute respiratory distress The patient remains semiresponsive (5) COPD (chronic obstructive pulmonary disease): (6) PMR (polymyalgia rheumatica): (7) Acute on chronic heart failure with reduced ejection fraction and diastolic dysfunction: (8) CKD (chronic kidney disease) stage 3, GFR 30-59 ml/min: Plan: History of CKD and seems to be very dehydrated with increasing BUN of more than 200 and creatinine up as well Not being drinking or eating anything Will try small amount of intravenous fluid after discussion with the Significant other comorbid conditions as mentioned in H&P The patient has been under hospice care at home The patient signed documents before to be a DNR He was put for full code on admission and after discussion with the and getting the records it were changed to DNR/DNI His condition remains critical and the was told to call the son as soon as possible Prognosis extremely poor Admission and Anticipated Discharge Date Admission Date: October 03, 2022 Subjective 10/03/2022 The patient was seen and examined in medical telemetry unit He has been very weak and minimally responsive to vocal commands and sternal rub Remains very weak and lethargic Occasional jerking movement involving the upper extremities Discussed with the in detail Review of Systems Review of Systems: Unobtainable due to cognitive status Physical Exam Physical Exam: Lying in bed, very sick and minimally responsive Constitutional: + ill appearing and + thin Eyes: PERRL, conjunctivae normal, anicteric sclerae ENMT: external ear and nose normal, oropharynx normal Neck: trachea midline, no thyromegaly Respiratory: + respiratory distress (Mild distress) Auscultation: + diminished lung sounds and + crackles (Minimal bibasilar crackles) Cardiovascular: Rate/Rhythm: regular rate and regular rhythm; not tachycardic Heart Sounds: normal S1, normal S2 and + murmur Extremities: no edema Gastrointestinal (Abdomen): Inspection/Auscultation: normal bowel sounds; abdomen not distended Percussion/Palpation: + abdomen tender and abdomen soft Musculoskeletal: No acute arthritis involving any joint Skin: Generalized bruising Neurologic: Alert, awake with verbal stimuli and sternal rub, minimal communication, confused, minimal movements involving the extremities Results & Data Results & Data Vital Signs (Past 12 Hours) Vital Signs Temp Pulse Pulse Pulse Resp BP BP 10/03/22 16:29 88 10/03/22 16:21 115/72 10/03/22 15:43 36.6 C 91 H 16 155/67 H 10/03/22 12:00 36.5 C 85 18 100/66 10/03/22 12:11 10/03/22 11:02 36.5 C 86 20 109/75 10/03/22 10:17 36.7 C 86 20 103/68 10/03/22 09:30 36.5 C 88 18 90/62 L 10/03/22 07:56 36.9 C 90 18 95/55 L 10/03/22 07:15 95 H 10/03/22 07:08 10/03/22 04:50 36.7 C 96 H 18 94/62 L 10/03/22 05:13 36.7 C 18 94/62 L Pulse Ox O2 Del Method 10/03/22 16:29 10/03/22 16:21 10/03/22 15:43 97 Room Air 10/03/22 12:00 93 Room Air 10/03/22 12:11 Room Air 10/03/22 11:02 93 Room Air 10/03/22 10:17 93 Room Air 10/03/22 09:30 94 Room Air 10/03/22 07:56 93 Room Air 10/03/22 07:15 10/03/22 07:08 Room Air 10/03/22 04:50 97 Room Air 10/03/22 05:13 97 Room Air Laboratory Results Short CBC 10/02/22 10/03/22 Range/Units 22:40 05:29 WBC 15.00 H 17.42 H (4.8-10.8) K/ul Hgb 8.5 L 7.9 L (14.0-18.0) g/dl Hct 26.9 L 25.2 L (42.0-52.0) % Plt Count 218 187 (130-400) K/uL BMP 10/02/22 10/03/22 22:40 05:29 Sodium 137 139 Potassium 4.4 4.4 Chloride 97 L 98 Carbon Dioxide 28 27 BUN 195 H 204 H Creatinine 2.60 H 2.61 H Glucose 100 H 92 Calcium 8.0 L 7.6 L Cardiac Enzymes 10/02/22 Range/Units 22:40 Total Creatine Kinase 70 (30-223) U/L Liver Function 10/02/22 Range/Units 22:40 Total Bilirubin 0.9 (0.2-1.0) mg/dl Direct Bilirubin 0.2 (0-0.2) mg/dl AST 24 (13-39) U/L ALT 30 (7-52) U/L Alkaline Phosphatase 83 (34-104) U/L Albumin 3.0 L (3.4-5.0) gm/dl Urine 10/02/22 Range/Units 23:23 Urine Color Yellow Urine Appearance Clear (Clear) Urine pH 5.0 (4.5-7.5) Ur Specific [place] 1.014 (1.000-1.030) Urine Protein Negative (Negative) Urine Glucose (UA) Negative (Negative) Medications Administered Current Inpatient Medications Acetaminophen (Acetaminophen 325 Mg Tab) 650 mg PO Q4H PRN PRN Reason: Pain or Fever Stop: 11/02/22 05:11 Albuterol (Albuterol Hfa 8 Gm Inhaler) 2 puffs INH QID PRN PRN Reason: shortness of breath or wheezin Stop: 11/02/22 05:11 Amlodipine Besylate (Amlodipine Besylate 5 Mg Tab) 2.5 mg PO DAILY [facility] Stop: 11/02/22 08:59 Last Admin: 10/03/22 10:48 Dose: Not Given Ascorbic Acid (Ascorbic Acid 500 Mg Tab) 250 mg PO DAILY JAMES Stop: 11/02/22 08:59 Last Admin: 10/03/22 10:48 Dose: Not Given Aspirin (Aspirin 81 Mg Ectab) 81 mg PO DAILY JAMES Stop: 11/02/22 08:59 Last Admin: 10/03/22 10:48 Dose: Not Given Atorvastatin Calcium (Atorvastatin 40 Mg Tab) 40 mg PO DAILY [facility] [place] Stop: 11/02/22 08:59 Last Admin: 10/03/22 10:48 Dose: Not Given Calcium/Vitamin D (Calcium 600mg + Vit D 400 Iu Tab) 1 tab PO BID [facility] [place] Stop: 11/02/22 20:59 Cyanocobalamin (Cyanocobalamin (B-12) 500 Mcg Tablet) 1,000 mcg PO DAILY JAMES Stop: 11/02/22 08:59 Last Admin: 10/03/22 10:49 Dose: Not Given Fentanyl (Fentanyl 50 Mcg/Hr Tdsy) 50 mcg TD Q72H [facility] Stop: 10/17/22 08:59 Last Admin: 10/03/22 10:27 Dose: 50 mcg Ferrous Sulfate (Ferrous Sulfate 325 Mg Tab) 325 mg PO DAILY [facility] Stop: 11/02/22 08:59 Last Admin: 10/03/22 10:49 Dose: Not Given Heparin Sodium (Porcine) (Heparin Sod 5,000 Unit/0.5 Ml Vial) 5,000 units SQ Q8 [facility] Stop: 11/02/22 05:59 Last Admin: 10/03/22 13:17 Dose: 5,000 units Piperacillin Sod/Tazobactam (Sod 3.375 gm/ Dextrose) 115 mls @ 28.75 mls/hr IV Q8H [facility]; Protocol Stop: 10/10/22 11:59 Last Admin: 10/03/22 13:15 Dose: 28.8 mls/hr Doxycycline Hyclate 100 mg/ (Dextrose) 110 mls @ 50 mls/hr IV Q12H [facility] [place] Stop: 10/10/22 05:59 Last Infusion: 10/03/22 08:42 Dose: Infused Dextrose/Sodium Chloride (D5w And Nss) 1,000 mls @ 80 mls/hr IV .[id number] [facility] [place] Stop: 10/04/22 00:59 Last Admin: 10/03/22 13:13 Dose: 80 mls/hr Isosorbide Mononitrate (Isosorbide [place] Extended Rel 60 Mg Tabcr) 60 mg PO DAILY [facility] [place] Stop: 11/02/22 08:59 Last Admin: 10/03/22 10:49 Dose: Not Given Lorazepam (Lorazepam 0.5 Mg Tab) 0.5 mg PO Q12H PRN PRN Reason: anxiety Stop: 11/02/22 05:11 Metolazone (Metolazone 2.5 Mg Tablet) 2.5 mg PO Mo@0900 JAMES Stop: 11/04/22 08:59 Metoprolol Succinate (Metoprolol Succ 50mg Ext Rel Tab) 100 mg PO DAILY JAMES Stop: 11/02/22 08:59 Last Admin: 10/03/22 10:49 Dose: Not Given Miscellaneous (Check Fentanyl Patch Placement) 1 each N/A QS JAMES Stop: 11/02/22 15:59 Last Admin: 10/03/22 16:20 Dose: 1 each Miscellaneous (Fentanyl Patch Remove & Waste) 1 each N/A Q72H JAMES Stop: 11/02/22 08:58 Last Admin: 10/03/22 10:28 Dose: 1 each Nitroglycerin (Nitroglycerin Sl 0.4 Mg/Tab Tab) 0.4 mg SL UD PRN PRN Reason: Chest Pain Stop: 11/02/22 05:11 Oxycodone HCl (Oxycodone Hcl Ir 5 Mg Tab (Immediate Release)) 5 mg PO Q6H PRN PRN Reason: Pain Stop: 10/17/22 05:11 Polyethylene Glycol (Polyethylene (Miralax) 17 Gm Pack) 17 gm PO DAILY PRN PRN Reason: Constipation Stop: 11/02/22 05:11 Potassium Chloride (Potassium Chloride Crtab 20 Meq Tabcr) 20 meq PO DAILY JAMES Stop: 11/02/22 08:59 Last Admin: 10/03/22 10:49 Dose: Not Given Pramipexole Dihydrochloride (Pramipexole Dihydrochlo 0.25 Mg Tab) 0.25 mg PO HS JAMES Stop: 11/02/22 20:59 Prednisone (Prednisone 20 Mg Tab) 20 mg PO DAILY JAMES Stop: 11/02/22 08:59 Last Admin: 10/03/22 10:49 Dose: Not Given Tamsulosin HCl (Tamsulosin Hcl 0.4 Mg Cap) 0.8 mg PO QPM JAMES Stop: 11/02/22 20:59 Torsemide (Torsemide 20 Mg Tab) 40 mg PO QAM JAMES Stop: 11/02/22 08:59 Last Admin: 10/03/22 10:49 Dose: Not Given Torsemide (Torsemide 20 Mg Tab) 20 mg PO DAILY@1700 [facility] Stop: 11/02/22 16:59 Last Admin: 10/03/22 16:20 Dose: Not Given Vitamin D (Cholecalciferol 1,000 Units 25 Mcg Tab) 2,000 units PO DAILY [facility] Stop: 11/02/22 08:59 Last Admin: 10/03/22 10:49 Dose: Not Given
[2022-10-03] MEDS ORDERED: TORSEMIDE 20 MG TAB PO SCH ×2 (17:00→21:00)
[2022-10-03] MEDS ORDERED: LORazepam 2 MG/1 ML VIAL IV PRN (17:32)
[2022-10-03] MEDS ORDERED: ONDANSETRON 4 MG OD TAB SL PRN (17:32)
[2022-10-03] MEDS ORDERED: ATROPINE SULFATE 1% OP SOLN 5 ML BTL SL PRN (17:32)
[2022-10-03] MEDS ORDERED: PROMETHAZINE HCL 12.5 MG in SODIUM CHLORIDE 0.9% 50 ML IV PRN (17:32)
[2022-10-03] MEDS ORDERED: haloperidoL 1 MG TAB PO PRN (17:32)
[2022-10-03] MEDS ORDERED: ONDANSETRON INJ 2 MG/ML 2 ML VIAL IV PRN (17:32)
[2022-10-03] MEDS: CALCIUM 600MG + VIT D 400 IU TAB PO SCH (21:05)
[2022-10-03] MEDS: TAMSULOSIN HCL 0.4 MG CAP PO SCH (21:06)
[2022-10-03] MEDS: PRAMIPEXOLE DIHYDROCHLO 0.25 MG TAB PO SCH (21:06)
[2022-10-04] MEDS: PIPERACILLIN/TAZOBACTAM 3.375 GM in DEXTROSE 5% 100 ML IV SCH ×3 (03:47→20:49)
[2022-10-04] MEDS: DOXYCYCLINE HYCLATE 100 MG in DEXTROSE 5% 100 ML IV SCH ×2 (05:44→17:30)
[2022-10-04] MEDS: HEPARIN SOD 5,000 UNIT/0.5 ML VIAL SQ SCH ×3 (05:48→23:39)
[2022-10-04] MEDS: CHECK fentaNYL PATCH PLACEMENT SCH (08:52)
[2022-10-04] MEDS: ASPIRIN 81 MG ECTAB PO SCH (09:16)
[2022-10-04] MEDS: ASCORBIC ACID 500 MG TAB PO SCH (09:16)
[2022-10-04] MEDS: amLODIPine BESYLATE 5 MG TAB PO SCH (09:16)
[2022-10-04] MEDS: POTASSIUM CHLORIDE CRTAB 20 MEQ TABCR PO SCH (09:17)
[2022-10-04] MEDS: ISOSORBIDE MONO EXTENDED REL 60 MG TABCR PO SCH (09:17)
[2022-10-04] MEDS: FERROUS SULFATE 325 MG TAB PO SCH (09:17)
[2022-10-04] MEDS: ATORVASTATIN 40 MG TAB PO SCH (09:17)
[2022-10-04] MEDS: predniSONE 20 MG TAB PO SCH (09:17)
[2022-10-04] MEDS: CHOLECALCIFEROL 1,000 UNITS 25 MCG TAB PO SCH (09:17)
[2022-10-04] MEDS: CYANOCOBALAMIN (B-12) 500 MCG TABLET PO SCH (09:17)
[2022-10-04] MEDS: METOPROLOL SUCC 50MG EXT REL TAB PO SCH (09:17)
[2022-10-04] MEDS: TORSEMIDE 20 MG TAB PO SCH (09:17)
[2022-10-04] MEDS: CALCIUM 600MG + VIT D 400 IU TAB PO SCH ×2 (09:17→20:41)
--- NOTE | 2022-10-04 12:42 | XRay Report ---
SINGLE VIEW CHEST CLINICAL HISTORY: Congestive heart failure. FINDINGS: An AP, portable, upright chest radiograph is compared to study dated 10/02/2022. The patient is status post midline sternotomy. A 3-lead cardiac AICD is unchanged in position and partially obsc ures the right upper chest. The heart is enlarged noting atherosclerotic calcification of the thoraci c. There is pulmonary vascular congestion. There are increasing bilateral airspace opacities which li frantz represent pulmonary edema. Small pleural effusions are suspected. No pneumothorax is seen. The s keletal structures are osteopenic. The bony thorax is grossly intact. IMPRESSION: 1. Cardiomegaly and AICD with evidence of congestive failure. 2. There are increasing bilateral airspace opacities which likely represent pulmonary edema. Radiogra phic follow-up to resolution is recommended. 3. Suspect small pleural effusions. ACT 112: Negative or not required by law. Electronically signed by: Dane Lund M.D. 10/04/2022 12:41 PM
[2022-10-04 13:04] LABS: Basophils # (auto) 0.01 K/uL (0-0.2); Basophils % (auto) 0.1 %; Eosinophils # (auto) 0.04 K/uL (0-0.50); Eosinophils % (auto) 0.4 %; Hematocrit (blood only) 26.8 % (42.0-52.0); Hemoglobin 8.5 g/dl (14.0-18.0); Immature Granulocytes # (auto) 0.03 K/uL (0.01-0.20); Immature Granulocytes % (auto) 0.3 %; Lymphocytes % (auto) 6.5 %; Mean Corpuscular Hemoglobin 29.6 pg (25.0-34.0); Mean Corpuscular Hgb Conc 31.7 g/dL (32.0-36.0); Mean Corpuscular Volume 93.4 fL (80.0-100.0); Mean Platelet Volume 10.1 fL (9.4-12.4); Monocytes # (auto) 0.48 K/uL (0.11-0.59); Monocytes % (auto) 5.2 %; Neutrophils # (auto) 8.12 K/uL (1.40-6.50); Neutrophils % (auto) 87.5 %; Platelet Count 186 K/uL (130-400); RDW Coefficient of Variation 15.7 % (11.5-14.5); RDW Standard Deviation 53.8 fL (36.4-46.3); Red Blood Count 2.87 M/uL (4.70-6.10); White Blood Count 9.28 K/ul (4.8-10.8)
[2022-10-04 13:44] LABS: Albumin Level 2.5 gm/dl (3.4-5.0); BUN Creatinine Ratio 67.6 (10-20); Bilirubin,Total 0.7 mg/dl (0.2-1.0); Calcium 7.8 mg/dl (8.6-10.3); Creatinine Clr Calc Pharmacy 17.3 ml/min; Globulin 2.5 gm/dl (2.5-4.0); Magnesium 2.6 mg/dl (1.7-2.4); Potassium 3.8 mmol/L (3.5-5.1)
--- NOTE | 2022-10-04 14:43 | Hospitalist Progress Note ---
Date of Service October 04, 2022 Assessment & Plan (1) Cellulitis of right lower leg: Plan: Has significant comorbid conditions including chronic systolic and diastolic heart failure, respiratory failure with COPD and other significant medical condition as mentioned in H&P was admitted with increasing leg pain and noted to have cellulitis of the right lower leg Has been under hospice care at home Has been started on intravenous Zosyn and doxycycline Clinically cellulitis is better but the patient has not been showing any signs of improvement We will continue with intravenous antibiotic No increase in white count and no fever and or chills Has had a detailed discussion with the family members about the care The elder son and other family members are now not happy to see the patient to be obtunded and not communicating They would like to continue with aggressive management for now His recent deterioration in the labs were explained in detail to the family members specially the elder son At 1 point the patient was about to be for comfort care only but that was reversed Will be moved to telemetry unit to give intravenous beta-natanael His overall prognosis remains poor (2) Ischemic cardiomyopathy: Plan: As above with EF of 20 to 25% and grade 3 diastolic dysfunction Has end-stage CAD-under hospice care at home Repeat chest x-ray did not show ongoing congestion-oral diuretics and metolazone have been on hold We will give a small dose of intravenous fluid of 500 normal saline today to improve kidney function Has been on high-dose beta-natanael of metoprolol 100 mg twice daily Already is having tachycardia Will need intravenous beta-natanael and the patient will be transferred to telemetry unit to provide that Discussed with the family members and they are agreeable to this (3) Biventricular automatic implantable cardioverter defibrillator in situ: Plan: No acute issues now (4) Acute and chronic respiratory failure with hypoxia: Plan: No acute respiratory distress The patient remains semiresponsive Saturating normally on room air (5) COPD (chronic obstructive pulmonary disease): (6) PMR (polymyalgia rheumatica): (7) Acute on chronic heart failure with reduced ejection fraction and diastolic dysfunction: (8) CKD (chronic kidney disease) stage 3, GFR 30-59 ml/min: Plan: History of CKD and seems to be very dehydrated with increasing BUN of more than 200 and creatinine up as well Not being drinking or eating anything Will try small amount of intravenous fluid after discussion with the Kidney function is worse even without any torsemide and/or metolazone Discussed with the son and the in detail We will give a small dose of intravenous fluid and hold off any metolazone and/or torsemide Significant other comorbid conditions as mentioned in H&P The patient has been under hospice care at home The patient signed documents before to be a DNR He was put for full code on admission and after discussion with the and getting the records it were changed to DNR/DNI His condition remains critical and the was told to call the son as soon as possible Prognosis extremely poor Admission and Anticipated Discharge Date Admission Date: October 03, 2022 Subjective 10/03/2022 The patient was seen and examined in medical telemetry unit He has been very weak and minimally responsive to vocal commands and sternal rub Remains very weak and lethargic Occasional jerking movement involving the upper extremities Discussed with the in detail 10/04/2022 Patient was seen and examined in medical telemetry unit in presence of the family members specially the elder son The patient remains unresponsive He received 1 dose of Ativan 0.5 mg at around 1 AM early this morning for anxiety and agitation and restlessness as he was for comfort care only The patient received intravenous antibiotic and other IV medications and did not receive any narcotic pain medication The elder son is not happy about it and wanted to have intravenous medications without any use of Ativan and/or narcotic pain medications The comfort care was taken off from the list and chest x-ray and lab works were ordered Later on the patient was responding to vocal commands by opening eyes He does have drowsiness and occasional jerks of the extremities likely due to increasing BUN of more than 200 Review of Systems Review of Systems: Unobtainable due to cognitive status Physical Exam Physical Exam: Lying in bed, very sick and minimally responsive Constitutional: + ill appearing and + thin Eyes: PERRL, conjunctivae normal, anicteric sclerae ENMT: external ear and nose normal, oropharynx normal Neck: trachea midline, no thyromegaly Respiratory: + respiratory distress (Mild distress) Auscultation: + diminished lung sounds and + crackles (Minimal bibasilar crackles) Cardiovascular: Rate/Rhythm: regular rate and regular rhythm; not tachycardic Heart Sounds: normal S1, normal S2 and + murmur Extremities: no edema Gastrointestinal (Abdomen): Inspection/Auscultation: normal bowel sounds; abdomen not distended Percussion/Palpation: + abdomen tender and abdomen soft Musculoskeletal: No acute arthritis involving any joint Skin: Has generalized bruising Neurologic: Remains obtunded. Not moving any limbs and not communicating Results & Data Results & Data Vital Signs (Past 12 Hours) Vital Signs Temp Pulse Resp BP Pulse Ox O2 Del Method 10/04/22 12:06 36.8 C 100 H 20 111/52 L 91 Room Air 10/04/22 09:00 Room Air 10/04/22 08:03 36.3 C L 92 H 20 132/99 96 Room Air Laboratory Results Short CBC 10/04/22 Range/Units 12:45 WBC 9.28 (4.8-10.8) K/ul Hgb 8.5 L (14.0-18.0) g/dl Hct 26.8 L (42.0-52.0) % Plt Count 186 (130-400) K/uL BMP 10/04/22 12:45 Sodium 140 Potassium 3.8 Chloride 101 Carbon Dioxide 26 BUN 207 H Creatinine 3.06 H D Glucose 112 H Calcium 7.8 L Liver Function 10/04/22 Range/Units 12:45 Total Bilirubin 0.7 (0.2-1.0) mg/dl AST 25 (13-39) U/L ALT 26 (7-52) U/L Alkaline Phosphatase 73 (34-104) U/L Albumin 2.5 L (3.4-5.0) gm/dl Medications Administered Current Inpatient Medications Acetaminophen (Acetaminophen 325 Mg Tab) 650 mg PO Q4H PRN PRN Reason: Pain or Fever Stop: 11/02/22 05:11 Albuterol (Albuterol Hfa 8 Gm Inhaler) 2 puffs INH QID PRN PRN Reason: shortness of breath or wheezin Stop: 11/02/22 05:11 Amlodipine Besylate (Amlodipine Besylate 5 Mg Tab) 2.5 mg PO DAILY JAMES Stop: 11/02/22 08:59 Last Admin: 10/04/22 09:16 Dose: Not Given Ascorbic Acid (Ascorbic Acid 500 Mg Tab) 250 mg PO DAILY [facility] Stop: 11/02/22 08:59 Last Admin: 10/04/22 09:16 Dose: Not Given Aspirin (Aspirin 81 Mg Ectab) 81 mg PO DAILY [facility] Stop: 11/02/22 08:59 Last Admin: 10/04/22 09:16 Dose: Not Given Atorvastatin Calcium (Atorvastatin 40 Mg Tab) 40 mg PO DAILY [facility] Stop: 11/02/22 08:59 Last Admin: 10/04/22 09:17 Dose: Not Given Atropine Sulfate (Atropine Sulfate 1% Op Soln 5 Ml Btl) 4 drops SL Q1H PRN PRN Reason: Secretions or pulm congestion Stop: 11/02/22 17:31 Calcium/Vitamin D (Calcium 600mg + Vit D 400 Iu Tab) 1 tab PO BID [facility] Stop: 11/02/22 20:59 Last Admin: 10/04/22 09:17 Dose: Not Given Cyanocobalamin (Cyanocobalamin (B-12) 500 Mcg Tablet) 1,000 mcg PO DAILY JAMES Stop: 11/02/22 08:59 Last Admin: 10/04/22 09:17 Dose: Not Given Ferrous Sulfate (Ferrous Sulfate 325 Mg Tab) 325 mg PO DAILY JAMES Stop: 11/02/22 08:59 Last Admin: 10/04/22 09:17 Dose: Not Given Heparin Sodium (Porcine) (Heparin Sod 5,000 Unit/0.5 Ml Vial) 5,000 units SQ Q8 [facility] Stop: 11/02/22 05:59 Last Admin: 10/04/22 13:23 Dose: 5,000 units Piperacillin Sod/Tazobactam (Sod 3.375 gm/ Dextrose) 115 mls @ 28.75 mls/hr IV Q8H [facility]; Protocol Stop: 10/10/22 11:59 Last Admin: 10/04/22 12:37 Dose: 28.8 mls/hr Doxycycline Hyclate 100 mg/ (Dextrose) 110 mls @ 50 mls/hr IV Q12H [facility] Stop: 10/10/22 05:59 Last Infusion: 10/04/22 07:56 Dose: Infused Sodium Chloride (Nss) 500 mls @ 80 mls/hr IV .Q6H15M [facility] Stop: 11/03/22 14:29 Isosorbide Mononitrate (Isosorbide Donley Extended Rel 60 Mg Tabcr) 60 mg PO DAILY [facility] Stop: 11/02/22 08:59 Last Admin: 10/04/22 09:17 Dose: Not Given Metolazone (Metolazone 2.5 Mg Tablet) 2.5 mg PO Mo@0900 [facility] Stop: 11/04/22 08:59 Metoprolol Succinate (Metoprolol Succ 50mg Ext Rel Tab) 100 mg PO DAILY JAMES Stop: 11/02/22 08:59 Last Admin: 10/04/22 09:17 Dose: Not Given Metoprolol Tartrate (Metoprolol Tartrate 1 Mg/Ml Vial) 2.5 mg IV Q6 JAMES Stop: 11/03/22 17:59 Nitroglycerin (Nitroglycerin Sl 0.4 Mg/Tab Tab) 0.4 mg SL UD PRN PRN Reason: Chest Pain Stop: 11/02/22 05:11 Ondansetron HCl (Ondansetron 4 Mg Od Tab) 4 mg SL Q4H PRN PRN Reason: Nausea &/or Vomiting Stop: 11/02/22 17:31 Ondansetron HCl (Ondansetron Inj 2 Mg/Ml 2 Ml Vial) 4 mg IV Q4H PRN PRN Reason: Nausea &/or Vomiting Stop: 11/02/22 17:31 Oxycodone HCl (Oxycodone Hcl Ir 5 Mg Tab (Immediate Release)) 5 mg PO Q6H PRN PRN Reason: Pain Stop: 10/17/22 05:11 Polyethylene Glycol (Polyethylene (Miralax) 17 Gm Pack) 17 gm PO DAILY PRN PRN Reason: Constipation Stop: 11/02/22 05:11 Potassium Chloride (Potassium Chloride Crtab 20 Meq Tabcr) 20 meq PO DAILY [facility] Stop: 11/02/22 08:59 Last Admin: 10/04/22 09:17 Dose: Not Given Pramipexole Dihydrochloride (Pramipexole Dihydrochlo 0.25 Mg Tab) 0.25 mg PO HS JAMES Stop: 11/02/22 20:59 Last Admin: 10/03/22 21:06 Dose: Not Given Prednisone (Prednisone 20 Mg Tab) 20 mg PO DAILY [facility] Stop: 11/02/22 08:59 Last Admin: 10/04/22 09:17 Dose: Not Given Tamsulosin HCl (Tamsulosin Hcl 0.4 Mg Cap) 0.8 mg PO QPM [facility] Stop: 11/02/22 20:59 Last Admin: 10/03/22 21:06 Dose: Not Given Torsemide (Torsemide 20 Mg Tab) 40 mg PO QAM [facility] Stop: 11/02/22 08:59 Last Admin: 10/04/22 09:17 Dose: Not Given Torsemide (Torsemide 20 Mg Tab) 20 mg PO DAILY@1700 [facility] Stop: 11/02/22 16:59 Last Admin: 10/03/22 16:20 Dose: Not Given Vitamin D (Cholecalciferol 1,000 Units 25 Mcg Tab) 2,000 units PO DAILY JAMES Stop: 11/02/22 08:59 Last Admin: 10/04/22 09:17 Dose: Not Given
[2022-10-04] MEDS: SODIUM CHLORIDE 0.9% 500 ML IV SCH ×2 (14:44→22:11)
[2022-10-04] MEDS ORDERED: oxyCODONE HCL SOLN 5 MG/5 ML UDC PO PRN (16:50)
[2022-10-04] MEDS ORDERED: FUROSEMIDE INJ 20 MG/2 ML VIAL IV STA (17:28)
[2022-10-04] MEDS: METOPROLOL TARTRATE 1 MG/ML VIAL IV SCH ×2 (17:30→23:37)
[2022-10-04] MEDS: PRAMIPEXOLE DIHYDROCHLO 0.25 MG TAB PO SCH (20:41)
[2022-10-04] MEDS: TAMSULOSIN HCL 0.4 MG CAP PO SCH (20:41)
[2022-10-04] MEDS ORDERED: fentaNYL 25 MCG/HR TDSY TD SCH (23:45)
[2022-10-05] MEDS: SODIUM CHLORIDE 0.9% 500 ML IV SCH ×2 (02:37→10:08)
[2022-10-05] MEDS: PIPERACILLIN/TAZOBACTAM 3.375 GM in DEXTROSE 5% 100 ML IV SCH ×2 (04:39→12:07)
[2022-10-05] MEDS ORDERED: PANTOPRAZOLE BOLUS/DRIP 1 EACH IV STA (05:31)
[2022-10-05] MEDS ORDERED: PANTOprazole 80 MG in DEXTROSE 5% 100 ML IV ONE (05:31)
[2022-10-05 05:47] LABS: Basophils # (auto) 0.01 K/uL (0-0.2); Basophils % (auto) 0.1 %; Eosinophils # (auto) 0.11 K/uL (0-0.50); Eosinophils % (auto) 1.1 %; Hematocrit (blood only) 25.9 % (42.0-52.0); Immature Granulocytes # (auto) 0.06 K/uL (0.01-0.20); Immature Granulocytes % (auto) 0.6 %; Lymphocytes % (auto) 5.9 %; Mean Corpuscular Hemoglobin 28.8 pg (25.0-34.0); Mean Corpuscular Hgb Conc 30.9 g/dL (32.0-36.0); Mean Corpuscular Volume 93.2 fL (80.0-100.0); Mean Platelet Volume 10.3 fL (9.4-12.4); Monocytes # (auto) 0.52 K/uL (0.11-0.59); Monocytes % (auto) 5.1 %; Neutrophils # (auto) 8.92 K/uL (1.40-6.50); Neutrophils % (auto) 87.2 %; Platelet Count 195 K/uL (130-400); RDW Coefficient of Variation 15.9 % (11.5-14.5); Red Blood Count 2.78 M/uL (4.70-6.10); White Blood Count 10.22 K/ul (4.8-10.8)
[2022-10-05 06:13] LABS: BUN Creatinine Ratio 59.8 (10-20); Calcium 7.9 mg/dl (8.6-10.3); Creatinine Clr Calc Pharmacy 16.2 ml/min; Est GFR (African American) 20.2 ml/min; Est GFR (Non-African American) 17.4 ml/min; Potassium 3.1 mmol/L (3.5-5.1)
[2022-10-05] MEDS: METOPROLOL TARTRATE 1 MG/ML VIAL IV SCH ×2 (06:28→12:30)
[2022-10-05] MEDS: DOXYCYCLINE HYCLATE 100 MG in DEXTROSE 5% 100 ML IV SCH ×2 (06:28→17:40)
[2022-10-05] MEDS: HEPARIN SOD 5,000 UNIT/0.5 ML VIAL SQ SCH (06:29)
[2022-10-05] MEDS: PANTOprazole 40 MG in DEXTROSE 5% 100 ML IV SCH ×4 (07:23→22:06)
[2022-10-05] MEDS ORDERED: POTASSIUM CHLORIDE / WTR 10 MEQ/100 ML PLCT IV SCH (07:30)
[2022-10-05] MEDS ORDERED: metOLazone 2.5 MG TABLET PO SCH (09:00)
[2022-10-05] MEDS: CHECK fentaNYL PATCH PLACEMENT SCH ×2 (09:27→16:42)
[2022-10-05] MEDS: ASPIRIN 81 MG ECTAB PO SCH (10:08)
[2022-10-05] MEDS: amLODIPine BESYLATE 5 MG TAB PO SCH (10:21)
[2022-10-05] MEDS: predniSONE 20 MG TAB PO SCH (10:22)
[2022-10-05] MEDS: ATORVASTATIN 40 MG TAB PO SCH (10:23)
[2022-10-05] MEDS: ISOSORBIDE MONO EXTENDED REL 60 MG TABCR PO SCH (10:23)
[2022-10-05] MEDS: FERROUS SULFATE 325 MG TAB PO SCH (10:23)
[2022-10-05] MEDS: POTASSIUM CHLORIDE CRTAB 20 MEQ TABCR PO SCH (11:24)
--- NOTE | 2022-10-05 11:42 | Gastrointestinal Consultation ---
Date of Consultation October 05, 2022 Assessment & Plan (1) Black tarry stools: (2) Heme positive stool: Pt is a 77 yo male seen for 2 episodes of black stools overnight that's heme positive. He is oral Fe supplement. Blood ct low but stable over the last few days. He is not having abd pain, n/v, and BM this morning was brown in color. He has multiple medical comorbidities and was on home hospice, which was revoked when he's admitted. Family would like to defer any endoscopy procedures to r/o GI bleed source and opts for conservative management. We will continue PPI gtt, which can be converted to IV BID dose tomorrow. He may have a CL diet, advance as tolerated. Monitor blood ct and for further s/s of GI bleeding. Pls recall GI prn. History of Present Illness Reason for Consultation: Black stools, heme positive Requesting Physician: Dr. Parth Lazar Attending Physician: Dr. Tino Seymour History of Present Illness Pt is a 77yo male w PMHx as noted below who was admitted for RLE pain. He was on home hospice due to his multiple medical comorbidities including CHF, CAD s/p CABG, ICD placement, end stage HF w EF of 20-25%, COPD, renal disease but family revoked this status but he's on DNR/DNI code status. GI consulted as pt had 2 episodes of soft black stools around 5am last night witnessed by rosalva which tested heme positive. He is on oral Fe supplement. This morning stool was noted to be soft and brown. Patient had been anemic with hemoglobin of 8 that has been stable over the last few days. Renal function continues to worsen. This morning pt examined laying in bed, states he's "tired" but denies any pain, particularly no abd pain, n/v. Family (son and granddaughter) at bedside. Allergies Allergy/AdvReac Type Severity Reaction Status Date / Time hydromorphone Allergy Intermediate HIVES Verified 10/03/22 02:18 meperidine Allergy Intermediate HIVES Verified 10/03/22 02:18 morphine Allergy Intermediate HIVES Verified 10/03/22 02:18 lisinopril AdvReac Intermediate COUGH Verified 10/03/22 02:18 Home Medications Medication Instructions Recorded Confirmed Type aspirin 81 mg tablet,delayed 81 mg PO DAILY 09/17/18 10/03/22 History release ([place] Low Dose Aspirin) atorvastatin 40 mg tablet (Lipitor) 40 mg PO DAILY 09/17/18 10/03/22 History cholecalciferol (vitamin D3) 50 2,000 unit PO DAILY 09/17/18 10/03/22 History mcg (2,000 unit) tablet pramipexole 0.25 mg tablet 0.25 mg PO HS 09/17/18 10/03/22 History (Mirapex) tamsulosin 0.4 mg capsule 0.8 mg PO QPM 09/17/18 10/03/22 History albuterol sulfate 90 mcg/actuation 2 inha inhalation QID PRN 09/28/18 10/03/22 Rx aerosol inhaler shortness of breath or wheezing #1 g nitroglycerin 0.4 mg sublingual 0.4 mg sublingual DIRECTED PRN 12/13/19 10/03/22 History tablet (Nitrostat) Chest Pain amlodipine 2.5 mg tablet 2.5 mg PO DAILY 06/21/22 10/03/22 History cyanocobalamin (vitamin B-12) 1,000 mcg sublingual DAILY 06/21/22 10/03/22 History 1,000 mcg sublingual tablet iron,carbonyl 65 mg-vitamin C 125 1 tab PO DAILY 06/21/22 10/03/22 History mg tablet,delayed release (Vitron-C) isosorbide mononitrate 60 mg 60 mg PO DAILY 06/21/22 10/03/22 History tablet,extended release 24 hr metolazone 2.5 mg tablet 2.5 mg PO WK 06/21/22 10/03/22 History metoprolol succinate 100 mg 100 mg PO DAILY 06/21/22 10/03/22 History tablet,extended release 24 hr oxycodone 5 mg tablet 5 mg PO Q6H PRN Pain 06/21/22 10/03/22 History potassium chloride 10 mEq 20 meq PO DAILY 06/21/22 10/03/22 History capsule,extended release prednisone 10 mg tablet 20 mg PO DAILY 06/21/22 10/03/22 History lorazepam 0.5 mg tablet (Ativan) 0.5 mg PO Q12H PRN anxiety #5 tabs 06/26/22 10/03/22 Rx fentanyl 50 mcg/hr transdermal 1 patch transdermal Q72H 10/03/22 10/03/22 History patch torsemide 20 mg tablet 20 mg PO QPM 10/03/22 10/03/22 History torsemide 20 mg tablet 40 mg PO QAM 10/03/22 10/03/22 History Patient History Medical History MARGARET inhibitor intolerance Advanced care planning/counseling discussion BPH (benign prostatic hyperplasia) CAD (coronary artery disease) Carotid stenosis CHF (congestive heart failure) CKD (chronic kidney disease) stage 3, GFR 30-59 ml/min COPD (chronic obstructive pulmonary disease) Dyslipidemia Dyspnea and respiratory abnormalities GERD (gastroesophageal reflux disease) Goals of care, counseling/discussion HTN (hypertension) LBBB (left bundle branch block) Lumbago Palliative care encounter Pericardial effusion PMR (polymyalgia rheumatica) Small bowel obstruction due to adhesions Surgical History Biventricular automatic implantable cardioverter defibrillator in situ 06/25/2017 [facility] H/O heart artery stent "left subclavian stent for occlusion with front runner catheter, Dr Retana 04/23" History of back surgery cervical and lumbar History of carotid endarterectomy Left CEA with patch 10/25/2006 History of cholecystectomy History of coronary artery bypass graft x 1 BENÍTEZ to LAD History of inguinal hernia repair History of open heart surgery History of tonsillectomy Family History Father Coronary heart disease, Onset Age: 51 Mother Stroke Social History Smoking Status: Former smoker packs per day: 1.5; Second Hand Exposure: No; Do You Dip or Chew Tobacco: No; Hx Alcohol Use: No Hx Substance Use: No Preferred Language: Niuean Communication Ability: Effective Driller Multiple Spindle Required: No Beliefs That Will Affect Care: None marital status: Current Living Situation: Spouse current occupational status: retired and disabled Other Information That Helps Us Care for You: No Feels Safe at Home: Yes Safety Concerns: Feels Safe At This Time Assistive Devices: Cane Review of Systems Review of Systems: All systems reviewed & are unremarkable except as noted in HPI & below Physical Exam Constitutional: + ill appearing, + thin, cooperative and comfortable Eyes: PERRL, conjunctivae normal, anicteric sclerae ENMT: external ear and nose normal, oropharynx normal Respiratory: Diminished bilateral bases, O2 mask on Cardiovascular: RRR, no murmur, no edema Gastrointestinal (Abdomen): Soft, non tender, BS hypoactive Skin: no rashes, warm and dry no jaundice Psychiatric: Lethargic Lymphatic: no lymphedema Results & Data Vital Signs (Past 12 Hours) Vital Signs Temp Pulse Pulse Resp BP BP BP 10/05/22 10:33 10/05/22 10:19 36.4 C L 86 20 126/84 10/05/22 07:59 36.5 C 88 20 147/68 H 10/05/22 06:28 91 H 124/67 10/05/22 00:31 89 10/04/22 23:37 96 H 119/64 Pulse Ox O2 Del Method O2 Flow Rate 10/05/22 10:33 Room Air 10/05/22 10:19 93 Room Air 10/05/22 07:59 90 Oxymask 2 10/05/22 06:28 10/05/22 00:31 10/04/22 23:37
[2022-10-05] MEDS: POTASSIUM CHLORIDE 20 MEQ/15 ML UDC PO SCH (11:57)
[2022-10-05] MEDS: TORSEMIDE 10 MG TAB PO SCH (11:57)
[2022-10-05] MEDS ORDERED: METOPROLOL TARTRATE 1 MG/ML VIAL IV PRN (12:20)
--- NOTE | 2022-10-05 14:53 | Hospitalist Progress Note ---
Date of Service October 05, 2022 Assessment & Plan (1) Cellulitis of right lower leg: Plan: Has significant comorbid conditions including chronic systolic and diastolic heart failure, respiratory failure with COPD and other significant medical condition as mentioned in H&P was admitted with increasing leg pain and noted to have cellulitis of the right lower leg Has been under hospice care at home Has been started on intravenous Zosyn and doxycycline Clinically cellulitis is better but the patient has not been showing any signs of improvement We will continue with intravenous antibiotic No increase in white count and no fever and or chills Cellulitis has improved a lot-White count is normalized Noted to have black tarry stool Hemoglobin minimally down Multiple etiology-likely secondary to CKD, doubt any profuse bleeding GI has been consulted-no procedure IV PPI and monitor hemoglobin Has had a detailed discussion with the family members about the care The elder son and other family members are now not happy to see the patient to be obtunded and not communicating They would like to continue with aggressive management for now His recent deterioration in the labs were explained in detail to the family members specially the elder son At 1 point the patient was about to be for comfort care only but that was reversed Will be moved to telemetry unit to give intravenous beta-natanael His overall prognosis remains poor Clinically a little better today and seems to be back at his baseline and is minimally communicative (2) Ischemic cardiomyopathy: Plan: As above with EF of 20 to 25% and grade 3 diastolic dysfunction Has end-stage CAD-under hospice care at home Repeat chest x-ray did not show ongoing congestion-oral diuretics and metolazone have been on hold We will give a small dose of intravenous fluid of 500 normal saline today to improve kidney function Has been on high-dose beta-natanael of metoprolol 100 mg twice daily Already is having tachycardia Will need intravenous beta-natanael and the patient will be transferred to telemetry unit to provide that Discussed with the family members and they are agreeable to this The family members wanted to have diuretics-they are accepting the worsening of kidney function with the diuretics then there are further to have shortness of breath from fluid overload Torsemide 40 mg p.o. started Has been getting cardiac medicine including high-dose beta-natanael and isosorbide (3) Biventricular automatic implantable cardioverter defibrillator in situ: Plan: No acute issues now (4) Acute and chronic respiratory failure with hypoxia: Plan: No acute respiratory distress The patient remains semiresponsive Saturating normally on room air (5) COPD (chronic obstructive pulmonary disease): (6) PMR (polymyalgia rheumatica): (7) Acute on chronic heart failure with reduced ejection fraction and diastolic dysfunction: (8) CKD (chronic kidney disease) stage 3, GFR 30-59 ml/min: Plan: History of CKD and seems to be very dehydrated with increasing BUN of more than 200 and creatinine up as well Not being drinking or eating anything Will try small amount of intravenous fluid after discussion with the Kidney function is worse even without any torsemide and/or metolazone Discussed with the son and the in detail We will give a small dose of intravenous fluid and hold off any metolazone and/or torsemide Creatinine has been going up and is more than 3 today and the BUN remains around 200 He has been weak and lethargic with occasional jerking involving the extremities likely secondary to high BUN The family member specially the son wanted to have diuretics to be continued Significant other comorbid conditions as mentioned in H&P The patient has been under hospice care at home The patient signed documents before to be a DNR He was put for full code on admission and after discussion with the and getting the records it were changed to DNR/DNI His condition remains critical and the was told to call the son as soon as possible Prognosis extremely poor Admission and Anticipated Discharge Date Admission Date: October 03, 2022 Subjective 10/03/2022 The patient was seen and examined in medical telemetry unit He has been very weak and minimally responsive to vocal commands and sternal rub Remains very weak and lethargic Occasional jerking movement involving the upper extremities Discussed with the in detail 10/04/2022 Patient was seen and examined in medical telemetry unit in presence of the family members specially the elder son The patient remains unresponsive He received 1 dose of Ativan 0.5 mg at around 1 AM early this morning for anxiety and agitation and restlessness as he was for comfort care only The patient received intravenous antibiotic and other IV medications and did not receive any narcotic pain medication The elder son is not happy about it and wanted to have intravenous medications without any use of Ativan and/or narcotic pain medications The comfort care was taken off from the list and chest x-ray and lab works were ordered Later on the patient was responding to vocal commands by opening eyes He does have drowsiness and occasional jerks of the extremities likely due to increasing BUN of more than 200 10/05/2022 The patient was seen and examined in telemetry unit He has been much better and back to his baseline almost Has been communicating Remains extremely weak and lethargic with moderate shortness of breath at rest Review of Systems Review of Systems: Unobtainable due to cognitive status Physical Exam Physical Exam: Lying in bed with minimal respiratory distress. Constitutional: + ill appearing and + thin Eyes: PERRL, conjunctivae normal, anicteric sclerae ENMT: external ear and nose normal, oropharynx normal Neck: trachea midline, no thyromegaly Respiratory: + respiratory distress (Mild distress) Auscultation: + diminished lung sounds and + crackles (Minimal bibasilar crackles) Cardiovascular: Rate/Rhythm: regular rate and regular rhythm; not tachycardic Heart Sounds: normal S1, normal S2 and + murmur Extremities: no edema Gastrointestinal (Abdomen): Inspection/Auscultation: normal bowel sounds; abdomen not distended Percussion/Palpation: + abdomen tender and abdomen soft Musculoskeletal: No acute arthritis involving any of the joint Skin: Her generalized bruising Neurologic: + confused (Pleasantly confused) Extremely weak and lethargic. Minimally communicative Lymphatic: no cervical or axillary lymphadenopathy Results & Data Results & Data Vital Signs (Past 12 Hours) Vital Signs Temp Pulse Pulse Resp BP BP BP 10/05/22 14:27 84 10/05/22 10:33 10/05/22 10:19 36.4 C L 86 20 126/84 10/05/22 07:59 36.5 C 88 20 147/68 H 10/05/22 06:28 91 H 124/67 Pulse Ox O2 Del Method O2 Flow Rate 10/05/22 14:27 10/05/22 10:33 Room Air 10/05/22 10:19 93 Room Air 10/05/22 07:59 90 Oxymask 2 10/05/22 06:28 Laboratory Results Short CBC 10/05/22 Range/Units 05:23 WBC 10.22 (4.8-10.8) K/ul Hgb 8.0 L (14.0-18.0) g/dl Hct 25.9 L (42.0-52.0) % Plt Count 195 (130-400) K/uL BMP 10/05/22 05:23 Sodium 140 Potassium 3.1 L Chloride 105 Carbon Dioxide 26 BUN 196 H Creatinine 3.28 H Glucose 104 H Calcium 7.9 L Medications Administered Current Inpatient Medications Acetaminophen (Acetaminophen 325 Mg Tab) 650 mg PO Q4H PRN PRN Reason: Pain or Fever Stop: 11/02/22 05:11 Albuterol (Albuterol Hfa 8 Gm Inhaler) 2 puffs INH QID PRN PRN Reason: shortness of breath or wheezin Stop: 11/02/22 05:11 Amlodipine Besylate (Amlodipine Besylate 5 Mg Tab) 2.5 mg PO DAILY JAMES Stop: 11/02/22 08:59 Last Admin: 10/05/22 10:21 Dose: 2.5 mg Ascorbic Acid (Ascorbic Acid 500 Mg Tab) 250 mg PO DAILY JAMES Stop: 11/02/22 08:59 Last Admin: 10/04/22 09:16 Dose: Not Given Atorvastatin Calcium (Atorvastatin 40 Mg Tab) 40 mg PO DAILY JAMES Stop: 11/02/22 08:59 Last Admin: 10/05/22 10:23 Dose: 40 mg Atropine Sulfate (Atropine Sulfate 1% Op Soln 5 Ml Btl) 4 drops SL Q1H PRN PRN Reason: Secretions or pulm congestion Stop: 11/02/22 17:31 Calcium/Vitamin D (Calcium 600mg + Vit D 400 Iu Tab) 1 tab PO BID JAMES Stop: 11/02/22 20:59 Last Admin: 10/04/22 20:41 Dose: Not Given Cyanocobalamin (Cyanocobalamin (B-12) 500 Mcg Tablet) 1,000 mcg PO DAILY JAMES Stop: 11/02/22 08:59 Last Admin: 10/04/22 09:17 Dose: Not Given Fentanyl (Fentanyl 25 Mcg/Hr Tdsy) 25 mcg TD Q72H [facility] Stop: 10/18/22 23:44 Last Admin: 10/05/22 00:38 Dose: 25 mcg Ferrous Sulfate (Ferrous Sulfate 325 Mg Tab) 325 mg PO DAILY JAMES Stop: 11/02/22 08:59 Last Admin: 10/05/22 10:23 Dose: 325 mg Doxycycline Hyclate 100 mg/ (Dextrose) 110 mls @ 50 mls/hr IV Q12H [facility] Stop: 10/10/22 05:59 Last Infusion: 10/05/22 08:58 Dose: Infused Pantoprazole Sodium 40 mg/ (Dextrose) 100 mls @ 20 mls/hr IV Q5H [facility] Stop: 11/04/22 05:59 Last Admin: 10/05/22 12:07 Dose: 8 mg/hr, 20 mls/hr Piperacillin Sod/Tazobactam (Sod 4.5 gm/ Dextrose) 120 mls @ 30 mls/hr IV Q12H [facility]; Protocol Stop: 10/10/22 11:59 Isosorbide Mononitrate (Isosorbide [place] Extended Rel 60 Mg Tabcr) 60 mg PO DAILY [facility] Stop: 11/02/22 08:59 Last Admin: 10/05/22 10:23 Dose: 60 mg Metoprolol Succinate (Metoprolol Succ 50mg Ext Rel Tab) 100 mg PO DAILY [facility] Stop: 11/02/22 08:59 Last Admin: 10/04/22 09:17 Dose: Not Given Metoprolol Tartrate (Metoprolol Tartrate 1 Mg/Ml Vial) 2.5 mg IV Q6 PRN PRN Reason: Blood Pressure - High Stop: 11/03/22 17:59 Miscellaneous (Check Fentanyl Patch Placement) 1 each N/A QS [facility] Stop: 11/04/22 07:59 Last Admin: 10/05/22 09:27 Dose: 1 each Miscellaneous (Fentanyl Patch Remove & Waste) 1 each N/A Q72H [facility] Stop: 11/06/22 23:44 Nitroglycerin (Nitroglycerin Sl 0.4 Mg/Tab Tab) 0.4 mg SL UD PRN PRN Reason: Chest Pain Stop: 11/02/22 05:11 Ondansetron HCl (Ondansetron 4 Mg Od Tab) 4 mg SL Q4H PRN PRN Reason: Nausea &/or Vomiting Stop: 11/02/22 17:31 Ondansetron HCl (Ondansetron Inj 2 Mg/Ml 2 Ml Vial) 4 mg IV Q4H PRN PRN Reason: Nausea &/or Vomiting Stop: 11/02/22 17:31 Oxycodone HCl (Oxycodone Hcl Ir 5 Mg Tab (Immediate Release)) 5 mg PO Q6H PRN PRN Reason: Pain Stop: 10/17/22 05:11 Oxycodone HCl (Oxycodone Hcl Soln 5 Mg/5 Ml Udc) 2.5 mg PO Q4H PRN PRN Reason: Pain Stop: 10/18/22 16:49 Polyethylene Glycol (Polyethylene (Miralax) 17 Gm Pack) 17 gm PO DAILY PRN PRN Reason: Constipation Stop: 11/02/22 05:11 Potassium Chloride (Potassium Chloride 20 Meq/15 Ml Udc) 20 meq PO QAM [facility] Stop: 11/04/22 11:29 Last Admin: 10/05/22 11:57 Dose: 20 meq Pramipexole Dihydrochloride (Pramipexole Dihydrochlo 0.25 Mg Tab) 0.25 mg PO HS [facility] Stop: 11/02/22 20:59 Last Admin: 10/04/22 20:41 Dose: Not Given Prednisone (Prednisone 20 Mg Tab) 20 mg PO DAILY [facility] Stop: 11/02/22 08:59 Last Admin: 10/05/22 10:22 Dose: 20 mg Tamsulosin HCl (Tamsulosin Hcl 0.4 Mg Cap) 0.8 mg PO QPM [facility] Stop: 11/02/22 20:59 Last Admin: 10/04/22 20:41 Dose: Not Given Torsemide (Torsemide 10 Mg Tab) 40 mg PO QAM [facility] Stop: 11/04/22 10:14 Last Admin: 10/05/22 11:57 Dose: 40 mg Vitamin D (Cholecalciferol 1,000 Units 25 Mcg Tab) 2,000 units PO DAILY [facility] Stop: 11/02/22 08:59 Last Admin: 10/04/22 09:17 Dose: Not Given
[2022-10-05] MEDS: ASCORBIC ACID 500 MG TAB PO SCH (15:57)
[2022-10-05] MEDS: CALCIUM 600MG + VIT D 400 IU TAB PO SCH ×2 (15:57→20:44)
[2022-10-05] MEDS: CYANOCOBALAMIN (B-12) 500 MCG TABLET PO SCH (15:57)
[2022-10-05] MEDS: CHOLECALCIFEROL 1,000 UNITS 25 MCG TAB PO SCH (15:57)
[2022-10-05] MEDS: PRAMIPEXOLE DIHYDROCHLO 0.25 MG TAB PO SCH (20:44)
[2022-10-05] MEDS: TAMSULOSIN HCL 0.4 MG CAP PO SCH (20:44)
[2022-10-06] MEDS: PIPERACILLIN/TAZOBACTAM 4.5 GM CI (over 4 hours) IV SCH ×3 (01:22→23:39)
[2022-10-06] MEDS: CHECK fentaNYL PATCH PLACEMENT SCH ×4 (01:22→23:39)
[2022-10-06] MEDS: PANTOprazole 40 MG in DEXTROSE 5% 100 ML IV SCH ×5 (02:19→22:16)
[2022-10-06] MEDS: DOXYCYCLINE HYCLATE 100 MG in DEXTROSE 5% 100 ML IV SCH ×2 (05:29→18:00)
[2022-10-06 06:41] LABS: Hematocrit (blood only) 24.7 % (42.0-52.0); Hemoglobin 7.6 g/dl (14.0-18.0); Mean Corpuscular Hemoglobin 28.8 pg (25.0-34.0); Mean Corpuscular Hgb Conc 30.8 g/dL (32.0-36.0); Mean Corpuscular Volume 93.6 fL (80.0-100.0); Mean Platelet Volume 10.1 fL (9.4-12.4); Platelet Count 184 K/uL (130-400); RDW Coefficient of Variation 15.6 % (11.5-14.5); RDW Standard Deviation 53.5 fL (36.4-46.3); Red Blood Count 2.64 M/uL (4.70-6.10); White Blood Count 9.22 K/ul (4.8-10.8)
[2022-10-06 07:17] LABS: Acanthocytes 1+; Immature Granulocytes # (auto) 0.04 K/uL (0.01-0.20); Immature Granulocytes % (auto) 0.4 %; Lymphocytes # (auto) 0.45 K/uL (1.2-3.4); Lymphocytes % (auto) 4.9 %; Monocytes # (auto) 0.35 K/uL (0.11-0.59); Monocytes % (auto) 3.8 %; Neutrophils # (auto) 8.38 K/uL (1.40-6.50); Neutrophils % (auto) 90.9 %; Ovalocytes 1+; Polychromasia 1+
[2022-10-06 07:23] LABS: Calcium 7.9 mg/dl (8.6-10.3); Creatinine Clr Calc Pharmacy 16.4 ml/min; Est GFR (African American) 20.6 ml/min; Est GFR (Non-African American) 17.8 ml/min; Magnesium 2.5 mg/dl (1.7-2.4); Potassium 3.1 mmol/L (3.5-5.1)
[2022-10-06] MEDS: CYANOCOBALAMIN (B-12) 500 MCG TABLET PO SCH (08:59)
[2022-10-06] MEDS: FERROUS SULFATE 325 MG TAB PO SCH (08:59)
[2022-10-06] MEDS: CALCIUM 600MG + VIT D 400 IU TAB PO SCH ×2 (08:59→20:04)
[2022-10-06] MEDS: TORSEMIDE 10 MG TAB PO SCH (08:59)
[2022-10-06] MEDS: METOPROLOL SUCC 50MG EXT REL TAB PO SCH (09:00)
[2022-10-06] MEDS: amLODIPine BESYLATE 5 MG TAB PO SCH (09:00)
[2022-10-06] MEDS: predniSONE 20 MG TAB PO SCH (09:00)
[2022-10-06] MEDS: ATORVASTATIN 40 MG TAB PO SCH (09:00)
[2022-10-06] MEDS: ISOSORBIDE MONO EXTENDED REL 60 MG TABCR PO SCH (09:00)
[2022-10-06] MEDS: CHOLECALCIFEROL 1,000 UNITS 25 MCG TAB PO SCH (09:00)
[2022-10-06] MEDS: ASCORBIC ACID 500 MG TAB PO SCH (09:01)
[2022-10-06] MEDS: POTASSIUM CHLORIDE 20 MEQ/15 ML UDC PO SCH (09:02)
[2022-10-06] MEDS: POTASSIUM CHLORIDE / WTR 10 MEQ/100 ML PLCT IV SCH ×2 (09:51→10:55)
--- NOTE | 2022-10-06 17:37 | Hospitalist Progress Note ---
Date of Service October 06, 2022 Assessment & Plan (1) Cellulitis of right lower leg: Plan: Has significant comorbid conditions including chronic systolic and diastolic heart failure, respiratory failure with COPD and other significant medical condition as mentioned in H&P was admitted with increasing leg pain and noted to have cellulitis of the right lower leg Has been under hospice care at home Has been started on intravenous Zosyn and doxycycline Clinically cellulitis is better but the patient has not been showing any signs of improvement We will continue with intravenous antibiotic No increase in white count and no fever and or chills Cellulitis has improved a lot-White count is normalized Appreciate wound care input and recommendation Noted to have black tarry stool Hemoglobin minimally down Multiple etiology-likely secondary to CKD, doubt any profuse bleeding GI has been consulted-no procedure IV PPI and monitor hemoglobin Hemoglobin dropped to 7.6 today-we will check again tomorrow Blood transfusion as per family Has had a detailed discussion with the family members about the care The elder son and other family members are now not happy to see the patient to be obtunded and not communicating They would like to continue with aggressive management for now His recent deterioration in the labs were explained in detail to the family members specially the elder son At 1 point the patient was about to be for comfort care only but that was reversed Will be moved to telemetry unit to give intravenous beta-natanael His overall prognosis remains poor Clinically a little better today and seems to be back at his baseline and is minimally communicative The patient wants to go home today-[place] involved Will have hospice care at home as before likely discharge tomorrow if remains stable (2) Ischemic cardiomyopathy: Plan: As above with EF of 20 to 25% and grade 3 diastolic dysfunction Has end-stage CAD-under hospice care at home Repeat chest x-ray did not show ongoing congestion-oral diuretics and metolazone have been on hold We will give a small dose of intravenous fluid of 500 normal saline today to improve kidney function Has been on high-dose beta-natanael of metoprolol 100 mg twice daily Already is having tachycardia Will need intravenous beta-natanael and the patient will be transferred to telemetry unit to provide that Discussed with the family members and they are agreeable to this The family members wanted to have diuretics-they are accepting the worsening of kidney function with the diuretics then there are further to have shortness of breath from fluid overload Torsemide 40 mg p.o. started Has been getting cardiac medicine including high-dose beta-natanael and isosorbide Rate is controlled and oral beta-natanael has been reinstituted (3) Biventricular automatic implantable cardioverter defibrillator in situ: Plan: No acute issues now (4) Acute and chronic respiratory failure with hypoxia: Plan: No acute respiratory distress The patient remains semiresponsive Saturating normally on 2 L (5) COPD (chronic obstructive pulmonary disease): Plan: No acute exacerbation Has been on 20 mg prednisone (6) PMR (polymyalgia rheumatica): Plan: Has been on 20 mg prednisone daily (7) Acute on chronic heart failure with reduced ejection fraction and diastolic dysfunction: Plan: Torsemide has been restarted as previous dose Metolazone is on hold due to very high BUN and creatinine Family members to decide if they want metolazone or not (8) CKD (chronic kidney disease) stage 3, GFR 30-59 ml/min: Plan: History of CKD and seems to be very dehydrated with increasing BUN of more than 200 and creatinine up as well Not being drinking or eating anything Will try small amount of intravenous fluid after discussion with the Kidney function is worse even without any torsemide and/or metolazone Discussed with the son and the in detail We will give a small dose of intravenous fluid and hold off any metolazone and/or torsemide Creatinine has been going up and is more than 3 today and the BUN remains around 200 He has been weak and lethargic with occasional jerking involving the extremities likely secondary to high BUN The family member specially the son wanted to have diuretics to be continued Kidney function remains stable Significant other comorbid conditions as mentioned in H&P The patient has been under hospice care at home The patient signed documents before to be a DNR He was put for full code on admission and after discussion with the and getting the records it were changed to DNR/DNI His condition remains critical and the was told to call the son as soon as possible Prognosis extremely poor Admission and Anticipated Discharge Date Admission Date: October 03, 2022 Subjective 10/03/2022 The patient was seen and examined in medical telemetry unit He has been very weak and minimally responsive to vocal commands and sternal rub Remains very weak and lethargic Occasional jerking movement involving the upper extremities Discussed with the in detail 10/04/2022 Patient was seen and examined in medical telemetry unit in presence of the family members specially the elder son The patient remains unresponsive He received 1 dose of Ativan 0.5 mg at around 1 AM early this morning for anxiety and agitation and restlessness as he was for comfort care only The patient received intravenous antibiotic and other IV medications and did not receive any narcotic pain medication The elder son is not happy about it and wanted to have intravenous medications without any use of Ativan and/or narcotic pain medications The comfort care was taken off from the list and chest x-ray and lab works were ordered Later on the patient was responding to vocal commands by opening eyes He does have drowsiness and occasional jerks of the extremities likely due to increasing BUN of more than 200 10/05/2022 The patient was seen and examined in telemetry unit He has been much better and back to his baseline almost Has been communicating Remains extremely weak and lethargic with moderate shortness of breath at rest 10/06/2022 The patient was seen and examined in telemetry unit in presence of the He wants to go home today Remains moderately shortness of breath and complains of pain in the right foot Denies any chest pain or palpitation, any abdominal pain, nausea and or vomiting Review of Systems Review of Systems: All systems reviewed and are unremarkable except as noted below Respiratory: Moderate shortness of breath at rest Neurologic: Generalized weakness Physical Exam Physical Exam: Lying in bed with minimal respiratory distress. Constitutional: + ill appearing and + thin Eyes: PERRL, conjunctivae normal, anicteric sclerae ENMT: external ear and nose normal, oropharynx normal Neck: trachea midline, no thyromegaly Respiratory: + respiratory distress (Mild distress) Auscultation: + diminished lung sounds and + crackles (Minimal bibasilar crackles) Cardiovascular: Rate/Rhythm: regular rate and regular rhythm; not tachycardic Heart Sounds: normal S1, normal S2 and + murmur Extremities: no edema Gastrointestinal (Abdomen): Inspection/Auscultation: normal bowel sounds; abdomen not distended Percussion/Palpation: + abdomen tender and abdomen soft Musculoskeletal: No acute arthritis involving any joint. Has left leg wound as in picture Neurologic: + confused (Pleasantly confused) Extremely weak and lethargic Lymphatic: no cervical or axillary lymphadenopathy Results & Data Results & Data Vital Signs (Past 12 Hours) Vital Signs Temp Pulse Pulse Resp BP Pulse Ox O2 Del Method 10/06/22 14:04 81 10/06/22 15:28 36.5 C 76 18 120/54 L 100 Oxymask 10/06/22 11:58 36.4 C L 85 18 114/51 L 10/06/22 09:00 Oxymask 10/06/22 06:00 86 10/06/22 07:40 36.4 C L 82 18 116/61 100 Room Air O2 Flow Rate 10/06/22 14:04 10/06/22 15:28 2 10/06/22 11:58 10/06/22 09:00 2 10/06/22 06:00 10/06/22 07:40 Laboratory Results Short CBC 10/06/22 Range/Units 05:36 WBC 9.22 (4.8-10.8) K/ul Hgb 7.6 L (14.0-18.0) g/dl Hct 24.7 L (42.0-52.0) % Plt Count 184 (130-400) K/uL BMP 10/06/22 05:36 Sodium 140 Potassium 3.1 L Chloride 101 Carbon Dioxide 28 BUN 181 H Creatinine 3.23 H Glucose 161 H Calcium 7.9 L Medications Administered Current Inpatient Medications Acetaminophen (Acetaminophen 325 Mg Tab) 650 mg PO Q4H PRN PRN Reason: Mild pain or fever Stop: 11/02/22 05:11 Albuterol (Albuterol Hfa 8 Gm Inhaler) 2 puffs INH QID PRN PRN Reason: shortness of breath or wheezin Stop: 11/02/22 05:11 Amlodipine Besylate (Amlodipine Besylate 5 Mg Tab) 2.5 mg PO DAILY [facility]AMES Stop: 11/02/22 08:59 Last Admin: 10/06/22 09:00 Dose: 2.5 mg Ascorbic Acid (Ascorbic Acid 500 Mg Tab) 250 mg PO DAILY [facility] Stop: 11/02/22 08:59 Last Admin: 10/06/22 09:01 Dose: 250 mg Atorvastatin Calcium (Atorvastatin 40 Mg Tab) 40 mg PO DAILY JAMES Stop: 11/02/22 08:59 Last Admin: 10/06/22 09:00 Dose: 40 mg Atropine Sulfate (Atropine Sulfate 1% Op Soln 5 Ml Btl) 4 drops SL Q1H PRN PRN Reason: Secretions or pulm congestion Stop: 11/02/22 17:31 Calcium/Vitamin D (Calcium 600mg + Vit D 400 Iu Tab) 1 tab PO BID [facility] Stop: 11/02/22 20:59 Last Admin: 10/06/22 08:59 Dose: 1 tab Cyanocobalamin (Cyanocobalamin (B-12) 500 Mcg Tablet) 1,000 mcg PO DAILY [facility] Stop: 11/02/22 08:59 Last Admin: 10/06/22 08:59 Dose: 1,000 mcg Fentanyl (Fentanyl 25 Mcg/Hr Tdsy) 25 mcg TD Q72H [facility] Stop: 10/18/22 23:44 Last Admin: 10/05/22 00:38 Dose: 25 mcg Ferrous Sulfate (Ferrous Sulfate 325 Mg Tab) 325 mg PO DAILY [facility] Stop: 11/02/22 08:59 Last Admin: 10/06/22 08:59 Dose: 325 mg Doxycycline Hyclate 100 mg/ (Dextrose) 110 mls @ 50 mls/hr IV Q12H [facility] Stop: 10/10/22 05:59 Last Infusion: 10/06/22 07:38 Dose: Infused Pantoprazole Sodium 40 mg/ (Dextrose) 100 mls @ 20 mls/hr IV Q5H [facility] Stop: 11/04/22 05:59 Last Admin: 10/06/22 17:10 Dose: 8 mg/hr, 20 mls/hr Piperacillin Sod/Tazobactam (Sod 4.5 gm/ Dextrose) 120 mls @ 30 mls/hr IV Q12H [facility]; Protocol Stop: 10/10/22 11:59 Last Infusion: 10/06/22 17:10 Dose: Infused Isosorbide Mononitrate (Isosorbide [place] Extended Rel 60 Mg Tabcr) 60 mg PO DAILY [facility] Stop: 11/02/22 08:59 Last Admin: 10/06/22 09:00 Dose: 60 mg Metoprolol Succinate (Metoprolol Succ 50mg Ext Rel Tab) 100 mg PO DAILY [facility] Stop: 11/02/22 08:59 Last Admin: 10/06/22 09:00 Dose: 100 mg Metoprolol Tartrate (Metoprolol Tartrate 1 Mg/Ml Vial) 2.5 mg IV Q6 PRN PRN Reason: Blood Pressure - High Stop: 11/03/22 17:59 Miscellaneous (Check Fentanyl Patch Placement) 1 each N/A QS [facility] Stop: 11/04/22 07:59 Last Admin: 10/06/22 17:10 Dose: 1 each Miscellaneous (Fentanyl Patch Remove & Waste) 1 each N/A Q72H [facility] Stop: 11/06/22 23:44 Nitroglycerin (Nitroglycerin Sl 0.4 Mg/Tab Tab) 0.4 mg SL UD PRN PRN Reason: Chest Pain Stop: 11/02/22 05:11 Ondansetron HCl (Ondansetron 4 Mg Od Tab) 4 mg SL Q4H PRN PRN Reason: Nausea &/or Vomiting Stop: 11/02/22 17:31 Ondansetron HCl (Ondansetron Inj 2 Mg/Ml 2 Ml Vial) 4 mg IV Q4H PRN PRN Reason: Nausea &/or Vomiting Stop: 11/02/22 17:31 Oxycodone HCl (Oxycodone Hcl Ir 5 Mg Tab (Immediate Release)) 5 mg PO Q6H PRN PRN Reason: Severe Pain Stop: 10/17/22 05:11 Oxycodone HCl (Oxycodone Hcl Soln 5 Mg/5 Ml Udc) 2.5 mg PO Q4H PRN PRN Reason: Moderate Pain Stop: 10/18/22 16:49 Polyethylene Glycol (Polyethylene (Miralax) 17 Gm Pack) 17 gm PO DAILY PRN PRN Reason: Constipation Stop: 11/02/22 05:11 Potassium Chloride (Potassium Chloride 20 Meq/15 Ml Udc) 20 meq PO QAM [facility] Stop: 11/04/22 11:29 Last Admin: 10/06/22 09:02 Dose: 20 meq Pramipexole Dihydrochloride (Pramipexole Dihydrochlo 0.25 Mg Tab) 0.25 mg PO HS [facility] Stop: 11/02/22 20:59 Last Admin: 10/05/22 20:44 Dose: 0.25 mg Prednisone (Prednisone 20 Mg Tab) 20 mg PO DAILY [facility] Stop: 11/02/22 08:59 Last Admin: 10/06/22 09:00 Dose: 20 mg Tamsulosin HCl (Tamsulosin Hcl 0.4 Mg Cap) 0.8 mg PO QPM [facility] Stop: 11/02/22 20:59 Last Admin: 10/05/22 20:44 Dose: 0.8 mg Torsemide (Torsemide 10 Mg Tab) 40 mg PO QAM [facility] Stop: 11/04/22 10:14 Last Admin: 10/06/22 08:59 Dose: 40 mg Vitamin D (Cholecalciferol 1,000 Units 25 Mcg Tab) 2,000 units PO DAILY [facility] Stop: 11/02/22 08:59 Last Admin: 10/06/22 09:00 Dose: 2,000 units
[2022-10-06] MEDS: TAMSULOSIN HCL 0.4 MG CAP PO SCH (20:04)
[2022-10-06] MEDS: PRAMIPEXOLE DIHYDROCHLO 0.25 MG TAB PO SCH (20:04)
[2022-10-07] MEDS: PANTOprazole 40 MG in DEXTROSE 5% 100 ML IV SCH ×2 (02:56→08:37)
[2022-10-07] MEDS: DOXYCYCLINE HYCLATE 100 MG in DEXTROSE 5% 100 ML IV SCH (05:33)
[2022-10-07 06:42] LABS: Immature Granulocytes # (auto) 0.03 K/uL (0.01-0.20); Immature Granulocytes % (auto) 0.4 %; Lymphocytes # (auto) 0.54 K/uL (1.2-3.4); Lymphocytes % (auto) 6.6 %; Mean Corpuscular Hemoglobin 29.3 pg (25.0-34.0); Mean Corpuscular Hgb Conc 31.8 g/dL (32.0-36.0); Mean Corpuscular Volume 92.1 fL (80.0-100.0); Mean Platelet Volume 10.3 fL (9.4-12.4); Monocytes # (auto) 0.41 K/uL (0.11-0.59); Neutrophils # (auto) 7.26 K/uL (1.40-6.50); Platelet Count 169 K/uL (130-400); RDW Coefficient of Variation 14.7 % (11.5-14.5); RDW Standard Deviation 49.8 fL (36.4-46.3); Red Blood Count 2.39 M/uL (4.70-6.10); White Blood Count 8.24 K/ul (4.8-10.8)
[2022-10-07 07:01] LABS: Calcium 7.8 mg/dl (8.6-10.3); Creatinine Clr Calc Pharmacy 16.3 ml/min; Est GFR (African American) 20.4 ml/min; Est GFR (Non-African American) 17.6 ml/min; Magnesium 2.3 mg/dl (1.7-2.4); Potassium 3.4 mmol/L (3.5-5.1)
[2022-10-07 07:21] LABS: BUN Creatinine Ratio 50.3 (10-20)
[2022-10-07 07:39] LABS: Acanthocytes 2+; Basophilic Stippling 1+; Echinocytes 1+; Polychromasia 1+
[2022-10-07] MEDS: predniSONE 20 MG TAB PO SCH (08:38)
[2022-10-07] MEDS: amLODIPine BESYLATE 5 MG TAB PO SCH (08:38)
[2022-10-07] MEDS: CALCIUM 600MG + VIT D 400 IU TAB PO SCH (08:38)
[2022-10-07] MEDS: CYANOCOBALAMIN (B-12) 500 MCG TABLET PO SCH (08:38)
[2022-10-07] MEDS: ASCORBIC ACID 500 MG TAB PO SCH (08:39)
[2022-10-07] MEDS: TORSEMIDE 10 MG TAB PO SCH (08:40)
[2022-10-07] MEDS: METOPROLOL SUCC 50MG EXT REL TAB PO SCH (08:40)
[2022-10-07] MEDS: ATORVASTATIN 40 MG TAB PO SCH (08:40)
[2022-10-07] MEDS: FERROUS SULFATE 325 MG TAB PO SCH (08:40)
[2022-10-07] MEDS: ISOSORBIDE MONO EXTENDED REL 60 MG TABCR PO SCH (08:40)
[2022-10-07] MEDS: POTASSIUM CHLORIDE 20 MEQ/15 ML UDC PO SCH (08:40)
[2022-10-07] MEDS: CHOLECALCIFEROL 1,000 UNITS 25 MCG TAB PO SCH (08:40)
[2022-10-07] MEDS: CHECK fentaNYL PATCH PLACEMENT SCH (08:41)
[2022-10-07] MEDS: PIPERACILLIN/TAZOBACTAM 4.5 GM CI (over 4 hours) IV SCH (13:08)
--- NOTE | 2022-10-07 14:31 | Hospitalist Progress Note ---
Date of Service October 07, 2022 Assessment & Plan (1) Cellulitis of right lower leg: Plan: Has significant comorbid conditions including chronic systolic and diastolic heart failure, respiratory failure with COPD and other significant medical condition as mentioned in H&P was admitted with increasing leg pain and noted to have cellulitis of the right lower leg Has been under hospice care at home Has been started on intravenous Zosyn and doxycycline Cellulitis improved Advised to continue p.o. antibiotics upon discharge Continue wound care Noted to have black tarry stool Hemoglobin minimally down Multiple etiology-likely secondary to CKD, doubt any profuse bleeding GI has been consulted-no procedure IV PPI and monitor hemoglobin Hemoglobin dropped to 7.0 Patient refused blood transfusion Prefers to be transition to hospice upon discharge As per prior hospitalist Has had a detailed discussion with the family members about the care The elder son and other family members are now not happy to see the patient to be obtunded and not communicating They would like to continue with aggressive management for now His recent deterioration in the labs were explained in detail to the family members specially the elder son At 1 point the patient was about to be for comfort care only but that was reversed Will be moved to telemetry unit to give intravenous beta-natanael His overall prognosis remains poor Plan to be discharged home with hospice as per patient's request (2) Ischemic cardiomyopathy: Plan: As above with EF of 20 to 25% and grade 3 diastolic dysfunction Has end-stage CAD-under hospice care at home Repeat chest x-ray did not show ongoing congestion-oral diuretics and metolazone have been on hold We will give a small dose of intravenous fluid of 500 normal saline today to improve kidney function Has been on high-dose beta-natanael of metoprolol 100 mg twice daily Already is having tachycardia Will need intravenous beta-natanael and the patient will be transferred to telemetry unit to provide that Discussed with the family members and they are agreeable to this The family members wanted to have diuretics-they are accepting the worsening of kidney function with the diuretics then there are further to have shortness of breath from fluid overload Torsemide 40 mg p.o. started Has been getting cardiac medicine including high-dose beta-natanael and isosorbide Rate is controlled and oral beta-natanael has been reinstituted Continue home diuretics (3) Biventricular automatic implantable cardioverter defibrillator in situ: Plan: No acute issues now (4) Acute and chronic respiratory failure with hypoxia: Plan: No acute respiratory distress The patient remains semiresponsive Saturating normally on 2 L (5) COPD (chronic obstructive pulmonary disease): Plan: No acute exacerbation Has been on 20 mg prednisone (6) PMR (polymyalgia rheumatica): Plan: Has been on 20 mg prednisone daily (7) Acute on chronic heart failure with reduced ejection fraction and diastolic dysfunction: Plan: Torsemide has been restarted as previous dose Metolazone is on hold due to very high BUN and creatinine Family members to decide if they want metolazone or not (8) CKD (chronic kidney disease) stage 3, GFR 30-59 ml/min: Plan: As per prior hospitalist History of CKD and seems to be very dehydrated with increasing BUN of more than 200 and creatinine up as well Not being drinking or eating anything Will try small amount of intravenous fluid after discussion with the Kidney function is worse even without any torsemide and/or metolazone Discussed with the son and the in detail We will give a small dose of intravenous fluid and hold off any metolazone and/or torsemide Creatinine has been going up and is more than 3 today and the BUN remains around 200 He has been weak and lethargic with occasional jerking involving the extremities likely secondary to high BUN The family member specially the son wanted to have diuretics to be continued Kidney function remains stable Significant other comorbid conditions as mentioned in H&P The patient has been under hospice care at home The patient signed documents before to be a DNR He was put for full code on admission and after discussion with the and getting the records it were changed to DNR/DNI His condition remains critical and the was told to call the son as soon as possible Prognosis extremely poor Admission and Anticipated Discharge Date Admission Date: October 03, 2022 Subjective Patient is seen and examined at bedside States having chronic bilateral ankle pain Denies any bleeding issues Refused blood transfusion Discussed with patient's family at bedside Prefers to be discharged home with hospice services today No other complaints Review of Systems Review of Systems: All systems reviewed & are unremarkable except as noted in Subjective Physical Exam Physical Exam: Physical Exam: Vitals signs as noted above General Appearance: Ill-appearing, no apparent distress Head: normocephalic, Atraumatic Eyes: normal inspection, EOMI Neck: supple, Trachea midline Respiratory/Chest: Decreased breath sounds, bilateral crackles, No accessory muscle use Cardiovascular: S1, S2,+ murmur Abdomen/GI:Soft, Non tender, Bowel sounds present Extremities/Musculoskeletal:normal inspection, no edema, leg only in dressing Neurologic/Psych:AAOX3, grossly no focal neurological deficits Skin: normal color, warm Results & Data Results & Data Vital Signs (Past 12 Hours) Vital Signs Temp Pulse Pulse Pulse Resp BP Pulse Ox 10/07/22 11:51 36.5 C 69 18 108/60 98 10/07/22 06:34 84 10/07/22 08:30 10/07/22 08:06 91 H 91 H 19 101/67 100 10/07/22 02:52 36.5 C 80 18 126/66 100 O2 Del Method O2 Flow Rate 10/07/22 11:51 Oxymask 2 10/07/22 06:34 10/07/22 08:30 Oxymask 2 10/07/22 08:06 Oxymask 2 10/07/22 02:52 Oxymask
--- NOTE | 2022-10-07 20:14 | Discharge Summary ---
Date of Service October 07, 2022 Admission HPI Per Admitting Provider CHIEF COMPLAINT: Right lower extremity pain. 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 The patient was restless in the ER and was given Ativan. Currently sleeping. Able to talk to the . says the patient fell a couple of days ago and had some injury to his right leg. Today after waking up from sleep he complained of severe pain in right lower extremity. She gave his pain medications but it did not resolve the pain. Was still complaining of a lot of pain. He also complains of pain in the shoulder blade, she gave some nitro. She told him that she can give Ativan, but the patient wanted to come to the hospital. Hospice was revoked. As per outpatient records, the patient and family is not happy with current hospice, were planning for a different hospice care. says he is a DNR, but as per the ER notes, he wanted to be full code. Currently, the patient is very drowsy, could not get any history from the patient, so we will keep him full code for now. As per the , his appetite is down today, but otherwise he eats okay, swallows okay. No fevers, no nausea. He was constipated, but today he had diarrhea and stool was dark, but not black. Currently afebrile and hemodynamically stable. Admission Exam Per Admitting Provider PHYSICAL EXAMINATION: GENERAL: The patient is drowsy. HEENT: Pupils are pinpoint and slightly reactive to light. No facial droop seen. NECK: No JVD. CARDIOVASCULAR: S1 and S2 heard. Regular rate and rhythm. No murmur, no gallop. RESPIRATORY SYSTEM: Normal AP diameter. No accessory muscle use. No wheezing, no crackles. ABDOMEN: Soft, bowel sounds present, no distention. CENTRAL NERVOUS SYSTEM: Very drowsy, not obeying any commands. EXTREMITIES: Bilateral lower extremity swelling and erythema seen. Open ulcer seen in the left lópez. Chronic skin changes in the upper extremities. Principal Diagnosis Right leg cellulitis Melena TERESA on CKD Chronic systolic and diastolic heart failure Acute on chronic respiratory failure with hypoxia Discharge Data Allergies Allergy/AdvReac Type Severity Reaction Status Date / Time hydromorphone Allergy Intermediate HIVES Verified 10/03/22 02:18 meperidine Allergy Intermediate HIVES Verified 10/03/22 02:18 morphine Allergy Intermediate HIVES Verified 10/03/22 02:18 lisinopril AdvReac Intermediate COUGH Verified 10/03/22 02:18 Consultations 10/03/22 01:40 ED Decision to Admit Stat 10/05/22 05:32 Consult Gastroenterology Routine Procedures Performed Laboratory Results WBC 8.24 K/ul (4.8-10.8) 10/07/22 05:39 RBC 2.39 M/uL (4.70-6.10) L 10/07/22 05:39 Hgb 7.0 g/dl (14.0-18.0) L 10/07/22 05:39 Hct 22.0 % (42.0-52.0) L 10/07/22 05:39 MCV 92.1 fL (80.0-100.0) 10/07/22 05:39 MCH 29.3 pg (25.0-34.0) 10/07/22 05:39 MCHC 31.8 g/dL (32.0-36.0) L 10/07/22 05:39 RDW Std Deviation 49.8 fL (36.4-46.3) H 10/07/22 05:39 RDW Coeff of Archie 14.7 % (11.5-14.5) H 10/07/22 05:39 Plt Count 169 K/uL (130-400) 10/07/22 05:39 MPV 10.3 fL (9.4-12.4) 10/07/22 05:39 Immature Gran % (Auto) 0.4 % 10/07/22 05:39 Neut % (Auto) 88.0 % 10/07/22 05:39 Lymph % (Auto) 6.6 % 10/07/22 05:39 Victoria % (Auto) 5.0 % 10/07/22 05:39 Eos % (Auto) 0.0 % 10/07/22 05:39 Baso % (Auto) 0.0 % 10/07/22 05:39 Neut # (Auto) 7.26 K/uL (1.40-6.50) H 10/07/22 05:39 Lymph # (Auto) 0.54 K/uL (1.2-3.4) L 10/07/22 05:39 Victoria # (Auto) 0.41 K/uL (0.11-0.59) 10/07/22 05:39 Eos # (Auto) 0.00 K/uL (0-0.50) 10/07/22 05:39 Baso # (Auto) 0.00 K/uL (0-0.2) 10/07/22 05:39 Immature Gran # (Auto) 0.03 K/uL (0.01-0.20) 10/07/22 05:39 Polychromasia 1+ 10/07/22 05:39 Basophilic Stippling 1+ 10/07/22 05:39 Ovalocytes 1+ 10/06/22 05:36 Echinocytes 1+ 10/07/22 05:39 Acanthocytes (Spur) 2+ 10/07/22 05:39 Sodium 136 mmol/L (136-145) 10/07/22 05:39 Potassium 3.4 mmol/L (3.5-5.1) L 10/07/22 05:39 Chloride 99 mmol/L (98-107) 10/07/22 05:39 Carbon Dioxide 27 mmol/L (21-32) 10/07/22 05:39 Anion Gap 10 (3-11) 10/07/22 05:39 BUN 164 mg/dl (6-23) H 10/07/22 05:39 Creatinine 3.26 mg/dl (0.6-1.4) H 10/07/22 05:39 Est Cr Clr Drug Dosing 16.3 ml/min 10/07/22 05:39 Est GFR ( Amer) 20.4 ml/min 10/07/22 05:39 Est GFR (Non-Af Amer) 17.6 ml/min 10/07/22 05:39 BUN/Creatinine Ratio 50.3 (10-20) H 10/07/22 05:39 Glucose 196 mg/dl (70-99(Fasting)) H 10/07/22 05:39 Lactate 1.8 mmol/L (0.4-2.0) 10/02/22 22:40 Calcium 7.8 mg/dl (8.6-10.3) L 10/07/22 05:39 Magnesium 2.3 mg/dl (1.7-2.4) 10/07/22 05:39 Total Bilirubin 0.7 mg/dl (0.2-1.0) 10/04/22 12:45 Direct Bilirubin 0.2 mg/dl (0-0.2) 10/02/22 22:40 AST 25 U/L (13-39) 10/04/22 12:45 ALT 26 U/L (7-52) 10/04/22 12:45 Alkaline Phosphatase 73 U/L (34-104) 10/04/22 12:45 Total Creatine Kinase 70 U/L (30-223) 10/02/22 22:40 Troponin I High Sens 216.0 pg/ml (0-20) H* D 10/03/22 17:09 B-Natriuretic Peptide 3988 pg/ml (0-100) H 10/02/22 22:40 Total Protein 5.0 gm/dl (6.0-8.3) L 10/04/22 12:45 Albumin 2.5 gm/dl (3.4-5.0) L 10/04/22 12:45 Globulin 2.5 gm/dl (2.5-4.0) 10/04/22 12:45 Albumin/Globulin Ratio 1.0 (0.9-2) 10/04/22 12:45 25-OH Vitamin D Total 47.8 ng/ml (30-100) 10/03/22 11:05 Procalcitonin 0.12 ng/ml (0-0.5) 10/02/22 22:40 Urine Color Yellow 10/02/22 23:23 Urine Appearance Clear (Clear) 10/02/22 23:23 Urine pH 5.0 (4.5-7.5) 10/02/22 23:23 Ur Specific [place] 1.014 (1.000-1.030) 10/02/22 23:23 Urine Protein Negative (Negative) 10/02/22 23:23 Urine Glucose (UA) Negative (Negative) 10/02/22 23:23 Urine Ketones Negative (Negative) 10/02/22 23:23 Urine Blood Negative (Negative) 10/02/22 23:23 Urine Nitrite Negative (Negative) 10/02/22 23:23 Urine Bilirubin Negative (Negative) 10/02/22 23:23 Urine Urobilinogen Negative (Negative) 10/02/22 23:23 Ur Leukocyte Esterase Negative (Negative) 10/02/22 23:23 Stool Occult Bld Scrn Positive (Negative) A 10/05/22 Unknown SARS-CoV-2, RNA, NAAT NEGATIVE (NEGATIVE) 10/02/22 22:56 Impressions Tibia/Fibula X-Ray 10/02/22 22:21 RIGHT TIBIA AND FIBULA 2 VIEWS CLINICAL HISTORY: Right leg pain. FINDINGS: AP and crosstable lateral views of the right tibia and fibula are obtained. No prior studies are available for comparison at the time of dictation. The skeletal structures are osteopenic. There is no radiographic evidence of right tibial or fibular fracture. The knee and ankle joints are grossly maintained. There is generalized atrophy of the lower extremity soft tissues. Atherosclerotic calcification is noted in the regional arteries. Mild soft tissue swelling is suggested around the ankle. IMPRESSION: No acute bony abnormality is identified. Electronically signed by: Dane Lund M.D. 10/02/2022 11:12 PM Venous Doppler Study 10/03/22 00:00 Exam(s): US VENOUS BILATERAL LOWER EXTREMITIES EXAM: US Duplex Bilateral Lower Extremities Veins CLINICAL HISTORY: Reason for exam: pain/swelling. TECHNIQUE: Real-time duplex ultrasound scan of the bilateral lower extremity veins integrating B-mode two-dimensional vascular structure, Doppler spectral analysis, color flow Doppler imaging and compression. COMPARISON: No relevant prior studies available. FINDINGS: Right deep veins: Unremarkable. No DVT in the right common femoral, femoral, proximal deep femoral or popliteal veins. The veins demonstrate normal color flow, are normally compressible, with normal phasic flow and/or augmentation response. Right superficial veins: Unremarkable. No thrombus in the visualized right great saphenous vein. Left deep veins: Unremarkable. No DVT in the left common femoral, femoral, proximal deep femoral or popliteal veins. The veins demonstrate normal color flow, are normally compressible, with normal phasic flow and/or augmentation response. Left superficial veins: Unremarkable. No thrombus in the visualized left great saphenous vein. Soft tissues: No acute findings. No popliteal cyst. IMPRESSION: Normal bilateral lower extremity duplex venous ultrasound. Electronically signed by: Erlin Segura MD 10/03/22 01:48 AM Duplex Scan Lower Extremity Artery 10/03/22 03:13 ULTRASOUND BILATERAL LOWER EXTREMITY ARTERIAL CLINICAL HISTORY: Leg pain. COMPARISON STUDY: No priors. TECHNIQUE: Real-time grayscale and color Doppler sonography of the arteries of the right and left lower extremity is performed from the inguinal crease to the foot. FINDINGS: Right lower extremity: Atherosclerotic plaque and irregularity is seen throughout the arteries of the right lower extremity. There are triphasic arterial waveforms in the common femoral artery with velocities measuring up to 80 cm/s. The profunda femoris artery is patent with velocities measuring up to 109 cm/s. There are triphasic waveforms seen throughout the superficial femoral artery with velocities measuring up to 158 cm/s. There are triphasic waveforms in the popliteal artery with velocities measuring up to 64 cm/s. There is three- vessel runoff to the right foot with biphasic waveforms in the calf. Velocities in the calf arteries measure up to 126 cm second. The dorsalis pedis artery is patent with velocities measuring 84 cm/s. Left lower extremity: Atherosclerotic plaque and irregularity is seen throughout the arteries of the left lower extremity. There are triphasic arterial waveforms in the common femoral artery with velocities measuring up to 141 cm/s. The profunda femoris artery is patent with velocities measuring up to 38 cm/s. There are triphasic to biphasic arterial waveforms throughout the superficial femoral artery with velocities measuring up to 90 cm/s. There are triphasic arterial waveforms in the popliteal artery with velocities measuring up to 68 cm/s. There is three-vessel runoff to the foot with biphasic waveforms in the calf. Velocities of the calf arteries measure up to 107 cm/s. The dorsalis pedis artery is patent with velocities measuring 73 cm/s. IMPRESSION: There is no sonographic evidence of high-grade stenosis or focal vessel cut off seen throughout the arteries of the right or left lower extremity. Electronically signed by: Dane Lund M.D. 10/03/2022 6:39 AM Chest X-Ray 10/04/22 12:21 SINGLE VIEW CHEST CLINICAL HISTORY: Congestive heart failure. FINDINGS: An AP, portable, upright chest radiograph is compared to study dated 10/02/2022. The patient is status post midline sternotomy. A 3-lead cardiac AICD is unchanged in position and partially obscures the right upper chest. The heart is enlarged noting atherosclerotic calcification of the thoracic. There is pulmonary vascular congestion. There are increasing bilateral airspace opacities which likely represent pulmonary edema. Small pleural effusions are suspected. No pneumothorax is seen. The skeletal structures are osteopenic. The bony thorax is grossly intact. IMPRESSION: 1. Cardiomegaly and AICD with evidence of congestive failure. 2. There are increasing bilateral airspace opacities which likely represent pulmonary edema. Radiographic follow-up to resolution is recommended. 3. Suspect small pleural effusions. ACT 112: Negative or not required by law. Electronically signed by: Dane Lund M.D. 10/04/2022 12:41 PM Ordered Studies 10/03/22 US venous doppler LE BI Stat 10/03/22 03:13 US doppler leg [US arterial duplex LE BI] Stat Hospital Course (1) Cellulitis of right lower leg: Has significant comorbid conditions including chronic systolic and diastolic heart failure, respiratory failure with COPD and other significant medical condition as mentioned in H&P was admitted with increasing leg pain and noted to have cellulitis of the right lower leg Has been under hospice care at home Has been started on intravenous Zosyn and doxycycline Cellulitis improved Advised to continue p.o. antibiotics upon discharge Continue wound care Noted to have black tarry stool Hemoglobin minimally down Multiple etiology-likely secondary to CKD, doubt any profuse bleeding GI has been consulted-no procedure IV PPI and monitor hemoglobin Hemoglobin dropped to 7.0 Patient refused blood transfusion Prefers to be transition to hospice upon discharge As per prior hospitalist Has had a detailed discussion with the family members about the care The elder son and other family members are now not happy to see the patient to be obtunded and not communicating They would like to continue with aggressive management for now His recent deterioration in the labs were explained in detail to the family members specially the elder son At 1 point the patient was about to be for comfort care only but that was reversed Will be moved to telemetry unit to give intravenous beta-natanael His overall prognosis remains poor Plan to be discharged home with hospice as per patient's request (2) Ischemic cardiomyopathy: As above with EF of 20 to 25% and grade 3 diastolic dysfunction Has end-stage CAD-under hospice care at home Repeat chest x-ray did not show ongoing congestion-oral diuretics and metolazone have been on hold We will give a small dose of intravenous fluid of 500 normal saline today to improve kidney function Has been on high-dose beta-natanael of metoprolol 100 mg twice daily Already is having tachycardia Will need intravenous beta-natanael and the patient will be transferred to telemetry unit to provide that Discussed with the family members and they are agreeable to this The family members wanted to have diuretics-they are accepting the worsening of kidney function with the diuretics then there are further to have shortness of breath from fluid overload Torsemide 40 mg p.o. started Has been getting cardiac medicine including high-dose beta-natanael and isosorbide Rate is controlled and oral beta-natanael has been reinstituted Continue home diuretics (3) Biventricular automatic implantable cardioverter defibrillator in situ: No acute issues now (4) Acute and chronic respiratory failure with hypoxia: No acute respiratory distress The patient remains semiresponsive Saturating normally on 2 L (5) COPD (chronic obstructive pulmonary disease): No acute exacerbation Has been on 20 mg prednisone (6) PMR (polymyalgia rheumatica): Has been on 20 mg prednisone daily (7) Acute on chronic heart failure with reduced ejection fraction and diastolic dysfunction: Torsemide has been restarted as previous dose Metolazone is on hold due to very high BUN and creatinine Family members to decide if they want metolazone or not (8) CKD (chronic kidney disease) stage 3, GFR 30-59 ml/min: As per prior hospitalist History of CKD and seems to be very dehydrated with increasing BUN of more than 200 and creatinine up as well Not being drinking or eating anything Will try small amount of intravenous fluid after discussion with the Kidney function is worse even without any torsemide and/or metolazone Discussed with the son and the in detail We will give a small dose of intravenous fluid and hold off any metolazone and/or torsemide Creatinine has been going up and is more than 3 today and the BUN remains around 200 He has been weak and lethargic with occasional jerking involving the extremities likely secondary to high BUN The family member specially the son wanted to have diuretics to be continued Kidney function remains stable Significant other comorbid conditions as mentioned in H&P The patient has been under hospice care at home The patient signed documents before to be a DNR He was put for full code on admission and after discussion with the and getting the records it were changed to DNR/DNI His condition remains critical and the was told to call the son as soon as possible Prognosis extremely poor Total Time Total Time Spent Total Time Spent (In Minutes): 58 minutes Discharge Plan Discharge Items Patient Disposition: Home - Home Health Services Reason For Visit: LOWER EXTREMITY PAIN Discharge Diagnosis: Right leg cellulitis Melena TERESA on CKD Chronic systolic and diastolic heart failure Acute on chronic respiratory failure with hypoxia Condition on Discharge: Fair Activity: Per Instructions section Exercise/Sports: Wait until after follow-up appointment Non-emergency contact: Primary Care Provider Call non-emergency contact if: you have any medication questions, your symptoms worsen, your pain is concerning for you and you have a fever Follow-up/Referrals: Tino Hanley [Primary Care Provider] - Diet: Heart Healthy Diet Texture: Easy to Chew Addtl Attending Provider Instructions: Follow-up with your primary care physician/hospice physician in 1 week Seek immediate medical attention if your symptoms reoccur or worsen Please take all medications as instructed on discharge list below. Please call if you have any questions or problems. You can reach a [facility] hospitalist on duty at [facility] 24 hours a day by calling [phone] Pending Studies at Discharge: Yes Studies:: Blood Cultures Stand-Alone Forms: My [facility], Smoking Cessation Medications and DC Order Prescriptions: New doxycycline hyclate 100 mg tablet 100 mg PO BID 7 Days Qty: 14 0RF Continued atorvastatin [Lipitor] 40 mg Tablet 40 mg PO DAILY tamsulosin 0.4 mg Capsule 0.8 mg PO QPM pramipexole [Mirapex] 0.25 mg Tablet 0.25 mg PO HS cholecalciferol (vitamin D3) 2,000 unit Tablet 2,000 unit PO DAILY albuterol sulfate 90 mcg/actuation HFA aerosol inhaler 2 inha INH QID PRN (Reason: shortness of breath or wheezing) Qty: 1 0RF nitroglycerin [Nitrostat] 0.4 mg Tablet, Sublingual 0.4 mg sublingual DIRECTED PRN (Reason: Chest Pain) metolazone 2.5 mg tablet 2.5 mg PO WK Rx Instructions: TAKES ON MONDAYS potassium chloride 10 mEq Capsule, Extended Release 20 meq PO DAILY prednisone 10 mg tablet 20 mg PO DAILY metoprolol succinate 100 mg tablet extended release 24 hr 100 mg PO DAILY amlodipine 2.5 mg Tablet 2.5 mg PO DAILY isosorbide mononitrate 60 mg Tablet Extended Release 24 Hr 60 mg PO DAILY cyanocobalamin (vitamin B-12) 1,000 mcg Tablet, Sublingual 1,000 mcg SUBLINGUAL DAILY oxycodone 5 mg tablet 5 mg PO Q6H PRN (Reason: Pain) Vitron-C 65 mg iron- 125 mg Tablet,Delayed Release (Dr/Ec) 1 tab PO DAILY lorazepam [Ativan] 0.5 mg tablet 0.5 mg PO Q12H PRN (Reason: anxiety) Qty: 5 0RF fentanyl 50 mcg/hr Patch 72 Hour 1 patch TRANSDERMAL Q72H torsemide 20 mg tablet 40 mg PO QAM torsemide 20 mg tablet 20 mg PO QPM Discontinued aspirin [[place] Low Dose Aspirin] 81 mg Tablet,Delayed Release (Dr/Ec) 81 mg PO DAILY Discharge Orders: Discharge Order (Routine); Ordered 10/07/22 Ordered By: Gage Morales Admission Data Admit Date/Time: 10/03/22 02:38 Attending Provider: Gage Morales Admit Provider: José Luis Sykes Primary Care Provider: Tino Hanley Other Providers: José Luis Sykes ; Kuldeep De Jesus ; Philip Davidson ; Lula Dalal ; Maine Alegria ; Malissa Andujar ; Palmira Chatterjee ; Addison Hall ; Tino Seymour ; Ashish Jonas ; John Mcallister ; Catracho Morton ; Zita Rubi ; Yari Vann ; No James ; Maryann Kumar ; Moni Enamorado ; Kristopher Barrios ; Garcia Jones ; Nikki Curry ; Coni Hoyos Jr Other Interventions: Discharge Summary Assessment (RN) Last Done: 10/07/22 15:10
[2022-10-07] MEDS ORDERED: POTASSIUM CHLORIDE 20 MEQ/15 ML UDC PO SCH (21:00)
[2022-10-07] MEDS ORDERED: PANTOprazole 40 MG in SYRINGE 0 ML IV SCH (21:00)
== END 2022-10-07 16:04 | disposition hospice, home (50) | DRG 602 ==
LOC: ED 21:49 → 2W 10-03 02:38 → SUATTDRO 10-03 02:38 → 2W 10-03 03:34 → 2S 10-04 16:13